=== PATIENT | female | born 1950 | race Hispanic/Latino ===

== ENCOUNTER 2019-10-09 21:23 | Emergency (ER) | payer MEDICARE ==
[2019-10-09 21:49] VITALS: BP 98/78
[2019-10-09 22:16] LABS: Basophils # (Auto) 0.1 K/mm3 (0.0-0.1); Basophils % (Auto) 1.2 % (0.0-1.8); Eosinophils # (Auto) 0.2 K/mm3 (0.0-0.4); Eosinophils % (Auto) 3.1 % (0.0-4.3); Lymphocytes # (Auto) 1.4 K/mm3 (1.2-5.4); Lymphocytes % (Auto) 24.5 % (13.4-35.0); Mean Corpuscular HGB Conc 33 % (30-34); Mean Corpuscular Volume 97 fl (79-97); Monocytes # (Auto) 0.4 K/mm3 (0.0-0.8); Monocytes % (Auto) 6.9 % (0.0-7.3); Platelet Count 135 K/mm3 (140-440); Red Blood Count 3.09 M/mm3 (3.65-5.03); Red Cell Distribution Width 14.1 % (13.2-15.2)
[2019-10-09 22:35] LABS: BUN/Creatinine Ratio 30; Blood Urea Nitrogen 54 mg/dL (7-17); Calcium 9.2 mg/dL (8.4-10.2); Hemolysis Index 6
--- NOTE | 2019-10-09 22:48 | XRay Report ---
CHEST 1 VIEW INDICATION: Chest Pain. COMPARISON: 10/07/2019 FINDINGS: Support devices: None. Heart: Stable mild cardiomegaly. Lungs/Pleura: No acute air space or interstitial disease. Additional findings: None. IMPRESSION: No acute abnormality. Signer Name: Bronson Hess MD Signed: 10/09/2019 10:43 PM Workstation Name: [id number]
--- NOTE | 2019-10-10 02:28 | Emergency Department Report ---
ED Chest Pain HPI - General Chief Complaint: Chest Pain Stated Complaint: CHEST PAIN PUI?: No Time Seen by Provider: 10/10/19 02:15 Source: patient, EMS Mode of arrival: Wheelchair Limitations: No Limitations - History of Present Illness Initial Comments: Patient is a 68-year-old female that presents emergency room with complaints of chest pain. Patient states the chest pain is in her left chest. Patient states the chest pain is a 10 out of 10. Patient states the chest pain started at 3 PM yesterday. Patient states that the chest pain is a 10 out of 10. Patient states it is better with rest and worse with movement and palpation. Patient denies fever, chills, shortness of breath, nausea, vomiting, diaphoresis. Patient states that her chest pain started soon as she [facility] to the [facility] the street from here. Patient states she has a past medical history of diabetes, hypertension, renal disease. Patient states her baseline creatinine is 1.7. Patient denies recent travel. Patient denies recent international travel. Patient denies exposure to the novel coronavirus. Patient denies sick contacts. Patient denies fever and chills. Patient denies cough. Patient denies diarrhea. Patient denies coming in contact with anybody with symptoms of the novel coronavirus. MD Complaint: chest pain -: Sudden Onset: during rest Pain Location: left chest Pain Radiation: none Severity: severe Severity scale (0 -10): 10 Quality: sharp Consistency: constant Improves With: rest, remaining still Worsens With: palpation, movement re: denies: nausea, vomting, diaphoresis, dyspnea, sense of impending doom Other Symptoms: denies: cough, fever, syncope, rash, acid taste in mouth, leg swelling, palpitations, burping Treatments Prior to Arrival: none Aspirin use within the Past 7 Days: (1) Yes - Related Data Home Medications Medication Instructions Recorded Confirmed Last Taken Amitriptyline 10 mg PO QHS 09/28/19 09/28/19 Unknown Aspirin 81 mg PO DAILY 09/28/19 09/28/19 Unknown Atorvastatin 40 mg PO QHS 09/28/19 09/28/19 Unknown Clopidogrel [Plavix] 75 mg PO DAILY 09/28/19 09/28/19 Unknown Ferrous Sulfate 324 MG 65 mg PO DAILY 09/28/19 09/28/19 Unknown Levemir VIAL 35 units SQ QHS 09/28/19 09/28/19 Unknown Levothyroxine 88 mcg PO QAC 09/28/19 09/28/19 Unknown Melatonin 5MG TAB 5 mg PO QHS 09/28/19 09/28/19 Unknown Myrbetriq 25 mg PO DAILY 09/28/19 09/28/19 Unknown NovoLOG 100 UNITS/ML VIAL 10 units SQ TIDAC 09/28/19 09/28/19 Unknown allopurinoL 100 mg PO DAILY 09/28/19 09/28/19 Unknown carvediloL 25 mg PO BID 09/28/19 09/28/19 Unknown hydrALAZINE [Apresoline TAB] 100 mg PO BID 09/28/19 09/28/19 Unknown Previous Rx's Medication Instructions Recorded Last Taken Type ARIPiprazole 7.5 mg PO QDAY #30 tablet 10/02/19 Unknown Rx Acetaminophen [Acetaminophen TAB] 500 mg PO Q4H PRN tablet 10/02/19 Unknown Rx DULoxetine [Cymbalta] 60 mg PO BID #30 capsule 10/02/19 Unknown Rx Pantoprazole [Protonix TAB] 20 mg PO QDAY tablet. 10/02/19 Unknown Rx QUEtiapine [SEROquel] 50 mg PO QHS #30 tablet 10/02/19 Unknown Rx Topiramate [Topamax] 100 mg PO DAILY #30 tablet 10/02/19 Unknown Rx busPIRone [Buspar] 15 mg PO BID #30 tablet 10/02/19 Unknown Rx Allergies Allergy/AdvReac Type Severity Reaction Status Date / Time adhesive tape AdvReac Unknown Verified 09/28/19 01:37 codeine AdvReac Unknown Verified 09/28/19 01:37 morphine AdvReac Unknown Verified 09/28/19 01:37 ondansetron AdvReac Unknown Verified 09/28/19 01:37 Penicillins AdvReac Unknown Verified 09/28/19 01:37 Sulfa (Sulfonamide AdvReac Unknown Verified 09/28/19 01:37 Antibiotics) Heart Score - HEART Score History: Slightly suspicious EKG: Normal Age: > 65 Risk factors: 1-2 risk factors Troponin: < normal limit HEART Score: 3 ED Review of Systems ROS: Stated complaint: CHEST PAIN Other details as noted in HPI Constitutional: denies: chills, fever Eyes: denies: eye pain, eye discharge, vision change ENT: denies: ear pain, throat pain Respiratory: denies: cough, shortness of breath, wheezing Cardiovascular: chest pain. denies: palpitations Endocrine: no symptoms reported Gastrointestinal: denies: abdominal pain, nausea, diarrhea Genitourinary: denies: urgency, dysuria, discharge Musculoskeletal: denies: back pain, joint swelling, arthralgia Skin: denies: rash, lesions Neurological: denies: headache, weakness, paresthesias Psychiatric: denies: anxiety, depression Hematological/Lymphatic: denies: easy bleeding, easy bruising ED Past Medical Hx - Past Medical History Previous Medical History?: Yes Hx Diabetes: Yes Hx Renal Disease: Yes Hx Arthritis: No Hx Seizures: No Hx Psychiatric Treatment: Yes - Surgical History Hx Cholecystectomy: Yes Hx Appendectomy: Yes - Social History Smoking Status: Never Smoker Substance Use Type: Alcohol - Medications Home Medications: Home Medications Medication Instructions Recorded Confirmed Last Taken Type Amitriptyline 10 mg PO QHS 09/28/19 09/28/19 Unknown History Aspirin 81 mg PO DAILY 09/28/19 09/28/19 Unknown History Atorvastatin 40 mg PO QHS 09/28/19 09/28/19 Unknown History Clopidogrel [Plavix] 75 mg PO DAILY 09/28/19 09/28/19 Unknown History Ferrous Sulfate 324 MG 65 mg PO DAILY 09/28/19 09/28/19 Unknown History Levemir VIAL 35 units SQ QHS 09/28/19 09/28/19 Unknown History Levothyroxine 88 mcg PO QAC 09/28/19 09/28/19 Unknown History Melatonin 5MG TAB 5 mg PO QHS 09/28/19 09/28/19 Unknown History Myrbetriq 25 mg PO DAILY 09/28/19 09/28/19 Unknown History NovoLOG 100 UNITS/ML VIAL 10 units SQ TIDAC 09/28/19 09/28/19 Unknown History allopurinoL 100 mg PO DAILY 09/28/19 09/28/19 Unknown History carvediloL 25 mg PO BID 09/28/19 09/28/19 Unknown History hydrALAZINE [Apresoline TAB] 100 mg PO BID 09/28/19 09/28/19 Unknown History ARIPiprazole 7.5 mg PO QDAY #30 tablet 10/02/19 Unknown Rx Acetaminophen [Acetaminophen TAB] 500 mg PO Q4H PRN tablet 10/02/19 Unknown Rx DULoxetine [Cymbalta] 60 mg PO BID #30 capsule 10/02/19 Unknown Rx Pantoprazole [Protonix TAB] 20 mg PO QDAY tablet. 10/02/19 Unknown Rx QUEtiapine [SEROquel] 50 mg PO QHS #30 tablet 10/02/19 Unknown Rx Topiramate [Topamax] 100 mg PO DAILY #30 tablet 10/02/19 Unknown Rx busPIRone [Buspar] 15 mg PO BID #30 tablet 10/02/19 Unknown Rx ED Physical Exam - General Limitations: No Limitations General appearance: alert, in no apparent distress - Head Head exam: Present: atraumatic, normocephalic - Eye Eye exam: Present: normal appearance, PERRL Pupils: Present: normal accommodation - ENT ENT exam: Present: mucous membranes moist - Neck Neck exam: Present: normal inspection - Respiratory Respiratory exam: Present: normal lung sounds bilaterally, chest wall tenderness (Patient has a left chest reproduces her symptoms.). Absent: respiratory distress, wheezes, rales - Cardiovascular Cardiovascular Exam: Present: regular rate, normal rhythm. Absent: systolic murmur, diastolic murmur, rubs, gallop - GI/Abdominal GI/Abdominal exam: Present: soft, normal bowel sounds. Absent: distended, tenderness, guarding - Extremities Exam Extremities exam: Present: normal inspection - Back Exam Back exam: Present: normal inspection - Neurological Exam Neurological exam: Present: alert, oriented X3 - Psychiatric Psychiatric exam: Present: normal affect, normal mood - Skin Skin exam: Present: warm, dry, intact, normal color. Absent: rash ED Course Vital Signs 10/09/19 21:48 Temperature 98.0 F Pulse Rate 68 Respiratory 16 Rate Blood Pressure 98/78 O2 Sat by Pulse 96 Oximetry - Reevaluation(s) Reevaluation #1: Patient will be given Tylenol for pain. Patient will be discharged from the ER and sent back to [facility]. I discussed all results and clinical findings with patient. I discussed plan of care with patient. Patient agrees with plan of care. Patient is stable for discharge. Patient will be discharged home. Patient given discharge instructions. Patient voiced understanding of discharge instructions. 10/10/19 02:35 ANUJ score - Anuj Score Age > 65: (1) Yes Aspirin use within the Past 7 Days: (1) Yes 3 or more CAD Risk Factors: (0) No 2 or more Angina events in past 24 hrs: (0) No Known CAD with more than 50% Stenosis: (0) No Elevated Cardiac Markers: (0) No ST Deviation Greater than 0.5mm: (0) No ANUJ Score: 2 ED Medical Decision Making - Lab Data Result diagrams: 10/09/19 22:02 10/09/19 22:02 - EKG Data -: EKG Interpreted by Me EKG shows normal: sinus rhythm, axis, intervals, QRS complexes, ST-T waves Rate: normal - Radiology Data Radiology results: report reviewed, image reviewed interpreted by me: Chest x-ray: No acute findings, no pneumothorax, no pneumonia, no rib findings, soft tissue normal, no foreign body,. - Medical Decision Making Patient is a 68-year-old female that presents emergency room for complaints of chest pain. Patient has had 2 sets of cardiac enzymes and both were negative. Patient's EKG is normal and shows a sinus rhythm with no ST changes. Patient chest x-ray is negative. Patient's labs are unremarkable except for elevated creatinine consistent with CKD.. On exam, the patient's chest pain is reproducible palpation. Patient given Tylenol for the pain. Patient is stable for discharge. Patient will be discharged back to her [facility]. - Differential Diagnosis Chest wall tenderness, chest pain, chest sprain Critical care attestation.: If time is entered above; I have spent that time in minutes in the direct care of this critically ill patient, excluding procedure time. ED Disposition Clinical Impression: Chest wall pain Chest pain Qualifiers: Chest pain type: unspecified Qualified Code(s): R07.9 - Chest pain, unspecified Chest wall muscle strain Qualifiers: Encounter type: initial encounter Qualified Code(s): S29.011A - Strain of muscle and tendon of front wall of thorax, initial encounter Chronic kidney disease (CKD) Qualifiers: Chronic kidney disease stage: unspecified stage Qualified Code(s): N18.9 - Chronic kidney disease, unspecified Disposition: DC-01 TO HOME OR SELFCARE Is pt being admited?: No Does the pt Need Aspirin: No Condition: Stable Instructions: Chest Pain (ED), Muscle Strain (ED), Costochondritis (ED) Additional Instructions: Patient to be discharged from the ER and sent back to her psychiatric facility. Patient to follow-up with primary care in 2 to 3 days. Patient to follow-up with log manager in 2 to 3 days. Patient to follow-up with an orthopedist in 2 to 3 days. Patient to rest. Patient to increase water. Patient to avoid strenuous exercise or heavy lifting until cleared by log manager and orthopedist. Patient to take Tylenol as needed for pain. Patient to continue all medications. Patient to return to the ER if condition worsens, changes or new symptoms arise. Referrals: GIANNI FORBES MD [Primary Care Provider] - 2-3 Days SANDY LAWRENCE MD [Staff Physician] - 2-3 Days Time of Disposition: 02:39
[2019-10-10] MEDS ORDERED: ACETAMINOPHEN 500 MG TAB PO ONE (02:40)
== END 2019-10-10 03:40 | disposition home or self-care (01) ==
LOC: ED 21:23
DX: S29.011A Strain of muscle and tendon of front wall of thorax, initial encounter (principal); N18.9 Chronic kidney disease, unspecified; E11.9 Type 2 diabetes mellitus without complications; Z79.899 Other long term (current) drug therapy; Z88.6 Allergy status to analgesic agent; Z88.0 Allergy status to penicillin; Z91.09 Other allergy status, other than to drugs and biological substances; X58.XXXA Exposure to other specified factors, initial encounter; Y93.89 Activity, other specified; Y92.89 Other specified places as the place of occurrence of the external cause; Y99.8 Other external cause status
CPT/HCPCS: 36415; 71045; 80048; 84484; 85025; 93005

== ENCOUNTER 2019-10-13 19:37 | Observation (INO) | payer MEDICARE ==
--- NOTE | 2019-10-13 20:28 | Emergency Department Report ---
ED General Adult HPI - General Stated complaint: WEAKNESS Time Seen by Provider: 10/13/19 20:06 - History of Present Illness Initial comments: 68-year-old female presents to ED via EMS for evaluation. EMS was called because patient was found behind a gas station. EMS reviewed the gas stations surveillance video and it showed that patient was dropped off by someone and left there. Patient has previous admissions here at this facility. She apparently has a history of hypothyroidism, diabetes, hypertension, and depression with psychotic features. Patient has no complaints. -: unknown Associated Symptoms: denies: chest pain, headaches, shortness of breath - Related Data Home Medications Medication Instructions Recorded Confirmed Last Taken Amitriptyline 10 mg PO QHS 09/28/19 09/28/19 Unknown Aspirin 81 mg PO DAILY 09/28/19 09/28/19 Unknown Atorvastatin 40 mg PO QHS 09/28/19 09/28/19 Unknown Clopidogrel [Plavix] 75 mg PO DAILY 09/28/19 09/28/19 Unknown Ferrous Sulfate 324 MG 65 mg PO DAILY 09/28/19 09/28/19 Unknown Levemir VIAL 35 units SQ QHS 09/28/19 09/28/19 Unknown Levothyroxine 88 mcg PO QAC 09/28/19 09/28/19 Unknown Melatonin 5MG TAB 5 mg PO QHS 09/28/19 09/28/19 Unknown Myrbetriq 25 mg PO DAILY 09/28/19 09/28/19 Unknown NovoLOG 100 UNITS/ML VIAL 10 units SQ TIDAC 09/28/19 09/28/19 Unknown allopurinoL 100 mg PO DAILY 09/28/19 09/28/19 Unknown carvediloL 25 mg PO BID 09/28/19 09/28/19 Unknown hydrALAZINE [Apresoline TAB] 100 mg PO BID 09/28/19 09/28/19 Unknown Previous Rx's Medication Instructions Recorded Last Taken Type ARIPiprazole 7.5 mg PO QDAY #30 tablet 10/02/19 Unknown Rx Acetaminophen [Acetaminophen TAB] 500 mg PO Q4H PRN tablet 10/02/19 Unknown Rx DULoxetine [Cymbalta] 60 mg PO BID #30 capsule 10/02/19 Unknown Rx Pantoprazole [Protonix TAB] 20 mg PO QDAY tablet 10/02/19 Unknown Rx QUEtiapine [SEROquel] 50 mg PO QHS #30 tablet 10/02/19 Unknown Rx Topiramate [Topamax] 100 mg PO DAILY #30 tablet 10/02/19 Unknown Rx busPIRone [Buspar] 15 mg PO BID #30 tablet 10/02/19 Unknown Rx Allergies Allergy/AdvReac Type Severity Reaction Status Date / Time adhesive tape AdvReac Unknown Verified 09/28/19 01:37 codeine AdvReac Unknown Verified 09/28/19 01:37 morphine AdvReac Unknown Verified 09/28/19 01:37 ondansetron AdvReac Unknown Verified 09/28/19 01:37 Penicillins AdvReac Unknown Verified 09/28/19 01:37 Sulfa (Sulfonamide AdvReac Unknown Verified 09/28/19 01:37 Antibiotics) ED Review of Systems ROS: Stated complaint: WEAKNESS Other details as noted in HPI Comment: All other systems reviewed and negative Respiratory: denies: shortness of breath Cardiovascular: denies: chest pain Neurological: denies: headache ED Past Medical Hx - Past Medical History Hx Diabetes: Yes Hx Renal Disease: Yes Hx Arthritis: No Hx Seizures: No Hx Psychiatric Treatment: Yes - Surgical History Hx Cholecystectomy: Yes Hx Appendectomy: Yes - Social History Smoking Status: Never Smoker Substance Use Type: Alcohol - Medications Home Medications: Home Medications Medication Instructions Recorded Confirmed Last Taken Type Amitriptyline 10 mg PO QHS 09/28/19 09/28/19 Unknown History Aspirin 81 mg PO DAILY 09/28/19 09/28/19 Unknown History Atorvastatin 40 mg PO QHS 09/28/19 09/28/19 Unknown History Clopidogrel [Plavix] 75 mg PO DAILY 09/28/19 09/28/19 Unknown History Ferrous Sulfate 324 MG 65 mg PO DAILY 09/28/19 09/28/19 Unknown History Levemir VIAL 35 units SQ QHS 09/28/19 09/28/19 Unknown History Levothyroxine 88 mcg PO QAC 09/28/19 09/28/19 Unknown History Melatonin 5MG TAB 5 mg PO QHS 09/28/19 09/28/19 Unknown History Myrbetriq 25 mg PO DAILY 09/28/19 09/28/19 Unknown History NovoLOG 100 UNITS/ML VIAL 10 units SQ TIDAC 09/28/19 09/28/19 Unknown History allopurinoL 100 mg PO DAILY 09/28/19 09/28/19 Unknown History carvediloL 25 mg PO BID 09/28/19 09/28/19 Unknown History hydrALAZINE [Apresoline TAB] 100 mg PO BID 09/28/19 09/28/19 Unknown History ARIPiprazole 7.5 mg PO QDAY #30 tablet 10/02/19 Unknown Rx Acetaminophen [Acetaminophen TAB] 500 mg PO Q4H PRN tablet 10/02/19 Unknown Rx DULoxetine [Cymbalta] 60 mg PO BID #30 capsule 10/02/19 Unknown Rx Pantoprazole [Protonix TAB] 20 mg PO QDAY tablet. 10/02/19 Unknown Rx QUEtiapine [SEROquel] 50 mg PO QHS #30 tablet 10/02/19 Unknown Rx Topiramate [Topamax] 100 mg PO DAILY #30 tablet 10/02/19 Unknown Rx busPIRone [Buspar] 15 mg PO BID #30 tablet 10/02/19 Unknown Rx ED Physical Exam - General General appearance: alert, in no apparent distress - Head Head exam: Present: atraumatic, normocephalic - Eye Eye exam: Present: normal appearance, EOMI - ENT ENT exam: Present: mucous membranes moist - Neck Neck exam: Present: normal inspection - Respiratory Respiratory exam: Present: normal lung sounds bilaterally. Absent: respiratory distress - Cardiovascular Cardiovascular Exam: Present: regular rate, normal rhythm - GI/Abdominal GI/Abdominal exam: Present: soft. Absent: distended, tenderness - Extremities Exam Extremities exam: Present: normal inspection - Neurological Exam Neurological exam: Present: alert. Absent: oriented X3 (oriented to self) - Psychiatric Psychiatric exam: Present: normal affect, normal mood - Skin Skin exam: Present: warm, dry, intact, normal color ED Course Vital Signs 10/13/19 10/13/19 10/13/19 19:55 20:00 20:16 Temperature 98.5 F Pulse Rate 99 H 101 H 98 H Respiratory 18 16 17 Rate Blood Pressure 111/59 106/59 Blood Pressure 111/59 [Left] O2 Sat by Pulse 96 97 97 Oximetry 10/13/19 10/13/19 10/13/19 20:30 20:45 21:00 Temperature Pulse Rate 98 H 98 H 96 H Respiratory 18 19 24 Rate Blood Pressure 101/54 113/64 113/64 Blood Pressure [Left] O2 Sat by Pulse 97 97 98 Oximetry 10/13/19 10/13/19 10/13/19 21:16 21:20 21:31 Temperature Pulse Rate 96 H 96 H 99 H Respiratory 13 12 19 Rate Blood Pressure 116/65 116/65 108/38 Blood Pressure [Left] O2 Sat by Pulse 98 97 98 Oximetry 10/13/19 10/13/19 10/13/19 21:33 21:55 22:15 Temperature Pulse Rate 96 H 94 H 95 H Respiratory 12 12 19 Rate Blood Pressure 108/38 108/38 106/50 Blood Pressure [Left] O2 Sat by Pulse 99 95 Oximetry 10/13/19 10/13/19 10/13/19 22:31 22:45 23:01 Temperature Pulse Rate 97 H 88 92 H Respiratory 18 22 16 Rate Blood Pressure 106/50 106/50 116/62 Blood Pressure [Left] O2 Sat by Pulse Oximetry 10/13/19 10/13/19 10/13/19 23:15 23:31 23:45 Temperature Pulse Rate 88 90 88 Respiratory 16 20 20 Rate Blood Pressure 116/62 116/62 116/62 Blood Pressure [Left] O2 Sat by Pulse Oximetry 10/14/19 10/14/19 10/14/19 00:01 00:15 00:30 Temperature Pulse Rate 89 91 H 88 Respiratory 21 19 17 Rate Blood Pressure 116/62 116/62 104/51 Blood Pressure [Left] O2 Sat by Pulse 95 Oximetry 10/14/19 10/14/19 10/14/19 00:45 01:30 01:45 Temperature Pulse Rate 91 H 90 90 Respiratory 18 14 15 Rate Blood Pressure 102/46 110/52 109/56 Blood Pressure [Left] O2 Sat by Pulse 98 Oximetry 10/14/19 02:00 Temperature Pulse Rate 91 H Respiratory 16 Rate Blood Pressure 110/62 Blood Pressure [Left] O2 Sat by Pulse Oximetry ED Medical Decision Making - Lab Data Result diagrams: 10/13/19 21:33 10/13/19 21:33 - Radiology Data Radiology results: report reviewed, image reviewed - Medical Decision Making 68-year-old female presents to the ED after a suspected abandonment by sample hand at a gas station. Patient found to have acute on chronic renal insufficiency, with elevated BUN and creatinine of 56 and 3.8. Remainder of labs are unremarkable. CT head negative for any acute findings. IV fluids given. Patient will be admitted to hospitalist for further management. - Differential Diagnosis Abandonment, intracranial abnormality, infection Critical care attestation.: If time is entered above; I have spent that time in minutes in the direct care of this critically ill patient, excluding procedure time. ED Disposition Clinical Impression: Acute on chronic renal insufficiency Disposition: OP ADMIT IP TO THIS HOSP Is pt being admited?: Yes Condition: Stable Time of Disposition: 00:35
[2019-10-13 22:01] LABS: Basophils % (Auto) 0.6 % (0.0-1.8); Eosinophils % (Auto) 0.7 % (0.0-4.3); Hematocrit 28.5 % (30.3-42.9); Hemoglobin 9.8 gm/dl (10.1-14.3); Lymphocytes # (Auto) 0.8 K/mm3 (1.2-5.4); Lymphocytes % (Auto) 11.3 % (13.4-35.0); Mean Corpuscular HGB Conc 34 % (30-34); Mean Corpuscular Volume 97 fl (79-97); Monocytes # (Auto) 0.5 K/mm3 (0.0-0.8); Monocytes % (Auto) 7.4 % (0.0-7.3); Platelet Count 129 K/mm3 (140-440); Red Blood Count 2.96 M/mm3 (3.65-5.03); Red Cell Distribution Width 13.7 % (13.2-15.2)
--- NOTE | 2019-10-13 22:21 | Cat Scan Report ---
CT HEAD WITHOUT CONTRAST INDICATION / CLINICAL INFORMATION: ams. TECHNIQUE: All CT scans at this location are performed using CT dose reduction for ALARA by means of automated e xposure control. COMPARISON: None available. FINDINGS: HEMORRHAGE: None. EXTRA-AXIAL SPACES: Normal in size and morphology for the patient's age. VENTRICULAR SYSTEM: Normal in size and morphology for the patient's age. CEREBRAL PARENCHYMA: Microangiopathy. 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 MIDLINE SHIFT OR HERNIATION: None. CEREBELLUM / BRAINSTEM: No significant abnormality. ORBITS: Normal as visualized. SOFT TISSUES of HEAD: No significant abnormality. CALVARIUM: No significant abnormality. PARANASAL SINUSES / MASTOID AIR CELLS: Normal as visualized. ADDITIONAL FINDINGS: Vascular calcifications left vertebral artery and both cavernous carotid arterie s IMPRESSION: 1. 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 2. No intracranial bleed or large acute territorial infarction. Signer Name: Tyrese Alba MD Signed: 10/13/2019 10:16 PM Workstation Name: [id number]
[2019-10-13 22:24] LABS: Alanine Aminotransferase 12 units/L (7-56); Blood Urea Nitrogen 56 mg/dL (7-17); Hemolysis Index 3
[2019-10-13 22:33] LABS: BUN/Creatinine Ratio 15; Bilirubin,Direct < 0.2 mg/dL (0-0.2)
[2019-10-13] MEDS ORDERED: SODIUM CHLORIDE 0.9% 1000 ML 1,000 ML IV ONE (23:44)
[2019-10-14 01:16] LABS: Bacteria,Urine 1+ /HPF (Negative); Bilirubin,Urine SM (Negative); Blood,Urine NEG (Negative); Color,Urine Yellow (Yellow); Mucus,Urine FEW /HPF; Protein,Urine <15 mg/dL mg/dL (Negative); Urobilinogen,Urine < 2.0 mg/dL (<2.0)
[2019-10-14 01:23] LABS: Amphetamine Screen,Urine PRESUMPTIVE NEGATIVE; Benzodiazepines Screen,Urine PRESUMPTIVE NEGATIVE; Cannabinoid Screen,Urine PRESUMPTIVE NEGATIVE; Cocaine Screen,Urine PRESUMPTIVE NEGATIVE; Methadone Screen,Urine PRESUMPTIVE NEGATIVE; Opiate Screen,Urine PRESUMPTIVE NEGATIVE
[2019-10-14 01:29] LABS: Ictotest,Urine Negative (Negative)
[2019-10-14] MEDS ORDERED: ONDANSETRON 4 MG/2 ML INJ IV PRN (01:52)
[2019-10-14] MEDS ORDERED: MORPHINE 2 MG/1 ML INJ IV PRN (01:52)
[2019-10-14] MEDS ORDERED: DEXTROSE 50% IN WATER (25GM) 50 ML SYRINGE IV PRN (01:52)
[2019-10-14] MEDS ORDERED: MAGNESIUM HYDROXIDE (MOM) ORAL LIQD UDC PO PRN (01:52)
[2019-10-14] MEDS ORDERED: SODIUM CHLORIDE 0.9% 1000 ML 1,000 ML IV SCH (02:00)
--- NOTE | 2019-10-14 02:00 | History and Physical Report ---
History of Present Illness Date of examination: 10/14/19 Date of admission: 10/14/19 01:13 Chief complaint: Weakness History of present illness: Patient is a 68-year-old female with known history of hypertension, diabetes mellitus, hypothyroidism, depression with psychotic features was brought in by EMS today after being found behind a gas station. She was said to have been dropped off by an unknown person and left at the gas station. Patient denies any complaints upon arrival in the emergency room. Evaluation in the emergency room however reveals elevated BUN and creatinine. CT scan of the head done did not reveal any acute abnormality. Patient is being admitted in the hospital for acute kidney injury and for possible evaluation by case management. Past History Past Medical History: diabetes, hypertension, hyperlipidemia, hypothyroidism, other (H/O Depression with Psychotic features) Past Surgical History: appendectomy, cholecystectomy Social history: alcohol abuse (Occasional alcohol) Family history: no significant family history Medications and Allergies Allergies Allergy/AdvReac Type Severity Reaction Status Date / Time adhesive tape AdvReac Unknown Verified 09/28/19 01:37 codeine AdvReac Unknown Verified 09/28/19 01:37 morphine AdvReac Unknown Verified 09/28/19 01:37 ondansetron AdvReac Unknown Verified 09/28/19 01:37 Penicillins AdvReac Unknown Verified 09/28/19 01:37 Sulfa (Sulfonamide AdvReac Unknown Verified 09/28/19 01:37 Antibiotics) Home Medications Medication Instructions Recorded Confirmed Last Taken Type Amitriptyline 10 mg PO QHS 09/28/19 09/28/19 Unknown History Aspirin 81 mg PO DAILY 09/28/19 09/28/19 Unknown History Atorvastatin 40 mg PO QHS 09/28/19 09/28/19 Unknown History Clopidogrel [Plavix] 75 mg PO DAILY 09/28/19 09/28/19 Unknown History Ferrous Sulfate 324 MG 65 mg PO DAILY 09/28/19 09/28/19 Unknown History Levemir VIAL 35 units SQ QHS 09/28/19 09/28/19 Unknown History Levothyroxine 88 mcg PO QAC 09/28/19 09/28/19 Unknown History Melatonin 5MG TAB 5 mg PO QHS 09/28/19 09/28/19 Unknown History Myrbetriq 25 mg PO DAILY 09/28/19 09/28/19 Unknown History NovoLOG 100 UNITS/ML VIAL 10 units SQ TIDAC 09/28/19 09/28/19 Unknown History allopurinoL 100 mg PO DAILY 09/28/19 09/28/19 Unknown History carvediloL 25 mg PO BID 09/28/19 09/28/19 Unknown History hydrALAZINE [Apresoline TAB] 100 mg PO BID 09/28/19 09/28/19 Unknown History ARIPiprazole 7.5 mg PO QDAY #30 tablet 10/02/19 Unknown Rx Acetaminophen [Acetaminophen TAB] 500 mg PO Q4H PRN tablet 10/02/19 Unknown Rx DULoxetine [Cymbalta] 60 mg PO BID #30 capsule 10/02/19 Unknown Rx Pantoprazole [Protonix TAB] 20 mg PO QDAY tablet. 10/02/19 Unknown Rx QUEtiapine [SEROquel] 50 mg PO QHS #30 tablet 10/02/19 Unknown Rx Topiramate [Topamax] 100 mg PO DAILY #30 tablet 10/02/19 Unknown Rx busPIRone [Buspar] 15 mg PO BID #30 tablet 10/02/19 Unknown Rx Review of Systems Constitutional: weakness, no fever, no chills Ears, nose, mouth and throat: no nasal congestion, no sore throat Cardiovascular: no chest pain, no palpitations Respiratory: no cough, no shortness of breath Gastrointestinal: no abdominal pain, no nausea, no vomiting, no diarrhea Genitourinary Female: no flank pain, no dysuria, no hematuria Musculoskeletal: no neck pain, no low back pain Integumentary: no rash, no pruritis Neurological: no headaches, no confusion Psychiatric: no anxiety, no depression Exam - Constitutional Vitals: Temp Pulse Resp BP Pulse Ox 98.5 F 90 14 110/52 98 10/13/19 19:55 10/14/19 01:30 10/14/19 01:30 10/14/19 01:30 10/14/19 00:45 General appearance: Present: no acute distress, well-nourished, obese - EENT Eyes: Present: PERRL, EOM intact. Absent: scleral icterus ENT: hearing intact, clear oral mucosa, dentition normal - Neck Neck: Present: supple, normal ROM - Respiratory Respiratory effort: normal Respiratory: bilateral: CTA - Cardiovascular Rhythm: regular Heart Sounds: Present: S1 & S2. Absent: gallop, systolic murmur, diastolic murmur, rub - Extremities Extremities: no ischemia, pulses intact, pulses symmetrical, No edema - Abdominal General gastrointestinal: Present: soft, non-tender, non-distended, normal bowel sounds. Absent: mass - Integumentary Integumentary: Present: clear, warm, dry. Absent: rash - Musculoskeletal Musculoskeletal: strength equal bilaterally - Psychiatric Psychiatric: appropriate mood/affect, intact judgment & insight, memory intact, cooperative - Neurologic Neurologic: CNII-XII intact, no focal deficits, moves all extremities Results - Labs CBC & Chem 7: 10/13/19 21:33 10/13/19 21:33 Labs: Abnormal lab results 10/13/19 10/13/19 10/13/19 Range/Units 21:33 21:33 21:33 RBC 2.96 L (3.65-5.03) M/mm3 Hgb 9.8 L (10.1-14.3) gm/dl Hct 28.5 L (30.3-42.9) % MCH 33 H (28-32) pg Plt Count 129 L (140-440) K/mm3 Lymph % (Auto) 11.3 L (13.4-35.0) % [place] % (Auto) 7.4 H (0.0-7.3) % Lymph # 0.8 L (1.2-5.4) K/mm3 Seg Neutrophils % 80.0 H (40.0-70.0) % Sodium 136 L (137-145) mmol/L Carbon Dioxide 14 L (22-30) mmol/L BUN 56 H (7-17) mg/dL Creatinine 3.8 H D (0.6-1.2) mg/dL Glucose 131 H (65-100) mg/dL Alkaline Phosphatase 142 H (35-129) units/L Salicylates < 0.3 L (2.8-20.0) mg/dL Acetaminophen (10.0-30.0) ug/mL 10/13/19 Range/Units 21:33 RBC (3.65-5.03) M/mm3 Hgb (10.1-14.3) gm/dl Hct (30.3-42.9) % MCH (28-32) pg Plt Count (140-440) K/mm3 Lymph % (Auto) (13.4-35.0) % [place] % (Auto) (0.0-7.3) % Lymph # (1.2-5.4) K/mm3 Seg Neutrophils % (40.0-70.0) % Sodium (137-145) mmol/L Carbon Dioxide (22-30) mmol/L BUN (7-17) mg/dL Creatinine (0.6-1.2) mg/dL Glucose (65-100) mg/dL Alkaline Phosphatase (35-129) units/L Salicylates (2.8-20.0) mg/dL Acetaminophen 5.0 L (10.0-30.0) ug/mL Assessment and Plan - Patient Problems (1) Acute on chronic renal insufficiency Current Visit: Yes Status: Acute Plan to address problem: Patient placed on IV fluid. Will monitor BUN and creatinine. We will also place a consult to nephrology for evaluation. (2) Diabetes Current Visit: No Status: Acute Plan to address problem: We will monitor Accu-Cheks. (3) Hyperlipidemia Current Visit: No Status: Acute Qualifiers: Hyperlipidemia type: mixed hyperlipidemia Qualified Code(s): E78.2 - Mixed hyperlipidemia Plan to address problem: Will resume routine home medications once reconciled and monitor lipid profile. (4) Hypertension Current Visit: No Status: Acute Qualifiers: Hypertension type: essential hypertension Qualified Code(s): I10 - Essential (primary) hypertension Plan to address problem: We will monitor vital signs closely and resume routine home medications. (5) Hypothyroidism Current Visit: No Status: Acute (6) History of depression Current Visit: Yes Status: Acute Plan to address problem: Patient has known history of depression with psychotic features. We will place a consult to mental health for evaluation during this admission. Consult has also been placed to case management for evaluation and recommendation. (7) DVT prophylaxis Current Visit: Yes Status: Acute Plan to address problem: Patient placed on subcutaneous heparin. (8) Full code status Current Visit: Yes Status: Acute
[2019-10-14] MEDS ORDERED: HEPARIN 5,000 UNIT/1 ML VIAL SUB-Q SCH (06:00)
[2019-10-14] MEDS ORDERED: LEVOTHYROXINE 88 MCG PO SCH (07:30)
[2019-10-14] MEDS: INSULIN LISPRO 100 UNIT/ML VIAL 3 mL SUB-Q SCH ×4 (08:34→22:01)
[2019-10-14] MEDS: FERROUS SULFATE 325 MG TAB PO SCH (08:53)
--- NOTE | 2019-10-14 09:10 | Consultation ---
History of Present Illness - Reason for Consult Consult date: 10/14/19 acute renal failure Requesting physician: SIMONE MCGUIRE - History of Present Illness 68-year-old female presents to ED via EMS for evaluation. EMS was called because patient was found behind a gas station. EMS reviewed the gas stations surveillance video and it showed that patient was dropped off by someone and left there. Patient has previous admissions here at this facility. She apparen tly has a history of hypothyroidism, diabetes, hypertension, and depression with psychotic features. Patient has no complaints. Review of records indicate that patient had a serum creatinine ranging between 1.5-1.8 last month. She did have a recent admission because of suicidal ideation. Patient however denies any alcohol or antifreeze intake at this time. Past History Past Medical History: diabetes, hypertension, hyperlipidemia, hypothyroidism, other (H/O Depression with Psychotic features) Past Surgical History: appendectomy, cholecystectomy Social history: alcohol abuse (Occasional alcohol) Family history: no significant family history Medications and Allergies Allergies Allergy/AdvReac Type Severity Reaction Status Date / Time adhesive tape AdvReac Unknown Verified 09/28/19 01:37 codeine AdvReac Unknown Verified 09/28/19 01:37 morphine AdvReac Unknown Verified 09/28/19 01:37 ondansetron AdvReac Unknown Verified 09/28/19 01:37 Penicillins AdvReac Unknown Verified 09/28/19 01:37 Sulfa (Sulfonamide AdvReac Unknown Verified 09/28/19 01:37 Antibiotics) Home Medications Medication Instructions Recorded Confirmed Last Taken Type Amitriptyline 10 mg PO QHS 09/28/19 09/28/19 Unknown History Aspirin 81 mg PO DAILY 09/28/19 09/28/19 Unknown History Atorvastatin 40 mg PO QHS 09/28/19 09/28/19 Unknown History Clopidogrel [Plavix] 75 mg PO DAILY 09/28/19 09/28/19 Unknown History Ferrous Sulfate 324 MG 65 mg PO DAILY 09/28/19 09/28/19 Unknown History Levemir VIAL 35 units SQ QHS 09/28/19 09/28/19 Unknown History Levothyroxine 88 mcg PO QAC 09/28/19 09/28/19 Unknown History Melatonin 5MG TAB 5 mg PO QHS 09/28/19 09/28/19 Unknown History Myrbetriq 25 mg PO DAILY 09/28/19 09/28/19 Unknown History NovoLOG 100 UNITS/ML VIAL 10 units SQ TIDAC 09/28/19 09/28/19 Unknown History allopurinoL 100 mg PO DAILY 09/28/19 09/28/19 Unknown History carvediloL 25 mg PO BID 09/28/19 09/28/19 Unknown History hydrALAZINE [Apresoline TAB] 100 mg PO BID 09/28/19 09/28/19 Unknown History ARIPiprazole 7.5 mg PO QDAY #30 tablet 10/02/19 Unknown Rx Acetaminophen [Acetaminophen TAB] 500 mg PO Q4H PRN tablet 10/02/19 Unknown Rx DULoxetine [Cymbalta] 60 mg PO BID #30 capsule 10/02/19 Unknown Rx Pantoprazole [Protonix TAB] 20 mg PO QDAY tablet. 10/02/19 Unknown Rx QUEtiapine [SEROquel] 50 mg PO QHS #30 tablet 10/02/19 Unknown Rx Topiramate [Topamax] 100 mg PO DAILY #30 tablet 10/02/19 Unknown Rx busPIRone [Buspar] 15 mg PO BID #30 tablet 10/02/19 Unknown Rx Active Meds: Active Medications Acetaminophen (Tylenol) 650 mg PO Q4H PRN PRN Reason: Pain MILD(1-3)/Fever >100.5/RAY Aspirin (Halfprin Ec) [address] [facility] Atorvastatin Calcium (Lipitor) [address] [facility] Carvedilol (Coreg) [address] [facility] Clopidogrel Bisulfate (Plavix) [address] [facility] Dextrose (D50w (25gm) Syringe) 50 ml IV Q30MIN PRN; Protocol PRN Reason: Hypoglycemia Ferrous Sulfate (Feosol) 325 mg PO DAILY@0800 [facility] Last Admin: 10/14/19 08:53 Dose: 325 mg Documented by: Sodium Chloride (Nacl 0.9% 1000 Ml) 1,000 mls @ 125 mls/hr IV DIRECT [facility] Last Admin: 10/14/19 05:32 Dose: 125 mls/hr Documented by: Insulin Human Lispro (Humalog) 0 unit SUB-Q ACHS [facility]; Protocol Last Admin: 10/14/19 08:34 Dose: Not Given Documented by: Levothyroxine Sodium (Synthroid) 88 mcg PO DAILY@0600 [facility] Magnesium Hydroxide (Milk Of Magnesia) 30 ml PO Q4H PRN PRN Reason: Constipation Pantoprazole Sodium (Protonix) 20 mg PO QDAY [facility] Sodium Chloride (Sodium Chloride Flush Syringe 10 Ml) 10 ml IV BID [facility] Sodium Chloride (Sodium Chloride Flush Syringe 10 Ml) 10 ml IV PRN PRN PRN Reason: LINE FLUSH Topiramate (Topamax) 100 mg PO DAILY [facility] Review of Systems All systems: negative (Negative except as noted above) Exam - Vital Signs Vital signs: Vital Signs Temp Pulse Resp BP Pulse Ox 98.5 F 99 H 18 111/59 96 10/13/19 19:55 10/13/19 19:55 10/13/19 19:55 10/13/19 19:55 10/13/19 19:55 - General Appearance General appearance: well-developed, well-nourished, appears stated age EENT: PERRL, mucous membranes moist Neck: Present: neck supple, trachea midline. Absent: JVD/HJR, Masses Respiratory: Clear to Ascultation Heart: regular, normal heart rate Gastrointestinal: Present: normal, normoactive bowel sounds Integumentary: other (No edema) Results - Lab Results 10/13/19 21:33 10/13/19 21:33 Most recent lab results Calcium 9.0 mg/dL (8.4-10.2) 10/13/19 21:33 Assessment and Plan Impression * Acute on chronic renal failure * Altered mental status * Metabolic acidosis * Hypertension * Diabetes * Hyperlipidemia Recommendations * Etiology of worsening renal function unclear. She may have a prerenal component. * She most likely has some degree of underlying hypertensive nephrosclerosis and/or diabetic nephropathy * Shall check a UA as well as a fractional excretion of sodium * Renal ultrasound to assess kidney size and echogenicity * Continue IV hydration. Add bicarbonate to the IV fluid * Monitor fluid status and electrolytes closely * Avoid nephrotoxins * Thank you very much for the consultation. Shall follow along with you
[2019-10-14] MEDS: CLOPIDOGREL 75 MG TAB PO SCH (09:21)
[2019-10-14] MEDS: PANTOPRAZOLE 20 MG TAB PO SCH (09:23)
[2019-10-14] MEDS: carvediloL 25 MG TAB PO SCH ×2 (09:23→21:55)
[2019-10-14] MEDS: ASPIRIN EC 81 MG TAB PO SCH (09:23)
[2019-10-14] MEDS: TOPIRAMATE TAB 100 MG TAB PO SCH (09:24)
[2019-10-14] MEDS: LEVOTHYROXINE 88 MCG TAB PO SCH (09:25)
[2019-10-14] MEDS ORDERED: NON-FORMULARY EACH (Carvedilol 25 MG) PO SCH (10:00)
[2019-10-14] MEDS ORDERED: FERROUS SULFATE PO SCH (10:00)
[2019-10-14] MEDS ORDERED: NON-FORMULARY EACH (Aspirin 81 MG) PO SCH (10:00)
--- NOTE | 2019-10-14 12:15 | Consultation ---
History of Present Illness - Reason for Consult Consult date: 10/14/19 Reason for consult: history of depression - History of Present Psychiatric Illness Kaylie Castrejon is a 68 y/o patient who is known to me from a recent visit. It is documented that the patient was dropped off at a gas station and left there. During my interview with the patient she is lying in bed, asleep. She easily arouses. She is a/o x 1. Her thinking is somewhat disorganized. The patient states, "I just can't think right now." Her speech is not clear at times. She is calm and cooperative. She is pleasant. She smiles from time to time. She talks to me about her marriage. She says she was " for 49 years but have been getting a divorce since January." The patient told me she was at the store "getting a soda." The patient then tells me, "I was living at some place with this lady."The patient denies SI/HI, stating "no, I don't want to that. I don't want to ." The patient also denies hallucinations of any kind. She states she was admitted for depression one time before. She denies any illicit drug use, alcohol or nicotine use. The patient describes her mood as "better, but I have a headache." PAST PSYCHIATRIC HISTORY Diagnoses: none Suicide attempts or Self-harm behavior: Denies Prior psychiatric hospitalizations: Denies Substance Abuse history: Snuff Previous psychiatric medications tried: Denies Outpatient treatment: Denies PAST MEDICAL HISTORY: None reported FAMILY PSYCHIATRIC HISTORY: None reported or documented SOCIAL HISTORY Marital Status: , but Living Arrangements: "with a lady" Employment Status: Retried Access to guns/weapons: Denies Education: History of Abuse: None reported Legal History: none reported REVIEW OF SYSTEMS Constitutional: Negative for weight loss ENT: Negative for stridor Respiratory: Negative for cough or hemoptysis All other systems reviewed and are negative MENTAL STATUS EXAMINATION General Appearance: Dressed appropriately Behavior: calm and cooperative Mood: "better" Affect and affective range: Congruent with stated mood Speech: Normal volume, difficult to understand at times Thought Process: Goal directed Thought Content: Suicidal Ideation: Denies Homicidal Ideation: Denies HI Hallucinations: Denies Delusions: None elicited Insight and Judgment: Limited Memory/Cognition: Limited Assessment Altered Mental Status History of Depression PLAN Continued Home psych medications Sitter: Defer to primary Medical: Per primary Disposition: Do not recommend acute inpatient psychiatric treatment at this time. Will sign off. Thank you for this consult. Medications and Allergies Allergies Allergy/AdvReac Type Severity Reaction Status Date / Time adhesive tape AdvReac Unknown Verified 09/28/19 01:37 codeine AdvReac Unknown Verified 09/28/19 01:37 morphine AdvReac Unknown Verified 09/28/19 01:37 ondansetron AdvReac Unknown Verified 09/28/19 01:37 Penicillins AdvReac Unknown Verified 09/28/19 01:37 Sulfa (Sulfonamide AdvReac Unknown Verified 09/28/19 01:37 Antibiotics) Home Medications Medication Instructions Recorded Confirmed Last Taken Type Amitriptyline 10 mg PO QHS 09/28/19 09/28/19 Unknown History Aspirin 81 mg PO DAILY 09/28/19 09/28/19 Unknown History Atorvastatin 40 mg PO QHS 09/28/19 09/28/19 Unknown History Clopidogrel [Plavix] 75 mg PO DAILY 09/28/19 09/28/19 Unknown History Ferrous Sulfate 324 MG 65 mg PO DAILY 09/28/19 09/28/19 Unknown History Levemir VIAL 35 units SQ QHS 09/28/19 09/28/19 Unknown History Levothyroxine 88 mcg PO QAC 09/28/19 09/28/19 Unknown History Melatonin 5MG TAB 5 mg PO QHS 09/28/19 09/28/19 Unknown History Myrbetriq 25 mg PO DAILY 09/28/19 09/28/19 Unknown History NovoLOG 100 UNITS/ML VIAL 10 units SQ TIDAC 09/28/19 09/28/19 Unknown History allopurinoL 100 mg PO DAILY 09/28/19 09/28/19 Unknown History carvediloL 25 mg PO BID 09/28/19 09/28/19 Unknown History hydrALAZINE [Apresoline TAB] 100 mg PO BID 09/28/19 09/28/19 Unknown History ARIPiprazole 7.5 mg PO QDAY #30 tablet 10/02/19 Unknown Rx Acetaminophen [Acetaminophen TAB] 500 mg PO Q4H PRN tablet 10/02/19 Unknown Rx DULoxetine [Cymbalta] 60 mg PO BID #30 capsule 10/02/19 Unknown Rx Pantoprazole [Protonix TAB] 20 mg PO QDAY tablet. 10/02/19 Unknown Rx QUEtiapine [SEROquel] 50 mg PO QHS #30 tablet 10/02/19 Unknown Rx Topiramate [Topamax] 100 mg PO DAILY #30 tablet 10/02/19 Unknown Rx busPIRone [Buspar] 15 mg PO BID #30 tablet 10/02/19 Unknown Rx Active Meds: Active Medications Acetaminophen (Tylenol) 650 mg PO Q4H PRN PRN Reason: Pain MILD(1-3)/Fever >100.5/RAY Aspirin (Halfprin Ec) 81 mg PO QDAY [facility]S [facility] BEDS AT [facility] Last Admin: 10/14/19 09:23 Dose: 81 mg Documented by: Atorvastatin Calcium (Lipitor) 40 mg PO QHS [facility]S [facility]CLUDE 234 BEDS AT [facility] Carvedilol (Coreg) 25 mg PO Q12HR COUNTS INCLUDE 234 BEDS AT [facility] Last Admin: 10/14/19 09:23 Dose: 25 mg Documented by: Clopidogrel Bisulfate (Plavix) 75 mg PO DAILY [facility]CLUDE 234 BEDS AT [facility] Last Admin: 10/14/19 09:21 Dose: 75 mg Documented by: Dextrose (D50w (25gm) Syringe) 50 ml IV Q30MIN PRN; Protocol PRN Reason: Hypoglycemia Ferrous Sulfate (Feosol) 325 mg PO DAILY@0800 [facility]S [facility] 234 BEDS AT [facility] Last Admin: 10/14/19 08:53 Dose: 325 mg Documented by: Sodium Bicarbonate 75 meq/ (Sodium Chloride) 1,075 mls @ 125 mls/hr IV DIRECT [facility]S INCLUDE 234 BEDS AT [facility] Insulin Human Lispro (Humalog) 0 unit SUB-Q ACHS [facility]CLUDE 234 BEDS AT [facility]; Protocol Last Admin: 10/14/19 08:34 Dose: Not Given Documented by: Levothyroxine Sodium (Synthroid) 88 mcg PO DAILY@0600 [facility]S INCLUDE 234 BEDS AT [facility] Last Admin: 10/14/19 09:25 Dose: 88 mcg Documented by: Magnesium Hydroxide (Milk Of Magnesia) 30 ml PO Q4H PRN PRN Reason: Constipation Pantoprazole Sodium (Protonix) 20 mg PO QDAY COUNTS INCLUDE 234 BEDS AT [facility] Last Admin: 10/14/19 09:23 Dose: 20 mg Documented by: Sodium Chloride (Sodium Chloride Flush Syringe 10 Ml) 10 ml IV BID COUNTS INCLUDE 234 BEDS AT [facility] Last Admin: 10/14/19 09:26 Dose: 10 ml Documented by: Sodium Chloride (Sodium Chloride Flush Syringe 10 Ml) 10 ml IV PRN PRN PRN Reason: LINE FLUSH Topiramate (Topamax) 100 mg PO DAILY [facility]S [facility]CLUDE 234 BEDS AT [facility] Last Admin: 10/14/19 09:24 Dose: 100 mg Documented by: Mental Status Exam - Vital signs Last Vital Signs Temp 98.5 F 10/13/19 19:55 Pulse 91 H 10/14/19 09:23 Resp 20 10/14/19 03:20 BP 117/54 10/14/19 09:23 Pulse Ox 98 10/14/19 00:45 Results Result Diagrams: 10/13/19 21:33 10/13/19 21:33 Abnormal lab results 10/13/19 10/13/19 10/13/19 Range/Units 21:33 21:33 21:33 RBC 2.96 L (3.65-5.03) M/mm3 Hgb 9.8 L (10.1-14.3) gm/dl Hct 28.5 L (30.3-42.9) % MCH 33 H (28-32) pg Plt Count 129 L (140-440) K/mm3 Lymph % (Auto) 11.3 L (13.4-35.0) % [place] % (Auto) 7.4 H (0.0-7.3) % Lymph # 0.8 L (1.2-5.4) K/mm3 Seg Neutrophils % 80.0 H (40.0-70.0) % Sodium 136 L (137-145) mmol/L Carbon Dioxide 14 L (22-30) mmol/L BUN 56 H (7-17) mg/dL Creatinine 3.8 H D (0.6-1.2) mg/dL Glucose 131 H (65-100) mg/dL POC Glucose (70-105) Alkaline Phosphatase 142 H (35-129) units/L Salicylates < 0.3 L (2.8-20.0) mg/dL Acetaminophen (10.0-30.0) ug/mL 10/13/19 10/14/19 Range/Units 21:33 08:44 RBC (3.65-5.03) M/mm3 Hgb (10.1-14.3) gm/dl Hct (30.3-42.9) % MCH (28-32) pg Plt Count (140-440) K/mm3 Lymph % (Auto) (13.4-35.0) % [place] % (Auto) (0.0-7.3) % Lymph # (1.2-5.4) K/mm3 Seg Neutrophils % (40.0-70.0) % Sodium (137-145) mmol/L Carbon Dioxide (22-30) mmol/L BUN (7-17) mg/dL Creatinine (0.6-1.2) mg/dL Glucose (65-100) mg/dL POC Glucose 120 H (70-105) Alkaline Phosphatase (35-129) units/L Salicylates (2.8-20.0) mg/dL Acetaminophen 5.0 L (10.0-30.0) ug/mL All other labs normal.
[2019-10-14] MEDS: DULoxetine 30 MG CAP PO SCH ×2 (12:53→21:56)
[2019-10-14] MEDS: ARIPiprazole 5 MG TAB PO SCH ×2 (12:57→18:10)
[2019-10-14] MEDS: SODIUM BICARBONATE 75 MEQ in SODIUM CHLORIDE 0.45% 1000 ML 1,000 ML IV SCH ×2 (13:04→23:38)
[2019-10-14 14:43] LABS: Hepatitis B Surface Antigen Non-Reactive (Negative); Hepatitis C Virus Antibody Non-Reactive (NonReactive)
--- NOTE | 2019-10-14 14:59 | Event Note ---
<BARBARA HOOK - Last Filed: 10/14/19 15:01> Patient is a 68-year-old female with hypertension, diabetes mellitus, hypothyroidism, hyperlipidemia, hypothyroidism and depression with psychotic features was brought in by EMS after being found behind a gas station. She was said to have been dropped off by an unknown person and left at the gas station. Evaluation in the emergency room reveals acute renal failure and metabolic acidosis. CT scan of the head obtained on 10/13 did not reveal any acute abnormality. Mental health and nephrology were consulted. Mental health evaluation does not recommend inpatient hospitalization at this time. Home medications have been reviewed and restarted. Will obtain a PM BMP, renal u/s and urine lytes pending. <SIMONE MCGUIRE - Last Filed: 10/14/19 18:17> Date: 10/14/19 I saw and evaluated the patient. I agree with the findings and the plan of care as documented in the Nurse Practitioner's~note,
[2019-10-14 17:40] LABS: Calcium 8.1 mg/dL (8.4-10.2)
[2019-10-14] MEDS: allopurinoL 100 MG TAB PO SCH (18:15)
[2019-10-14] MEDS: busPIRone 10 MG TAB PO SCH ×3 (18:15→21:57)
[2019-10-14] MEDS: MELATONIN 5 MG TAB PO SCH (21:55)
[2019-10-14] MEDS: QUEtiapine 25 MG TAB PO SCH (21:55)
[2019-10-14] MEDS ORDERED: AMITRIPTYLINE 10 MG PO SCH (22:00)
[2019-10-14] MEDS ORDERED: NON-FORMULARY EACH (Atorvastatin 40 MG) PO SCH (22:00)
[2019-10-14] MEDS ORDERED: MELATONIN 5 MG PO SCH (22:00)
[2019-10-14] MEDS: AMITRIPTYLINE 10 MG TAB PO SCH (23:17)
[2019-10-14 23:32] LABS: Bilirubin,Urine NEG (Negative); Blood,Urine NEG (Negative); Color,Urine Straw (Yellow); Protein,Urine <15 mg/dL mg/dL (Negative); Urobilinogen,Urine < 2.0 mg/dL (<2.0); WBC,Urine < 1.0 /HPF (0.0-6.0)
[2019-10-14 23:35] LABS: Creatinine,Urine 45.8 mg/dL (0.1-20.0)
[2019-10-14 23:45] LABS: Fractional Sodium Excretion 1.5
[2019-10-15 05:46] LABS: Basophils % (Auto) 0.9 % (0.0-1.8); Eosinophils # (Auto) 0.2 K/mm3 (0.0-0.4); Hematocrit 23.9 % (30.3-42.9); Hemoglobin 8.1 gm/dl (10.1-14.3); Lymphocytes # (Auto) 0.9 K/mm3 (1.2-5.4); Lymphocytes % (Auto) 22.7 % (13.4-35.0); Mean Corpuscular HGB Conc 34 % (30-34); Mean Corpuscular Volume 96 fl (79-97); Monocytes # (Auto) 0.3 K/mm3 (0.0-0.8); Monocytes % (Auto) 8.5 % (0.0-7.3); Platelet Count 99 K/mm3 (140-440); Red Blood Count 2.48 M/mm3 (3.65-5.03); Red Cell Distribution Width 14.2 % (13.2-15.2)
[2019-10-15 05:54] LABS: INR 1.27 (0.87-1.13)
[2019-10-15 06:04] LABS: Calcium 7.8 mg/dL (8.4-10.2)
[2019-10-15] MEDS: LEVOTHYROXINE 88 MCG TAB PO SCH (06:18)
[2019-10-15] MEDS ORDERED: carvediloL 25 MG TAB PO SCH (07:30)
[2019-10-15] MEDS: SODIUM BICARBONATE 75 MEQ in SODIUM CHLORIDE 0.45% 1000 ML 1,000 ML IV SCH ×2 (08:50→22:14)
--- NOTE | 2019-10-15 09:02 | Progress Note ---
Assessment and Plan Impression * Acute on chronic renal failure * Altered mental status * Metabolic acidosis * Hypertension * Diabetes * Hyperlipidemia Recommendations * Renal function seems to be slowly improving with IV hydration. * Her urine does not show any dipstick blood and only trace protein. Fractional excretion of sodium is 1.5% . Most likely reflective of some degree of underlying chronic kidney disease * Acidosis is improving. Continue bicarbonate drip. CPK level is 167. * She most likely has some degree of underlying hypertensive nephrosclerosis and/or diabetic nephropathy * Follow-up results of renal ultrasound * Monitor fluid status and electrolytes closely * Avoid nephrotoxins Subjective Date of service: 10/15/19 Interval history: Patient is comfortable. Having breakfast. Appears to be somewhat confused. States that she is having some diarrhea. She also complains of some pain in her right knee area Objective - Vital Signs Vital signs: Vital Signs - 12hr 10/14/19 10/14/19 10/14/19 21:55 22:00 22:02 Temperature 98.3 F Pulse Rate 92 H 71 Respiratory 20 20 Rate Blood Pressure 110/46 O2 Sat by Pulse 98 98 Oximetry 10/15/19 04:57 Temperature 98.3 F Pulse Rate 76 Respiratory 18 Rate Blood Pressure 93/43 O2 Sat by Pulse 95 Oximetry - General Appearance General appearance: well-developed, well-nourished, appears stated age EENT: PERRL, mucous membranes moist Neck: no JVD, no thyromegaly, no carotid bruit, supple Respiratory: Present: Clear to Ascultation Cardiology: regular, normal heart rate Gastrointestinal: normal, normoactive bowel sounds Integumentary: other (No edema. Swelling noted in the medial aspect of her right knee) - Lab 10/15/19 03:59 10/15/19 03:59 Most recent lab results Calcium 7.8 mg/dL (8.4-10.2) L 10/15/19 03:59 Urine Creatinine 45.8 mg/dL (0.1-20.0) H 10/14/19 23:00 Urine Sodium 35 mmol/L 10/14/19 23:00 Medications & Allergies - Medications Allergies/Adverse Reactions: Allergies adhesive tape Adverse Reaction (Verified 09/28/19 01:37) Unknown codeine Adverse Reaction (Verified 09/28/19 01:37) Unknown morphine Adverse Reaction (Verified 09/28/19 01:37) Unknown ondansetron Adverse Reaction (Verified 09/28/19 01:37) Unknown Penicillins Adverse Reaction (Verified 09/28/19 01:37) Unknown Sulfa (Sulfonamide Antibiotics) Adverse Reaction (Verified 09/28/19 01:37) Unknown Home Medications: Home Medications Medication Instructions Recorded Confirmed Last Taken Type Amitriptyline 10 mg PO QHS 09/28/19 10/14/19 Unknown History Aspirin 81 mg PO DAILY 09/28/19 10/14/19 Unknown History Atorvastatin 40 mg PO QHS 09/28/19 10/14/19 Unknown History Clopidogrel [Plavix] 75 mg PO DAILY 09/28/19 10/14/19 Unknown History Ferrous Sulfate 324 MG 65 mg PO DAILY 09/28/19 10/14/19 Unknown History Levemir VIAL 35 units SQ QHS 09/28/19 10/14/19 Unknown History Levothyroxine 88 mcg PO QAC 09/28/19 10/14/19 Unknown History Melatonin 5MG TAB 5 mg PO QHS 09/28/19 10/14/19 Unknown History Myrbetriq 25 mg PO DAILY 09/28/19 10/14/19 Unknown History NovoLOG 100 UNITS/ML VIAL 10 units SQ TIDAC 09/28/19 10/14/19 Unknown History allopurinoL 100 mg PO DAILY 09/28/19 10/14/19 Unknown History carvediloL 25 mg PO BID 09/28/19 10/14/19 Unknown History hydrALAZINE [Apresoline TAB] 100 mg PO BID 09/28/19 10/14/19 Unknown History ARIPiprazole 7.5 mg PO QDAY #30 tablet 10/02/19 10/14/19 Unknown Rx Acetaminophen [Acetaminophen TAB] 500 mg PO Q4H PRN tablet 10/02/19 10/14/19 Unknown Rx DULoxetine [Cymbalta] 60 mg PO BID #30 capsule 10/02/19 10/14/19 Unknown Rx Pantoprazole [Protonix TAB] 20 mg PO QDAY tablet. 10/02/19 10/14/19 Unknown Rx QUEtiapine [SEROquel] 50 mg PO QHS #30 tablet 10/02/19 10/14/19 Unknown Rx Topiramate [Topamax] 100 mg PO DAILY #30 tablet 10/02/19 10/14/19 Unknown Rx busPIRone [Buspar] 15 mg PO BID #30 tablet 10/02/19 10/14/19 Unknown Rx Active Medications: Generic Name Dose Route Start Last Admin Trade Name Ron PRN Reason Stop Dose Admin Acetaminophen 650 mg 10/14/19 01:52 Tylenol PO Q4H PRN Pain MILD(1-3)/Fever >100.5/RAY Allopurinol 100 mg 10/14/19 16:00 10/14/19 18:15 Zyloprim PO 100 mg QDAY JIMBO Administration Amitriptyline HCl 10 mg 10/14/19 22:00 10/14/19 23:17 Elavil PO 10 mg QHS JIMBO Administration Aripiprazole 7.5 mg 10/14/19 14:00 10/14/19 18:10 Aripiprazole PO Not Given QDAY JIMBO Aspirin 81 mg 10/14/19 10:00 10/14/19 09:23 Halfprin Ec PO 81 mg QDAY JIMBO Administration Atorvastatin Calcium 40 mg 10/14/19 22:00 10/14/19 21:55 Lipitor PO 40 mg QHS JIMBO Administration Buspirone HCl 15 mg 10/14/19 13:00 10/14/19 21:57 Buspar PO 15 mg BID JIMBO Administration Carvedilol 12.5 mg 10/15/19 10:00 Coreg PO BID JIMBO Clopidogrel Bisulfate 75 mg 10/14/19 10:00 10/14/19 09:21 Plavix PO 75 mg DAILY JIMBO Administration Dextrose 50 ml 10/14/19 01:52 D50w (25gm) Syringe IV Q30MIN PRN Hypoglycemia Protocol Duloxetine HCl 60 mg 10/14/19 13:00 10/14/19 21:56 Cymbalta PO 60 mg BID JIMBO Administration Ferrous Sulfate 325 mg 10/14/19 08:00 10/14/19 08:53 Feosol PO 325 mg DAILY@0800 JIMBO Administration Sodium Bicarbonate 75 meq/ 1,075 mls @ 125 mls/hr 10/14/19 11:00 10/15/19 08:50 Sodium Chloride IV 125 mls/hr DIRECT JIMBO Administration Insulin Human Lispro 0 unit 10/14/19 07:30 10/14/19 22:01 Humalog SUB-Q 2 unit ACHS JIMBO Administration Protocol Levothyroxine Sodium 88 mcg 10/14/19 08:00 10/15/19 06:18 Synthroid PO 88 mcg DAILY@0600 JIMBO Administration Magnesium Hydroxide 30 ml 10/14/19 01:52 Milk Of Magnesia PO Q4H PRN Constipation Melatonin 5 mg 10/14/19 22:00 10/14/19 21:55 Melatonin PO 5 mg QHS JIMBO Administration Pantoprazole Sodium 20 mg 10/14/19 10:00 10/14/19 09:23 Protonix PO 20 mg QDAY JIMBO Administration Quetiapine Fumarate 50 mg 10/14/19 22:00 10/14/19 21:55 Seroquel PO 50 mg QHS JIMBO Administration Sodium Chloride 10 ml 10/14/19 10:00 10/14/19 21:56 Sodium Chloride Flush Syringe 10 Ml IV 10 ml BID JIMBO Administration Sodium Chloride 10 ml 10/14/19 01:52 Sodium Chloride Flush Syringe 10 Ml IV PRN PRN LINE FLUSH Topiramate 100 mg 10/14/19 10:00 10/14/19 09:24 Topamax PO 100 mg DAILY JIMBO Administration
[2019-10-15] MEDS: INSULIN LISPRO 100 UNIT/ML VIAL 3 mL SUB-Q SCH ×6 (09:06→22:17)
[2019-10-15] MEDS: ARIPiprazole 5 MG TAB PO SCH (09:09)
[2019-10-15] MEDS: FERROUS SULFATE 325 MG TAB PO SCH (09:09)
[2019-10-15] MEDS: DULoxetine 30 MG CAP PO SCH ×2 (09:09→22:15)
[2019-10-15] MEDS: allopurinoL 100 MG TAB PO SCH (09:10)
[2019-10-15] MEDS: busPIRone 10 MG TAB PO SCH ×2 (09:10→22:15)
[2019-10-15] MEDS: CLOPIDOGREL 75 MG TAB PO SCH (09:10)
[2019-10-15] MEDS: carvediloL 12.5 MG TAB PO SCH ×3 (09:10→22:15)
[2019-10-15] MEDS: TOPIRAMATE TAB 100 MG TAB PO SCH (09:11)
[2019-10-15] MEDS: ASPIRIN EC 81 MG TAB PO SCH (09:11)
[2019-10-15] MEDS: PANTOPRAZOLE 20 MG TAB PO SCH (09:11)
[2019-10-15] MEDS: ACETAMINOPHEN 325 MG TAB PO PRN (09:31)
[2019-10-15] MEDS ORDERED: NON-FORMULARY EACH (Allopurinol 100 MG) PO SCH (10:00)
[2019-10-15] MEDS: ONDANSETRON 4 MG/2 ML INJ IV PRN (13:04)
--- NOTE | 2019-10-15 14:58 | Progress Note ---
<MILADYSBARBARA StephaniRamo - Last Filed: 10/15/19 15:21> Assessment and Plan - Patient Problems (1) Acute on chronic renal insufficiency Current Visit: Yes Status: Acute Plan to address problem: -Admit creatinine 3.8, trending downward -Nephrology consulted -Avoid nephrotoxic medication -Trend BMP -10/12 renal ultrasound pending -MIVF -Fractional excretion of sodium is 1.5%, most likely reflecting underlying chronic kidney disease (2) Metabolic acidosis Current Visit: Yes Status: Acute Plan to address problem: -Sodium bicarbonate drip -Trend BMP (3) Metabolic encephalopathy Current Visit: Yes Status: Acute Plan to address problem: -Presented with altered mental status -Possible cause acute renal failure, metabolic acidosis -10/13 CTH negative for any acute abnormality -Seems to be better but slightly confused at times -Fall precautions -Supportive care (4) History of depression Current Visit: Yes Status: Chronic Plan to address problem: -History of depression with psychotic features -Continue antidepressants -Supportive care -Sleep hygiene -Reorientation as needed (5) Diabetes Current Visit: No Status: Chronic Plan to address problem: -SSI -Accu-Cheks AC at bedtime -Hypoglycemia protocol -Hemoglobin A1c pending (6) GERD (gastroesophageal reflux disease) Current Visit: No Status: Chronic Qualifiers: Esophagitis presence: without esophagitis Qualified Code(s): K21.9 - Gastro-esophageal reflux disease without esophagitis Plan to address problem: -Continue Protonix (7) Hyperlipidemia Current Visit: No Status: Chronic Qualifiers: Hyperlipidemia type: mixed hyperlipidemia Qualified Code(s): E78.2 - Mixed hyperlipidemia Plan to address problem: -Continue statins (8) Hypertension Current Visit: No Status: Chronic Qualifiers: Hypertension type: essential hypertension Qualified Code(s): I10 - Essen tial (primary) hypertension Plan to address problem: -Blood pressure monitoring per protocol -Restarted Coreg -IV hydralazine PRN (9) Hypothyroidism Current Visit: No Status: Chronic Plan to address problem: -Restarted home levothyroxine (10) DVT prophylaxis Current Visit: Yes Status: Acute Plan to address problem: -Heparin subcu -SCDs bilateral extremities while in bed History Interval history: Patient is a 68-year-old female with hypertension, diabetes mellitus, hypothyroidism, hyperlipidemia, gout, iron deficiency anemia, obesity and depression with psychotic features was brought in by EMS after being found behind a gas station. She was said to have been dropped off by an unknown person and left at the gas station. Evaluation in the emergency room reveals acute renal failure and metabolic acidosis. CT scan of the head obtained on 10/13 did not reveal any acute abnormality. Mental health and nephrology were consulted. Mental health evaluation does not recommend inpatient hospitalization at this time. This morning she is to be slightly confused attempting to get out of bed however she is oriented to name, location, time, and current events. PT has been consulted for evaluation as the nurse reported weakness.This morning her fractional urine sodium is 1.5 reflecting possible chronic renal disease and her creatinine is improving 10/13 CT H (-), renal ultrasound pending Hospitalist Physical - Constitutional Vitals: Temp Pulse Resp BP Pulse Ox 98.8 F 71 22 104/48 98 10/15/19 11:40 10/15/19 11:40 10/15/19 11:40 10/15/19 11:40 10/15/19 11:40 General appearance: Present: no acute distress, well-nourished, obese - EENT Eyes: Present: PERRL ENT: hearing decreased, poor dentition - Neck Neck: Present: normal ROM - Respiratory Respiratory effort: normal Respiratory: bilateral: CTA - Cardiovascular Rhythm: regular Heart Sounds: Present: S1 & S2. Absent: systolic murmur, diastolic murmur - Extremities Extremities: no ischemia, pulses intact, pulses symmetrical, No edema, normal temperature, normal color, Full ROM Peripheral Pulses: within normal limits - Abdominal General gastrointestinal: soft, non-distended, normal bowel sounds - Integumentary Integumentary: Present: clear, warm, dry - Psychiatric Psychiatric: cooperative - Neurologic Neurologic: CNII-XII intact, no focal deficits, moves all extremities - Allied Health Allied health notes reviewed: nursing, social work, case management Results - Labs CBC & Chem 7: 10/15/19 03:59 10/15/19 03:59 Labs: Laboratory Last Values WBC 4.0 K/mm3 (4.5-11.0) L 10/15/19 03:59 RBC 2.48 M/mm3 (3.65-5.03) L 10/15/19 03:59 Hgb 8.1 gm/dl (10.1-14.3) L 10/15/19 03:59 Hct 23.9 % (30.3-42.9) L 10/15/19 03:59 MCV 96 fl (79-97) 10/15/19 03:59 MCH 33 pg (28-32) H 10/15/19 03:59 MCHC 34 % (30-34) 10/15/19 03:59 RDW 14.2 % (13.2-15.2) 10/15/19 03:59 Plt Count 99 K/mm3 (140-440) L 10/15/19 03:59 Lymph % (Auto) 22.7 % (13.4-35.0) 10/15/19 03:59 Emmet % (Auto) 8.5 % (0.0-7.3) H 10/15/19 03:59 Eos % (Auto) 4.0 % (0.0-4.3) 10/15/19 03:59 Baso % (Auto) 0.9 % (0.0-1.8) 10/15/19 03:59 Lymph # 0.9 K/mm3 (1.2-5.4) L 10/15/19 03:59 Emmet # 0.3 K/mm3 (0.0-0.8) 10/15/19 03:59 Eos # 0.2 K/mm3 (0.0-0.4) 10/15/19 03:59 Baso # 0.0 K/mm3 (0.0-0.1) 10/15/19 03:59 Seg Neutrophils % 63.9 % (40.0-70.0) 10/15/19 03:59 Seg Neutrophils # 2.5 K/mm3 (1.8-7.7) 10/15/19 03:59 PT 16.1 Sec. (12.2-14.9) H 10/15/19 03:59 INR 1.27 (0.87-1.13) H 10/15/19 03:59 Sodium 139 mmol/L (137-145) 10/15/19 03:59 Potassium 3.7 mmol/L (3.6-5.0) 10/15/19 03:59 Chloride 108.0 mmol/L (98-107) H 10/15/19 03:59 Carbon Dioxide 17 mmol/L (22-30) L 10/15/19 03:59 Anion Gap 18 mmol/L 10/15/19 03:59 BUN 44 mg/dL (7-17) H 10/15/19 03:59 Creatinine 2.4 mg/dL (0.6-1.2) H 10/15/19 03:59 Estimated GFR 20 ml/min 10/15/19 03:59 BUN/Creatinine Ratio 18 % 10/15/19 03:59 Glucose 84 mg/dL (65-100) 10/15/19 03:59 POC Glucose 197 (70-105) H 10/15/19 11:56 Calcium 7.8 mg/dL (8.4-10.2) L 10/15/19 03:59 Total Bilirubin 0.30 mg/dL (0.1-1.2) 10/13/19 21:33 Direct Bilirubin < 0.2 mg/dL (0-0.2) 10/13/19 21:33 Indirect Bilirubin 0.1 mg/dL 10/13/19 21:33 AST 20 units/L (5-40) 10/13/19 21:33 ALT 12 units/L (7-56) 10/13/19 21:33 Alkaline Phosphatase 142 units/L (35-129) H 10/13/19 21:33 Total Creatine Kinase 167 units/L (30-135) H 10/14/19 11:01 Total Protein 7.0 g/dL (6.3-8.2) 10/13/19 21:33 Albumin 4.0 g/dL (3.9-5) 10/13/19 21:33 Albumin/Globulin Ratio 1.3 % 10/13/19 21:33 Urine Color Straw (Yellow) 10/14/19 23:00 Urine Turbidity Clear (Clear) 10/14/19 23:00 Urine pH 6.0 (5.0-7.0) 10/14/19 23:00 Ur Specific [place] 1.006 (1.003-1.030) 10/14/19 23:00 Urine Protein <15 mg/dl mg/dL (Negative) 10/14/19 23:00 Urine Glucose (UA) Neg mg/dL (Negative) 10/14/19 23:00 Urine Ketones Neg mg/dL (Negative) 10/14/19 23:00 Urine Blood Neg (Negative) 10/14/19 23:00 Urine Nitrite Neg (Negative) 10/14/19 23:00 Urine Bilirubin Neg (Negative) 10/14/19 23:00 Urine Ictotest Negative (Negative) 10/13/19 Unknown Urine Urobilinogen < 2.0 mg/dL (<2.0) 10/14/19 23:00 Ur Leukocyte Esterase Neg (Negative) 10/14/19 23:00 Urine WBC (Auto) < 1.0 /HPF (0.0-6.0) 10/14/19 23:00 Urine RBC (Auto) 3.0 /HPF (0.0-6.0) 10/14/19 23:00 U Epithel Cells (Auto) 1.0 /HPF (0-13.0) 10/14/19 23:00 Urine Bacteria (Auto) 1+ /HPF (Negative) 10/13/19 Unknown Urine Mucus Few /HPF 10/13/19 Unknown Urine Creatinine 45.8 mg/dL (0.1-20.0) H 10/14/19 23:00 Urine Sodium 35 mmol/L 10/14/19 23:00 Fraction Sodium Excret 1.5 10/14/19 23:00 Salicylates < 0.3 mg/dL (2.8-20.0) L 10/13/19 21:33 Urine Opiates Screen Presumptive negative 10/13/19 Unknown Urine Methadone Screen Presumptive negative 10/13/19 Unknown Acetaminophen 5.0 ug/mL (10.0-30.0) L 10/13/19 21:33 Ur Barbiturates Screen Presumptive negative 10/13/19 Unknown Ur Phencyclidine Scrn Presumptive negative 10/13/19 Unknown Ur Amphetamines Screen Presumptive negative 10/13/19 Unknown U Benzodiazepines Scrn Presumptive negative 10/13/19 Unknown Urine Cocaine Screen Presumptive negative 10/13/19 Unknown U Marijuana (THC) Screen Presumptive negative 10/13/19 Unknown Drugs of Abuse Note Disclamer 10/13/19 Unknown Plasma/Serum Alcohol < 0.01 % (0-0.07) 10/13/19 21:33 Hepatitis A IgM Ab Non-reactive (NonReactive) 10/14/19 11:01 Hep Bs Antigen Non-reactive (Negative) 10/14/19 11:01 Hep B Core IgM Ab Non-reactive (NonReactive) 10/14/19 11:01 Hepatitis C Antibody Non-reactive (NonReactive) 10/14/19 11:01 Rodriguez/IV: Voiding Method Toilet IV Catheter Type [Right INT / Saline Lock Forearm] Active Medications - Current Medications Current Medications: Generic Name Dose Route Start Last Admin Trade Name Freq PRN Reason Stop Dose Admin Acetaminophen 650 mg 10/14/19 01:52 10/15/19 09:31 Tylenol PO 650 mg Q4H PRN Administration Pain MILD(1-3)/Fever >100.5/RAY Allopurinol 100 mg 10/14/19 16:00 10/15/19 09:10 Zyloprim PO 100 mg QDAY JIMBO Administration Amitriptyline HCl 10 mg 10/14/19 22:00 10/14/19 23:17 Elavil PO 10 mg QHS JIMBO Administration Aripiprazole 7.5 mg 10/14/19 14:00 10/15/19 09:09 Aripiprazole PO 7.5 mg QDAY JIMBO Administration Aspirin 81 mg 10/14/19 10:00 10/15/19 09:11 Halfprin Ec PO 81 mg QDAY JIMBO Administration Atorvastatin Calcium 40 mg 10/14/19 22:00 10/14/19 21:55 Lipitor PO 40 mg QHS JIMBO Administration Buspirone HCl 15 mg 10/14/19 13:00 10/15/19 09:10 Buspar PO 15 mg BID JIMBO Administration Carvedilol 12.5 mg 10/15/19 10:00 10/15/19 09:17 Coreg PO Not Given BID JIMBO Clopidogrel Bisulfate 75 mg 10/14/19 10:00 10/15/19 09:10 Plavix PO 75 mg DAILY JIMBO Administration Dextrose 50 ml 10/14/19 01:52 D50w (25gm) Syringe IV Q30MIN PRN Hypoglycemia Protocol Duloxetine HCl 60 mg 10/14/19 13:00 10/15/19 09:09 Cymbalta PO 60 mg BID JIMBO Administration Ferrous Sulfate 325 mg 10/14/19 08:00 10/15/19 09:09 Feosol PO 325 mg DAILY@0800 JIMBO Administration Sodium Bicarbonate 75 meq/ 1,075 mls @ 125 mls/hr 10/14/19 11:00 10/15/19 08:50 Sodium Chloride IV 125 mls/hr DIRECT JIMBO Administration Insulin Human Lispro 0 unit 10/14/19 07:30 10/15/19 13:05 Humalog SUB-Q 2 unit ACHS JIMBO Administration Protocol Levothyroxine Sodium 88 mcg 10/14/19 08:00 10/15/19 06:18 Synthroid PO 88 mcg DAILY@0600 JIMBO Administration Magnesium Hydroxide 30 ml 10/14/19 01:52 Milk Of Magnesia PO Q4H PRN Constipation Melatonin 5 mg 10/14/19 22:00 10/14/19 21:55 Melatonin PO 5 mg QHS JIMBO Administration Ondansetron HCl 4 mg 10/15/19 12:51 10/15/19 13:04 Zofran IV 4 mg Q8H PRN Administration N/V unrelieved by Reglan Pantoprazole Sodium 20 mg 10/14/19 10:00 10/15/19 09:11 Protonix PO 20 mg QDAY JIMBO Administration Quetiapine Fumarate 50 mg 10/14/19 22:00 10/14/19 21:55 Seroquel PO 50 mg QHS JIMBO Administration Sodium Chloride 10 ml 10/14/19 10:00 10/15/19 09:11 Sodium Chloride Flush Syringe 10 Ml IV 10 ml BID JIMBO Administration Sodium Chloride 10 ml 10/14/19 01:52 Sodium Chloride Flush Syringe 10 Ml IV PRN PRN LINE FLUSH Topiramate 100 mg 10/14/19 10:00 10/15/19 09:11 Topamax PO 100 mg DAILY JIMBO Administration Nutrition/Malnutrition Assess - Dietary Evaluation Nutrition/Malnutrition Findings: Nutrition Notes Start: 10/14/19 12:08 Freq: Status: Active Protocol: Document 10/15/19 10:24 WALT (Rec: 10/15/19 11:18 WALT [id number]) Co-Sign 10/15/19 10:24 NHALL Nutrition Notes Initial or Follow up Reassessment Current Diagnosis CKD(stage I-IV),Diabetes, Hypertension,Hyperlipidemia Other Pertinent Diagnosis Hyperthyroidism, AMS Current Diet Cardiac/Consistent CHO Diet Labs/Tests BUN 44 Cr 2.4 Pertinent Medications Insulin Height 5 ft 6 in Weight 89.8 kg [place] Body Weight (kg) 59.09 BMI 31.9 Subjective/Other Information Spoke with nurse via phone. Pt consuming 65% of meals and tolerating well. Percent of energy/protein needs met: 74% energy, 74% protein Burn Absent Trauma Absent Food Allergy No Current % PO Fair (50-74%) Minimum of two criteria No Reduced Stripper Soft Plastic Strength N/A (non-severe) #1 Nutrition Diagnosis Inadequate oral intake Etiology medical diagnosis As Evidenced by Signs and Symptoms PO intake not meeting 75% of energy and protein needs Is patient on ventilator? No Is Patient Ambulatory and/or Out of Bed No REE-([facility]-confined to bed) 1727.340 Calculation Used for Recommendations [facility] Additional Notes Protein needs are 74-89 (1-1. 2g/kg AdjBW) Fluid needs are 1 ml/kl Nutrition Intervention Change Diet Order: Continue current diet order Goal #1 Pt meet 75% of kcal and protein needs. Anticipated Discharge Needs: Consistent CHO Diet Follow-Up By: 10/20/19 Additional Comments F/U for PO intake <SIMONE MCGUIRE R - Last Filed: 10/16/19 14:46> Assessment and Plan Assessment and plan: I saw and evaluated the patient. I agree with the findings and the plan of care as documented in the Nurse Practitioner's~note, If Cr continue to improve possible d/c tomorrow. Hospitalist Physical - Constitutional Vitals: Temp Pulse Resp BP Pulse Ox 98.4 F 74 18 121/63 99 10/16/19 11:07 10/16/19 11:07 10/16/19 11:07 10/16/19 11:07 10/16/19 11:07 Results - Labs CBC & Chem 7: 10/15/19 03:59 10/16/19 05:10 Labs: Laboratory Last Values WBC 4.0 K/mm3 (4.5-11.0) L 10/15/19 03:59 RBC 2.48 M/mm3 (3.65-5.03) L 10/15/19 03:59 Hgb 8.1 gm/dl (10.1-14.3) L 10/15/19 03:59 Hct 23.9 % (30.3-42.9) L 10/15/19 03:59 MCV 96 fl (79-97) 10/15/19 03:59 MCH 33 pg (28-32) H 10/15/19 03:59 MCHC 34 % (30-34) 10/15/19 03:59 RDW 14.2 % (13.2-15.2) 10/15/19 03:59 Plt Count 99 K/mm3 (140-440) L 10/15/19 03:59 Lymph % (Auto) 22.7 % (13.4-35.0) 10/15/19 03:59 Emmet % (Auto) 8.5 % (0.0-7.3) H 10/15/19 03:59 Eos % (Auto) 4.0 % (0.0-4.3) 10/15/19 03:59 Baso % (Auto) 0.9 % (0.0-1.8) 10/15/19 03:59 Lymph # 0.9 K/mm3 (1.2-5.4) L 10/15/19 03:59 Emmet # 0.3 K/mm3 (0.0-0.8) 10/15/19 03:59 Eos # 0.2 K/mm3 (0.0-0.4) 10/15/19 03:59 Baso # 0.0 K/mm3 (0.0-0.1) 10/15/19 03:59 Seg Neutrophils % 63.9 % (40.0-70.0) 10/15/19 03:59 Seg Neutrophils # 2.5 K/mm3 (1.8-7.7) 10/15/19 03:59 PT 16.1 Sec. (12.2-14.9) H 10/15/19 03:59 INR 1.27 (0.87-1.13) H 10/15/19 03:59 Sodium 143 mmol/L (137-145) 10/16/19 05:10 Potassium 4.4 mmol/L (3.6-5.0) 10/16/19 05:10 Chloride 110.6 mmol/L (98-107) H 10/16/19 05:10 Carbon Dioxide 23 mmol/L (22-30) 10/16/19 05:10 Anion Gap 14 mmol/L 10/16/19 05:10 BUN 32 mg/dL (7-17) H 10/16/19 05:10 Creatinine 1.9 mg/dL (0.6-1.2) H 10/16/19 05:10 Estimated GFR 26 ml/min 10/16/19 05:10 BUN/Creatinine Ratio 17 % 10/16/19 05:10 Glucose 95 mg/dL (65-100) 10/16/19 05:10 POC Glucose 186 (70-105) H 10/16/19 11:58 Hemoglobin A1c 5.9 % (4-6) 10/15/19 03:59 Calcium 8.3 mg/dL (8.4-10.2) L 10/16/19 05:10 Total Bilirubin 0.30 mg/dL (0.1-1.2) 10/13/19 21:33 Direct Bilirubin < 0.2 mg/dL (0-0.2) 10/13/19 21:33 Indirect Bilirubin 0.1 mg/dL 10/13/19 21:33 AST 20 units/L (5-40) 10/13/19 21:33 ALT 12 units/L (7-56) 10/13/19 21:33 Alkaline Phosphatase 142 units/L (35-129) H 10/13/19 21:33 Total Creatine Kinase 167 units/L (30-135) H 10/14/19 11:01 Total Protein 7.0 g/dL (6.3-8.2) 10/13/19 21:33 Albumin 4.0 g/dL (3.9-5) 10/13/19 21:33 Albumin/Globulin Ratio 1.3 % 10/13/19 21:33 Urine Color Straw (Yellow) 10/14/19 23:00 Urine Turbidity Clear (Clear) 10/14/19 23:00 Urine pH 6.0 (5.0-7.0) 10/14/19 23:00 Ur Specific [place] 1.006 (1.003-1.030) 10/14/19 23:00 Urine Protein <15 mg/dl mg/dL (Negative) 10/14/19 23:00 Urine Glucose (UA) Neg mg/dL (Negative) 10/14/19 23:00 Urine Ketones Neg mg/dL (Negative) 10/14/19 23:00 Urine Blood Neg (Negative) 10/14/19 23:00 Urine Nitrite Neg (Negative) 10/14/19 23:00 Urine Bilirubin Neg (Negative) 10/14/19 23:00 Urine Ictotest Negative (Negative) 10/13/19 Unknown Urine Urobilinogen < 2.0 mg/dL (<2.0) 10/14/19 23:00 Ur Leukocyte Esterase Neg (Negative) 10/14/19 23:00 Urine WBC (Auto) < 1.0 /HPF (0.0-6.0) 10/14/19 23:00 Urine RBC (Auto) 3.0 /HPF (0.0-6.0) 10/14/19 23:00 U Epithel Cells (Auto) 1.0 /HPF (0-13.0) 10/14/19 23:00 Urine Bacteria (Auto) 1+ /HPF (Negative) 10/13/19 Unknown Urine Mucus Few /HPF 10/13/19 Unknown Urine Eosinophils None seen (None Seen) 10/15/19 13:49 Urine Creatinine 45.8 mg/dL (0.1-20.0) H 10/14/19 23:00 Urine Sodium 35 mmol/L 10/14/19 23:00 Fraction Sodium Excret 1.5 10/14/19 23:00 Salicylates < 0.3 mg/dL (2.8-20.0) L 10/13/19 21:33 Urine Opiates Screen Presumptive negative 10/13/19 Unknown Urine Methadone Screen Presumptive negative 10/13/19 Unknown Acetaminophen 5.0 ug/mL (10.0-30.0) L 10/13/19 21:33 Ur Barbiturates Screen Presumptive negative 10/13/19 Unknown Ur Phencyclidine Scrn Presumptive negative 10/13/19 Unknown Ur Amphetamines Screen Presumptive negative 10/13/19 Unknown U Benzodiazepines Scrn Presumptive negative 10/13/19 Unknown Urine Cocaine Screen Presumptive negative 10/13/19 Unknown U Marijuana (THC) Screen Presumptive negative 10/13/19 Unknown Drugs of Abuse Note Disclamer 10/13/19 Unknown Plasma/Serum Alcohol < 0.01 % (0-0.07) 10/13/19 21:33 Hepatitis A IgM Ab Non-reactive (NonReactive) 10/14/19 11:01 Hep Bs Antigen Non-reactive (Negative) 10/14/19 11:01 Hep B Core IgM Ab Non-reactive (NonReactive) 10/14/19 11:01 Hepatitis C Antibody Non-reactive (NonReactive) 10/14/19 11:01 Rodriguez/IV: Voiding Method Toilet IV Catheter Type [Right Peripheral IV Forearm] Active Medications - Current Medications Current Medications: Generic Name Dose Route Start Last Admin Trade Name Freq PRN Reason Stop Dose Admin Acetaminophen 650 mg 10/14/19 01:52 10/15/19 09:31 Tylenol PO 650 mg Q4H PRN Administration Pain MILD(1-3)/Fever >100.5/RAY Allopurinol 100 mg 10/14/19 16:00 10/16/19 09:32 Zyloprim PO 100 mg QDAY JIMBO Administration Amitriptyline HCl 10 mg 10/14/19 22:00 10/15/19 22:16 Elavil PO 10 mg QHS JIMBO Administration Aripiprazole 7.5 mg 10/14/19 14:00 10/16/19 09:31 Aripiprazole PO 7.5 mg QDAY JIMBO Administration Aspirin 81 mg 10/14/19 10:00 10/16/19 09:30 Halfprin Ec PO 81 mg QDAY JIMBO Administration Atorvastatin Calcium 40 mg 10/14/19 22:00 10/15/19 22:15 Lipitor PO 40 mg QHS JIMBO Administration Buspirone HCl 15 mg 10/14/19 13:00 10/16/19 09:30 Buspar PO 15 mg BID JIMBO Administration Carvedilol 12.5 mg 10/15/19 10:00 10/16/19 09:32 Coreg PO 12.5 mg BID JIMBO Administration Clopidogrel Bisulfate 75 mg 10/14/19 10:00 10/16/19 09:32 Plavix PO 75 mg DAILY JIMBO Administration Dextrose 50 ml 10/14/19 01:52 D50w (25gm) Syringe IV Q30MIN PRN Hypoglycemia Protocol Duloxetine HCl 60 mg 10/14/19 13:00 10/16/19 09:30 Cymbalta PO 60 mg BID JIMBO Administration Ferrous Sulfate 325 mg 10/14/19 08:00 10/16/19 09:30 Feosol PO 325 mg DAILY@0800 JIMBO Administration Sodium Bicarbonate 75 meq/ 1,075 mls @ 125 mls/hr 10/14/19 11:00 10/16/19 10:41 Sodium Chloride IV 125 mls/hr DIRECT JIMBO Administration Insulin Human Lispro 0 unit 10/14/19 07:30 10/16/19 13:22 Humalog SUB-Q 2 unit ACHS JIMBO Administration Protocol Levothyroxine Sodium 88 mcg 10/14/19 08:00 10/16/19 05:52 Synthroid PO 88 mcg DAILY@0600 JIMBO Administration Magnesium Hydroxide 30 ml 10/14/19 01:52 Milk Of Magnesia PO Q4H PRN Constipation Melatonin 5 mg 10/14/19 22:00 10/15/19 22:15 Melatonin PO 5 mg QHS JIMBO Administration Ondansetron HCl 4 mg 10/15/19 12:51 10/16/19 09:30 Zofran IV 4 mg Q8H PRN Administration N/V unrelieved by Reglan Pantoprazole Sodium 20 mg 10/14/19 10:00 10/16/19 09:32 Protonix PO 20 mg QDAY JIMBO Administration Quetiapine Fumarate 50 mg 10/14/19 22:00 10/15/19 22:21 Seroquel PO 50 mg QHS JIMBO Administration Sodium Chloride 10 ml 10/14/19 10:00 10/16/19 09:33 Sodium Chloride Flush Syringe 10 Ml IV 10 ml BID JIMBO Administration Sodium Chloride 10 ml 10/14/19 01:52 Sodium Chloride Flush Syringe 10 Ml IV PRN PRN LINE FLUSH Topiramate 100 mg 10/14/19 10:00 10/16/19 09:33 Topamax PO 100 mg DAILY JIMBO Administration Nutrition/Malnutrition Assess - Dietary Evaluation Nutrition/Malnutrition Findings: Nutrition Notes Start: 10/14/19 12:08 Freq: Status: Active Protocol: Document 10/15/19 10:24 WALT (Rec: 10/15/19 11:18 WALT [id number]) Co-Sign 10/15/19 10:24 NHALL Nutrition Notes Initial or Follow up Reassessment Current Diagnosis CKD(stage I-IV),Diabetes, Hypertension,Hyperlipidemia Other Pertinent Diagnosis Hyperthyroidism, AMS Current Diet Cardiac/Consistent CHO Diet Labs/Tests BUN 44 Cr 2.4 Pertinent Medications Insulin Height 5 ft 6 in Weight 89.8 kg [place] Body Weight (kg) 59.09 BMI 31.9 Subjective/Other Information Spoke with nurse via phone. Pt consuming 65% of meals and tolerating well. Percent of energy/protein needs met: 74% energy, 74% protein Burn Absent Trauma Absent Food Allergy No Current % PO Fair (50-74%) Minimum of two criteria No Reduced Stripper Soft Plastic Strength N/A (non-severe) #1 Nutrition Diagnosis Inadequate oral intake Etiology medical diagnosis As Evidenced by Signs and Symptoms PO intake not meeting 75% of energy and protein needs Is patient on ventilator? No Is Patient Ambulatory and/or Out of Bed No REE-([place]-confined to bed) 1721.340 Calculation Used for Recommendations [facility] Additional Notes Protein needs are 74-89 (1-1. 2g/kg AdjBW) Fluid needs are 1 ml/kl Nutrition Intervention Change Diet Order: Continue current diet order Goal #1 Pt meet 75% of kcal and protein needs. Anticipated Discharge Needs: Consistent CHO Diet Follow-Up By: 10/20/19 Additional Comments F/U for PO intake
[2019-10-15] MEDS: MELATONIN 5 MG TAB PO SCH (22:15)
[2019-10-15] MEDS: AMITRIPTYLINE 10 MG TAB PO SCH (22:16)
[2019-10-15] MEDS: QUEtiapine 25 MG TAB PO SCH (22:21)
[2019-10-16] MEDS: LEVOTHYROXINE 88 MCG TAB PO SCH (05:52)
[2019-10-16 06:00] LABS: Calcium 8.3 mg/dL (8.4-10.2)
[2019-10-16] MEDS: DULoxetine 30 MG CAP PO SCH ×2 (09:30→22:08)
[2019-10-16] MEDS: busPIRone 10 MG TAB PO SCH ×2 (09:30→22:06)
[2019-10-16] MEDS: ONDANSETRON 4 MG/2 ML INJ IV PRN (09:30)
[2019-10-16] MEDS: ASPIRIN EC 81 MG TAB PO SCH (09:30)
[2019-10-16] MEDS: FERROUS SULFATE 325 MG TAB PO SCH (09:30)
[2019-10-16] MEDS: ARIPiprazole 5 MG TAB PO SCH (09:31)
[2019-10-16] MEDS: INSULIN LISPRO 100 UNIT/ML VIAL 3 mL SUB-Q SCH ×4 (09:31→23:24)
[2019-10-16] MEDS: PANTOPRAZOLE 20 MG TAB PO SCH (09:32)
[2019-10-16] MEDS: CLOPIDOGREL 75 MG TAB PO SCH (09:32)
[2019-10-16] MEDS: allopurinoL 100 MG TAB PO SCH (09:32)
[2019-10-16] MEDS: carvediloL 12.5 MG TAB PO SCH ×2 (09:32→22:06)
[2019-10-16] MEDS: TOPIRAMATE TAB 100 MG TAB PO SCH (09:33)
--- NOTE | 2019-10-16 10:25 | Discharge Summary ---
<MILADYSDOTTYBARBARA HRamo - Last Filed: 10/21/19 15:07> Providers - Providers Date of Admission: 10/14/19 01:13 Date of discharge: 10/21/19 Attending physician: SIMONE MCGUIRE 10/13/19 20:28 Consult to Case Management [CONS] Stat Services Needed at Discharge: Other Notified:: no Additional Physician Instructions: personal custodial states unable to care for him any longer 10/14/19 01:52 Consult to Physician [CONS] Routine Comment: Consulting Provider: MISSAEL HAQUE Physician Instructions: Reason For Exam: ACUTE KIDNEY INJURY 10/14/19 01:53 Consult to Dietitian/Nutrition [CONS] Routine Physician Instructions: Reason For Exam: Reason for Consult: Diet education 10/14/19 05:41 Consult to Mental Health [CONS] Routine Reason For Exam: History of depression. Found ?Wandering 10/15/19 11:22 Physical Therapy Evaluation and Treat [CONS] Routine Comment: Reason For Exam: s/p fall, unsteady gait Primary care physician: [employer]IATE Hospitalization Condition: Stable Hospital course: Patient is a 68-year-old female with hypertension, diabetes mellitus, hypothyroidism, hyperlipidemia, gout, iron deficiency anemia, obesity and depression with psychotic features was brought in by EMS after being found behind a gas station. She was said to have been dropped off by an unknown person and left at the gas station. Evaluation in the emergency room reveals acute renal failure and metabolic acidosis. CT scan of the head obtained on 10/13 did not reveal any acute abnormality. Mental health and nephrology were consulted. Mental health evaluation does not recommend inpatient hospitalization at this time. PT was consulted for evaluation and recommends she return to her [facility] and continues to use her cane and wheelchair at facility. Nephrology workup most likely reflects underlying chronic kidney disease. On 10/16 knee x-ray was performed for ongoing pain and swelling which showed no fracture. Please follow up with a nephrology, psychiatry and primary care within 1-2 weeks of discharge. 10/20 COVID 19 PCR was negative. 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 worker office who was contacted permission has been provided (2) Metabolic acidosis Current Visit: Yes Status: resolved Plan to address problem: - s/p sodium bicarbonate drip (3) Metabolic encephalopathy Current Visit: Yes Status: resolved Plan to address problem: - Presented with altered mental status - Possible cause acute renal failure, metabolic acidosis - 10/13 CTH negative for any acute abnormality - Remains slightly confused at times - Continue fall precautions and supportive care (4) History of depression Current Visit: Yes Status: Chronic Plan to address problem: - History of depression with psychotic features - Continue antidepressants and sleep hygiene - Reorientation as needed (5) Diabetes Current Visit: No Status: Chronic Plan to address problem: - Accu-Cheks per PCP instructions - Resume home insulin regimen (6) GERD (gastroesophageal reflux disease) Current Visit: No Status: Chronic Qualifiers: Esophagitis presence: without esophagitis Qualified Code(s): K21.9 - Gastro-esophageal reflux disease without esophagitis Plan to address problem: - Continue Protonix (7) Hyperlipidemia Current Visit: No Status: Chronic Qualifiers: Hyperlipidemia type: mixed hyperlipidemia Qualified Code(s): E78.2 - Mixed hyperlipidemia Plan to address problem: - Continue statin (8) Hypertension Current Visit: No Status: Chronic Qualifiers: Hypertension type: essential hypertension Qualified Code(s): I10 - Essential (primary) hypertension Plan to address problem: - Blood pressure monitoring per PCP recommendations - Continue Coreg (9) Hypothyroidism Current Visit: No Status: Chronic Plan to address problem: -Continue levothyroxine Disposition: DC-01 TO HOME OR SELFCARE Time spent for discharge: 35 Core Measure Documentation - Palliative Care Palliative Care/ Comfort Measures: Not Applicable - Core Measures Any of the following diagnoses?: none Exam - Constitutional Vitals: Temp Pulse Resp BP Pulse Ox 98.6 F 71 16 124/59 98 10/15/19 22:06 10/16/19 09:32 10/15/19 22:06 10/16/19 09:32 10/15/19 22:06 General appearance: Present: no acute distress - EENT ENT: hearing decreased, poor dentition - Neck Neck: Present: normal ROM - Respiratory Respiratory effort: normal Respiratory: bilateral: CTA - Cardiovascular Rhythm: regular Heart Sounds: Present: S1 & S2. Absent: systolic murmur, diastolic murmur - Extremities Extremities: no ischemia, pulses intact, pulses symmetrical, No edema, normal temperature, normal color, Full ROM Peripheral Pulses: within normal limits - Abdominal General gastrointestinal: Present: soft, non-tender, non-distended - Integumentary Integumentary: Present: warm, dry - Musculoskeletal Musculoskeletal: strength equal bilaterally - Psychiatric Psychiatric: cooperative - Neurologic Neurologic: CNII-XII intact, no focal deficits, moves all extremities - Allied Health Allied health notes reviewed: nursing, social work, case management Plan Activity: advance as tolerated Diet: diabetic Special Instructions: record daily BP diary, record blood sugar diary Additional Instructions: Please report to your nearest emergency department or contact your primary care physician if you experience worsening symptoms. Follow-up with your primary care physician, nephrology and psychiatric services outpatient within 1 to 2 weeks of your discharge. Follow up with: PRIMARY CAREMD [Primary Care Provider] - 3-5 Days SANDIE JUNIOR MD [Staff Physician] - 7 Days Prescriptions: Amitriptyline [Elavil] 10 mg PO QHS #30 tablet AtorvaSTATin [Lipitor] 40 mg PO QHS #30 tablet QUEtiapine [SEROquel] 50 mg PO QHS #30 tablet ARIPiprazole 7.5 mg PO QDAY #30 tablet ARIPiprazole 7.5 mg PO QDAY #30 tablet busPIRone [Buspar] 15 mg PO BID #60 tablet carvediloL [Coreg] 12.5 mg PO BID #60 tablet DULoxetine [Cymbalta] 60 mg PO BID #60 capsule Ferrous Sulfate [Feosol 325 MG tab] 325 mg PO DAILY@0800 #30 tab Aspirin EC [Halfprin EC] 81 mg PO QDAY #30 tablet Clopidogrel [Plavix] 75 mg PO DAILY #30 tablet Pantoprazole [Protonix TAB] 20 mg PO QDAY #30 tablet. Levothyroxine [Synthroid] 88 mcg PO DAILY@0600 #30 tablet Topiramate [Topamax] 100 mg PO DAILY #90 tablet allopurinoL [Zyloprim] 100 mg PO QDAY #30 tablet <SIMONE MCGUIRE - Last Filed: 10/21/19 16:06> Providers - Providers Date of Admission: 10/14/19 01:13 Attending physician: SIMONE MCGUIRE 10/13/19 20:28 Consult to Case Management [CONS] Stat Services Needed at Discharge: Other Notified:: no Additional Physician Instructions: personal custodial states unable to care for him any longer 10/14/19 01:52 Consult to Physician [CONS] Routine Comment: Consulting Provider: MISSAEL HAQUE Physician Instructions: Reason For Exam: ACUTE KIDNEY INJURY 10/14/19 01:53 Consult to Dietitian/Nutrition [CONS] Routine Physician Instructions: Reason For Exam: Reason for Consult: Diet education 10/14/19 05:41 Consult to Mental Health [CONS] Routine Reason For Exam: History of depression. Found ?Wandering 10/15/19 11:22 Physical Therapy Evaluation and Treat [CONS] Routine Comment: Reason For Exam: s/p fall, unsteady gait Primary care physician: [employer]IATE Hospitalization Hospital course: I saw and evaluated the patient. I agree with the findings and the plan of care as documented in the Nurse Practitioner's~note. Time spent for discharge: 34 minutes Exam - Constitutional Vitals: Temp Pulse Resp BP Pulse Ox 98.4 F 74 18 121/63 99 10/16/19 11:07 10/16/19 11:07 10/16/19 11:07 10/16/19 11:07 10/16/19 11:07
[2019-10-16] MEDS: SODIUM BICARBONATE 75 MEQ in SODIUM CHLORIDE 0.45% 1000 ML 1,000 ML IV SCH (10:41)
--- NOTE | 2019-10-16 12:03 | Progress Note ---
Assessment and Plan Impression * Acute on chronic renal failure * Altered mental status * Metabolic acidosis * Hypertension * Diabetes * Hyperlipidemia Recommendations * Renal function seems to be improving with IV hydration. * Her urine does not show any dipstick blood and only trace protein. Fractional excretion of sodium is 1.5% . Most likely reflective of some degree of underlying chronic kidney disease * Acidosis has been corrected with bicarbonate drip. CPK level is 167. * She most likely has some degree of underlying hypertensive nephrosclerosis and/or diabetic nephropathy * Follow-up results of renal ultrasound * Monitor fluid status and electrolytes closely * Avoid nephrotoxins * Discharge plans noted. Patient will need outpatient renal follow-up Subjective Date of service: 10/16/19 Interval history: Patient is comfortable today. Denies any shortness of breath. Patient states that she still does have some diarrhea Objective - Vital Signs Vital signs: Vital Signs - 12hr 10/16/19 09:32 Pulse Rate 71 Blood Pressure 124/59 - General Appearance General appearance: well-developed, well-nourished, appears stated age, obese EENT: PERRL, mucous membranes moist Neck: no JVD, no thyromegaly, no carotid bruit, supple Respiratory: Present: Clear to Ascultation Cardiology: regular, normal heart rate Gastrointestinal: normal, normoactive bowel sounds Integumentary: no rash, other (No edema) - Lab 10/15/19 03:59 10/16/19 05:10 Most recent lab results Calcium 8.3 mg/dL (8.4-10.2) L 10/16/19 05:10 Urine Creatinine 45.8 mg/dL (0.1-20.0) H 10/14/19 23:00 Urine Sodium 35 mmol/L 10/14/19 23:00 Medications & Allergies - Medications Allergies/Adverse Reactions: Allergies adhesive tape Adverse Reaction (Verified 09/28/19 01:37) Unknown codeine Adverse Reaction (Verified 09/28/19 01:37) Unknown morphine Adverse Reaction (Verified 09/28/19 01:37) Unknown ondansetron Adverse Reaction (Verified 09/28/19 01:37) Unknown Penicillins Adverse Reaction (Verified 09/28/19 01:37) Unknown Sulfa (Sulfonamide Antibiotics) Adverse Reaction (Verified 09/28/19 01:37) Unknown Home Medications: Home Medications Medication Instructions Recorded Confirmed Last Taken Type Amitriptyline 10 mg PO QHS 09/28/19 10/14/19 Unknown History Aspirin 81 mg PO DAILY 09/28/19 10/14/19 Unknown History Atorvastatin 40 mg PO QHS 09/28/19 10/14/19 Unknown History Ferrous Sulfate 324 MG 65 mg PO DAILY 09/28/19 10/14/19 Unknown History Levemir VIAL 35 units SQ QHS 09/28/19 10/14/19 Unknown History Levothyroxine 88 mcg PO QAC 09/28/19 10/14/19 Unknown History Melatonin 5MG TAB 5 mg PO QHS 09/28/19 10/14/19 Unknown History Myrbetriq 25 mg PO DAILY 09/28/19 10/14/19 Unknown History NovoLOG 100 UNITS/ML VIAL 10 units SQ TIDAC 09/28/19 10/14/19 Unknown History allopurinoL 100 mg PO DAILY 09/28/19 10/14/19 Unknown History Acetaminophen [Acetaminophen TAB] 500 mg PO Q4H PRN tablet 10/02/19 10/14/19 Unknown Rx ARIPiprazole 7.5 mg PO QDAY #30 tablet 10/16/19 Unknown Rx ARIPiprazole 7.5 mg PO QDAY #30 tablet 10/16/19 Unknown Rx Acetaminophen [Acetaminophen TAB] 650 mg PO Q4H PRN tablet 10/16/19 Unknown Rx Amitriptyline [Elavil] 10 mg PO QHS #30 tablet 10/16/19 Unknown Rx Aspirin EC [Halfprin EC] 81 mg PO QDAY #30 tablet 10/16/19 Unknown Rx AtorvaSTATin [Lipitor] 40 mg PO QHS #30 tablet 10/16/19 Unknown Rx Clopidogrel [Plavix] 75 mg PO DAILY #30 tablet 10/16/19 Unknown Rx DULoxetine [Cymbalta] 60 mg PO BID #60 capsule 10/16/19 Unknown Rx Ferrous Sulfate [Feosol 325 MG tab] 325 mg PO DAILY@0800 #30 tab 10/16/19 Unknown Rx Insulin Lispro [Humalog] 0 unit SUB-Q ACHS vial 10/16/19 Unknown Rx Levothyroxine [Synthroid] 88 mcg PO DAILY@0600 #30 tablet 10/16/19 Unknown Rx Melatonin [Melatonin 5MG TAB] 5 mg PO QHS tablet 10/16/19 Unknown Rx Pantoprazole [Protonix TAB] 20 mg PO QDAY #30 tablet. 10/16/19 Unknown Rx QUEtiapine [SEROquel] 50 mg PO QHS #30 tablet 10/16/19 Unknown Rx Topiramate [Topamax] 100 mg PO DAILY #90 tablet 10/16/19 Unknown Rx allopurinoL [Zyloprim] 100 mg PO QDAY #30 tablet 10/16/19 Unknown Rx busPIRone [Buspar] 15 mg PO BID #60 tablet 10/16/19 Unknown Rx carvediloL [Coreg] 12.5 mg PO BID #60 tablet 10/16/19 Unknown Rx Active Medications: Generic Name Dose Route Start Last Admin Trade Name Freq PRN Reason Stop Dose Admin Acetaminophen 650 mg 10/14/19 01:52 10/15/19 09:31 Tylenol PO 650 mg Q4H PRN Administration Pain MILD(1-3)/Fever >100.5/RAY Allopurinol 100 mg 10/14/19 16:00 10/16/19 09:32 Zyloprim PO 100 mg QDAY JIMBO Administration Amitriptyline HCl 10 mg 10/14/19 22:00 10/15/19 22:16 Elavil PO 10 mg QHS JMIBO Administration Aripiprazole 7.5 mg 10/14/19 14:00 10/16/19 09:31 Aripiprazole PO 7.5 mg QDAY JIMBO Administration Aspirin 81 mg 10/14/19 10:00 10/16/19 09:30 Halfprin Ec PO 81 mg QDAY JIMBO Administration Atorvastatin Calcium 40 mg 10/14/19 22:00 10/15/19 22:15 Lipitor PO 40 mg QHS JIMBO Administration Buspirone HCl 15 mg 10/14/19 13:00 10/16/19 09:30 Buspar PO 15 mg BID JIMBO Administration Carvedilol 12.5 mg 10/15/19 10:00 10/16/19 09:32 Coreg PO 12.5 mg BID JIMBO Administration Clopidogrel Bisulfate 75 mg 10/14/19 10:00 10/16/19 09:32 Plavix PO 75 mg DAILY JIMBO Administration Dextrose 50 ml 10/14/19 01:52 D50w (25gm) Syringe IV Q30MIN PRN Hypoglycemia Protocol Duloxetine HCl 60 mg 10/14/19 13:00 10/16/19 09:30 Cymbalta PO 60 mg BID JIMBO Administration Ferrous Sulfate 325 mg 10/14/19 08:00 10/16/19 09:30 Feosol PO 325 mg DAILY@0800 JIMBO Administration Sodium Bicarbonate 75 meq/ 1,075 mls @ 125 mls/hr 10/14/19 11:00 10/16/19 10:41 Sodium Chloride IV 125 mls/hr DIRECT JIMBO Administration Insulin Human Lispro 0 unit 10/14/19 07:30 10/16/19 09:31 Humalog SUB-Q Not Given ACHS [facility] Protocol Levothyroxine Sodium 88 mcg 10/14/19 08:00 10/16/19 05:52 Synthroid PO 88 mcg DAILY@0600 JIMBO Administration Magnesium Hydroxide 30 ml 10/14/19 01:52 Milk Of Magnesia PO Q4H PRN Constipation Melatonin 5 mg 10/14/19 22:00 10/15/19 22:15 Melatonin PO 5 mg QHS JIMBO Administration Ondansetron HCl 4 mg 10/15/19 12:51 10/16/19 09:30 Zofran IV 4 mg Q8H PRN Administration N/V unrelieved by Corinne Pantoprazole Sodium 20 mg 10/14/19 10:00 10/16/19 09:32 Protonix PO 20 mg QDAY JIMBO Administration Quetiapine Fumarate 50 mg 10/14/19 22:00 10/15/19 22:21 Seroquel PO 50 mg QHS JIMBO Administration Sodium Chloride 10 ml 10/14/19 10:00 10/16/19 09:33 Sodium Chloride Flush Syringe 10 Ml IV 10 ml BID JIMBO Administration Sodium Chloride 10 ml 10/14/19 01:52 Sodium Chloride Flush Syringe 10 Ml IV PRN PRN LINE FLUSH Topiramate 100 mg 10/14/19 10:00 10/16/19 09:33 Topamax PO 100 mg DAILY JIMBO Administration
--- NOTE | 2019-10-16 16:33 | Progress Note ---
<MILADYSBARBARA StephaniRamo - Last Filed: 10/16/19 16:29> Assessment and Plan - Patient Problems (1) Acute on chronic renal insufficiency Current Visit: Yes Status: Acute Plan to address problem: -Admit creatinine 3.8, trending downward -Nephrology consulted -Avoid nephrotoxic medication -Trend BMP -10/12 renal ultrasound pending -MIVF -Fractional excretion of sodium is 1.5%, most likely reflecting underlying chronic kidney disease (2) Metabolic encephalopathy Current Visit: Yes Status: Acute Plan to address problem: -Presented with altered mental status -Possible cause acute renal failure, metabolic acidosis -10/13 CTH negative for any acute abnormality -Seems to be better but slightly confused at times -Fall precautions -Supportive care (3) History of depression Current Visit: Yes Status: Chronic Plan to address problem: -History of depression with psychotic features -Continue antidepressants -Supportive care -Sleep hygiene -Reorientation as needed (4) Diabetes Current Visit: No Status: Chronic Plan to address problem: -SSI -Accu-Cheks AC at bedtime -Hypoglycemia protocol -Hemoglobin A1c pending (5) GERD (gastroesophageal reflux disease) Current Visit: No Status: Chronic Qualifiers: Esophagitis presence: without esophagitis Qualified Code(s): K21.9 - Gastro-esophageal reflux disease without esophagitis Plan to address problem: -Continue Protonix (6) Hyperlipidemia Current Visit: No Status: Chronic Qualifiers: Hyperlipidemia type: mixed hyperlipidemia Qualified Code(s): E78.2 - Mixed hyperlipidemia Plan to address problem: -Continue statins (7) Hypertension Current Visit: No Status: Chronic Qualifiers: Hypertension type: essential hypertension Qualified Code(s): I10 - Essential (primary) hypertension Plan to address problem: -Blood pressure monitoring per protocol -Restarted Coreg -IV hydralazine PRN (8) Hypothyroidism Current Visit: No Status: Chronic Plan to address problem: -Restarted home levothyroxine (9) Metabolic acidosis Current Visit: Yes Status: Resolved Plan to address problem: -s/p Sodium bicarbonate drip -Trend BMP (10) DVT prophylaxis Current Visit: Yes Status: Acute Plan to address problem: -Heparin subcu -SCDs bilateral extremities while in bed History Interval history: Patient is a 68-year-old female with hypertension, diabetes mellitus, hypothyroidism, hyperlipidemia, gout, iron deficiency anemia, obesity and depression with psychotic features was brought in by EMS after being found behind a gas station. She was said to have been dropped off by an unknown person and left at the gas station. Evaluation in the emergency room reveals acute renal failure and metabolic acidosis. CT scan of the head obtained on 10/13 did not reveal any acute abnormality. Mental health and nephrology were consulted. Mental health evaluation does not recommend inpatient hospitalization at this time. This morning she is to be slightly confused attempting to get out of bed however she is oriented to name, location, time, and current events. Today the patient was medically cleared to be discharged however there have been some placement issues. Possible discharge in the a.m. 10/13 CT H (-), renal ultrasound pending 10/14: Possible underlying chronic renal impairment. PT recommends discharge back to personal detention with continued use of her wheelchair and cane. Hospitalist Physical - Constitutional Vitals: Temp Pulse Resp BP Pulse Ox 98.4 F 74 18 121/63 99 10/16/19 11:07 10/16/19 11:07 10/16/19 11:07 10/16/19 11:10/16/19 11:07 General appearance: Present: no acute distress, well-nourished, obese - EENT Eyes: Present: PERRL, EOM intact ENT: hearing decreased - Neck Neck: Present: normal ROM - Respiratory Respiratory effort: normal Respiratory: bilateral: CTA - Cardiovascular Rhythm: regular Heart Sounds: Present: S1 & S2. Absent: systolic murmur, diastolic murmur - Extremities Extremities: no ischemia, pulses intact, pulses symmetrical, No edema, normal temperature, normal color, Full ROM Peripheral Pulses: within normal limits - Abdominal General gastrointestinal: soft, non-tender, non-distended, normal bowel sounds - Integumentary Integumentary: Present: clear, warm, dry - Psychiatric Psychiatric: cooperative - Neurologic Neurologic: CNII-XII intact, no focal deficits, moves all extremities - Allied Health Allied health notes reviewed: nursing, social work, case management Results - Labs CBC & Chem 7: 10/15/19 03:59 10/16/19 05:10 Labs: Laboratory Last Values WBC 4.0 K/mm3 (4.5-11.0) L 10/15/19 03:59 RBC 2.48 M/mm3 (3.65-5.03) L 10/15/19 03:59 Hgb 8.1 gm/dl (10.1-14.3) L 10/15/19 03:59 Hct 23.9 % (30.3-42.9) L 10/15/19 03:59 MCV 96 fl (79-97) 10/15/19 03:59 MCH 33 pg (28-32) H 10/15/19 03:59 MCHC 34 % (30-34) 10/15/19 03:59 RDW 14.2 % (13.2-15.2) 10/15/19 03:59 Plt Count 99 K/mm3 (140-440) L 10/15/19 03:59 Lymph % (Auto) 22.7 % (13.4-35.0) 10/15/19 03:59 [place] % (Auto) 8.5 % (0.0-7.3) H 10/15/19 03:59 Eos % (Auto) 4.0 % (0.0-4.3) 10/15/19 03:59 Baso % (Auto) 0.9 % (0.0-1.8) 10/15/19 03:59 Lymph # 0.9 K/mm3 (1.2-5.4) L 10/15/19 03:59 [place] # 0.3 K/mm3 (0.0-0.8) 10/15/19 03:59 Eos # 0.2 K/mm3 (0.0-0.4) 10/15/19 03:59 Baso # 0.0 K/mm3 (0.0-0.1) 10/15/19 03:59 Seg Neutrophils % 63.9 % (40.0-70.0) 10/15/19 03:59 Seg Neutrophils # 2.5 K/mm3 (1.8-7.7) 10/15/19 03:59 PT 16.1 Sec. (12.2-14.9) H 10/15/19 03:59 INR 1.27 (0.87-1.13) H 10/15/19 03:59 Sodium 143 mmol/L (137-145) 10/16/19 05:10 Potassium 4.4 mmol/L (3.6-5.0) 10/16/19 05:10 Chloride 110.6 mmol/L (98-107) H 10/16/19 05:10 Carbon Dioxide 23 mmol/L (22-30) 10/16/19 05:10 Anion Gap 14 mmol/L 10/16/19 05:10 BUN 32 mg/dL (7-17) H 10/16/19 05:10 Creatinine 1.9 mg/dL (0.6-1.2) H 10/16/19 05:10 Estimated GFR 26 ml/min 10/16/19 05:10 BUN/Creatinine Ratio 17 % 10/16/19 05:10 Glucose 95 mg/dL (65-100) 10/16/19 05:10 POC Glucose 186 (70-105) H 10/16/19 11:58 Hemoglobin A1c 5.9 % (4-6) 10/15/19 03:59 Calcium 8.3 mg/dL (8.4-10.2) L 10/16/19 05:10 Total Bilirubin 0.30 mg/dL (0.1-1.2) 10/13/19 21:33 Direct Bilirubin < 0.2 mg/dL (0-0.2) 10/13/19 21:33 Indirect Bilirubin 0.1 mg/dL 10/13/19 21:33 AST 20 units/L (5-40) 10/13/19 21:33 ALT 12 units/L (7-56) 10/13/19 21:33 Alkaline Phosphatase 142 units/L (35-129) H 10/13/19 21:33 Total Creatine Kinase 167 units/L (30-135) H 10/14/19 11:01 Total Protein 7.0 g/dL (6.3-8.2) 10/13/19 21:33 Albumin 4.0 g/dL (3.9-5) 10/13/19 21:33 Albumin/Globulin Ratio 1.3 % 10/13/19 21:33 Urine Color Straw (Yellow) 10/14/19 23:00 Urine Turbidity Clear (Clear) 10/14/19 23:00 Urine pH 6.0 (5.0-7.0) 10/14/19 23:00 Ur Specific [place] 1.006 (1.003-1.030) 10/14/19 23:00 Urine Protein <15 mg/dl mg/dL (Negative) 10/14/19 23:00 Urine Glucose (UA) Neg mg/dL (Negative) 10/14/19 23:00 Urine Ketones Neg mg/dL (Negative) 10/14/19 23:00 Urine Blood Neg (Negative) 10/14/19 23:00 Urine Nitrite Neg (Negative) 10/14/19 23:00 Urine Bilirubin Neg (Negative) 10/14/19 23:00 Urine Ictotest Negative (Negative) 10/13/19 Unknown Urine Urobilinogen < 2.0 mg/dL (<2.0) 10/14/19 23:00 Ur Leukocyte Esterase Neg (Negative) 10/14/19 23:00 Urine WBC (Auto) < 1.0 /HPF (0.0-6.0) 10/14/19 23:00 Urine RBC (Auto) 3.0 /HPF (0.0-6.0) 10/14/19 23:00 U Epithel Cells (Auto) 1.0 /HPF (0-13.0) 10/14/19 23:00 Urine Bacteria (Auto) 1+ /HPF (Negative) 10/13/19 Unknown Urine Mucus Few /HPF 10/13/19 Unknown Urine Eosinophils None seen (None Seen) 10/15/19 13:49 Urine Creatinine 45.8 mg/dL (0.1-20.0) H 10/14/19 23:00 Urine Sodium 35 mmol/L 10/14/19 23:00 Fraction Sodium Excret 1.5 10/14/19 23:00 Salicylates < 0.3 mg/dL (2.8-20.0) L 10/13/19 21:33 Urine Opiates Screen Presumptive negative 10/13/19 Unknown Urine Methadone Screen Presumptive negative 10/13/19 Unknown Acetaminophen 5.0 ug/mL (10.0-30.0) L 10/13/19 21:33 Ur Barbiturates Screen Presumptive negative 10/13/19 Unknown Ur Phencyclidine Scrn Presumptive negative 10/13/19 Unknown Ur Amphetamines Screen Presumptive negative 10/13/19 Unknown U Benzodiazepines Scrn Presumptive negative 10/13/19 Unknown Urine Cocaine Screen Presumptive negative 10/13/19 Unknown U Marijuana (THC) Screen Presumptive negative 10/13/19 Unknown Drugs of Abuse Note Disclamer 10/13/19 Unknown Plasma/Serum Alcohol < 0.01 % (0-0.07) 10/13/19 21:33 Complement C3 107 mg/dL (83-193) 10/14/19 11:01 Complement C4 25 mg/dL (15-57) 10/14/19 11:01 Hepatitis A IgM Ab Non-reactive (NonReactive) 10/14/19 11:01 Hep Bs Antigen Non-reactive (Negative) 10/14/19 11:01 Hep B Core IgM Ab Non-reactive (NonReactive) 10/14/19 11:01 Hepatitis C Antibody Non-reactive (NonReactive) 10/14/19 11:01 Rodriguez/IV: Voiding Method Toilet IV Catheter Type [Right Peripheral IV Forearm] Active Medications - Current Medications Current Medications: Generic Name Dose Route Start Last Admin Trade Name Freq PRN Reason Stop Dose Admin Acetaminophen 650 mg 10/14/19 01:52 10/15/19 09:31 Tylenol PO 650 mg Q4H PRN Administration Pain MILD(1-3)/Fever >100.5/RAY Allopurinol 100 mg 10/14/19 16:00 10/16/19 09:32 Zyloprim PO 100 mg QDAY JIMBO Administration Amitriptyline HCl 10 mg 10/14/19 22:00 10/15/19 22:16 Elavil PO 10 mg QHS JIMBO Administration Aripiprazole 7.5 mg 10/14/19 14:00 10/16/19 09:31 Aripiprazole PO 7.5 mg QDAY JIMBO Administration Aspirin 81 mg 10/14/19 10:00 10/16/19 09:30 Halfprin Ec PO 81 mg QDAY JIMBO Administration Atorvastatin Calcium 40 mg 10/14/19 22:00 10/15/19 22:15 Lipitor PO 40 mg QHS JIMBO Administration Buspirone HCl 15 mg 10/14/19 13:00 10/16/19 09:30 Buspar PO 15 mg BID JIMBO Administration Carvedilol 12.5 mg 10/15/19 10:00 10/16/19 09:32 Coreg PO 12.5 mg BID JIMBO Administration Clopidogrel Bisulfate 75 mg 10/14/19 10:00 10/16/19 09:32 Plavix PO 75 mg DAILY JIMBO Administration Dextrose 50 ml 10/14/19 01:52 D50w (25gm) Syringe IV Q30MIN PRN Hypoglycemia Protocol Duloxetine HCl 60 mg 10/14/19 13:00 10/16/19 09:30 Cymbalta PO 60 mg BID JIMBO Administration Ferrous Sulfate 325 mg 10/14/19 08:00 10/16/19 09:30 Feosol PO 325 mg DAILY@0800 JIMBO Administration Sodium Bicarbonate 75 meq/ 1,075 mls @ 125 mls/hr 10/14/19 11:00 10/16/19 10:41 Sodium Chloride IV 125 mls/hr DIRECT JIMBO Administration Insulin Human Lispro 0 unit 10/14/19 07:30 10/16/19 13:22 Humalog SUB-Q 2 unit ACHS JIMBO Administration Protocol Levothyroxine Sodium 88 mcg 10/14/19 08:00 10/16/19 05:52 Synthroid PO 88 mcg DAILY@0600 JIMBO Administration Magnesium Hydroxide 30 ml 10/14/19 01:52 Milk Of Magnesia PO Q4H PRN Constipation Melatonin 5 mg 10/14/19 22:00 10/15/19 22:15 Melatonin PO 5 mg QHS JIMBO Administration Ondansetron HCl 4 mg 10/15/19 12:51 10/16/19 09:30 Zofran IV 4 mg Q8H PRN Administration N/V unrelieved by Corinne Pantoprazole Sodium 20 mg 10/14/19 10:00 10/16/19 09:32 Protonix PO 20 mg QDAY JIMBO Administration Quetiapine Fumarate 50 mg 10/14/19 22:00 10/15/19 22:21 Seroquel PO 50 mg QHS JIMBO Administration Sodium Chloride 10 ml 10/14/19 10:00 10/16/19 09:33 Sodium Chloride Flush Syringe 10 Ml IV 10 ml BID JIMBO Administration Sodium Chloride 10 ml 10/14/19 01:52 Sodium Chloride Flush Syringe 10 Ml IV PRN PRN LINE FLUSH Topiramate 100 mg 10/14/19 10:00 10/16/19 09:33 Topamax PO 100 mg DAILY JIMBO Administration Nutrition/Malnutrition Assess - Dietary Evaluation Nutrition/Malnutrition Findings: Nutrition Notes Start: 10/14/19 12:08 Freq: Status: Active Protocol: Document 10/15/19 10:24 WALT (Rec: 10/15/19 11:18 WALT [id number]) Co-Sign 10/15/19 10:24 NHALL Nutrition Notes Initial or Follow up Reassessment Current Diagnosis CKD(stage I-IV),Diabetes, Hypertension,Hyperlipidemia Other Pertinent Diagnosis Hyperthyroidism, AMS Current Diet Cardiac/Consistent CHO Diet Labs/Tests BUN 44 Cr 2.4 Pertinent Medications Insulin Height 5 ft 6 in Weight 89.8 kg [place] Body Weight (kg) 59.09 BMI 31.9 Subjective/Other Information Spoke with nurse via phone. Pt consuming 65% of meals and tolerating well. Percent of energy/protein needs met: 74% energy, 74% protein Burn Absent Trauma Absent Food Allergy No Current % PO Fair (50-74%) Minimum of two criteria No Reduced Administrator Strength N/A (non-severe) #1 Nutrition Diagnosis Inadequate oral intake Etiology medical diagnosis As Evidenced by Signs and Symptoms PO intake not meeting 75% of energy and protein needs Is patient on ventilator? No Is Patient Ambulatory and/or Out of Bed No REE-([facility]-confined to bed) 1727.340 Calculation Used for Recommendations [facility] Additional Notes Protein needs are 74-89 (1-1. 2g/kg AdjBW) Fluid needs are 1 ml/kl Nutrition Intervention Change Diet Order: Continue current diet order Goal #1 Pt meet 75% of kcal and protein needs. Anticipated Discharge Needs: Consistent CHO Diet Follow-Up By: 10/20/19 Additional Comments F/U for PO intake <SIMONE MCGUIRE R - Last Filed: 10/17/19 10:34> Assessment and Plan Assessment and plan: I saw and evaluated the patient. I agree with the findings and the plan of care as documented in the Nurse Practitioner's~note, with the following corrections and additions. Patient was planned to discharge to memory cell unit today but patients Son are now requesting 24/ care which memory cell unit will not be able to provide. Patient discharge is now canceled because of the placement issue. food stand manager working on placement. Hospitalist Physical - Constitutional Vitals: Temp Pulse Resp BP Pulse Ox 98.4 F 68 20 129/70 99 10/17/19 06:05 10/17/19 06:05 10/17/19 06:05 10/17/19 06:05 10/17/19 06:05 Results - Labs CBC & Chem 7: 10/15/19 03:59 10/17/19 05:45 Labs: Laboratory Last Values WBC 4.0 K/mm3 (4.5-11.0) L 10/15/19 03:59 RBC 2.48 M/mm3 (3.65-5.03) L 10/15/19 03:59 Hgb 8.1 gm/dl (10.1-14.3) L 10/15/19 03:59 Hct 23.9 % (30.3-42.9) L 10/15/19 03:59 MCV 96 fl (79-97) 10/15/19 03:59 MCH 33 pg (28-32) H 10/15/19 03:59 MCHC 34 % (30-34) 10/15/19 03:59 RDW 14.2 % (13.2-15.2) 10/15/19 03:59 Plt Count 99 K/mm3 (140-440) L 10/15/19 03:59 Lymph % (Auto) 22.7 % (13.4-35.0) 10/15/19 03:59 [place] % (Auto) 8.5 % (0.0-7.3) H 10/15/19 03:59 Eos % (Auto) 4.0 % (0.0-4.3) 10/15/19 03:59 Baso % (Auto) 0.9 % (0.0-1.8) 10/15/19 03:59 Lymph # 0.9 K/mm3 (1.2-5.4) L 10/15/19 03:59 [place] # 0.3 K/mm3 (0.0-0.8) 10/15/19 03:59 Eos # 0.2 K/mm3 (0.0-0.4) 10/15/19 03:59 Baso # 0.0 K/mm3 (0.0-0.1) 10/15/19 03:59 Seg Neutrophils % 63.9 % (40.0-70.0) 10/15/19 03:59 Seg Neutrophils # 2.5 K/mm3 (1.8-7.7) 10/15/19 03:59 PT 16.1 Sec. (12.2-14.9) H 10/15/19 03:59 INR 1.27 (0.87-1.13) H 10/15/19 03:59 Sodium 142 mmol/L (137-145) 10/17/19 05:45 Potassium 4.1 mmol/L (3.6-5.0) 10/17/19 05:45 Chloride 108.3 mmol/L (98-107) H 10/17/19 05:45 Carbon Dioxide 24 mmol/L (22-30) 10/17/19 05:45 Anion Gap 14 mmol/L 10/17/19 05:45 BUN 24 mg/dL (7-17) H 10/17/19 05:45 Creatinine 1.6 mg/dL (0.6-1.2) H 10/17/19 05:45 Estimated GFR 32 ml/min 10/17/19 05:45 BUN/Creatinine Ratio 15 % 10/17/19 05:45 Glucose 118 mg/dL (65-100) H 10/17/19 05:45 POC Glucose 120 (70-105) H 10/17/19 08:38 Hemoglobin A1c 5.9 % (4-6) 10/15/19 03:59 Calcium 8.4 mg/dL (8.4-10.2) 10/17/19 05:45 Total Bilirubin 0.30 mg/dL (0.1-1.2) 10/13/19 21:33 Direct Bilirubin < 0.2 mg/dL (0-0.2) 10/13/19 21:33 Indirect Bilirubin 0.1 mg/dL 10/13/19 21:33 AST 20 units/L (5-40) 10/13/19 21:33 ALT 12 units/L (7-56) 10/13/19 21:33 Alkaline Phosphatase 142 units/L (35-129) H 10/13/19 21:33 Total Creatine Kinase 167 units/L (30-135) H 10/14/19 11:01 Total Protein 7.0 g/dL (6.3-8.2) 10/13/19 21:33 Albumin 4.0 g/dL (3.9-5) 10/13/19 21:33 Albumin/Globulin Ratio 1.3 % 10/13/19 21:33 Urine Color Straw (Yellow) 10/14/19 23:00 Urine Turbidity Clear (Clear) 10/14/19 23:00 Urine pH 6.0 (5.0-7.0) 10/14/19 23:00 Ur Specific [place] 1.006 (1.003-1.030) 10/14/19 23:00 Urine Protein <15 mg/dl mg/dL (Negative) 10/14/19 23:00 Urine Glucose (UA) Neg mg/dL (Negative) 10/14/19 23:00 Urine Ketones Neg mg/dL (Negative) 10/14/19 23:00 Urine Blood Neg (Negative) 10/14/19 23:00 Urine Nitrite Neg (Negative) 10/14/19 23:00 Urine Bilirubin Neg (Negative) 10/14/19 23:00 Urine Ictotest Negative (Negative) 10/13/19 Unknown Urine Urobilinogen < 2.0 mg/dL (<2.0) 10/14/19 23:00 Ur Leukocyte Esterase Neg (Negative) 10/14/19 23:00 Urine WBC (Auto) < 1.0 /HPF (0.0-6.0) 10/14/19 23:00 Urine RBC (Auto) 3.0 /HPF (0.0-6.0) 10/14/19 23:00 U Epithel Cells (Auto) 1.0 /HPF (0-13.0) 10/14/19 23:00 Urine Bacteria (Auto) 1+ /HPF (Negative) 10/13/19 Unknown Urine Mucus Few /HPF 10/13/19 Unknown Urine Eosinophils None seen (None Seen) 10/15/19 13:49 Urine Creatinine 45.8 mg/dL (0.1-20.0) H 10/14/19 23:00 Urine Sodium 35 mmol/L 10/14/19 23:00 Fraction Sodium Excret 1.5 10/14/19 23:00 Salicylates < 0.3 mg/dL (2.8-20.0) L 10/13/19 21:33 Urine Opiates Screen Presumptive negative 10/13/19 Unknown Urine Methadone Screen Presumptive negative 10/13/19 Unknown Acetaminophen 5.0 ug/mL (10.0-30.0) L 10/13/19 21:33 Ur Barbiturates Screen Presumptive negative 10/13/19 Unknown Ur Phencyclidine Scrn Presumptive negative 10/13/19 Unknown Ur Amphetamines Screen Presumptive negative 10/13/19 Unknown U Benzodiazepines Scrn Presumptive negative 10/13/19 Unknown Urine Cocaine Screen Presumptive negative 10/13/19 Unknown U Marijuana (THC) Screen Presumptive negative 10/13/19 Unknown Drugs of Abuse Note Disclamer 10/13/19 Unknown Plasma/Serum Alcohol < 0.01 % (0-0.07) 10/13/19 21:33 Proteinase 3 (PR3) Ab <1.0 AI (<1.0) 10/14/19 11:01 Myeloperoxidase Ab <1.0 AI (<1.0) 10/14/19 11:01 Complement C3 107 mg/dL (83-193) 10/14/19 11:01 Complement C4 25 mg/dL (15-57) 10/14/19 11:01 Hepatitis A IgM Ab Non-reactive (NonReactive) 10/14/19 11:01 Hep Bs Antigen Non-reactive (Negative) 10/14/19 11:01 Hep B Core IgM Ab Non-reactive (NonReactive) 10/14/19 11:01 Hepatitis C Antibody Non-reactive (NonReactive) 10/14/19 11:01 Rodriguez/IV: Voiding Method Toilet IV Catheter Type [Right Peripheral IV Forearm] Active Medications - Current Medications Current Medications: Generic Name Dose Route Start Last Admin Trade Name Freq PRN Reason Stop Dose Admin Acetaminophen 650 mg 10/14/19 01:52 10/17/19 09:57 Tylenol PO 650 mg Q4H PRN Administration Pain MILD(1-3)/Fever >100.5/RAY Allopurinol 100 mg 10/14/19 16:00 10/17/19 09:51 Zyloprim PO 100 mg QDAY JIMBO Administration Amitriptyline HCl 10 mg 10/14/19 22:00 10/16/19 22:09 Elavil PO 10 mg QHS JIMBO Administration Aripiprazole 7.5 mg 10/14/19 14:00 10/17/19 09:50 Aripiprazole PO 7.5 mg QDAY JIMBO Administration Aspirin 81 mg 10/14/19 10:00 10/17/19 09:50 Halfprin Ec PO 81 mg QDAY JIMBO Administration Atorvastatin Calcium 40 mg 10/14/19 22:00 10/16/19 22:06 Lipitor PO 40 mg QHS JIMBO Administration Buspirone HCl 15 mg 10/14/19 13:00 10/17/19 09:52 Buspar PO 15 mg BID JIMBO Administration Carvedilol 12.5 mg 10/15/19 10:00 10/17/19 10:04 Coreg PO 12.5 mg BID JIMBO Administration Clopidogrel Bisulfate 75 mg 10/14/19 10:00 10/17/19 09:51 Plavix PO 75 mg DAILY JIMBO Administration Dextrose 50 ml 10/14/19 01:52 D50w (25gm) Syringe IV Q30MIN PRN Hypoglycemia Protocol Duloxetine HCl 60 mg 10/14/19 13:00 10/17/19 09:50 Cymbalta PO 60 mg BID JIMBO Administration Ferrous Sulfate 325 mg 10/14/19 08:00 10/17/19 09:50 Feosol PO 325 mg DAILY@0800 JIMBO Administration Sodium Bicarbonate 75 meq/ 1,075 mls @ 125 mls/hr 10/14/19 11:00 10/16/19 10:41 Sodium Chloride IV 125 mls/hr DIRECT JIMBO Administration Insulin Human Lispro 0 unit 10/14/19 07:30 10/17/19 08:57 Humalog SUB-Q Not Given ACHS [facility] Protocol Levothyroxine Sodium 88 mcg 10/14/19 08:00 10/17/19 05:25 Synthroid PO 88 mcg DAILY@0600 JIMBO Administration Magnesium Hydroxide 30 ml 10/14/19 01:52 Milk Of Magnesia PO Q4H PRN Constipation Melatonin 5 mg 10/14/19 22:00 10/16/19 22:06 Melatonin PO 5 mg QHS JIMBO Administration Ondansetron HCl 4 mg 10/15/19 12:51 10/16/19 09:30 Zofran IV 4 mg Q8H PRN Administration N/V unrelieved by Reglan Pantoprazole Sodium 20 mg 10/14/19 10:00 10/17/19 09:50 Protonix PO 20 mg QDAY JIMBO Administration Quetiapine Fumarate 50 mg 10/14/19 22:00 10/16/19 22:07 Seroquel PO 50 mg QHS JIMBO Administration Sodium Chloride 10 ml 10/14/19 10:00 10/17/19 09:59 Sodium Chloride Flush Syringe 10 Ml IV 10 ml BID JIMBO Administration Sodium Chloride 10 ml 10/14/19 01:52 Sodium Chloride Flush Syringe 10 Ml IV PRN PRN LINE FLUSH Topiramate 100 mg 10/14/19 10:00 10/17/19 09:51 Topamax PO 100 mg DAILY JIMBO Administration Nutrition/Malnutrition Assess - Dietary Evaluation Nutrition/Malnutrition Findings: Nutrition Notes Start: 10/14/19 12:08 Freq: Status: Active Protocol: Document 10/15/19 10:24 WALT (Rec: 10/15/19 11:18 WALT [id number]) Co-Sign 10/15/19 10:24 KATELYN Nutrition Notes Initial or Follow up Reassessment Current Diagnosis CKD(stage I-IV),Diabetes, Hypertension,Hyperlipidemia Other Pertinent Diagnosis Hyperthyroidism, AMS Current Diet Cardiac/Consistent CHO Diet Labs/Tests BUN 44 Cr 2.4 Pertinent Medications Insulin Height 5 ft 6 in Weight 89.8 kg [place] Body Weight (kg) 59.09 BMI 31.9 Subjective/Other Information Spoke with nurse via phone. Pt consuming 65% of meals and tolerating well. Percent of energy/protein needs met: 74% energy, 74% protein Burn Absent Trauma Absent Food Allergy No Current % PO Fair (50-74%) Minimum of two criteria No Reduced Administrator Strength N/A (non-severe) #1 Nutrition Diagnosis Inadequate oral intake Etiology medical diagnosis As Evidenced by Signs and Symptoms PO intake not meeting 75% of energy and protein needs Is patient on ventilator? No Is Patient Ambulatory and/or Out of Bed No [facility] [phone] Calculation Used for Recommendations [facility] Additional Notes Protein needs are 74-89 (1-1. 2g/kg AdjBW) Fluid needs are 1 ml/kl Nutrition Intervention Change Diet Order: Continue current diet order Goal #1 Pt meet 75% of kcal and protein needs. Anticipated Discharge Needs: Consistent CHO Diet Follow-Up By: 10/20/19 Additional Comments F/U for PO intake
[2019-10-16] MEDS: ACETAMINOPHEN 325 MG TAB PO PRN ×2 (18:06→22:08)
[2019-10-16] MEDS: MELATONIN 5 MG TAB PO SCH (22:06)
[2019-10-16] MEDS: QUEtiapine 25 MG TAB PO SCH (22:07)
[2019-10-16] MEDS: AMITRIPTYLINE 10 MG TAB PO SCH (22:09)
[2019-10-16 22:43] LABS: Myeloperoxidase Antibody <1.0 AI (<1.0)
[2019-10-17] MEDS: LEVOTHYROXINE 88 MCG TAB PO SCH (05:25)
[2019-10-17 07:21] LABS: Calcium 8.4 mg/dL (8.4-10.2)
[2019-10-17] MEDS: INSULIN LISPRO 100 UNIT/ML VIAL 3 mL SUB-Q SCH ×4 (08:57→22:52)
[2019-10-17] MEDS: PANTOPRAZOLE 20 MG TAB PO SCH (09:50)
[2019-10-17] MEDS: ASPIRIN EC 81 MG TAB PO SCH (09:50)
[2019-10-17] MEDS: ARIPiprazole 5 MG TAB PO SCH (09:50)
[2019-10-17] MEDS: DULoxetine 30 MG CAP PO SCH ×2 (09:50→21:56)
[2019-10-17] MEDS: FERROUS SULFATE 325 MG TAB PO SCH (09:50)
[2019-10-17] MEDS: CLOPIDOGREL 75 MG TAB PO SCH (09:51)
[2019-10-17] MEDS: allopurinoL 100 MG TAB PO SCH (09:51)
[2019-10-17] MEDS: TOPIRAMATE TAB 100 MG TAB PO SCH (09:51)
[2019-10-17] MEDS: busPIRone 10 MG TAB PO SCH ×2 (09:52→21:56)
[2019-10-17] MEDS: ACETAMINOPHEN 325 MG TAB PO PRN ×2 (09:57→17:19)
[2019-10-17] MEDS: carvediloL 12.5 MG TAB PO SCH ×2 (10:04→21:56)
--- NOTE | 2019-10-17 11:38 | Progress Note ---
Assessment and Plan Impression * Acute on chronic renal failure * Altered mental status * Metabolic acidosis * Hypertension * Diabetes * Hyperlipidemia Recommendations * Renal function seems to be improving with IV hydration. * Her urine does not show any dipstick blood and only trace protein. Fractional excretion of sodium is 1.5% . Most likely reflective of some degree of underlying chronic kidney disease * Acidosis has been corrected with bicarbonate drip. CPK level is 167. * She most likely has some degree of underlying hypertensive nephrosclerosis and/or diabetic nephropathy * Monitor fluid status and electrolytes closely * Avoid nephrotoxins * Add PRN Zofran * Discharge plans noted. Patient will need outpatient renal follow-up Subjective Date of service: 10/17/19 Interval history: Patient is comfortable today. She does complain of some nausea and vomiting. Denies any diarrhea. Denies any shortness of breath. Objective - Vital Signs Vital signs: Vital Signs - 12hr 10/17/19 06:05 Temperature 98.4 F Pulse Rate 68 Respiratory 20 Rate Blood Pressure 129/70 O2 Sat by Pulse 99 Oximetry - General Appearance General appearance: well-developed, well-nourished, appears stated age EENT: PERRL, mucous membranes moist Neck: no JVD, no thyromegaly, no carotid bruit, supple Respiratory: Present: Clear to Ascultation Cardiology: regular, normal heart rate Gastrointestinal: normal, normoactive bowel sounds Integumentary: other (No edema) - Lab 10/15/19 03:59 10/17/19 05:45 Most recent lab results Calcium 8.4 mg/dL (8.4-10.2) 10/17/19 05:45 Urine Creatinine 45.8 mg/dL (0.1-20.0) H 10/14/19 23:00 Urine Sodium 35 mmol/L 10/14/19 23:00 Medications & Allergies - Medications Allergies/Adverse Reactions: Allergies adhesive tape Adverse Reaction (Verified 09/28/19 01:37) Unknown codeine Adverse Reaction (Verified 09/28/19 01:37) Unknown morphine Adverse Reaction (Verified 09/28/19 01:37) Unknown ondansetron Adverse Reaction (Verified 09/28/19 01:37) Unknown Penicillins Adverse Reaction (Verified 09/28/19 01:37) Unknown Sulfa (Sulfonamide Antibiotics) Adverse Reaction (Verified 09/28/19 01:37) Unknown Home Medications: Home Medications Medication Instructions Recorded Confirmed Last Taken Type Amitriptyline 10 mg PO QHS 09/28/19 10/14/19 Unknown History Aspirin 81 mg PO DAILY 09/28/19 10/14/19 Unknown History Atorvastatin 40 mg PO QHS 09/28/19 10/14/19 Unknown History Ferrous Sulfate 324 MG 65 mg PO DAILY 09/28/19 10/14/19 Unknown History Levemir VIAL 35 units SQ QHS 09/28/19 10/14/19 Unknown History Levothyroxine 88 mcg PO QAC 09/28/19 10/14/19 Unknown History Melatonin 5MG TAB 5 mg PO QHS 09/28/19 10/14/19 Unknown History Myrbetriq 25 mg PO DAILY 09/28/19 10/14/19 Unknown History NovoLOG 100 UNITS/ML VIAL 10 units SQ TIDAC 09/28/19 10/14/19 Unknown History allopurinoL 100 mg PO DAILY 09/28/19 10/14/19 Unknown History Acetaminophen [Acetaminophen TAB] 500 mg PO Q4H PRN tablet 10/02/19 10/14/19 Unknown Rx ARIPiprazole 7.5 mg PO QDAY #30 tablet 10/16/19 Unknown Rx ARIPiprazole 7.5 mg PO QDAY #30 tablet 10/16/19 Unknown Rx Acetaminophen [Acetaminophen TAB] 650 mg PO Q4H PRN tablet 10/16/19 Unknown Rx Amitriptyline [Elavil] 10 mg PO QHS #30 tablet 10/16/19 Unknown Rx Aspirin EC [Halfprin EC] 81 mg PO QDAY #30 tablet 10/16/19 Unknown Rx AtorvaSTATin [Lipitor] 40 mg PO QHS #30 tablet 10/16/19 Unknown Rx Clopidogrel [Plavix] 75 mg PO DAILY #30 tablet 10/16/19 Unknown Rx DULoxetine [Cymbalta] 60 mg PO BID #60 capsule 10/16/19 Unknown Rx Ferrous Sulfate [Feosol 325 MG tab] 325 mg PO DAILY@0800 #30 tab 10/16/19 Unknown Rx Insulin Lispro [Humalog] 0 unit SUB-Q ACHS vial 10/16/19 Unknown Rx Levothyroxine [Synthroid] 88 mcg PO DAILY@0600 #30 tablet 10/16/19 Unknown Rx Melatonin [Melatonin 5MG TAB] 5 mg PO QHS tablet 10/16/19 Unknown Rx Pantoprazole [Protonix TAB] 20 mg PO QDAY #30 tablet. 10/16/19 Unknown Rx QUEtiapine [SEROquel] 50 mg PO QHS #30 tablet 10/16/19 Unknown Rx Topiramate [Topamax] 100 mg PO DAILY #90 tablet 10/16/19 Unknown Rx allopurinoL [Zyloprim] 100 mg PO QDAY #30 tablet 10/16/19 Unknown Rx busPIRone [Buspar] 15 mg PO BID #60 tablet 10/16/19 Unknown Rx carvediloL [Coreg] 12.5 mg PO BID #60 tablet 10/16/19 Unknown Rx Active Medications: Generic Name Dose Route Start Last Admin Trade Name Freq PRN Reason Stop Dose Admin Acetaminophen 650 mg 10/14/19 01:52 10/17/19 09:57 Tylenol PO 650 mg Q4H PRN Administration Pain MILD(1-3)/Fever >100.5/RAY Allopurinol 100 mg 10/14/19 16:00 10/17/19 09:51 Zyloprim PO 100 mg QDAY JIMBO Administration Amitriptyline HCl 10 mg 10/14/19 22:00 10/16/19 22:09 Elavil PO 10 mg QHS JIMBO Administration Aripiprazole 7.5 mg 10/14/19 14:00 10/17/19 09:50 Aripiprazole PO 7.5 mg QDAY JIMBO Administration Aspirin 81 mg 10/14/19 10:00 10/17/19 09:50 Halfprin Ec PO 81 mg QDAY JIMBO Administration Atorvastatin Calcium 40 mg 10/14/19 22:00 10/16/19 22:06 Lipitor PO 40 mg QHS JIMBO Administration Buspirone HCl 15 mg 10/14/19 13:00 10/17/19 09:52 Buspar PO 15 mg BID JIMBO Administration Carvedilol 12.5 mg 10/15/19 10:00 10/17/19 10:04 Coreg PO 12.5 mg BID JIMBO Administration Clopidogrel Bisulfate 75 mg 10/14/19 10:00 10/17/19 09:51 Plavix PO 75 mg DAILY JIMBO Administration Dextrose 50 ml 10/14/19 01:52 D50w (25gm) Syringe IV Q30MIN PRN Hypoglycemia Protocol Duloxetine HCl 60 mg 10/14/19 13:00 10/17/19 09:50 Cymbalta PO 60 mg BID JIMBO Administration Ferrous Sulfate 325 mg 10/14/19 08:00 10/17/19 09:50 Feosol PO 325 mg DAILY@0800 JIMBO Administration Sodium Bicarbonate 75 meq/ 1,075 mls @ 125 mls/hr 10/14/19 11:00 10/16/19 10: 41 Sodium Chloride IV 125 mls/hr DIRECT JIMBO Administration Insulin Human Lispro 0 unit 10/14/19 07:30 10/17/19 08:57 Humalog SUB-Q Not Given ACHS [facility] Protocol Levothyroxine Sodium 88 mcg 10/14/19 08:00 10/17/19 05:25 Synthroid PO 88 mcg DAILY@0600 JIMBO Administration Magnesium Hydroxide 30 ml 10/14/19 01:52 Milk Of Magnesia PO Q4H PRN Constipation Melatonin 5 mg 10/14/19 22:00 10/16/19 22:06 Melatonin PO 5 mg QHS JIMBO Administration Ondansetron HCl 4 mg 10/15/19 12:51 10/16/19 09:30 Zofran IV 4 mg Q8H PRN Administration N/V unrelieved by Corinne Pantoprazole Sodium 20 mg 10/14/19 10:00 10/17/19 09:50 Protonix PO 20 mg QDAY JIMBO Administration Quetiapine Fumarate 50 mg 10/14/19 22:00 10/16/19 22:07 Seroquel PO 50 mg QHS JIMBO Administration Sodium Chloride 10 ml 10/14/19 10:00 10/17/19 09:59 Sodium Chloride Flush Syringe 10 Ml IV 10 ml BID JIMBO Administration Sodium Chloride 10 ml 10/14/19 01:52 Sodium Chloride Flush Syringe 10 Ml IV PRN PRN LINE FLUSH Topiramate 100 mg 10/14/19 10:00 10/17/19 09:51 Topamax PO 100 mg DAILY JIMBO Administration
--- NOTE | 2019-10-17 13:52 | Progress Note ---
Assessment and Plan -- STEPHON on CKD -likely vasomotor nephropathy -Admit creatinine 3.8, trending downward -Nephrology consulted -Avoid nephrotoxic medication -Trend BMP - cont iv fluid -Fractional excretion of sodium is 1.5%, most likely reflecting underlying chronic kidney disease -- Metabolic encephalopathy -Presented with altered mental status -Possible cause acute renal failure, metabolic acidosis with underlying dementia -10/13 CTH negative for any acute abnormality -Seems to be better but slightly confused at times -Fall precautions -Supportive care -- History of depression -History of depression with psychotic features -Continue antidepressants -Supportive care -Sleep hygiene -Reorientation as needed -- Diabetes type 2 -SSI -Accu-Cheks AC at bedtime -Hypoglycemia protocol -Hemoglobin A1c pending -- GERD (gastroesophageal reflux disease) -Continue Protonix -- Hyperlipidemia -Continue statins -- Hypertension -Blood pressure monitoring per protocol -Restarted Coreg -IV hydralazine PRN -- Hypothyroidism -Restarted home levothyroxine -- Metabolic acidosis -s/p Sodium bicarbonate drip -Trend BMP --Right knee pain likely traumatic, patient was found behind the gas station will get xry. cont as needed pain meds -- DVT prophylaxis -Heparin subcu -SCDs bilateral extremities while in bed Brief History Patient is a 68-year-old female with hypertension, diabetes mellitus, hypothyroidism, hyperlipidemia, gout, iron deficiency anemia, obesity and depression with psychotic features was brought in by EMS after being found behind a gas station. She was said to have been dropped off by an unknown person and left at the gas station. Evaluation in the emergency room reveals acute renal failure and metabolic acidosis. CT scan of the head obtained on 10/13 did not reveal any acute abnormality. Mental health and nephrology were consulted. Mental health evaluation does not recommend inpatient hospitalization at this time. This morning she is to be slightly confused attempting to get out of bed however she is oriented to name, location, time, and current events. The patient was medically cleared to be discharged however there have been some placement issues. 10/13 CT H (-), renal ultrasound pending 10/14: Possible underlying chronic renal impairment. PT recommends discharge back to personal [facility] with continued use of her wheelchair and cane. possible d/c tomorrow if renal function cont to improve. 10/15; Patient was planned to discharge to memory cell unit today but patients Son are now requesting 03/09 care which [facility] will not be able to provide. Patient discharge is now canceled because of the placement issue. sharepoint manager working on placement. 10/16: discharge pending on placement, will also get right knee xry today for right knee pain. patient is ambulatory Subjective Date of service: 10/17/19 Interval history: Patient seen and examined. Medical records and medication list reviewed. No acute event overnight noted by the RN. Patient denies any chest pain or difficulty breathing. Patient is tolerating diet. Patient complains of right knee pain Discussed plan of care with RN and CM Objective - Exam Narrative Exam: General appearance: Present: no acute distress, well-nourished, obese - EENT Eyes: Present: PERRL, EOM intact ENT: hearing decreased - Neck Neck: Present: normal ROM - Respiratory Respiratory effort: normal Respiratory: bilateral: CTA - Cardiovascular Rhythm: regular Heart Sounds: Present: S1 & S2. Absent: systolic murmur, diastolic murmur - Extremities Extremities: no ischemia, pulses intact, pulses symmetrical, No edema, normal temperature, normal color, Full ROM Peripheral Pulses: within normal limits - Abdominal General gastrointestinal: soft, non-tender, non-distended, normal bowel sounds - Integumentary Integumentary: Present: clear, warm, dry - Psychiatric Psychiatric: cooperative - Neurologic Neurologic: CNII-XII intact, no focal deficits, moves all extremities Musculoskeletal: Slight right knee tenderness with bruises on the popliteal fossa - Allied Health Allied health notes reviewed: nursing, social work, case management - Constitutional Vitals: Vital Signs - 12hr 10/17/19 10/17/19 10/17/19 06:05 10:00 11:42 Temperature 98.4 F 98.4 F Pulse Rate 68 67 Respiratory 20 18 18 Rate Blood Pressure 129/70 138/56 O2 Sat by Pulse 99 99 Oximetry - Labs CBC & Chem 7: 10/15/19 03:59 10/18/19 07:02 Labs: Abnormal lab results 10/16/19 10/16/19 10/17/19 Range/Units 16:24 23:06 05:45 Chloride 108.3 H (98-107) mmol/L BUN 24 H (7-17) mg/dL Creatinine 1.6 H (0.6-1.2) mg/dL Glucose 118 H (65-100) mg/dL POC Glucose 176 H 163 H (70-105) 10/17/19 10/17/19 Range/Units 08:38 11:59 Chloride (98-107) mmol/L BUN (7-17) mg/dL Creatinine (0.6-1.2) mg/dL Glucose (65-100) mg/dL POC Glucose 120 H 175 H (70-105)
--- NOTE | 2019-10-17 15:07 | XRay Report ---
RIGHT KNEE 3 VIEW(S) INDICATION / CLINICAL INFORMATION: pain and swelling COMPARISON: None available. FINDINGS: BONES / JOINT(S): No acute fracture or subluxation. 'S moderately advanced degenerative arthrosis of the medial and patellofemoral compartments. No significant joint effusion or intra-articular bodies. SOFT TISSUES: Moderate circumferential subcutaneous soft tissue swelling of the right knee. ADDITIONAL FINDINGS: None. Signer Name: Bam Kendall MD Signed: 10/17/2019 3:03 PM Workstation Name: [id number]
[2019-10-17] MEDS: QUEtiapine 25 MG TAB PO SCH (21:56)
[2019-10-17] MEDS: MELATONIN 5 MG TAB PO SCH (21:56)
[2019-10-17] MEDS: AMITRIPTYLINE 10 MG TAB PO SCH (21:56)
[2019-10-18] MEDS: LEVOTHYROXINE 88 MCG TAB PO SCH (05:26)
[2019-10-18 07:43] LABS: Calcium 8.7 mg/dL (8.4-10.2)
[2019-10-18] MEDS: INSULIN LISPRO 100 UNIT/ML VIAL 3 mL SUB-Q SCH ×4 (10:02→22:16)
[2019-10-18] MEDS: ARIPiprazole 5 MG TAB PO SCH (10:03)
[2019-10-18] MEDS: DULoxetine 30 MG CAP PO SCH ×2 (10:04→22:14)
[2019-10-18] MEDS: PANTOPRAZOLE 20 MG TAB PO SCH (10:04)
[2019-10-18] MEDS: CLOPIDOGREL 75 MG TAB PO SCH (10:05)
[2019-10-18] MEDS: allopurinoL 100 MG TAB PO SCH (10:05)
[2019-10-18] MEDS: ASPIRIN EC 81 MG TAB PO SCH (10:05)
[2019-10-18] MEDS: FERROUS SULFATE 325 MG TAB PO SCH (10:05)
[2019-10-18] MEDS: busPIRone 10 MG TAB PO SCH ×2 (10:06→22:14)
[2019-10-18] MEDS: TOPIRAMATE TAB 100 MG TAB PO SCH (10:06)
[2019-10-18] MEDS: carvediloL 12.5 MG TAB PO SCH ×2 (10:07→22:15)
--- NOTE | 2019-10-18 12:40 | Progress Note ---
Assessment and Plan Impression * Acute on chronic renal failure * Altered mental status * Metabolic acidosis * Hypertension * Diabetes * Hyperlipidemia Recommendations * Renal function seems to be improving with IV hydration. * Her urine does not show any dipstick blood and only trace protein. Fractional excretion of sodium is 1.5% . Most likely reflective of some degree of underlying chronic kidney disease * Acidosis has been corrected with bicarbonate drip. CPK level is 167. * She most likely has some degree of underlying hypertensive nephrosclerosis and/or diabetic nephropathy * Monitor fluid status and electrolytes closely * Avoid nephrotoxins * Add PRN Zofran * Discharge plans noted. Patient will need outpatient renal follow-up Subjective Date of service: 10/18/19 Interval history: Patient is comfortable today. She does complain of some nausea and vomiting. Denies any shortness of breath. Objective - Vital Signs Vital signs: Vital Signs - 12hr 10/18/19 10/18/19 10/18/19 06:07 10:07 11:38 Temperature 97.4 F L 97.4 F L Pulse Rate 64 64 70 Respiratory 18 20 Rate Blood Pressure 109/56 109/56 148/76 O2 Sat by Pulse 96 99 Oximetry - General Appearance General appearance: well-developed, well-nourished, appears stated age EENT: ATNC Neck: no JVD, no thyromegaly, no carotid bruit, supple Respiratory: Present: Clear to Ascultation, Normal Exam Cardiology: regular, normal heart rate Gastrointestinal: normal, normoactive bowel sounds Integumentary: other (No edema. Bruise noted in the medial aspect of her right thigh) - Lab 10/15/19 03:59 10/18/19 07:02 Most recent lab results Calcium 8.7 mg/dL (8.4-10.2) 10/18/19 07:02 Urine Creatinine 45.8 mg/dL (0.1-20.0) H 10/14/19 23:00 Urine Sodium 35 mmol/L 10/14/19 23:00 Medications & Allergies - Medications Allergies/Adverse Reactions: Allergies adhesive tape Adverse Reaction (Verified 09/28/19 01:37) Unknown codeine Adverse Reaction (Verified 09/28/19 01:37) Unknown morphine Adverse Reaction (Verified 09/28/19 01:37) Unknown ondansetron Adverse Reaction (Verified 09/28/19 01:37) Unknown Penicillins Adverse Reaction (Verified 09/28/19 01:37) Unknown Sulfa (Sulfonamide Antibiotics) Adverse Reaction (Verified 09/28/19 01:37) Unknown Home Medications: Home Medications Medication Instructions Recorded Confirmed Last Taken Type Amitriptyline 10 mg PO QHS 09/28/19 10/14/19 Unknown History Aspirin 81 mg PO DAILY 09/28/19 10/14/19 Unknown History Atorvastatin 40 mg PO QHS 09/28/19 10/14/19 Unknown History Ferrous Sulfate 324 MG 65 mg PO DAILY 09/28/19 10/14/19 Unknown History Levemir VIAL 35 units SQ QHS 09/28/19 10/14/19 Unknown History Levothyroxine 88 mcg PO QAC 09/28/19 10/14/19 Unknown History Melatonin 5MG TAB 5 mg PO QHS 09/28/19 10/14/19 Unknown History Myrbetriq 25 mg PO DAILY 09/28/19 10/14/19 Unknown History NovoLOG 100 UNITS/ML VIAL 10 units SQ TIDAC 09/28/19 10/14/19 Unknown History allopurinoL 100 mg PO DAILY 09/28/19 10/14/19 Unknown History Acetaminophen [Acetaminophen TAB] 500 mg PO Q4H PRN tablet 10/02/19 10/14/19 Unknown Rx ARIPiprazole 7.5 mg PO QDAY #30 tablet 10/16/19 Unknown Rx ARIPiprazole 7.5 mg PO QDAY #30 tablet 10/16/19 Unknown Rx Acetaminophen [Acetaminophen TAB] 650 mg PO Q4H PRN tablet 10/16/19 Unknown Rx Amitriptyline [Elavil] 10 mg PO QHS #30 tablet 10/16/19 Unknown Rx Aspirin EC [Halfprin EC] 81 mg PO QDAY #30 tablet 10/16/19 Unknown Rx AtorvaSTATin [Lipitor] 40 mg PO QHS #30 tablet 10/16/19 Unknown Rx Clopidogrel [Plavix] 75 mg PO DAILY #30 tablet 10/16/19 Unknown Rx DULoxetine [Cymbalta] 60 mg PO BID #60 capsule 10/16/19 Unknown Rx Ferrous Sulfate [Feosol 325 MG tab] 325 mg PO DAILY@0800 #30 tab 10/16/19 Unknown Rx Insulin Lispro [Humalog] 0 unit SUB-Q ACHS vial 10/16/19 Unknown Rx Levothyroxine [Synthroid] 88 mcg PO DAILY@0600 #30 tablet 10/16/19 Unknown Rx Melatonin [Melatonin 5MG TAB] 5 mg PO QHS tablet 10/16/19 Unknown Rx Pantoprazole [Protonix TAB] 20 mg PO QDAY #30 tablet.dr 10/16/19 Unknown Rx QUEtiapine [SEROquel] 50 mg PO QHS #30 tablet 10/16/19 Unknown Rx Topiramate [Topamax] 100 mg PO DAILY #90 tablet 10/16/19 Unknown Rx allopurinoL [Zyloprim] 100 mg PO QDAY #30 tablet 10/16/19 Unknown Rx busPIRone [Buspar] 15 mg PO BID #60 tablet 10/16/19 Unknown Rx carvediloL [Coreg] 12.5 mg PO BID #60 tablet 10/16/19 Unknown Rx Active Medications: Generic Name Dose Route Start Last Admin Trade Name Freq PRN Reason Stop Dose Admin Acetaminophen 650 mg 10/14/19 01:52 10/17/19 17:19 Tylenol PO 650 mg Q4H PRN Administration Pain MILD(1-3)/Fever >100.5/RAY Allopurinol 100 mg 10/14/19 16:00 10/18/19 10:05 Zyloprim PO 100 mg QDAY JIMBO Administration Amitriptyline HCl 10 mg 10/14/19 22:00 10/17/19 21:56 Elavil PO 10 mg QHS JIMBO Administration Aripiprazole 7.5 mg 10/14/19 14:00 10/18/19 10:03 Aripiprazole PO 7.5 mg QDAY JIMBO Administration Aspirin 81 mg 10/14/19 10:00 10/18/19 10:05 Halfprin Ec PO 81 mg QDAY JIMBO Administration Atorvastatin Calcium 40 mg 10/14/19 22:00 10/17/19 21:56 Lipitor PO 40 mg QHS JIMBO Administration Buspirone HCl 15 mg 10/14/19 13:00 10/18/19 10:06 Buspar PO 15 mg BID JIMBO Administration Carvedilol 12.5 mg 10/15/19 10:00 10/18/19 10:07 Coreg PO 12.5 mg BID JIMBO Administration Clopidogrel Bisulfate 75 mg 10/14/19 10:00 10/18/19 10:05 Plavix PO 75 mg DAILY JIMBO Administration Dextrose 50 ml 10/14/19 01:52 D50w (25gm) Syringe IV Q30MIN PRN Hypoglycemia Protocol Duloxetine HCl 60 mg 10/14/19 13:00 10/18/19 10:04 Cymbalta PO 60 mg BID JIMBO Administration Ferrous Sulfate 325 mg 10/14/19 08:00 10/18/19 10:05 Feosol PO 325 mg DAILY@0800 JIMBO Administration Sodium Bicarbonate 75 meq/ 1,075 mls @ 125 mls/hr 10/14/19 11:00 10/16/19 10:41 Sodium Chloride IV 125 mls/hr DIRECT JIMBO Administration Insulin Human Lispro 0 unit 10/14/19 07:30 10/18/19 10:02 Humalog SUB-Q Not Given ACHS JIMBO Protocol Levothyroxine Sodium 88 mcg 10/14/19 08:00 10/18/19 05:26 Synthroid PO 88 mcg DAILY@0600 JIMBO Administration Magnesium Hydroxide 30 ml 10/14/19 01:52 Milk Of Magnesia PO Q4H PRN Constipation Melatonin 5 mg 10/14/19 22:00 10/17/19 21:56 Melatonin PO 5 mg QHS JIMBO Administration Ondansetron HCl 4 mg 10/15/19 12:51 10/16/19 09:30 Zofran IV 4 mg Q8H PRN Administration N/V unrelieved by Corinne Pantoprazole Sodium 20 mg 10/14/19 10:00 10/18/19 10:04 Protonix PO 20 mg QDAY JIMBO Administration Quetiapine Fumarate 50 mg 10/14/19 22:00 10/17/19 21:56 Seroquel PO 50 mg QHS JIMBO Administration Sodium Chloride 10 ml 10/14/19 10:00 10/18/19 10:10 Sodium Chloride Flush Syringe 10 Ml IV 10 ml BID JIMBO Administration Sodium Chloride 10 ml 10/14/19 01:52 Sodium Chloride Flush Syringe 10 Ml IV PRN PRN LINE FLUSH Topiramate 100 mg 10/14/19 10:00 10/18/19 10:06 Topamax PO 100 mg DAILY JIMBO Administration
--- NOTE | 2019-10-18 13:40 | Progress Note ---
Assessment and Plan -- STEPHON on CKD -likely vasomotor nephropathy -Admit creatinine 3.8, trending downward -Nephrology consulted -Avoid nephrotoxic medication -Trend BMP - cont iv fluid -Fractional excretion of sodium is 1.5%, most likely reflecting underlying chronic kidney disease -- Metabolic encephalopathy -Presented with altered mental status -Possible cause acute renal failure, metabolic acidosis with underlying dementia -10/13 CTH negative for any acute abnormality -Seems to be better but slightly confused at times -Fall precautions -Supportive care -- History of depression -History of depression with psychotic features -Continue antidepressants -Supportive care -Sleep hygiene -Reorientation as needed -- Diabetes type 2 -SSI -Accu-Cheks AC at bedtime -Hypoglycemia protocol -Hemoglobin A1c pending -- GERD (gastroesophageal reflux disease) -Continue Protonix -- Hyperlipidemia -Continue statins -- Hypertension -Blood pressure monitoring per protocol -Restarted Coreg -IV hydralazine PRN -- Hypothyroidism -Restarted home levothyroxine -- Metabolic acidosis -s/p Sodium bicarbonate drip -Trend BMP --Right knee pain likely traumatic, patient was found behind the gas station will get xry. cont as needed pain meds -- DVT prophylaxis -Heparin subcu -SCDs bilateral extremities while in bed Brief History Patient is a 68-year-old female with hypertension, diabetes mellitus, hypothyroidism, hyperlipidemia, gout, iron deficiency anemia, obesity and depression with psychotic features was brought in by EMS after being found behind a gas station. She was said to have been dropped off by an unknown person and left at the gas station. Evaluation in the emergency room reveals acute renal failure and metabolic acidosis. CT scan of the head obtained on 10/13 did not reveal any acute abnormality. Mental health and nephrology were consulted. Mental health evaluation does not recommend inpatient hospitalization at this time. This morning she is to be slightly confused attempting to get out of bed however she is oriented to name, location, time, and current events. The patient was medically cleared to be discharged however there have been some placement issues. 10/13 CT H (-), renal ultrasound pending 10/14: Possible underlying chronic renal impairment. PT recommends discharge back to personal [facility] with continued use of her wheelchair and cane. possible d/c tomorrow if renal function cont to improve. 10/15; Patient was planned to discharge to [facility] unit today but patients Son are now requesting 03/09 care which [facility] will not be able to provide. Patient discharge is now canceled because of the placement issue. manager market research working on placement. 10/16: discharge pending on placement, will also get right knee xry today for right knee pain. patient is ambulatory 10/17: Discharge pending on placement, right knee x-ray showed no fracture, continue supportive care. Subjective Date of service: 10/18/19 Interval history: Patient seen and examined. Medical records and medication list reviewed. No acute event overnight noted by the RN. Patient denies any chest pain or difficulty breathing. Patient is tolerating diet. Patient complains of right knee pain, but improved Discussed plan of care with RN and CM Objective - Exam Narrative Exam: General appearance: Present: no acute distress, well-nourished, obese - EENT Eyes: Present: PERRL, EOM intact ENT: hearing decreased - Neck Neck: Present: normal ROM - Respiratory Respiratory effort: normal Respiratory: bilateral: CTA - Cardiovascular Rhythm: regular Heart Sounds: Present: S1 & S2. Absent: systolic murmur, diastolic murmur - Extremities Extremities: no ischemia, pulses intact, pulses symmetrical, No edema, normal temperature, normal color, Full ROM Peripheral Pulses: within normal limits - Abdominal General gastrointestinal: soft, non-tender, non-distended, normal bowel sounds - Integumentary Integumentary: Present: clear, warm, dry - Psychiatric Psychiatric: cooperative - Neurologic Neurologic: CNII-XII intact, no focal deficits, moves all extremities Musculoskeletal: Slight right knee tenderness with bruises on the popliteal fossa - Allied Health Allied health notes reviewed: nursing, social work, case management - Constitutional Vitals: Vital Signs - 12hr 10/18/19 10/18/19 10/18/19 06:07 10:07 11:38 Temperature 97.4 F L 97.4 F L Pulse Rate 64 64 70 Respiratory 18 20 Rate Blood Pressure 109/56 109/56 148/76 O2 Sat by Pulse 96 99 Oximetry - Labs CBC & Chem 7: 10/15/19 03:59 10/18/19 07:02 Labs: Abnormal lab results 10/17/19 10/17/19 10/18/19 Range/Units 16:53 23:03 07:02 Chloride 108.7 H (98-107) mmol/L BUN 22 H (7-17) mg/dL Creatinine 1.6 H (0.6-1.2) mg/dL Glucose 124 H (65-100) mg/dL POC Glucose 116 H 124 H (70-105) 10/18/19 Range/Units 07:43 Chloride (98-107) mmol/L BUN (7-17) mg/dL Creatinine (0.6-1.2) mg/dL Glucose (65-100) mg/dL POC Glucose 120 H (70-105)
[2019-10-18] MEDS: MELATONIN 5 MG TAB PO SCH (22:14)
[2019-10-18] MEDS: QUEtiapine 25 MG TAB PO SCH (22:15)
[2019-10-18] MEDS: AMITRIPTYLINE 10 MG TAB PO SCH (22:15)
[2019-10-19] MEDS ORDERED: MORPHINE 2 MG/1 ML INJ IV ONE (01:33)
[2019-10-19] MEDS: LEVOTHYROXINE 88 MCG TAB PO SCH (05:19)
[2019-10-19 06:19] LABS: Calcium 8.9 mg/dL (8.4-10.2)
[2019-10-19] MEDS: INSULIN LISPRO 100 UNIT/ML VIAL 3 mL SUB-Q SCH ×4 (08:14→21:46)
[2019-10-19] MEDS: FERROUS SULFATE 325 MG TAB PO SCH (08:23)
[2019-10-19] MEDS: DULoxetine 30 MG CAP PO SCH ×2 (09:51→21:45)
[2019-10-19] MEDS: CLOPIDOGREL 75 MG TAB PO SCH (09:52)
[2019-10-19] MEDS: PANTOPRAZOLE 20 MG TAB PO SCH (09:52)
[2019-10-19] MEDS: carvediloL 12.5 MG TAB PO SCH ×2 (09:52→21:45)
[2019-10-19] MEDS: allopurinoL 100 MG TAB PO SCH (09:52)
[2019-10-19] MEDS: TOPIRAMATE TAB 100 MG TAB PO SCH (09:53)
[2019-10-19] MEDS: busPIRone 10 MG TAB PO SCH ×2 (09:53→21:45)
[2019-10-19] MEDS: ARIPiprazole 5 MG TAB PO SCH (09:54)
[2019-10-19] MEDS: ACETAMINOPHEN 325 MG TAB PO PRN ×2 (10:06→23:02)
[2019-10-19] MEDS: ASPIRIN EC 81 MG TAB PO SCH (10:42)
[2019-10-19] MEDS: ONDANSETRON 4 MG/2 ML INJ IV PRN ×2 (11:21→17:55)
--- NOTE | 2019-10-19 14:57 | Progress Note ---
<MILADYSBARBARA StephaniRamo - Last Filed: 10/19/19 15:04> Assessment and Plan - Patient Problems (1) Acute on chronic renal insufficiency Current Visit: Yes Status: Acute Plan to address problem: -Admit creatinine 3.8, trending downward -Nephrology consulted -Avoid nephrotoxic medication -Trend BMP -10/12 renal ultrasound pending -MIVF -Fractional excretion of sodium is 1.5%, most likely reflecting underlying chronic kidney disease (2) Metabolic encephalopathy Current Visit: Yes Status: Acute Plan to address problem: -Presented with altered mental status -Possible cause acute renal failure, metabolic acidosis -10/13 CTH negative for any acute abnormality -Seems to be better but slightly confused at times -Fall precautions -Supportive care (3) History of depression Current Visit: Yes Status: Chronic Plan to address problem: -History of depression with psychotic features -Continue antidepressants -Supportive care -Sleep hygiene -Reorientation as needed (4) Diabetes Current Visit: No Status: Chronic Plan to address problem: -SSI -Accu-Cheks AC at bedtime -Hypoglycemia protocol -10/14 Hemoglobin A1c 5.9 (5) GERD (gastroesophageal reflux disease) Current Visit: No Status: Chronic Qualifiers: Esophagitis presence: without esophagitis Qualified Code(s): K21.9 - Gastro-esophageal reflux disease without esophagitis Plan to address problem: -Continue Protonix (6) Hyperlipidemia Current Visit: No Status: Chronic Qualifiers: Hyperlipidemia type: mixed hyperlipidemia Qualified Code(s): E78.2 - Mixed hyperlipidemia Plan to address problem: -Continue statins (7) Hypertension Current Visit: No Status: Chronic Qualifiers: Hypertension type: essential hypertension Qualified Code(s): I10 - Essential (primary) hypertension Plan to address problem: -Blood pressure monitoring per protocol -Restarted Coreg -IV hydralazine PRN (8) Hypothyroidism Current Visit: No Status: Chronic Plan to address problem: -Restarted home levothyroxine (9) Knee pain, right Current Visit: Yes Status: Acute Plan to address problem: - Patient complained of right knee pain this may be related to trauma sustained from being found on the back of a gas station - 10/16 knee x-ray shows no fracture - Continue supportive care. (10) DVT prophylaxis Current Visit: Yes Status: Acute Plan to address problem: -Heparin subcu -SCDs bilateral extremities while in bed History Interval history: Patient is a 68-year-old female with hypertension, diabetes mellitus, hypothyroidism, hyperlipidemia, gout, iron deficiency anemia, obesity and depression with psychotic features was brought in by EMS after being found behind a gas station. She was said to have been dropped off by an unknown person and left at the gas station. Evaluation in the emergency room reveals acute renal failure and metabolic acidosis. CT scan of the head obtained on 10/13 did not reveal any acute abnormality. Mental health and nephrology were consulted. Mental health evaluation does not recommend inpatient hospitalization at this time. This morning she is alert and oriented. Renal function continues to improve. Discharge is pending on placement issues. 10/13 CTH (-), renal ultrasound pending 10/14: Possible underlying chronic renal impairment. PT recommends discharge back to personal assisted with continued use of her wheelchair and cane. possible d/c tomorrow if renal function cont to improve. 10/15; Patient was planned to discharge to memory cell unit today but patients Son are now requesting / care which memory cell unit will not be able to provide. Patient discharge is now canceled because of the placement issue. manager family working on placement. 10/16: discharge pending on placement, will also get right knee XR today for right knee pain. patient is ambulatory 10/17: Discharge pending on placement, right knee x-ray showed no fracture, continue supportive care. Hospitalist Physical - Constitutional Vitals: Temp Pulse Resp BP Pulse Ox 97.5 F L 60 18 135/66 100 10/19/19 11:21 10/19/19 11:21 10/19/19 11:21 10/19/19 11:21 10/19/19 11:21 General appearance: Present: no acute distress, well-nourished, obese - EENT Eyes: Present: PERRL, EOM intact ENT: hearing decreased, poor dentition - Neck Neck: Present: supple, normal ROM - Respiratory Respiratory effort: normal Respiratory: bilateral: CTA - Cardiovascular Rhythm: regular Heart Sounds: Present: S1 & S2. Absent: systolic murmur, diastolic murmur - Extremities Extremities: no ischemia, pulses intact, pulses symmetrical, No edema, normal temperature, normal color, Full ROM Peripheral Pulses: within normal limits - Abdominal General gastrointestinal: soft, non-tender, normal bowel sounds - Integumentary Integumentary: Present: clear, warm - Psychiatric Psychiatric: cooperative - Neurologic Neurologic: CNII-XII intact, no focal deficits, moves all extremities - Allied Health Allied health notes reviewed: nursing Results - Labs CBC & Chem 7: 10/15/19 03:59 10/19/19 05:18 Labs: Laboratory Last Values WBC 4.0 K/mm3 (4.5-11.0) L 10/15/19 03:59 RBC 2.48 M/mm3 (3.65-5.03) L 10/15/19 03:59 Hgb 8.1 gm/dl (10.1-14.3) L 10/15/19 03:59 Hct 23.9 % (30.3-42.9) L 10/15/19 03:59 MCV 96 fl (79-97) 10/15/19 03:59 MCH 33 pg (28-32) H 10/15/19 03:59 MCHC 34 % (30-34) 10/15/19 03:59 RDW 14.2 % (13.2-15.2) 10/15/19 03:59 Plt Count 99 K/mm3 (140-440) L 10/15/19 03:59 Lymph % (Auto) 22.7 % (13.4-35.0) 10/15/19 03:59 [place] % (Auto) 8.5 % (0.0-7.3) H 10/15/19 03:59 Eos % (Auto) 4.0 % (0.0-4.3) 10/15/19 03:59 Baso % (Auto) 0.9 % (0.0-1.8) 10/15/19 03:59 Lymph # 0.9 K/mm3 (1.2-5.4) L 10/15/19 03:59 [place] # 0.3 K/mm3 (0.0-0.8) 10/15/19 03:59 Eos # 0.2 K/mm3 (0.0-0.4) 10/15/19 03:59 Baso # 0.0 K/mm3 (0.0-0.1) 10/15/19 03:59 Seg Neutrophils % 63.9 % (40.0-70.0) 10/15/19 03:59 Seg Neutrophils # 2.5 K/mm3 (1.8-7.7) 10/15/19 03:59 PT 16.1 Sec. (12.2-14.9) H 10/15/19 03:59 INR 1.27 (0.87-1.13) H 10/15/19 03:59 Sodium 139 mmol/L (137-145) 10/19/19 05:18 Potassium 4.2 mmol/L (3.6-5.0) 10/19/19 05:18 Chloride 106.3 mmol/L (98-107) 10/19/19 05:18 Carbon Dioxide 22 mmol/L (22-30) 10/19/19 05:18 Anion Gap 15 mmol/L 10/19/19 05:18 BUN 20 mg/dL (7-17) H 10/19/19 05:18 Creatinine 1.5 mg/dL (0.6-1.2) H 10/19/19 05:18 Estimated GFR 34 ml/min 10/19/19 05:18 BUN/Creatinine Ratio 13 % 10/19/19 05:18 Glucose 133 mg/dL (65-100) H 10/19/19 05:18 POC Glucose 154 (70-105) H 10/19/19 12:06 Hemoglobin A1c 5.9 % (4-6) 10/15/19 03:59 Calcium 8.9 mg/dL (8.4-10.2) 10/19/19 05:18 Total Bilirubin 0.30 mg/dL (0.1-1.2) 10/13/19 21:33 Direct Bilirubin < 0.2 mg/dL (0-0.2) 10/13/19 21:33 Indirect Bilirubin 0.1 mg/dL 10/13/19 21:33 AST 20 units/L (5-40) 10/13/19 21:33 ALT 12 units/L (7-56) 10/13/19 21:33 Alkaline Phosphatase 142 units/L (35-129) H 10/13/19 21:33 Total Creatine Kinase 167 units/L (30-135) H 10/14/19 11:01 Total Protein 7.0 g/dL (6.3-8.2) 10/13/19 21:33 Albumin 4.0 g/dL (3.9-5) 10/13/19 21:33 Albumin/Globulin Ratio 1.3 % 10/13/19 21:33 Urine Color Straw (Yellow) 10/14/19 23:00 Urine Turbidity Clear (Clear) 10/14/19 23:00 Urine pH 6.0 (5.0-7.0) 10/14/19 23:00 Ur Specific [place] 1.006 (1.003-1.030) 10/14/19 23:00 Urine Protein <15 mg/dl mg/dL (Negative) 10/14/19 23:00 Urine Glucose (UA) Neg mg/dL (Negative) 10/14/19 23:00 Urine Ketones Neg mg/dL (Negative) 10/14/19 23:00 Urine Blood Neg (Negative) 10/14/19 23:00 Urine Nitrite Neg (Negative) 10/14/19 23:00 Urine Bilirubin Neg (Negative) 10/14/19 23:00 Urine Ictotest Negative (Negative) 10/13/19 Unknown Urine Urobilinogen < 2.0 mg/dL (<2.0) 10/14/19 23:00 Ur Leukocyte Esterase Neg (Negative) 10/14/19 23:00 Urine WBC (Auto) < 1.0 /HPF (0.0-6.0) 10/14/19 23:00 Urine RBC (Auto) 3.0 /HPF (0.0-6.0) 10/14/19 23:00 U Epithel Cells (Auto) 1.0 /HPF (0-13.0) 10/14/19 23:00 Urine Bacteria (Auto) 1+ /HPF (Negative) 10/13/19 Unknown Urine Mucus Few /HPF 10/13/19 Unknown Urine Eosinophils None seen (None Seen) 10/15/19 13:49 Urine Creatinine 45.8 mg/dL (0.1-20.0) H 10/14/19 23:00 Urine Sodium 35 mmol/L 10/14/19 23:00 Fraction Sodium Excret 1.5 10/14/19 23:00 Salicylates < 0.3 mg/dL (2.8-20.0) L 10/13/19 21:33 Urine Opiates Screen Presumptive negative 10/13/19 Unknown Urine Methadone Screen Presumptive negative 10/13/19 Unknown Acetaminophen 5.0 ug/mL (10.0-30.0) L 10/13/19 21:33 Ur Barbiturates Screen Presumptive negative 10/13/19 Unknown Ur Phencyclidine Scrn Presumptive negative 10/13/19 Unknown Ur Amphetamines Screen Presumptive negative 10/13/19 Unknown U Benzodiazepines Scrn Presumptive negative 10/13/19 Unknown Urine Cocaine Screen Presumptive negative 10/13/19 Unknown U Marijuana (THC) Screen Presumptive negative 10/13/19 Unknown Drugs of Abuse Note Disclamer 10/13/19 Unknown Plasma/Serum Alcohol < 0.01 % (0-0.07) 10/13/19 21:33 Proteinase 3 (PR3) Ab <1.0 AI (<1.0) 10/14/19 11:01 Myeloperoxidase Ab <1.0 AI (<1.0) 10/14/19 11:01 Complement C3 107 mg/dL (83-193) 10/14/19 11:01 Complement C4 25 mg/dL (15-57) 10/14/19 11:01 Hepatitis A IgM Ab Non-reactive (NonReactive) 10/14/19 11:01 Hep Bs Antigen Non-reactive (Negative) 10/14/19 11:01 Hep B Core IgM Ab Non-reactive (NonReactive) 10/14/19 11:01 Hepatitis C Antibody Non-reactive (NonReactive) 10/14/19 11:01 Rodriguez/IV: Voiding Method Toilet IV Catheter Type [Right Peripheral IV Forearm] Active Medications - Current Medications Current Medications: Generic Name Dose Route Start Last Admin Trade Name Freq PRN Reason Stop Dose Admin Acetaminophen 650 mg 10/14/19 01:52 10/19/19 10:06 Tylenol PO 650 mg Q4H PRN Administration Pain MILD(1-3)/Fever >100.5/RAY Allopurinol 100 mg 10/14/19 16:00 10/19/19 09:52 Zyloprim PO 100 mg QDAY JIMBO Administration Amitriptyline HCl 10 mg 10/14/19 22:00 10/18/19 22:15 Elavil PO 10 mg QHS JIMBO Administration Aripiprazole 7.5 mg 10/14/19 14:00 10/19/19 09:54 Aripiprazole PO 7.5 mg QDAY JIMBO Administration Aspirin 81 mg 10/14/19 10:00 10/19/19 10:42 Halfprin Ec PO 81 mg QDAY JIMBO Administration Atorvastatin Calcium 40 mg 10/14/19 22:00 09/06/20 22:14 Lipitor PO 40 mg QHS JIMBO Administration Buspirone HCl 15 mg 10/14/19 13:00 10/19/19 09:53 Buspar PO 15 mg BID JIMBO Administration Carvedilol 12.5 mg 10/15/19 10:00 10/19/19 09:52 Coreg PO 12.5 mg BID JIMBO Administration Clopidogrel Bisulfate 75 mg 10/14/19 10:00 10/19/19 09:52 Plavix PO 75 mg DAILY JIMBO Administration Dextrose 50 ml 10/14/19 01:52 D50w (25gm) Syringe IV Q30MIN PRN Hypoglycemia Protocol Duloxetine HCl 60 mg 10/14/19 13:00 10/19/19 09:51 Cymbalta PO 60 mg BID JIMBO Administration Ferrous Sulfate 325 mg 10/14/19 08:00 10/19/19 08:23 Feosol PO 325 mg DAILY@0800 JIMBO Administration Sodium Bicarbonate 75 meq/ 1,075 mls @ 125 mls/hr 10/14/19 11:00 10/16/19 10:41 Sodium Chloride IV 125 mls/hr DIRECT JIMBO Administration Insulin Human Lispro 0 unit 10/14/19 07:30 10/19/19 14:53 Humalog SUB-Q Not Given ACHS [facility] Protocol Levothyroxine Sodium 88 mcg 10/14/19 08:00 10/19/19 05:19 Synthroid PO 88 mcg DAILY@0600 JIMBO Administration Magnesium Hydroxide 30 ml 10/14/19 01:52 Milk Of Magnesia PO Q4H PRN Constipation Melatonin 5 mg 10/14/19 22:00 10/18/19 22:14 Melatonin PO 5 mg QHS JIMBO Administration Ondansetron HCl 4 mg 10/15/19 12:51 10/19/19 11:21 Zofran IV 4 mg Q8H PRN Administration N/V unrelieved by Corinne Pantoprazole Sodium 20 mg 10/14/19 10:00 10/19/19 09:52 Protonix PO 20 mg QDAY JIMBO Administration Quetiapine Fumarate 50 mg 10/14/19 22:00 10/18/19 22:15 Seroquel PO 50 mg QHS JIMBO Administration Sodium Chloride 10 ml 10/14/19 10:00 10/19/19 09:56 Sodium Chloride Flush Syringe 10 Ml IV 10 ml BID JIMBO Administration Sodium Chloride 10 ml 10/14/19 01:52 Sodium Chloride Flush Syringe 10 Ml IV PRN PRN LINE FLUSH Topiramate 100 mg 10/14/19 10:00 10/19/19 09:53 Topamax PO 100 mg DAILY JIMBO Administration Nutrition/Malnutrition Assess - Dietary Evaluation Nutrition/Malnutrition Findings: Nutrition Notes Start: 10/14/19 12:08 Freq: Status: Active Protocol: Document 10/15/19 10:24 WALT (Rec: 10/15/19 11:18 WALT [id number]) Co-Sign 10/15/19 10:24 NHALL Nutrition Notes Initial or Follow up Reassessment Current Diagnosis CKD(stage I-IV),Diabetes, Hypertension,Hyperlipidemia Other Pertinent Diagnosis Hyperthyroidism, AMS Current Diet Cardiac/Consistent CHO Diet Labs/Tests BUN 44 Cr 2.4 Pertinent Medications Insulin Height 5 ft 6 in Weight 89.8 kg [place] Body Weight (kg) 59.09 BMI 31.9 Subjective/Other Information Spoke with nurse via phone. Pt consuming 65% of meals and tolerating well. Percent of energy/protein needs met: 74% energy, 74% protein Burn Absent Trauma Absent Food Allergy No Current % PO Fair (50-74%) Minimum of two criteria No Reduced [employer] Reworker Strength N/A (non-severe) #1 Nutrition Diagnosis Inadequate oral intake Etiology medical diagnosis As Evidenced by Signs and Symptoms PO intake not meeting 75% of energy and protein needs Is patient on ventilator? No Is Patient Ambulatory and/or Out of Bed No REE-([facility]-confined to bed) 1727.340 Calculation Used for Recommendations [facility] Additional Notes Protein needs are 74-89 (1-1. 2g/kg AdjBW) Fluid needs are 1 ml/kl Nutrition Intervention Change Diet Order: Continue current diet order Goal #1 Pt meet 75% of kcal and protein needs. Anticipated Discharge Needs: Consistent CHO Diet Follow-Up By: 10/20/19 Additional Comments F/U for PO intake <SIMONE MCGUIRE R - Last Filed: 10/20/19 09:20> History Interval history: I saw and evaluated the patient. I agree with the findings and the plan of care as documented in the Nurse Practitioner's~note, Hospitalist Physical - Constitutional Vitals: Temp Pulse Resp BP Pulse Ox 97.7 F 67 18 115/47 97 10/20/19 04:39 10/20/19 04:39 10/20/19 04:39 10/20/19 04:39 10/20/19 04:39 Results - Labs CBC & Chem 7: 10/20/19 05:01 10/20/19 05:01 Labs: Laboratory Last Values WBC 5.5 K/mm3 (4.5-11.0) 10/20/19 05:01 RBC 2.45 M/mm3 (3.65-5.03) L 10/20/19 05:01 Hgb 8.1 gm/dl (10.1-14.3) L 10/20/19 05:01 Hct 23.6 % (30.3-42.9) L 10/20/19 05:01 MCV 97 fl (79-97) 10/20/19 05:01 MCH 33 pg (28-32) H 10/20/19 05:01 MCHC 35 % (30-34) H 10/20/19 05:01 RDW 13.6 % (13.2-15.2) 10/20/19 05:01 Plt Count 121 K/mm3 (140-440) L 10/20/19 05:01 Lymph % (Auto) 22.7 % (13.4-35.0) 10/15/19 03:59 [place] % (Auto) 8.5 % (0.0-7.3) H 10/15/19 03:59 Eos % (Auto) 4.0 % (0.0-4.3) 10/15/19 03:59 Baso % (Auto) 0.9 % (0.0-1.8) 10/15/19 03:59 Lymph # 0.9 K/mm3 (1.2-5.4) L 10/15/19 03:59 [place] # 0.3 K/mm3 (0.0-0.8) 10/15/19 03:59 Eos # 0.2 K/mm3 (0.0-0.4) 10/15/19 03:59 Baso # 0.0 K/mm3 (0.0-0.1) 10/15/19 03:59 Seg Neutrophils % 63.9 % (40.0-70.0) 10/15/19 03:59 Seg Neutrophils # 2.5 K/mm3 (1.8-7.7) 10/15/19 03:59 PT 16.1 Sec. (12.2-14.9) H 10/15/19 03:59 INR 1.27 (0.87-1.13) H 10/15/19 03:59 Sodium 138 mmol/L (137-145) 10/20/19 05:01 Potassium 4.1 mmol/L (3.6-5.0) 10/20/19 05:01 Chloride 104.6 mmol/L (98-107) 10/20/19 05:01 Carbon Dioxide 23 mmol/L (22-30) 10/20/19 05:01 Anion Gap 15 mmol/L 10/20/19 05:01 BUN 23 mg/dL (7-17) H 10/20/19 05:01 Creatinine 1.6 mg/dL (0.6-1.2) H 10/20/19 05:01 Estimated GFR 32 ml/min 10/20/19 05:01 BUN/Creatinine Ratio 14 % 10/20/19 05:01 Glucose 128 mg/dL (65-100) H 10/20/19 05:01 POC Glucose 136 (70-105) H 10/20/19 07:49 Hemoglobin A1c 5.9 % (4-6) 10/15/19 03:59 Calcium 8.6 mg/dL (8.4-10.2) 10/20/19 05:01 Total Bilirubin 0.30 mg/dL (0.1-1.2) 10/13/19 21:33 Direct Bilirubin < 0.2 mg/dL (0-0.2) 10/13/19 21:33 Indirect Bilirubin 0.1 mg/dL 10/13/19 21:33 AST 20 units/L (5-40) 10/13/19 21:33 ALT 12 units/L (7-56) 10/13/19 21:33 Alkaline Phosphatase 142 units/L (35-129) H 10/13/19 21:33 Total Creatine Kinase 167 units/L (30-135) H 10/14/19 11:01 Serum Total Protein 5.1 g/dL (6.1-8.1) L 10/15/19 03:59 Total Protein 7.0 g/dL (6.3-8.2) 10/13/19 21:33 Albumin 2.9 g/dL (3.8-4.8) L 10/15/19 03:59 Albumin/Globulin Ratio 1.3 % 10/13/19 21:33 Jzokl-9-Spwsizvud 0.3 g/dL (0.2-0.3) 10/15/19 03:59 Mfjgk-1-Ujayvmddy 0.6 g/dL (0.5-0.9) 10/15/19 03:59 Beta Globulins 0.3 g/dL (0.2-0.5) 10/15/19 03:59 Gamma Globulins 0.8 g/dL (0.8-1.7) 10/15/19 03:59 Abnorm Protein Band 1 see below 10/15/19 03:59 PEP Interpretation see below H 10/15/19 03:59 Urine Color Straw (Yellow) 10/14/19 23:00 Urine Turbidity Clear (Clear) 10/14/19 23:00 Urine pH 6.0 (5.0-7.0) 10/14/19 23:00 Ur Specific [place] 1.006 (1.003-1.030) 10/14/19 23:00 Urine Protein <15 mg/dl mg/dL (Negative) 10/14/19 23:00 Urine Glucose (UA) Neg mg/dL (Negative) 10/14/19 23:00 Urine Ketones Neg mg/dL (Negative) 10/14/19 23:00 Urine Blood Neg (Negative) 10/14/19 23:00 Urine Nitrite Neg (Negative) 10/14/19 23:00 Urine Bilirubin Neg (Negative) 10/14/19 23:00 Urine Ictotest Negative (Negative) 10/13/19 Unknown Urine Urobilinogen < 2.0 mg/dL (<2.0) 10/14/19 23:00 Ur Leukocyte Esterase Neg (Negative) 10/14/19 23:00 Urine WBC (Auto) < 1.0 /HPF (0.0-6.0) 10/14/19 23:00 Urine RBC (Auto) 3.0 /HPF (0.0-6.0) 10/14/19 23:00 U Epithel Cells (Auto) 1.0 /HPF (0-13.0) 10/14/19 23:00 Urine Bacteria (Auto) 1+ /HPF (Negative) 10/13/19 Unknown Urine Mucus Few /HPF 10/13/19 Unknown Urine Eosinophils None seen (None Seen) 10/15/19 13:49 Urine Creatinine 45.8 mg/dL (0.1-20.0) H 10/14/19 23:00 Urine Sodium 35 mmol/L 10/14/19 23:00 Fraction Sodium Excret 1.5 10/14/19 23:00 Salicylates < 0.3 mg/dL (2.8-20.0) L 10/13/19 21:33 Urine Opiates Screen Presumptive negative 10/13/19 Unknown Urine Methadone Screen Presumptive negative 10/13/19 Unknown Acetaminophen 5.0 ug/mL (10.0-30.0) L 10/13/19 21:33 Ur Barbiturates Screen Presumptive negative 10/13/19 Unknown Ur Phencyclidine Scrn Presumptive negative 10/13/19 Unknown Ur Amphetamines Screen Presumptive negative 10/13/19 Unknown U Benzodiazepines Scrn Presumptive negative 10/13/19 Unknown Urine Cocaine Screen Presumptive negative 10/13/19 Unknown U Marijuana (THC) Screen Presumptive negative 10/13/19 Unknown Drugs of Abuse Note Disclamer 10/13/19 Unknown Plasma/Serum Alcohol < 0.01 % (0-0.07) 10/13/19 21:33 Proteinase 3 (PR3) Ab <1.0 AI (<1.0) 10/14/19 11:01 Myeloperoxidase Ab <1.0 AI (<1.0) 10/14/19 11:01 Complement C3 107 mg/dL (83-193) 10/14/19 11:01 Complement C4 25 mg/dL (15-57) 10/14/19 11:01 Hepatitis A IgM Ab Non-reactive (NonReactive) 10/14/19 11:01 Hep Bs Antigen Non-reactive (Negative) 10/14/19 11:01 Hep B Core IgM Ab Non-reactive (NonReactive) 10/14/19 11:01 Hepatitis C Antibody Non-reactive (NonReactive) 10/14/19 11:01 Rodriguez/IV: Voiding Method Toilet IV Catheter Type [Right Peripheral IV Forearm] Active Medications - Current Medications Current Medications: Generic Name Dose Route Start Last Admin Trade Name Freq PRN Reason Stop Dose Admin Acetaminophen 650 mg 10/14/19 01:52 10/20/19 04:19 Tylenol PO 650 mg Q4H PRN Administration Pain MILD(1-3)/Fever >100.5/RAY Allopurinol 100 mg 10/14/19 16:00 10/19/19 09:52 Zyloprim PO 100 mg QDAY JIMBO Administration Amitriptyline HCl 10 mg 10/14/19 22:00 10/19/19 21:46 Elavil PO 10 mg QHS JIMBO Administration Aripiprazole 7.5 mg 10/14/19 14:00 10/19/19 09:54 Aripiprazole PO 7.5 mg QDAY JIMBO Administration Aspirin 81 mg 10/14/19 10:00 10/19/19 10:42 Halfprin Ec PO 81 mg QDAY JIMBO Administration Atorvastatin Calcium 40 mg 10/14/19 22:00 10/19/19 21:45 Lipitor PO 40 mg QHS JIMBO Administration Buspirone HCl 15 mg 10/14/19 13:00 10/19/19 21:45 Buspar PO 15 mg BID JIMBO Administration Carvedilol 12.5 mg 10/15/19 10:00 10/19/19 21:45 Coreg PO 12.5 mg BID JIMBO Administration Clopidogrel Bisulfate 75 mg 10/14/19 10:00 10/19/19 09:52 Plavix PO 75 mg DAILY JIMBO Administration Dextrose 50 ml 10/14/19 01:52 D50w (25gm) Syringe IV Q30MIN PRN Hypoglycemia Protocol Duloxetine HCl 60 mg 10/14/19 13:00 10/19/19 21:45 Cymbalta PO 60 mg BID JIMBO Administration Ferrous Sulfate 325 mg 10/14/19 08:00 10/20/19 08:14 Feosol PO 325 mg DAILY@0800 JIMBO Administration Sodium Bicarbonate 75 meq/ 1,075 mls @ 125 mls/hr 10/14/19 11:00 10/19/19 17:55 Sodium Chloride IV 125 mls/hr DIRECT JIMBO Administration Insulin Human Lispro 0 unit 10/14/19 07:30 10/20/19 07:57 Humalog SUB-Q Not Given ACHS JIMBO Protocol Levothyroxine Sodium 88 mcg 10/14/19 08:00 10/20/19 05:01 Synthroid PO 88 mcg DAILY@0600 JIMBO Administration Magnesium Hydroxide 30 ml 09/02/20 01:52 Milk Of Magnesia PO Q4H PRN Constipation Melatonin 5 mg 10/14/19 22:00 10/19/19 21:45 Melatonin PO 5 mg QHS JIMBO Administration Ondansetron HCl 4 mg 10/15/19 12:51 10/19/19 17:55 Zofran IV 4 mg Q8H PRN Administration N/V unrelieved by Reglan Pantoprazole Sodium 20 mg 10/14/19 10:00 10/19/19 09:52 Protonix PO 20 mg QDAY JIMBO Administration Quetiapine Fumarate 50 mg 10/14/19 22:00 10/19/19 21:45 Seroquel PO 50 mg QHS JIMBO Administration Sodium Chloride 10 ml 10/14/19 10:00 10/19/19 21:44 Sodium Chloride Flush Syringe 10 Ml IV 10 ml BID JIMBO Administration Sodium Chloride 10 ml 10/14/19 01:52 Sodium Chloride Flush Syringe 10 Ml IV PRN PRN LINE FLUSH Topiramate 100 mg 10/14/19 10:00 10/19/19 09:53 Topamax PO 100 mg DAILY JIMOB Administration Nutrition/Malnutrition Assess - Dietary Evaluation Nutrition/Malnutrition Findings: Nutrition Notes Start: 10/14/19 12:08 Freq: Status: Active Protocol: Document 10/15/19 10:24 WALT (Rec: 10/15/19 11:18 WALT [id number]) Co-Sign 10/15/19 10:24 NHALL Nutrition Notes Initial or Follow up Reassessment Current Diagnosis CKD(stage I-IV),Diabetes, Hypertension,Hyperlipidemia Other Pertinent Diagnosis Hyperthyroidism, AMS Current Diet Cardiac/Consistent CHO Diet Labs/Tests BUN 44 Cr 2.4 Pertinent Medications Insulin Height 5 ft 6 in Weight 89.8 kg [place] Body Weight (kg) 59.09 BMI 31.9 Subjective/Other Information Spoke with nurse via phone. Pt consuming 65% of meals and tolerating well. Percent of energy/protein needs met: 74% energy, 74% protein Burn Absent Trauma Absent Food Allergy No Current % PO Fair (50-74%) Minimum of two criteria No Reduced [employer] Reworker Strength N/A (non-severe) #1 Nutrition Diagnosis Inadequate oral intake Etiology medical diagnosis As Evidenced by Signs and Symptoms PO intake not meeting 75% of energy and protein needs Is patient on ventilator? No Is Patient Ambulatory and/or Out of Bed No REE-([facility]-confined to bed) 1727.340 Calculation Used for Recommendations [facility] Additional Notes Protein needs are 74-89 (1-1. 2g/kg AdjBW) Fluid needs are 1 ml/kl Nutrition Intervention Change Diet Order: Continue current diet order Goal #1 Pt meet 75% of kcal and protein needs. Anticipated Discharge Needs: Consistent CHO Diet Follow-Up By: 10/20/19 Additional Comments F/U for PO intake
--- NOTE | 2019-10-19 15:33 | Progress Note ---
Assessment and Plan Impression * Acute on chronic renal failure * Altered mental status * Metabolic acidosis * Hypertension * Diabetes * Hyperlipidemia Recommendations * Renal function seems to be improving with IV hydration. * Her urine does not show any dipstick blood and only trace protein. Fractional excretion of sodium is 1.5% . Most likely reflective of some degree of underlying chronic kidney disease * Acidosis has been corrected with bicarbonate drip. CPK level is 167. * She most likely has some degree of underlying hypertensive nephrosclerosis and/or diabetic nephropathy * Monitor fluid status and electrolytes closely * Avoid nephrotoxins * Her blood pressure is under control. * No objection to discharge from renal standpoint. She will need outpatient follow-up. Subjective Date of service: 10/19/19 Interval history: Patient is comfortable. Denies any shortness of breath. No nausea or vomiting. Objective - Vital Signs Vital signs: Vital Signs - 12hr 10/19/19 10/19/19 10/19/19 05:49 09:48 09:52 Temperature 97.6 F Pulse Rate 65 Respiratory 18 Rate Blood Pressure 117/53 134/69 134/69 O2 Sat by Pulse 99 Oximetry 10/19/19 11:21 Temperature 97.5 F L Pulse Rate 60 Respiratory 18 Rate Blood Pressure 135/66 O2 Sat by Pulse 100 Oximetry - General Appearance General appearance: well-developed, well-nourished, appears stated age EENT: PERRL, mucous membranes moist Neck: no JVD, no thyromegaly, no carotid bruit, supple Respiratory: Present: Clear to Ascultation Cardiology: regular, normal heart rate Gastrointestinal: normal, normoactive bowel sounds Integumentary: other (Bruise noted on the medial aspect of her right thigh) - Lab 10/15/19 03:59 10/19/19 05:18 Most recent lab results Calcium 8.9 mg/dL (8.4-10.2) 10/19/19 05:18 Urine Creatinine 45.8 mg/dL (0.1-20.0) H 10/14/19 23:00 Urine Sodium 35 mmol/L 10/14/19 23:00 Medications & Allergies - Medications Allergies/Adverse Reactions: Allergies adhesive tape Adverse Reaction (Verified 09/28/19 01:37) Unknown codeine Adverse Reaction (Verified 09/28/19 01:37) Unknown morphine Adverse Reaction (Verified 09/28/19 01:37) Unknown ondansetron Adverse Reaction (Verified 09/28/19 01:37) Unknown Penicillins Adverse Reaction (Verified 09/28/19 01:37) Unknown Sulfa (Sulfonamide Antibiotics) Adverse Reaction (Verified 09/28/19 01:37) Unknown Home Medications: Home Medications Medication Instructions Recorded Confirmed Last Taken Type Amitriptyline 10 mg PO QHS 09/28/19 10/14/19 Unknown History Aspirin 81 mg PO DAILY 09/28/19 10/14/19 Unknown History Atorvastatin 40 mg PO QHS 09/28/19 10/14/19 Unknown History Ferrous Sulfate 324 MG 65 mg PO DAILY 09/28/19 10/14/19 Unknown History Levemir VIAL 35 units SQ QHS 09/28/19 10/14/19 Unknown History Levothyroxine 88 mcg PO QAC 09/28/19 10/14/19 Unknown History Melatonin 5MG TAB 5 mg PO QHS 09/28/19 10/14/19 Unknown History Myrbetriq 25 mg PO DAILY 09/28/19 10/14/19 Unknown History NovoLOG 100 UNITS/ML VIAL 10 units SQ TIDAC 09/28/19 10/14/19 Unknown History allopurinoL 100 mg PO DAILY 09/28/19 10/14/19 Unknown History Acetaminophen [Acetaminophen TAB] 500 mg PO Q4H PRN tablet 10/02/19 10/14/19 Unknown Rx ARIPiprazole 7.5 mg PO QDAY #30 tablet 10/16/19 Unknown Rx ARIPiprazole 7.5 mg PO QDAY #30 tablet 10/16/19 Unknown Rx Acetaminophen [Acetaminophen TAB] 650 mg PO Q4H PRN tablet 10/16/19 Unknown Rx Amitriptyline [Elavil] 10 mg PO QHS #30 tablet 10/16/19 Unknown Rx Aspirin EC [Halfprin EC] 81 mg PO QDAY #30 tablet 10/16/19 Unknown Rx AtorvaSTATin [Lipitor] 40 mg PO QHS #30 tablet 10/16/19 Unknown Rx Clopidogrel [Plavix] 75 mg PO DAILY #30 tablet 10/16/19 Unknown Rx DULoxetine [Cymbalta] 60 mg PO BID #60 capsule 10/16/19 Unknown Rx Ferrous Sulfate [Feosol 325 MG tab] 325 mg PO DAILY@0800 #30 tab 10/16/19 Unkn own Rx Insulin Lispro [Humalog] 0 unit SUB-Q ACHS vial 10/16/19 Unknown Rx Levothyroxine [Synthroid] 88 mcg PO DAILY@0600 #30 tablet 10/16/19 Unknown Rx Melatonin [Melatonin 5MG TAB] 5 mg PO QHS tablet 10/16/19 Unknown Rx Pantoprazole [Protonix TAB] 20 mg PO QDAY #30 tablet. 10/16/19 Unknown Rx QUEtiapine [SEROquel] 50 mg PO QHS #30 tablet 10/16/19 Unknown Rx Topiramate [Topamax] 100 mg PO DAILY #90 tablet 10/16/19 Unknown Rx allopurinoL [Zyloprim] 100 mg PO QDAY #30 tablet 10/16/19 Unknown Rx busPIRone [Buspar] 15 mg PO BID #60 tablet 10/16/19 Unknown Rx carvediloL [Coreg] 12.5 mg PO BID #60 tablet 10/16/19 Unknown Rx Active Medications: Generic Name Dose Route Start Last Admin Trade Name Freq PRN Reason Stop Dose Admin Acetaminophen 650 mg 10/14/19 01:52 10/19/19 10:06 Tylenol PO 650 mg Q4H PRN Administration Pain MILD(1-3)/Fever >100.5/RAY Allopurinol 100 mg 10/14/19 16:00 10/19/19 09:52 Zyloprim PO 100 mg QDAY JIMBO Administration Amitriptyline HCl 10 mg 10/14/19 22:00 10/18/19 22:15 Elavil PO 10 mg QHS JIMBO Administration Aripiprazole 7.5 mg 10/14/19 14:00 10/19/19 09:54 Aripiprazole PO 7.5 mg QDAY JIMBO Administration Aspirin 81 mg 10/14/19 10:00 10/19/19 10:42 Halfprin Ec PO 81 mg QDAY JIMBO Administration Atorvastatin Calcium 40 mg 10/14/19 22:00 10/18/19 22:14 Lipitor PO 40 mg QHS JIMBO Administration Buspirone HCl 15 mg 10/14/19 13:00 10/19/19 09:53 Buspar PO 15 mg BID JIMBO Administration Carvedilol 12.5 mg 10/15/19 10:00 10/19/19 09:52 Coreg PO 12.5 mg BID JIMBO Administration Clopidogrel Bisulfate 75 mg 10/14/19 10:00 10/19/19 09:52 Plavix PO 75 mg DAILY JIMBO Administration Dextrose 50 ml 10/14/19 01:52 D50w (25gm) Syringe IV Q30MIN PRN Hypoglycemia Protocol Duloxetine HCl 60 mg 10/14/19 13:00 10/19/19 09:51 Cymbalta PO 60 mg BID JIMBO Administration Ferrous Sulfate 325 mg 10/14/19 08:00 10/19/19 08:23 Feosol PO 325 mg DAILY@0800 JIMBO Administration Sodium Bicarbonate 75 meq/ 1,075 mls @ 125 mls/hr 10/14/19 11:00 10/16/19 10:41 Sodium Chloride IV 125 mls/hr DIRECT JIMBO Administration Insulin Human Lispro 0 unit 10/14/19 07:30 10/19/19 14:53 Humalog SUB-Q Not Given ACHS [facility] Protocol Levothyroxine Sodium 88 mcg 10/14/19 08:00 10/19/19 05:19 Synthroid PO 88 mcg DAILY@0600 JIMBO Administration Magnesium Hydroxide 30 ml 10/14/19 01:52 Milk Of Magnesia PO Q4H PRN Constipation Melatonin 5 mg 10/14/19 22:00 10/18/19 22:14 Melatonin PO 5 mg QHS JIMBO Administration Ondansetron HCl 4 mg 10/15/19 12:51 10/19/19 11:21 Zofran IV 4 mg Q8H PRN Administration N/V unrelieved by Corinne Pantoprazole Sodium 20 mg 10/14/19 10:00 10/19/19 09:52 Protonix PO 20 mg QDAY JIMBO Administration Quetiapine Fumarate 50 mg 10/14/19 22:00 10/18/19 22:15 Seroquel PO 50 mg QHS JIMBO Administration Sodium Chloride 10 ml 10/14/19 10:00 10/19/19 09:56 Sodium Chloride Flush Syringe 10 Ml IV 10 ml BID JIMBO Administration Sodium Chloride 10 ml 10/14/19 01:52 Sodium Chloride Flush Syringe 10 Ml IV PRN PRN LINE FLUSH Topiramate 100 mg 10/14/19 10:00 10/19/19 09:53 Topamax PO 100 mg DAILY JIMBO Administration
[2019-10-19] MEDS: SODIUM BICARBONATE 75 MEQ in SODIUM CHLORIDE 0.45% 1000 ML 1,000 ML IV SCH (17:55)
[2019-10-19 21:06] LABS: Albumin 2.9 g/dL (3.8-4.8); Gamma Globulin 0.8 g/dL (0.8-1.7)
[2019-10-19] MEDS: QUEtiapine 25 MG TAB PO SCH (21:45)
[2019-10-19] MEDS: MELATONIN 5 MG TAB PO SCH (21:45)
[2019-10-19] MEDS: AMITRIPTYLINE 10 MG TAB PO SCH (21:46)
[2019-10-20] MEDS: ACETAMINOPHEN 325 MG TAB PO PRN ×3 (04:19→18:24)
[2019-10-20] MEDS: LEVOTHYROXINE 88 MCG TAB PO SCH (05:01)
[2019-10-20 06:19] LABS: Hematocrit 23.6 % (30.3-42.9); Hemoglobin 8.1 gm/dl (10.1-14.3); Mean Corpuscular HGB Conc 35 % (30-34); Mean Corpuscular Volume 97 fl (79-97); Platelet Count 121 K/mm3 (140-440); Red Blood Count 2.45 M/mm3 (3.65-5.03); Red Cell Distribution Width 13.6 % (13.2-15.2)
[2019-10-20 06:32] LABS: Calcium 8.6 mg/dL (8.4-10.2)
[2019-10-20] MEDS: INSULIN LISPRO 100 UNIT/ML VIAL 3 mL SUB-Q SCH ×4 (07:57→21:52)
[2019-10-20] MEDS: FERROUS SULFATE 325 MG TAB PO SCH (08:14)
[2019-10-20] MEDS: ARIPiprazole 5 MG TAB PO SCH (10:03)
[2019-10-20] MEDS: PANTOPRAZOLE 20 MG TAB PO SCH (10:04)
[2019-10-20] MEDS: DULoxetine 30 MG CAP PO SCH ×2 (10:04→21:10)
[2019-10-20] MEDS: allopurinoL 100 MG TAB PO SCH (10:05)
[2019-10-20] MEDS: CLOPIDOGREL 75 MG TAB PO SCH (10:05)
[2019-10-20] MEDS: carvediloL 12.5 MG TAB PO SCH ×2 (10:05→21:10)
[2019-10-20] MEDS: ASPIRIN EC 81 MG TAB PO SCH (10:09)
[2019-10-20] MEDS: TOPIRAMATE TAB 100 MG TAB PO SCH (10:09)
[2019-10-20] MEDS: busPIRone 10 MG TAB PO SCH ×2 (10:10→21:10)
--- NOTE | 2019-10-20 11:23 | Progress Note ---
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 CPK level was 167. * She most likely has some degree of underlying hypertensive nephrosclerosis and/or diabetic nephropathy * Monitor fluid status and electrolytes closely * Avoid nephrotoxins * Her blood pressure is under control. * No objection to discharge from renal standpoint. She will need outpatient follow-up. Offered CKD follow up if she is unable to follow up with her regular security assistant in [place] Subjective Date of service: 10/20/19 Interval history: No acute concerns noted this AM. She does note feeling generally sore. No dyspnea, no edema, no dysuria noted. Appetite ok. Objective - Exam Narrative Exam: General appearance: well-developed, well-nourished, appears stated age, obese EENT: PERRL, mucous membranes moist Neck: no carotid bruit, supple Respiratory: Present: Clear to Auscultation Cardiology: regular, normal heart rate Gastrointestinal: normal, normoactive bowel sounds Integumentary: other (Bruise noted on the medial aspect of her right thigh) - Vital Signs Vital signs: Vital Signs - 12hr 10/20/19 10/20/19 04:39 10:05 Temperature 97.7 F Pulse Rate 67 Respiratory 18 Rate Blood Pressure 115/47 136/59 O2 Sat by Pulse 97 Oximetry - Lab 10/20/19 05:01 10/20/19 05:01 Most recent lab results Calcium 8.6 mg/dL (8.4-10.2) 10/20/19 05:01 Urine Creatinine 45.8 mg/dL (0.1-20.0) H 10/14/19 23:00 Urine Sodium 35 mmol/L 10/14/19 23:00 Medications & Allergies - Medications Allergies/Adverse Reactions: Allergies adhesive tape Adverse Reaction (Verified 09/28/19 01:37) Unknown codeine Adverse Reaction (Verified 09/28/19 01:37) Unknown morphine Adverse Reaction (Verified 09/28/19 01:37) Unknown ondansetron Adverse Reaction (Verified 09/28/19 01:37) Unknown Penicillins Adverse Reaction (Verified 09/28/19 01:37) Unknown Sulfa (Sulfonamide Antibiotics) Adverse Reaction (Verified 09/28/19 01:37) Unknown Home Medications: Home Medications Medication Instructions Recorded Confirmed Last Taken Type Amitriptyline 10 mg PO QHS 09/28/19 10/14/19 Unknown History Aspirin 81 mg PO DAILY 09/28/19 10/14/19 Unknown History Atorvastatin 40 mg PO QHS 09/28/19 10/14/19 Unknown History Ferrous Sulfate 324 MG 65 mg PO DAILY 09/28/19 10/14/19 Unknown History Levemir VIAL 35 units SQ QHS 09/28/19 10/14/19 Unknown History Levothyroxine 88 mcg PO QAC 09/28/19 10/14/19 Unknown History Melatonin 5MG TAB 5 mg PO QHS 09/28/19 10/14/19 Unknown History Myrbetriq 25 mg PO DAILY 09/28/19 10/14/19 Unknown History NovoLOG 100 UNITS/ML VIAL 10 units SQ TIDAC 09/28/19 10/14/19 Unknown History allopurinoL 100 mg PO DAILY 09/28/19 10/14/19 Unknown History Acetaminophen [Acetaminophen TAB] 500 mg PO Q4H PRN tablet 10/02/19 10/14/19 Unknown Rx ARIPiprazole 7.5 mg PO QDAY #30 tablet 10/16/19 Unknown Rx ARIPiprazole 7.5 mg PO QDAY #30 tablet 10/16/19 Unknown Rx Acetaminophen [Acetaminophen TAB] 650 mg PO Q4H PRN tablet 10/16/19 Unknown Rx Amitriptyline [Elavil] 10 mg PO QHS #30 tablet 10/16/19 Unknown Rx Aspirin EC [Halfprin EC] 81 mg PO QDAY #30 tablet 10/16/19 Unknown Rx AtorvaSTATin [Lipitor] 40 mg PO QHS #30 tablet 10/16/19 Unknown Rx Clopidogrel [Plavix] 75 mg PO DAILY #30 tablet 10/16/19 Unknown Rx DULoxetine [Cymbalta] 60 mg PO BID #60 capsule 10/16/19 Unknown Rx Ferrous Sulfate [Feosol 325 MG tab] 325 mg PO DAILY@0800 #30 tab 10/16/19 Unknown Rx Insulin Lispro [Humalog] 0 unit SUB-Q ACHS vial 10/16/19 Unknown Rx Levothyroxine [Synthroid] 88 mcg PO DAILY@0600 #30 tablet 10/16/19 Unknown Rx Melatonin [Melatonin 5MG TAB] 5 mg PO QHS tablet 10/16/19 Unknown Rx Pantoprazole [Protonix TAB] 20 mg PO QDAY #30 tablet. 10/16/19 Unknown Rx QUEtiapine [SEROquel] 50 mg PO QHS #30 tablet 10/16/19 Unknown Rx Topiramate [Topamax] 100 mg PO DAILY #90 tablet 10/16/19 Unknown Rx allopurinoL [Zyloprim] 100 mg PO QDAY #30 tablet 10/16/19 Unknown Rx busPIRone [Buspar] 15 mg PO BID #60 tablet 10/16/19 Unknown Rx carvediloL [Coreg] 12.5 mg PO BID #60 tablet 10/16/19 Unknown Rx Active Medications: Generic Name Dose Route Start Last Admin Trade Name Freq PRN Reason Stop Dose Admin Acetaminophen 650 mg 10/14/19 01:52 10/20/19 10:10 Tylenol PO 650 mg Q4H PRN Administration Pain MILD(1-3)/Fever >100.5/RAY Allopurinol 100 mg 10/14/19 16:00 10/20/19 10:05 Zyloprim PO 100 mg QDAY JIMBO Administration Amitriptyline HCl 10 mg 10/14/19 22:00 10/19/19 21:46 Elavil PO 10 mg QHS JIMBO Administration Aripiprazole 7.5 mg 10/14/19 14:00 10/20/19 10:03 Aripiprazole PO 7.5 mg QDAY JIMBO Administration Aspirin 81 mg 10/14/19 10:00 10/20/19 10:09 Halfprin Ec PO 81 mg QDAY JIMBO Administration Atorvastatin Calcium 40 mg 10/14/19 22:00 10/19/19 21:45 Lipitor PO 40 mg QHS JIMBO Administration Buspirone HCl 15 mg 10/14/19 13:00 10/20/19 10:10 Buspar PO 15 mg BID JIMBO Administration Carvedilol 12.5 mg 10/15/19 10:00 10/20/19 10:05 Coreg PO 12.5 mg BID JIMBO Administration Clopidogrel Bisulfate 75 mg 10/14/19 10:00 10/20/19 10:05 Plavix PO 75 mg DAILY JIMBO Administration Dextrose 50 ml 10/14/19 01:52 D50w (25gm) Syringe IV Q30MIN PRN Hypoglycemia Protocol Duloxetine HCl 60 mg 10/14/19 13:00 10/20/19 10:04 Cymbalta PO 60 mg BID JIMBO Administration Ferrous Sulfate 325 mg 10/14/19 08:00 10/20/19 08:14 Feosol PO 325 mg DAILY@0800 JIMBO Administration Sodium Bicarbonate 75 meq/ 1,075 mls @ 125 mls/hr 10/14/19 11:00 10/19/19 17:55 Sodium Chloride IV 125 mls/hr DIRECT JIMBO Administration Insulin Human Lispro 0 unit 10/14/19 07:30 10/20/19 07:57 Humalog SUB-Q Not Given ACHS JIMBO Protocol Levothyroxine Sodium 88 mcg 10/14/19 08:00 10/20/19 05:01 Synthroid PO 88 mcg DAILY@0600 JIMBO Administration Magnesium Hydroxide 30 ml 10/14/19 01:52 Milk Of Magnesia PO Q4H PRN Constipation Melatonin 5 mg 10/14/19 22:00 10/19/19 21:45 Melatonin PO 5 mg QHS JIMBO Administration Ondansetron HCl 4 mg 10/15/19 12:51 10/19/19 17:55 Zofran IV 4 mg Q8H PRN Administration N/V unrelieved by Corinne Pantoprazole Sodium 20 mg 10/14/19 10:00 10/20/19 10:04 Protonix PO 20 mg QDAY JIMBO Administration Quetiapine Fumarate 50 mg 10/14/19 22:00 10/19/19 21:45 Seroquel PO 50 mg QHS JIMBO Administration Sodium Chloride 10 ml 10/14/19 10:00 10/19/19 21:44 Sodium Chloride Flush Syringe 10 Ml IV 10 ml BID JIMBO Administration Sodium Chloride 10 ml 10/14/19 01:52 Sodium Chloride Flush Syringe 10 Ml IV PRN PRN LINE FLUSH Topiramate 100 mg 10/14/19 10:00 10/20/19 10:09 Topamax PO 100 mg DAILY JIMBO Administration
[2019-10-20 12:27] LABS: ANA Screen, IFA Negative (Negative)
[2019-10-20] MEDS: GABAPENTIN 100 MG CAP PO SCH ×2 (13:49→21:10)
--- NOTE | 2019-10-20 14:28 | Progress Note ---
<BARBARA HOOK - Last Filed: 10/20/19 14:30> Assessment and Plan - Patient Problems (1) Acute on chronic renal insufficiency Current Visit: Yes Status: Acute Plan to address problem: -Admit creatinine 3.8, trending downward and has leveled out at 1.6 -Nephrology consulted -Avoid nephrotoxic medication -Trend BMP -10/12 renal ultrasound pending -Encourage PO intake -Fractional excretion of sodium is 1.5%, most likely reflecting underlying chronic kidney disease -Likely with CKD- patient notes following with a press brake operator in [place] -Acidosis has been corrected with bicarbonate drip. -Per nephrology: She will need outpatient follow-up. Offered CKD follow up if she is unable to follow up with her regular press brake operator in [place] (2) Metabolic encephalopathy Current Visit: Yes Status: Resolved Plan to address problem: -Presented with altered mental status -Possible cause acute renal failure, metabolic acidosis -10/13 CTH negative for any acute abnormality -Seems to be better but slightly confused at times -Fall precautions -Supportive care (3) History of depression Current Visit: Yes Status: Chronic Plan to address problem: -History of depression with psychotic features -Continue antidepressants -Supportive care -Sleep hygiene -Reorientation as needed (4) Diabetes Current Visit: No Status: Chronic Plan to address problem: -SSI -Accu-Cheks AC at bedtime -Hypoglycemia protocol -10/14 Hemoglobin A1c 5.9 (5) GERD (gastroesophageal reflux disease) Current Visit: No Status: Chronic Qualifiers: Esophagitis presence: without esophagitis Qualified Code(s): K21.9 - Gastro-esophageal reflux disease without esophagitis Plan to address problem: -Continue Protonix (6) Hyperlipidemia Current Visit: No Status: Chronic Qualifiers: Hyperlipidemia type: mixed hyperlipidemia Qualified Code(s): E78.2 - Mixed hyperlipidemia Plan to address problem: -Continue statins (7) Hypertension Current Visit: No Status: Chronic Qualifiers: Hypertension type: essential hypertension Qualified Code(s): I10 - Essential (primary) hypertension Plan to address problem: -Blood pressure monitoring per protocol -Restarted Coreg -IV hydralazine PRN (8) Hypothyroidism Current Visit: No Status: Chronic Plan to address problem: -Restarted home levothyroxine (9) Knee pain, right Current Visit: Yes Status: Acute Plan to address problem: - Patient complained of right knee pain this may be related to trauma sustained from being found on the back of a gas station - 10/16 knee x-ray shows no fracture - Continue supportive care. (10) Discharge planning issues Current Visit: Yes Status: Acute Plan to address problem: - Case management consulted and working on placement - Patient was at a [facility] prior to hospitalization (11) DVT prophylaxis Current Visit: Yes Status: Acute Plan to address problem: -Heparin subcu -SCDs bilateral extremities while in bed History Interval history: Patient is a 68-year-old female with hypertension, diabetes mellitus, hypo thyroidism, hyperlipidemia, gout, iron deficiency anemia, obesity and depression with psychotic features was brought in by EMS after being found behind a gas station. She was said to have been dropped off by an unknown person and left at the gas station. Evaluation in the emergency room reveals acute renal failure and metabolic acidosis. CT scan of the head obtained on 10/13 did not reveal any acute abnormality. Mental health and nephrology were consulted. Mental health evaluation does not recommend inpatient hospitalization at this time. This morning she is alert and oriented. Renal function continues to improve. Discharge is pending on placement issues. 10/13 CTH (-), renal ultrasound pending 10/14: Possible underlying chronic renal impairment. PT recommends discharge back to personal detention with continued use of her wheelchair and cane. possible d/c tomorrow if renal function cont to improve. 10/15; Patient was planned to discharge to memory cell unit today but patients Son are now requesting /7 care which memory cell unit will not be able to provide. Patient discharge is now canceled because of the placement issue. parking lot manager working on placement. 10/16: discharge pending on placement, will also get right knee XR today for right knee pain. patient is ambulatory 10/17: Discharge pending on placement, right knee x-ray showed no fracture, continue supportive care. 10/18: continue care Hospitalist Physical - Constitutional Vitals: Temp Pulse Resp BP Pulse Ox 98.0 F 68 18 136/57 98 10/20/19 11:09 10/20/19 11:09 10/20/19 11:09 10/20/19 11:10/20/19 11:09 General appearance: Present: no acute distress, well-nourished, obese - EENT Eyes: Present: PERRL ENT: hearing decreased, poor dentition - Neck Neck: Present: supple, normal ROM - Respiratory Respiratory effort: normal Respiratory: bilateral: CTA - Cardiovascular Rhythm: regular Heart Sounds: Present: S1 & S2, systolic murmur. Absent: diastolic murmur - Extremities Extremities: no ischemia, pulses intact, pulses symmetrical, No edema, normal temperature, normal color, Full ROM Peripheral Pulses: within normal limits - Abdominal General gastrointestinal: soft, non-tender, non-distended, normal bowel sounds - Integumentary Integumentary: Present: clear, warm, dry - Psychiatric Psychiatric: cooperative - Neurologic Neurologic: CNII-XII intact, no focal deficits, moves all extremities - Allied Health Allied health notes reviewed: nursing, social work, case management Results - Labs CBC & Chem 7: 10/20/19 05:01 10/20/19 05:01 Labs: Laboratory Last Values WBC 5.5 K/mm3 (4.5-11.0) 10/20/19 05:01 RBC 2.45 M/mm3 (3.65-5.03) L 10/20/19 05:01 Hgb 8.1 gm/dl (10.1-14.3) L 10/20/19 05:01 Hct 23.6 % (30.3-42.9) L 10/20/19 05:01 MCV 97 fl (79-97) 10/20/19 05:01 MCH 33 pg (28-32) H 10/20/19 05:01 MCHC 35 % (30-34) H 10/20/19 05:01 RDW 13.6 % (13.2-15.2) 10/20/19 05:01 Plt Count 121 K/mm3 (140-440) L 10/20/19 05:01 Lymph % (Auto) 22.7 % (13.4-35.0) 10/15/19 03:59 [place] % (Auto) 8.5 % (0.0-7.3) H 10/15/19 03:59 Eos % (Auto) 4.0 % (0.0-4.3) 10/15/19 03:59 Baso % (Auto) 0.9 % (0.0-1.8) 10/15/19 03:59 Lymph # 0.9 K/mm3 (1.2-5.4) L 10/15/19 03:59 [place] # 0.3 K/mm3 (0.0-0.8) 10/15/19 03:59 Eos # 0.2 K/mm3 (0.0-0.4) 10/15/19 03:59 Baso # 0.0 K/mm3 (0.0-0.1) 10/15/19 03:59 Seg Neutrophils % 63.9 % (40.0-70.0) 10/15/19 03:59 Seg Neutrophils # 2.5 K/mm3 (1.8-7.7) 10/15/19 03:59 PT 16.1 Sec. (12.2-14.9) H 10/15/19 03:59 INR 1.27 (0.87-1.13) H 10/15/19 03:59 Sodium 138 mmol/L (137-145) 10/20/19 05:01 Potassium 4.1 mmol/L (3.6-5.0) 10/20/19 05:01 Chloride 104.6 mmol/L (98-107) 10/20/19 05:01 Carbon Dioxide 23 mmol/L (22-30) 10/20/19 05:01 Anion Gap 15 mmol/L 10/20/19 05:01 BUN 23 mg/dL (7-17) H 10/20/19 05:01 Creatinine 1.6 mg/dL (0.6-1.2) H 10/20/19 05:01 Estimated GFR 32 ml/min 10/20/19 05:01 BUN/Creatinine Ratio 14 % 10/20/19 05:01 Glucose 128 mg/dL (65-100) H 10/20/19 05:01 POC Glucose 140 (70-105) H 10/20/19 11:51 Hemoglobin A1c 5.9 % (4-6) 10/15/19 03:59 Calcium 8.6 mg/dL (8.4-10.2) 10/20/19 05:01 Total Bilirubin 0.30 mg/dL (0.1-1.2) 10/13/19 21:33 Direct Bilirubin < 0.2 mg/dL (0-0.2) 10/13/19 21:33 Indirect Bilirubin 0.1 mg/dL 10/13/19 21:33 AST 20 units/L (5-40) 10/13/19 21:33 ALT 12 units/L (7-56) 10/13/19 21:33 Alkaline Phosphatase 142 units/L (35-129) H 10/13/19 21:33 Total Creatine Kinase 167 units/L (30-135) H 10/14/19 11:01 Serum Total Protein 5.1 g/dL (6.1-8.1) L 10/15/19 03:59 Total Protein 7.0 g/dL (6.3-8.2) 10/13/19 21:33 Albumin 2.9 g/dL (3.8-4.8) L 10/15/19 03:59 Albumin/Globulin Ratio 1.3 % 10/13/19 21:33 Yfsxn-3-Tgqbgevnh 0.3 g/dL (0.2-0.3) 10/15/19 03:59 Xwjdk-7-Evyyskywo 0.6 g/dL (0.5-0.9) 10/15/19 03:59 Beta Globulins 0.3 g/dL (0.2-0.5) 10/15/19 03:59 Gamma Globulins 0.8 g/dL (0.8-1.7) 10/15/19 03:59 Abnorm Protein Band 1 see below 10/15/19 03:59 PEP Interpretation see below H 10/15/19 03:59 Urine Color Straw (Yellow) 10/14/19 23:00 Urine Turbidity Clear (Clear) 10/14/19 23:00 Urine pH 6.0 (5.0-7.0) 10/14/19 23:00 Ur Specific Bowman 1.006 (1.003-1.030) 10/14/19 23:00 Urine Protein <15 mg/dl mg/dL (Negative) 10/14/19 23:00 Urine Glucose (UA) Neg mg/dL (Negative) 10/14/19 23:00 Urine Ketones Neg mg/dL (Negative) 10/14/19 23:00 Urine Blood Neg (Negative) 10/14/19 23:00 Urine Nitrite Neg (Negative) 10/14/19 23:00 Urine Bilirubin Neg (Negative) 10/14/19 23:00 Urine Ictotest Negative (Negative) 10/13/19 Unknown Urine Urobilinogen < 2.0 mg/dL (<2.0) 10/14/19 23:00 Ur Leukocyte Esterase Neg (Negative) 10/14/19 23:00 Urine WBC (Auto) < 1.0 /HPF (0.0-6.0) 10/14/19 23:00 Urine RBC (Auto) 3.0 /HPF (0.0-6.0) 10/14/19 23:00 U Epithel Cells (Auto) 1.0 /HPF (0-13.0) 10/14/19 23:00 Urine Bacteria (Auto) 1+ /HPF (Negative) 10/13/19 Unknown Urine Mucus Few /HPF 10/13/19 Unknown Urine Eosinophils None seen (None Seen) 10/15/19 13:49 Urine Creatinine 45.8 mg/dL (0.1-20.0) H 10/14/19 23:00 Urine Sodium 35 mmol/L 10/14/19 23:00 Fraction Sodium Excret 1.5 10/14/19 23:00 Salicylates < 0.3 mg/dL (2.8-20.0) L 10/13/19 21:33 Urine Opiates Screen Presumptive negative 10/13/19 Unknown Urine Methadone Screen Presumptive negative 10/13/19 Unknown Acetaminophen 5.0 ug/mL (10.0-30.0) L 10/13/19 21:33 Ur Barbiturates Screen Presumptive negative 10/13/19 Unknown Ur Phencyclidine Scrn Presumptive negative 10/13/19 Unknown Ur Amphetamines Screen Presumptive negative 10/13/19 Unknown U Benzodiazepines Scrn Presumptive negative 10/13/19 Unknown Urine Cocaine Screen Presumptive negative 10/13/19 Unknown U Marijuana (THC) Screen Presumptive negative 10/13/19 Unknown Drugs of Abuse Note Disclamer 10/13/19 Unknown Plasma/Serum Alcohol < 0.01 % (0-0.07) 10/13/19 21:33 ALESHIA Screen Negative (Negative) 10/15/19 03:59 Proteinase 3 (PR3) Ab <1.0 AI (<1.0) 10/14/19 11:01 Myeloperoxidase Ab <1.0 AI (<1.0) 10/14/19 11:01 Complement C3 107 mg/dL (83-193) 10/14/19 11:01 Complement C4 25 mg/dL (15-57) 10/14/19 11:01 Hepatitis A IgM Ab Non-reactive (NonReactive) 10/14/19 11:01 Hep Bs Antigen Non-reactive (Negative) 10/14/19 11:01 Hep B Core IgM Ab Non-reactive (NonReactive) 10/14/19 11:01 Hepatitis C Antibody Non-reactive (NonReactive) 10/14/19 11:01 Rodriguez/IV: Voiding Method Toilet IV Catheter Type [Right Peripheral IV Forearm] Active Medications - Current Medications Current Medications: Generic Name Dose Route Start Last Admin Trade Name Freq PRN Reason Stop Dose Admin Acetaminophen 650 mg 10/14/19 01:52 10/20/19 10:10 Tylenol PO 650 mg Q4H PRN Administration Pain MILD(1-3)/Fever >100.5/RAY Allopurinol 100 mg 10/14/19 16:00 10/20/19 10:05 Zyloprim PO 100 mg QDAY JIMBO Administration Amitriptyline HCl 10 mg 10/14/19 22:00 10/19/19 21:46 Elavil PO 10 mg QHS JIMBO Administration Aripiprazole 7.5 mg 10/14/19 14:00 10/20/19 10:03 Aripiprazole PO 7.5 mg QDAY JIMBO Administration Aspirin 81 mg 10/14/19 10:00 10/20/19 10:09 Halfprin Ec PO 81 mg QDAY JIMBO Administration Atorvastatin Calcium 40 mg 10/14/19 22:00 10/19/19 21:45 Lipitor PO 40 mg QHS JIMBO Administration Buspirone HCl 15 mg 10/14/19 13:00 10/20/19 10:10 Buspar PO 15 mg BID JIMBO Administration Carvedilol 12.5 mg 10/15/19 10:00 10/20/19 10:05 Coreg PO 12.5 mg BID JIMBO Administration Clopidogrel Bisulfate 75 mg 10/14/19 10:00 10/20/19 10:05 Plavix PO 75 mg DAILY JIMBO Administration Dextrose 50 ml 10/14/19 01:52 D50w (25gm) Syringe IV Q30MIN PRN Hypoglycemia Protocol Duloxetine HCl 60 mg 10/14/19 13:00 10/20/19 10:04 Cymbalta PO 60 mg BID JIMBO Administration Ferrous Sulfate 325 mg 10/14/19 08:00 10/20/19 08:14 Feosol PO 325 mg DAILY@0800 JIMBO Administration Gabapentin 100 mg 10/20/19 14:00 10/20/19 13:49 Gabapentin PO 100 mg Q8HR JIMBO Administration Insulin Human Lispro 0 unit 10/14/19 07:30 10/20/19 13:50 Humalog SUB-Q Not Given ACHS [facility] Protocol Levothyroxine Sodium 88 mcg 10/14/19 08:00 10/20/19 05:01 Synthroid PO 88 mcg DAILY@0600 JIMBO Administration Magnesium Hydroxide 30 ml 10/14/19 01:52 Milk Of Magnesia PO Q4H PRN Constipation Melatonin 5 mg 10/14/19 22:00 10/19/19 21:45 Melatonin PO 5 mg QHS JIMBO Administration Ondansetron HCl 4 mg 10/15/19 12:51 10/19/19 17:55 Zofran IV 4 mg Q8H PRN Administration N/V unrelieved by Regwendie Pantoprazole Sodium 20 mg 10/14/19 10:00 10/20/19 10:04 Protonix PO 20 mg QDAY JIMBO Administration Quetiapine Fumarate 50 mg 10/14/19 22:00 10/19/19 21:45 Seroquel PO 50 mg QHS JIMBO Administration Sodium Chloride 10 ml 10/14/19 10:00 10/19/19 21:44 Sodium Chloride Flush Syringe 10 Ml IV 10 ml BID JIMBO Administration Sodium Chloride 10 ml 10/14/19 01:52 Sodium Chloride Flush Syringe 10 Ml IV PRN PRN LINE FLUSH Topiramate 100 mg 10/14/19 10:00 10/20/19 10:09 Topamax PO 100 mg DAILY JIMBO Administration Nutrition/Malnutrition Assess - Dietary Evaluation Nutrition/Malnutrition Findings: Nutrition Notes Start: 10/14/19 12:08 Freq: Status: Active Protocol: Document 10/20/19 13:49 [email or web address] (Rec: 10/20/19 13:57 [email or web address]) Co-Sign 10/20/19 13:49 LM Nutrition Notes Initial or Follow up Reassessment Current Diagnosis CKD(stage I-IV),Diabetes, Hypertension,Hyperlipidemia Other Pertinent Diagnosis Hyperthyroidism, AMS Current Diet Cardiac/Consistent CHO Diet Labs/Tests POC glucose 140 Pertinent Medications Reviewed Height 5 ft 6 in Weight 89.8 kg [place] Body Weight (kg) 59.09 BMI 31.9 Subjective/Other Information Spoke with RN via phone, pt consuming 50% of meals. Percent of energy/protein needs met: 57%/56% Burn Absent Trauma Absent GI Symptoms Nausea Food Allergy No Current % PO Fair (50-74%) Minimum of two criteria No #1 Nutrition Diagnosis Inadequate oral intake Diagnosis Progress(for reassessment Continues documentation) Is patient on ventilator? No Is Patient Ambulatory and/or Out of Bed No REE-([facility]-confined to bed) 1727.340 Calculation Used for Recommendations [facility] Additional Notes Protein needs are 74-89 (1-1. 2g/kg AdjBW) Fluid needs are 1 ml/kl Nutrition Intervention Change Diet Order: Continue current diet order Add Supplement/Snack (indicate name/kcal Glucerna BID /protein ) Provides kCal: 440 Provides Protein (gm) 20 Goal #1 Pt meet 75% of kcal and protein needs. Goal #2 ONS tolerance Anticipated Discharge Needs: Consistent CHO/Cardiac Diet Follow-Up By: 10/22/19 Additional Comments F/U for intake and ONS tolerance <SIMONE MCGUIRE R - Last Filed: 10/21/19 16:05> Assessment and Plan Assessment and plan: I saw and evaluated the patient. I agree with the findings and the plan of care as documented in the Nurse Practitioner's~note, with the following corrections and additions. Discharge pending on placement Hospitalist Physical - Constitutional Vitals: Temp Pulse Resp BP Pulse Ox 97.7 F 65 20 133/51 99 10/21/19 10:41 10/21/19 10:41 10/21/19 10:41 10/21/19 10:41 10/21/19 10:41 Results - Labs CBC & Chem 7: 10/20/19 05:01 10/21/19 10:22 Labs: Laboratory Last Values WBC 5.5 K/mm3 (4.5-11.0) 10/20/19 05:01 RBC 2.45 M/mm3 (3.65-5.03) L 10/20/19 05:01 Hgb 8.1 gm/dl (10.1-14.3) L 10/20/19 05:01 Hct 23.6 % (30.3-42.9) L 10/20/19 05:01 MCV 97 fl (79-97) 10/20/19 05:01 MCH 33 pg (28-32) H 10/20/19 05:01 MCHC 35 % (30-34) H 10/20/19 05:01 RDW 13.6 % (13.2-15.2) 10/20/19 05:01 Plt Count 121 K/mm3 (140-440) L 10/20/19 05:01 Lymph % (Auto) 22.7 % (13.4-35.0) 10/15/19 03:59 [place] % (Auto) 8.5 % (0.0-7.3) H 10/15/19 03:59 Eos % (Auto) 4.0 % (0.0-4.3) 10/15/19 03:59 Baso % (Auto) 0.9 % (0.0-1.8) 10/15/19 03:59 Lymph # 0.9 K/mm3 (1.2-5.4) L 10/15/19 03:59 [place] # 0.3 K/mm3 (0.0-0.8) 10/15/19 03:59 Eos # 0.2 K/mm3 (0.0-0.4) 10/15/19 03:59 Baso # 0.0 K/mm3 (0.0-0.1) 10/15/19 03:59 Seg Neutrophils % 63.9 % (40.0-70.0) 10/15/19 03:59 Seg Neutrophils # 2.5 K/mm3 (1.8-7.7) 10/15/19 03:59 PT 16.1 Sec. (12.2-14.9) H 10/15/19 03:59 INR 1.27 (0.87-1.13) H 10/15/19 03:59 Sodium 136 mmol/L (137-145) L 10/21/19 10:22 Potassium 4.8 mmol/L (3.6-5.0) 10/21/19 10:22 Chloride 103.1 mmol/L (98-107) 10/21/19 10:22 Carbon Dioxide 22 mmol/L (22-30) 10/21/19 10:22 Anion Gap 16 mmol/L 10/21/19 10:22 BUN 27 mg/dL (7-17) H 10/21/19 10:22 Creatinine 1.6 mg/dL (0.6-1.2) H 10/21/19 10:22 Estimated GFR 32 ml/min 10/21/19 10:22 BUN/Creatinine Ratio 17 % 10/21/19 10:22 Glucose 180 mg/dL (65-100) H 10/21/19 10:22 POC Glucose 223 (70-105) H 10/21/19 11:36 Hemoglobin A1c 5.9 % (4-6) 10/15/19 03:59 Calcium 8.5 mg/dL (8.4-10.2) 10/21/19 10:22 Total Bilirubin 0.30 mg/dL (0.1-1.2) 10/13/19 21:33 Direct Bilirubin < 0.2 mg/dL (0-0.2) 10/13/19 21:33 Indirect Bilirubin 0.1 mg/dL 10/13/19 21:33 AST 20 units/L (5-40) 10/13/19 21:33 ALT 12 units/L (7-56) 10/13/19 21:33 Alkaline Phosphatase 142 units/L (35-129) H 10/13/19 21:33 Total Creatine Kinase 167 units/L (30-135) H 10/14/19 11:01 Serum Total Protein 5.1 g/dL (6.1-8.1) L 10/15/19 03:59 Total Protein 7.0 g/dL (6.3-8.2) 10/13/19 21:33 Albumin 2.9 g/dL (3.8-4.8) L 10/15/19 03:59 Albumin/Globulin Ratio 1.3 % 10/13/19 21:33 Rhwly-6-Mrcynsumb 0.3 g/dL (0.2-0.3) 10/15/19 03:59 Idjdh-8-Lzusmhgtd 0.6 g/dL (0.5-0.9) 10/15/19 03:59 Beta Globulins 0.3 g/dL (0.2-0.5) 10/15/19 03:59 Gamma Globulins 0.8 g/dL (0.8-1.7) 10/15/19 03:59 Abnorm Protein Band 1 see below 10/15/19 03:59 PEP Interpretation see below H 10/15/19 03:59 Urine Color Straw (Yellow) 10/14/19 23:00 Urine Turbidity Clear (Clear) 10/14/19 23:00 Urine pH 6.0 (5.0-7.0) 10/14/19 23:00 Ur Specific Bowman 1.006 (1.003-1.030) 10/14/19 23:00 Urine Protein <15 mg/dl mg/dL (Negative) 10/14/19 23:00 Urine Glucose (UA) Neg mg/dL (Negative) 10/14/19 23:00 Urine Ketones Neg mg/dL (Negative) 10/14/19 23:00 Urine Blood Neg (Negative) 10/14/19 23:00 Urine Nitrite Neg (Negative) 10/14/19 23:00 Urine Bilirubin Neg (Negative) 10/14/19 23:00 Urine Ictotest Negative (Negative) 10/13/19 Unknown Urine Urobilinogen < 2.0 mg/dL (<2.0) 10/14/19 23:00 Ur Leukocyte Esterase Neg (Negative) 10/14/19 23:00 Urine WBC (Auto) < 1.0 /HPF (0.0-6.0) 10/14/19 23:00 Urine RBC (Auto) 3.0 /HPF (0.0-6.0) 10/14/19 23:00 U Epithel Cells (Auto) 1.0 /HPF (0-13.0) 10/14/19 23:00 Urine Bacteria (Auto) 1+ /HPF (Negative) 10/13/19 Unknown Urine Mucus Few /HPF 10/13/19 Unknown Urine Eosinophils None seen (None Seen) 10/15/19 13:49 Urine Creatinine 45.8 mg/dL (0.1-20.0) H 10/14/19 23:00 Urine Sodium 35 mmol/L 10/14/19 23:00 Fraction Sodium Excret 1.5 10/14/19 23:00 Salicylates < 0.3 mg/dL (2.8-20.0) L 10/13/19 21:33 Urine Opiates Screen Presumptive negative 10/13/19 Unknown Urine Methadone Screen Presumptive negative 10/13/19 Unknown Acetaminophen 5.0 ug/mL (10.0-30.0) L 10/13/19 21:33 Ur Barbiturates Screen Presumptive negative 10/13/19 Unknown Ur Phencyclidine Scrn Presumptive negative 10/13/19 Unknown Ur Amphetamines Screen Presumptive negative 10/13/19 Unknown U Benzodiazepines Scrn Presumptive negative 10/13/19 Unknown Urine Cocaine Screen Presumptive negative 10/13/19 Unknown U Marijuana (THC) Screen Presumptive negative 10/13/19 Unknown Drugs of Abuse Note Disclamer 10/13/19 Unknown Plasma/Serum Alcohol < 0.01 % (0-0.07) 10/13/19 21:33 ALESHIA Screen Negative (Negative) 10/15/19 03:59 Proteinase 3 (PR3) Ab <1.0 AI (<1.0) 10/14/19 11:01 Myeloperoxidase Ab <1.0 AI (<1.0) 10/14/19 11:01 Complement C3 107 mg/dL (83-193) 10/14/19 11:01 Complement C4 25 mg/dL (15-57) 10/14/19 11:01 Coronavirus (PCR) Negative (Negative) 10/21/19 Unknown Hepatitis A IgM Ab Non-reactive (NonReactive) 10/14/19 11:01 Hep Bs Antigen Non-reactive (Negative) 10/14/19 11:01 Hep B Core IgM Ab Non-reactive (NonReactive) 10/14/19 11:01 Hepatitis C Antibody Non-reactive (NonReactive) 10/14/19 11:01 Rodriguez/IV: Voiding Method Toilet IV Catheter Type [Right Peripheral IV Forearm] Active Medications - Current Medications Current Medications: Generic Name Dose Route Start Last Admin Trade Name Freq PRN Reason Stop Dose Admin Acetaminophen 650 mg 10/14/19 01:52 10/21/19 12:26 Tylenol PO 650 mg Q4H PRN Administration Pain MILD(1-3)/Fever >100.5/RAY Allopurinol 100 mg 10/14/19 16:00 10/21/19 09:42 Zyloprim PO 100 mg QDAY JIMBO Administration Amitriptyline HCl 10 mg 10/14/19 22:00 10/20/19 21:10 Elavil PO 10 mg QHS JIMBO Administration Aripiprazole 7.5 mg 10/14/19 14:00 10/21/19 09:41 Aripiprazole PO 7.5 mg QDAY JIMBO Administration Aspirin 81 mg 10/14/19 10:00 10/21/19 09:43 Halfprin Ec PO 81 mg QDAY JIMBO Administration Atorvastatin Calcium 40 mg 10/14/19 22:00 10/20/19 21:10 Lipitor PO 40 mg QHS JIMBO Administration Buspirone HCl 15 mg 10/14/19 13:00 10/21/19 09:44 Buspar PO 15 mg BID JIMBO Administration Carvedilol 12.5 mg 10/15/19 10:00 10/21/19 09:42 Coreg PO 12.5 mg BID JIMBO Administration Clopidogrel Bisulfate 75 mg 10/14/19 10:00 10/21/19 09:41 Plavix PO 75 mg DAILY JIMBO Administration Dextrose 50 ml 10/14/19 01:52 D50w (25gm) Syringe IV Q30MIN PRN Hypoglycemia Protocol Duloxetine HCl 60 mg 10/14/19 13:00 10/21/19 09:43 Cymbalta PO 60 mg BID JIMBO Administration Ferrous Sulfate 325 mg 10/14/19 08:00 10/21/19 08:00 Feosol PO 325 mg DAILY@0800 JIMBO Administration Gabapentin 100 mg 10/20/19 14:00 10/21/19 13:52 Gabapentin PO 100 mg Q8HR JIMBO Administration Insulin Human Lispro 0 unit 10/14/19 07:30 10/21/19 11:30 Humalog SUB-Q 3 unit ACHS JIMBO Administration Protocol Levothyroxine Sodium 88 mcg 10/14/19 08:00 10/21/19 06:29 Synthroid PO 88 mcg DAILY@0600 JIMBO Administration Magnesium Hydroxide 30 ml 10/14/19 01:52 Milk Of Magnesia PO Q4H PRN Constipation Melatonin 5 mg 10/14/19 22:00 10/20/19 21:10 Melatonin PO 5 mg QHS JIMBO Administration Ondansetron HCl 4 mg 10/15/19 12:51 10/21/19 14:33 Zofran IV 4 mg Q8H PRN Administration N/V unrelieved by Regwendie Pantoprazole Sodium 20 mg 10/14/19 10:00 10/21/19 09:42 Protonix PO 20 mg QDAY JIMBO Administration Quetiapine Fumarate 50 mg 10/14/19 22:00 10/20/19 21:10 Seroquel PO 50 mg QHS JIMBO Administration Sodium Chloride 10 ml 10/14/19 10:00 10/21/19 09:41 Sodium Chloride Flush Syringe 10 Ml IV 10 ml BID JIMBO Administration Sodium Chloride 10 ml 10/14/19 01:52 Sodium Chloride Flush Syringe 10 Ml IV PRN PRN LINE FLUSH Topiramate 100 mg 10/14/19 10:00 10/21/19 09:43 Topamax PO 100 mg DAILY JIMBO Administration Nutrition/Malnutrition Assess - Dietary Evaluation Nutrition/Malnutrition Findings: Nutrition Notes Start: 10/14/19 12:08 Freq: Status: Active Protocol: Document 10/20/19 13:49 [email or web address] (Rec: 10/20/19 13:57 [email or web address]) Co-Sign 10/20/19 13:49 LM Nutrition Notes Initial or Follow up Reassessment Current Diagnosis CKD(stage I-IV),Diabetes, Hypertension,Hyperlipidemia Other Pertinent Diagnosis Hyperthyroidism, AMS Current Diet Cardiac/Consistent CHO Diet Labs/Tests POC glucose 140 Pertinent Medications Reviewed Height 5 ft 6 in Weight 89.8 kg [place] Body Weight (kg) 59.09 BMI 31.9 Subjective/Other Information Spoke with RN via phone, pt consuming 50% of meals. Percent of energy/protein needs met: 57%/56% Burn Absent Trauma Absent GI Symptoms Nausea Food Allergy No Current % PO Fair (50-74%) Minimum of two criteria No #1 Nutrition Diagnosis Inadequate oral intake Diagnosis Progress(for reassessment Continues documentation) Is patient on ventilator? No Is Patient Ambulatory and/or Out of Bed No REE-([facility]-confined to bed) 2451.340 Calculation Used for Recommendations [facility] Additional Notes Protein needs are 74-89 (1-1. 2g/kg AdjBW) Fluid needs are 1 ml/kl Nutrition Intervention Change Diet Order: Continue current diet order Add Supplement/Snack (indicate name/kcal Glucerna BID /protein ) Provides kCal: 440 Provides Protein (gm) 20 Goal #1 Pt meet 75% of kcal and protein needs. Goal #2 ONS tolerance Anticipated Discharge Needs: Consistent CHO/Cardiac Diet Follow-Up By: 10/22/19 Additional Comments F/U for intake and ONS tolerance
[2019-10-20] MEDS: MELATONIN 5 MG TAB PO SCH (21:10)
[2019-10-20] MEDS: QUEtiapine 25 MG TAB PO SCH (21:10)
[2019-10-20] MEDS: AMITRIPTYLINE 10 MG TAB PO SCH (21:10)
[2019-10-21] MEDS: ONDANSETRON 4 MG/2 ML INJ IV PRN ×2 (00:11→14:33)
[2019-10-21] MEDS: ACETAMINOPHEN 325 MG TAB PO PRN ×3 (00:11→12:26)
[2019-10-21] MEDS: LEVOTHYROXINE 88 MCG TAB PO SCH (06:29)
[2019-10-21] MEDS: GABAPENTIN 100 MG CAP PO SCH ×2 (06:29→13:52)
[2019-10-21] MEDS: INSULIN LISPRO 100 UNIT/ML VIAL 3 mL SUB-Q SCH ×2 (07:30→11:30)
[2019-10-21] MEDS: FERROUS SULFATE 325 MG TAB PO SCH (08:00)
[2019-10-21] MEDS: CLOPIDOGREL 75 MG TAB PO SCH (09:41)
[2019-10-21] MEDS: ARIPiprazole 5 MG TAB PO SCH (09:41)
[2019-10-21] MEDS: allopurinoL 100 MG TAB PO SCH (09:42)
[2019-10-21] MEDS: carvediloL 12.5 MG TAB PO SCH (09:42)
[2019-10-21] MEDS: PANTOPRAZOLE 20 MG TAB PO SCH (09:42)
[2019-10-21] MEDS: TOPIRAMATE TAB 100 MG TAB PO SCH (09:43)
[2019-10-21] MEDS: ASPIRIN EC 81 MG TAB PO SCH (09:43)
[2019-10-21] MEDS: DULoxetine 30 MG CAP PO SCH (09:43)
[2019-10-21] MEDS: busPIRone 10 MG TAB PO SCH (09:44)
[2019-10-21 11:03] LABS: Calcium 8.5 mg/dL (8.4-10.2)
--- NOTE | 2019-10-21 12:02 | Progress Note ---
Assessment and Plan Impression * Acute on chronic renal failure * Altered mental status * Metabolic acidosis * Hypertension * Diabetes * Hyperlipidemia Recommendations * Renal function stable with creatinine 1.6, peaked at 3.8 on arrival * Can continue to hold IV hydration, encourage po hydration as able * Urine studies reviewed * Likely with CKD- patient notes following with a reiki practitioner in [place] * Acidosis has been corrected with bicarbonate drip. CPK level was 167. * She most likely has some degree of underlying hypertensive nephrosclerosis and/or diabetic nephropathy * Monitor fluid status and electrolytes closely * Avoid nephrotoxins * Her blood pressure is under control. * No objection to discharge from renal standpoint. She will need outpatient fol low-up. Offered CKD follow up if she is unable to follow up with her regular reiki practitioner in [place] Subjective Date of service: 10/21/19 Interval history: No acute concerns noted this AM. She does note continuing to feel sore. No dyspnea, no edema, no dysuria noted. Appetite ok. Objective - Exam Narrative Exam: General appearance: well-developed, well-nourished, appears stated age, obese EENT: PERRL, mucous membranes moist Neck: no carotid bruit, supple Respiratory: Present: Clear to Auscultation Cardiology: regular, normal heart rate Gastrointestinal: normal, normoactive bowel sounds Integumentary: other (Bruise noted on the medial aspect of her right thigh) - Vital Signs Vital signs: Vital Signs - 12hr 10/21/19 10/21/19 10/21/19 00:11 01:11 04:15 Temperature 98.7 F Pulse Rate 76 Respiratory 20 20 16 Rate Blood Pressure 111/47 O2 Sat by Pulse 96 Oximetry 10/21/19 10/21/19 06:29 10:41 Temperature 97.7 F Pulse Rate 65 Respiratory 20 20 Rate Blood Pressure 133/51 O2 Sat by Pulse 99 Oximetry - Lab 10/20/19 05:01 10/21/19 10:22 Most recent lab results Calcium 8.5 mg/dL (8.4-10.2) 10/21/19 10:22 Urine Creatinine 45.8 mg/dL (0.1-20.0) H 10/14/19 23:00 Urine Sodium 35 mmol/L 10/14/19 23:00 Medications & Allergies - Medications Allergies/Adverse Reactions: Allergies adhesive tape Adverse Reaction (Verified 09/28/19 01:37) Unknown codeine Adverse Reaction (Verified 09/28/19 01:37) Unknown morphine Adverse Reaction (Verified 09/28/19 01:37) Unknown ondansetron Adverse Reaction (Verified 09/28/19 01:37) Unknown Penicillins Adverse Reaction (Verified 09/28/19 01:37) Unknown Sulfa (Sulfonamide Antibiotics) Adverse Reaction (Verified 09/28/19 01:37) Unknown Home Medications: Home Medications Medication Instructions Recorded Confirmed Last Taken Type Amitriptyline 10 mg PO QHS 09/28/19 10/14/19 Unknown History Aspirin 81 mg PO DAILY 09/28/19 10/14/19 Unknown History Atorvastatin 40 mg PO QHS 09/28/19 10/14/19 Unknown History Ferrous Sulfate 324 MG 65 mg PO DAILY 09/28/19 10/14/19 Unknown History Levemir VIAL 35 units SQ QHS 09/28/19 10/14/19 Unknown History Levothyroxine 88 mcg PO QAC 09/28/19 10/14/19 Unknown History Melatonin 5MG TAB 5 mg PO QHS 09/28/19 10/14/19 Unknown History Myrbetriq 25 mg PO DAILY 09/28/19 10/14/19 Unknown History NovoLOG 100 UNITS/ML VIAL 10 units SQ TIDAC 09/28/19 10/14/19 Unknown History allopurinoL 100 mg PO DAILY 09/28/19 10/14/19 Unknown History Acetaminophen [Acetaminophen TAB] 500 mg PO Q4H PRN tablet 10/02/19 10/14/19 Unknown Rx ARIPiprazole 7.5 mg PO QDAY #30 tablet 10/16/19 Unknown Rx ARIPiprazole 7.5 mg PO QDAY #30 tablet 10/16/19 Unknown Rx Acetaminophen [Acetaminophen TAB] 650 mg PO Q4H PRN tablet 10/16/19 Unknown Rx Amitriptyline [Elavil] 10 mg PO QHS #30 tablet 10/16/19 Unknown Rx Aspirin EC [Halfprin EC] 81 mg PO QDAY #30 tablet 10/16/19 Unknown Rx AtorvaSTATin [Lipitor] 40 mg PO QHS #30 tablet 10/16/19 Unknown Rx Clopidogrel [Plavix] 75 mg PO DAILY #30 tablet 10/16/19 Unknown Rx DULoxetine [Cymbalta] 60 mg PO BID #60 capsule 10/16/19 Unknown Rx Ferrous Sulfate [Feosol 325 MG tab] 325 mg PO DAILY@0800 #30 tab 10/16/19 Unknown Rx Insulin Lispro [Humalog] 0 unit SUB-Q ACHS vial 10/16/19 Unknown Rx Levothyroxine [Synthroid] 88 mcg PO DAILY@0600 #30 tablet 10/16/19 Unknown Rx Melatonin [Melatonin 5MG TAB] 5 mg PO QHS tablet 10/16/19 Unknown Rx Pantoprazole [Protonix TAB] 20 mg PO QDAY #30 tablet.dr 10/16/19 Unknown Rx QUEtiapine [SEROquel] 50 mg PO QHS #30 tablet 10/16/19 Unknown Rx Topiramate [Topamax] 100 mg PO DAILY #90 tablet 10/16/19 Unknown Rx allopurinoL [Zyloprim] 100 mg PO QDAY #30 tablet 10/16/19 Unknown Rx busPIRone [Buspar] 15 mg PO BID #60 tablet 10/16/19 Unknown Rx carvediloL [Coreg] 12.5 mg PO BID #60 tablet 10/16/19 Unknown Rx Active Medications: Generic Name Dose Route Start Last Admin Trade Name Freq PRN Reason Stop Dose Admin Acetaminophen 650 mg 10/14/19 01:52 10/21/19 06:29 Tylenol PO 650 mg Q4H PRN Administration Pain MILD(1-3)/Fever >100.5/RAY Allopurinol 100 mg 10/14/19 16:00 10/21/19 09:42 Zyloprim PO 100 mg QDAY JIMBO Administration Amitriptyline HCl 10 mg 10/14/19 22:00 10/20/19 21:10 Elavil PO 10 mg QHS JIMBO Administration Aripiprazole 7.5 mg 10/14/19 14:00 10/21/19 09:41 Aripiprazole PO 7.5 mg QDAY JIMBO Administration Aspirin 81 mg 10/14/19 10:00 10/21/19 09:43 Halfprin Ec PO 81 mg QDAY JIMBO Administration Atorvastatin Calcium 40 mg 10/14/19 22:00 10/20/19 21:10 Lipitor PO 40 mg QHS JIMBO Administration Buspirone HCl 15 mg 10/14/19 13:00 10/21/19 09:44 Buspar PO 15 mg BID JIMBO Administration Carvedilol 12.5 mg 10/15/19 10:00 10/21/19 09:42 Coreg PO 12.5 mg BID JIMBO Administration Clopidogrel Bisulfate 75 mg 10/14/19 10:00 10/21/19 09:41 Plavix PO 75 mg DAILY JIMBO Administration Dextrose 50 ml 10/14/19 01:52 D50w (25gm) Syringe IV Q30MIN PRN Hypoglycemia Protocol Duloxetine HCl 60 mg 10/14/19 13:00 10/21/19 09:43 Cymbalta PO 60 mg BID JIMBO Administration Ferrous Sulfate 325 mg 10/14/19 08:00 10/21/19 08:00 Feosol PO 325 mg DAILY@0800 JIMBO Administration Gabapentin 100 mg 10/20/19 14:00 10/21/19 06:29 Gabapentin PO 100 mg Q8HR JIMBO Administration Insulin Human Lispro 0 unit 10/14/19 07:30 10/21/19 07:30 Humalog SUB-Q Not Given ACHS [facility] Protocol Levothyroxine Sodium 88 mcg 10/14/19 08:00 10/21/19 06:29 Synthroid PO 88 mcg DAILY@0600 JIMBO Administration Magnesium Hydroxide 30 ml 10/14/19 01:52 Milk Of Magnesia PO Q4H PRN Constipation Melatonin 5 mg 10/14/19 22:00 10/20/19 21:10 Melatonin PO 5 mg QHS JIMBO Administration Ondansetron HCl 4 mg 10/15/19 12:51 10/21/19 00:11 Zofran IV 4 mg Q8H PRN Administration N/V unrelieved by Regwendie Pantoprazole Sodium 20 mg 10/14/19 10:00 10/21/19 09:42 Protonix PO 20 mg QDAY JIMBO Administration Quetiapine Fumarate 50 mg 10/14/19 22:00 10/20/19 21:10 Seroquel PO 50 mg QHS JIMBO Administration Sodium Chloride 10 ml 10/14/19 10:00 10/21/19 09:41 Sodium Chloride Flush Syringe 10 Ml IV 10 ml BID JIMBO Administration Sodium Chloride 10 ml 10/14/19 01:52 Sodium Chloride Flush Syringe 10 Ml IV PRN PRN LINE FLUSH Topiramate 100 mg 10/14/19 10:00 10/21/19 09:43 Topamax PO 100 mg DAILY JIMBO Administration
[2019-10-21 17:41] VITALS: BP 135/60
== END 2019-10-21 18:02 | disposition other institution (70) ==
LOC: ED 19:37 → 3A 10-14 01:13
PROVIDERS: ADMIT Internal Medicine Geriatric Medicine; ATTEND Internal Medicine
DX: N17.9 Acute kidney failure, unspecified (principal); Z20.828 Contact with and (suspected) exposure to other viral communicable diseases; R41.82 Altered mental status, unspecified; I12.9 Hypertensive chronic kidney disease with stage 1 through stage 4 chronic kidney disease, or unspecified chronic kidney disease; E11.22 Type 2 diabetes mellitus with diabetic chronic kidney disease; N18.9 Chronic kidney disease, unspecified; E87.2 Acidosis; G93.41 Metabolic encephalopathy; K21.9 Gastro-esophageal reflux disease without esophagitis; M25.561 Pain in right knee; E78.2 Mixed hyperlipidemia; E03.9 Hypothyroidism, unspecified; F32.9 Major depressive disorder, single episode, unspecified; Z90.49 Acquired absence of other specified parts of digestive tract; Z79.82 Long term (current) use of aspirin; Z79.899 Other long term (current) drug therapy; Z88.0 Allergy status to penicillin; Z88.2 Allergy status to sulfonamides; Z88.5 Allergy status to narcotic agent; Z88.8 Allergy status to other drugs, medicaments and biological substances; Z91.048 Other nonmedicinal substance allergy status
CPT/HCPCS: 36415; 70450; 73562; 80048; 80074; 80076; 80307; 81001; 82550; 82565; 82570; 82962; 83036; 84165; 84295; 84300; 85025; 85027; 85610; 86021; 86038; 86160; 89050; 96361; 96365; 96366; 96372; 96375; 96376; 97161; 97165; 99284; A9270; G0378; J1644; J2405; J7030; U0003; 80320; G0480

== ENCOUNTER 2020-02-21 16:40 | Observation (INO) | payer MEDICARE ==
--- NOTE | 2020-02-21 17:00 | Event Note ---
ED Screening Note ED Screening Note: Patient is a 69-year-old female presents emergency room with complaints of thinking "she is having a stroke again" that began last night at 7:30 PM last night She is complaining of a diffuse headache He states her vision feels blurred in both of her eyes and she is having photophobia She states that she has chronic right-sided weakness from a previous stroke and states that the right-sided weakness feels worse States that she is also having shortness of breath She denies any chest pain, cough, vomiting, diarrhea Discussed case with Dr. De Dios, ER attending and Dr. Darrell Harrell, ER attending who advised to activate code stroke given that she is still within the 24-hour window This initial assessment/diagnostic orders/clinical plan/treatment(s) is/are subject to change based on patients health status, clinical progression and re- assessment by fellow clinical providers in the ED. Further treatment and workup at subsequent clinical providers discretion. Patient/guardian urged not to elope from the ED as their condition may be serious if not clinically assessed and managed. Initial orders include: code stroke initiated
--- NOTE | 2020-02-21 17:15 | Consultation ---
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 She said she had a previous stroke and has residual weakness on her right side weakness. All these symptoms started 730 pm last night. She feels she has a little worsening of her right side weakness. - Headache management - ASA and IV fluids - Permissive HTN Metrics: Last Known Well: 02/20/2020 19:30:00 [employer] Notification Time: 02/21/2020 16:57:25 Arrival Time: 02/21/2020 16:52:00 Stamp Time: 02/21/2020 16:57:37 Time First Login Attempt: 02/21/2020 17:04:55 Symptoms: headache NIHSS Start Assessment Time: 02/21/2020 17:09:06 Patient is not a candidate for Alteplase/Activase. Patient was not deemed candidate for Alteplase/Activase thrombolytics because of Last Well Known Above 4.[address] head showed no acute hemorrhage or acute core infarct. CT head was reviewed. Clinical Presentation is not Suggestive of Large Vessel Occlusive Disease ED Physician notified of diagnostic impression and management plan on 02/21/2020 17:15:00 Our recommendations are outlined below. Recommendations: Activate Stroke Protocol Admission/Order Set Stroke/Telemetry Floor Neuro Checks Bedside Swallow Eval DVT Prophylaxis IV Fluids, Normal Saline Head of Bed 30 Degrees Euglycemia and Avoid Hyperthermia (PRN Acetaminophen) Antiplatelet Therapy Recommended Routine Consultation with Inhouse Neurology for Follow up Care Sign Out: Discussed with Emergency Department Provider History of Present Illness: Patient is a 69 year old Female. Patient was brought by EMS for symptoms of headache Patient is a 69 year old woman who presented with headache and blurry vision. She said she had a previous stroke and has residual weakness on her right side weakness. All these symptoms started 730 pm last night. She feels she has a little worsening of her right side weakness. Examination: BP(161/75), Pulse(70s), Blood Glucose(131) 1A: Level of Consciousness - Alert; keenly responsive + 0 1B: Ask Month and Age - Both Questions Right + 0 1C: Blink Eyes & Squeeze Hands - Performs Both Tasks + 0 2: Test Horizontal Extraocular Movements - Normal + 0 3: Test Visual Juarez - No Visual Loss + 0 4: Test Facial Palsy (Use Grimace if Obtunded) - Normal symmetry + 0 5A: Test Left Arm Motor Drift - No Drift for 10 Seconds + 0 5B: Test Right Arm Motor Drift - No Drift for 10 Seconds + 0 6A: Test Left Leg Motor Drift - No Drift for 5 Seconds + 0 6B: Test Right Leg Motor Drift - No Drift for 5 Seconds + 0 7: Test Limb Ataxia (FNF/Heel-Frank) - No Ataxia + 0 8: Test Sensation - Normal; No sensory loss + 0 9: Test Language/Aphasia - Normal; No aphasia + 0 10: Test Dysarthria - Normal + 0 11: Test Extinction/Inattention - No abnormality + 0 NIHSS Score: 0 Pre-Morbid Modified Ranking Scale: 0 Points = No symptoms at all Patient/Family was informed the Neurology Consult would happen via TeleHealth consult by way of interactive audio and video telecommunications and consented to receiving care in this manner. Due to the immediate potential for life-threatening deterioration due to underlying acute neurologic illness, I spent 34 minutes providing critical care. This time includes time for face to face visit via telemedicine, review of medical records, imaging studies and discussion of findings with providers, the patient and/or family. Dr Shreyas Mcnair [facility] Case [id number] Medications and Allergies Allergies Allergy/AdvReac Type Severity Reaction Status Date / Time adhesive tape AdvReac Unknown Verified 02/21/20 16:41 codeine AdvReac Unknown Verified 02/21/20 16:41 morphine AdvReac Unknown Verified 02/21/20 16:41 ondansetron AdvReac Unknown Verified 02/21/20 16:41 Penicillins AdvReac Unknown Verified 02/21/20 16:41 Sulfa (Sulfonamide AdvReac Unknown Verified 02/21/20 16:41 Antibiotics) Home Medications Medication Instructions Recorded Confirmed Last Taken Type Amitriptyline 10 mg PO QHS 09/28/19 10/14/19 Unknown History Aspirin 81 mg PO DAILY 09/28/19 10/14/19 Unknown History Atorvastatin 40 mg PO QHS 09/28/19 10/14/19 Unknown History Ferrous Sulfate 324 MG 65 mg PO DAILY 09/28/19 10/14/19 Unknown History Levemir VIAL 35 units SQ QHS 09/28/19 10/14/19 Unknown History Levothyroxine 88 mcg PO QAC 09/28/19 10/14/19 Unknown History Melatonin 5MG TAB 5 mg PO QHS 09/28/19 10/14/19 Unknown History Myrbetriq 25 mg PO DAILY 09/28/19 10/14/19 Unknown History NovoLOG 100 UNITS/ML VIAL 10 units SQ TIDAC 09/28/19 10/14/19 Unknown History allopurinoL 100 mg PO DAILY 09/28/19 10/14/19 Unknown History Acetaminophen [Acetaminophen TAB] 500 mg PO Q4H PRN tablet 10/02/19 10/14/19 Unknown Rx ARIPiprazole 7.5 mg PO QDAY #30 tablet 10/16/19 Unknown Rx ARIPiprazole 7.5 mg PO QDAY #30 tablet 10/16/19 Unknown Rx Acetaminophen [Acetaminophen TAB] 650 mg PO Q4H PRN tablet 10/16/19 Unknown Rx Amitriptyline [Elavil] 10 mg PO QHS #30 tablet 10/16/19 Unknown Rx Aspirin EC [Halfprin EC] 81 mg PO QDAY #30 tablet 10/16/19 Unknown Rx AtorvaSTATin [Lipitor] 40 mg PO QHS #30 tablet 10/16/19 Unknown Rx Clopidogrel [Plavix] 75 mg PO DAILY #30 tablet 10/16/19 Unknown Rx DULoxetine [Cymbalta] 60 mg PO BID #60 capsule 10/16/19 Unknown Rx Ferrous Sulfate [Feosol 325 MG tab] 325 mg PO DAILY@0800 #30 tab 10/16/19 Unknown Rx Insulin Lispro [Humalog] 0 unit SUB-Q ACHS vial 10/16/19 Unknown Rx Levothyroxine [Synthroid] 88 mcg PO DAILY@0600 #30 tablet 10/16/19 Unknown Rx Melatonin [Melatonin 5MG TAB] 5 mg PO QHS tablet 10/16/19 Unknown Rx Pantoprazole [Protonix TAB] 20 mg PO QDAY #30 tablet. 10/16/19 Unknown Rx QUEtiapine [SEROquel] 50 mg PO QHS #30 tablet 10/16/19 Unknown Rx Topiramate [Topamax] 100 mg PO DAILY #90 tablet 10/16/19 Unknown Rx allopurinoL [Zyloprim] 100 mg PO QDAY #30 tablet 10/16/19 Unknown Rx busPIRone [Buspar] 15 mg PO BID #60 tablet 10/16/19 Unknown Rx carvediloL [Coreg] 12.5 mg PO BID #60 tablet 10/16/19 Unknown Rx Physical Examination - Vital Signs Vital Signs: Vital Signs Temp Pulse Resp BP Pulse Ox 97.7 F 48 L 20 167/107 99 02/21/20 16:46 02/21/20 16:46 02/21/20 16:46 02/21/20 16:46 02/21/20 16:46 Results - Laboratory Findings Abnormal Lab Findings: Abnormal Labs 02/21/20 16:57 POC Glucose 131 H
[2020-02-21] MEDS ORDERED: KETOROLAC 30 MG/1 ML INJ IV ONE (17:20)
[2020-02-21 17:31] LABS: Basophils # (Auto) 0.1 K/mm3 (0.0-0.1); Basophils % (Auto) 1.8 % (0.0-1.8); Eosinophils # (Auto) 0.2 K/mm3 (0.0-0.4); Eosinophils % (Auto) 3.6 % (0.0-4.3); Hematocrit 33.1 % (30.3-42.9); Hemoglobin 11.5 gm/dl (10.1-14.3); Lymphocytes # (Auto) 1.4 K/mm3 (1.2-5.4); Lymphocytes % (Auto) 26.7 % (13.4-35.0); Mean Corpuscular HGB Conc 35 % (30-34); Mean Corpuscular Volume 90 fl (79-97); Monocytes # (Auto) 0.3 K/mm3 (0.0-0.8); Monocytes % (Auto) 6.4 % (0.0-7.3); Platelet Count 127 K/mm3 (140-440); Red Blood Count 3.67 M/mm3 (3.65-5.03); Red Cell Distribution Width 14.4 % (13.2-15.2)
[2020-02-21] MEDS ORDERED: cloNIDine 0.1 MG TAB PO ONE (17:40)
--- NOTE | 2020-02-21 17:42 | Cat Scan Report ---
CT BRAIN: 02/21/2020 INDICATION / CLINICAL INFORMATION: Weakness. Nausea and vomiting. Visual disturbance. Shortness of breath.. COMPARISON: 10/13/2019 FINDINGS: BRAIN/INTRACRANIAL STRUCTURES: Unenhanced CT images of the brain were obtained and compared to the pr ior exam from 10/13/2019. There is been no change. Again seen are extensive areas of cortical encephalomalacia in the distribution of the left middle ce rebral artery, consistent with prior ischemic injury. Chronic lacunar changes are present in the cent rum [place] bilaterally. There is evidence of old lacunar infarct in the right thalamus, unchanged. Age-related atrophic changes are again noted. There is no evidence of hemorrhage or mass. There is no CT evidence of acute large vessel territory i schemic injury. Atherosclerotic vascular calcifications are present in the distal internal carotid arteries and verte bral arteries. EXTRACRANIAL STRUCTURES: Unremarkable. IMPRESSION: No acute abnormality. Chronic ischemic and age-related changes, stable when compared to the prior ex am from 10/13/2019. Notification: Dr. Harrell in the emergency department at [address] scans at this location are performed using dose reduction to ALARA by means of automated expos ure control. Signer Name: Xavier Camilo MD Signed: 02/21/2020 5:38 PM Workstation Name: [id number]
[2020-02-21 17:53] LABS: INR 1.15 (0.87-1.13)
[2020-02-21 17:54] LABS: Partial Thromboplastin Time 29.3 Sec. (24.2-36.6); Thrombin Time 17.4 Sec. (15.1-19.6)
--- NOTE | 2020-02-21 18:27 | XRay Report ---
CHEST 2 VIEWS, 02/21/2020 5:58 PM INDICATION: Shortness of breath COMPARISON: Chest radiograph, 10/09/2019 FINDINGS: Support devices: None. Heart: The cardiac silhouette is normal in size. Lungs/pleura: The lungs are clear of focal airspace disease or significant pleural effusion. Additional findings: No significant acute abnormality. IMPRESSION: 1. No evidence of acute cardiopulmonary process. Signer Name: Susi Rae MD Signed: 02/21/2020 6:22 PM Workstation Name: [id number]
[2020-02-21 18:28] LABS: Alanine Aminotransferase 15 units/L (7-56); Albumin 4.2 g/dL (3.9-5)
[2020-02-21] MEDS ORDERED: ACETAMINOPHEN 325 MG TAB PO ONE (19:06)
[2020-02-21] MEDS ORDERED: SODIUM CHLORIDE 0.9% 1000 ML 1,000 ML IV ONE (19:06)
[2020-02-21 19:08] LABS: BUN/Creatinine Ratio 21; Blood Urea Nitrogen 30 mg/dL (7-17); Calcium 9.4 mg/dL (8.4-10.2); Hemolysis Index 2
[2020-02-21 19:13] LABS: Creatine Kinase MB 1.6 ng/mL (0.0-4.0)
--- NOTE | 2020-02-21 19:29 | History and Physical Report ---
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 Patient states that she was in her usual state of health yesterday until she experienced new onset right-sided weakness which began around 1930 hrs. Patient awoke from sleep with persistent symptoms. EMS was notified and upon arrival the patient was found to have a neurologic deficit. A code stroke was called and the patient was transported to [facility] for further care and evaluation of the aforementioned symptoms. The patient was seen and evaluated in the emergency department. All lab and imaging studies reviewed. The patient was found to have clinical symptoms consistent with CVA. The patient was placed in observation status and admitted to telemetry and initiated on CVA protocol. Patient denies fever, chills, chest pain, palpitations, productive cough, skin rash, recent ill contacts, or known exposure to COVID-19. Prior admission on 10/14/2019 reviewed. All medication listed at time of admission has been reconciled. Advanced care planning conducted in ED. Past History Past Surgical History: appendectomy, cholecystectomy Social history: single Family history: diabetes, hypertension Medications and Allergies Allergies Allergy/AdvReac Type Severity Reaction Status Date / Time adhesive tape AdvReac Unknown Verified 02/21/20 16:41 codeine AdvReac Unknown Verified 02/21/20 16:41 morphine AdvReac Unknown Verified 02/21/20 16:41 ondansetron AdvReac Unknown Verified 02/21/20 16:41 Penicillins AdvReac Unknown Verified 02/21/20 16:41 Sulfa (Sulfonamide AdvReac Unknown Verified 02/21/20 16:41 Antibiotics) Home Medications Medication Instructions Recorded Confirmed Last Taken Type Amitriptyline 10 mg PO QHS 09/28/19 10/14/19 Unknown History Aspirin 81 mg PO DAILY 09/28/19 10/14/19 Unknown History Atorvastatin 40 mg PO QHS 09/28/19 10/14/19 Unknown History Ferrous Sulfate 324 MG 65 mg PO DAILY 09/28/19 10/14/19 Unknown History Levemir VIAL 35 units SQ QHS 09/28/19 10/14/19 Unknown History Levothyroxine 88 mcg PO QAC 09/28/19 10/14/19 Unknown History Melatonin 5MG TAB 5 mg PO QHS 09/28/19 10/14/19 Unknown History Myrbetriq 25 mg PO DAILY 09/28/19 10/14/19 Unknown History NovoLOG 100 UNITS/ML VIAL 10 units SQ TIDAC 09/28/19 10/14/19 Unknown History allopurinoL 100 mg PO DAILY 09/28/19 10/14/19 Unknown History Acetaminophen [Acetaminophen TAB] 500 mg PO Q4H PRN tablet 10/02/19 10/14/19 Unknown Rx ARIPiprazole 7.5 mg PO QDAY #30 tablet 10/16/19 Unknown Rx ARIPiprazole 7.5 mg PO QDAY #30 tablet 10/16/19 Unknown Rx Acetaminophen [Acetaminophen TAB] 650 mg PO Q4H PRN tablet 10/16/19 Unknown Rx Amitriptyline [Elavil] 10 mg PO QHS #30 tablet 10/16/19 Unknown Rx Aspirin EC [Halfprin EC] 81 mg PO QDAY #30 tablet 10/16/19 Unknown Rx AtorvaSTATin [Lipitor] 40 mg PO QHS #30 tablet 10/16/19 Unknown Rx Clopidogrel [Plavix] 75 mg PO DAILY #30 tablet 10/16/19 Unknown Rx DULoxetine [Cymbalta] 60 mg PO BID #60 capsule 10/16/19 Unknown Rx Ferrous Sulfate [Feosol 325 MG tab] 325 mg PO DAILY@0800 #30 tab 10/16/19 Unknown Rx Insulin Lispro [Humalog] 0 unit SUB-Q ACHS vial 10/16/19 Unknown Rx Levothyroxine [Synthroid] 88 mcg PO DAILY@0600 #30 tablet 10/16/19 Unknown Rx Melatonin [Melatonin 5MG TAB] 5 mg PO QHS tablet 10/16/19 Unknown Rx Pantoprazole [Protonix TAB] 20 mg PO QDAY #30 tablet. 10/16/19 Unknown Rx QUEtiapine [SEROquel] 50 mg PO QHS #30 tablet 10/16/19 Unknown Rx Topiramate [Topamax] 100 mg PO DAILY #90 tablet 10/16/19 Unknown Rx allopurinoL [Zyloprim] 100 mg PO QDAY #30 tablet 10/16/19 Unknown Rx busPIRone [Buspar] 15 mg PO BID #60 tablet 10/16/19 Unknown Rx carvediloL [Coreg] 12.5 mg PO BID #60 tablet 10/16/19 Unknown Rx Review of Systems Constitutional: no weight loss, no weight gain, no fever, no chills Ears, nose, mouth and throat: no ear pain, no ear discharge, no tinnitis, no decreased hearing, no nasal congestion, no nasal discharge Breasts: no change in shape, no swelling, no mass Cardiovascular: no orthopnea, no rapid/irregular heart beat Respiratory: no cough, no cough with sputum, no excessive sputum, no shortness of breath Gastrointestinal: no abdominal pain, no vomiting, no diarrhea, no constipation, no hematemesis, no coffee ground emesis Genitourinary Female: no pelvic pain, no flank pain, no dysuria, no urinary frequency, no urgency Rectal: no pain, no incontinence, no bleeding Musculoskeletal: no neck stiffness, no neck pain, no shooting arm pain, no shooting leg pain, no leg numbness/tingling, no redness of joints Integumentary: no rash, no redness, no sores, no wounds Neurological: weakness, numbness, change in speech, no tremors, no ataxia, no change in mentation Psychiatric: no anxiety, no memory loss, no change in sleep habits, no sleep disturbances, no insomnia, no hypersomnia Endocrine: no cold intolerance, no heat intolerance, no polyphagia, no poly dipsia, no nocturia Hematologic/Lymphatic: no easy bruising, no easy bleeding, no lymphadenopathy, no lymphedema Allergic/Immunologic: no urticaria, no allergic rhinitis, no angioedema Exam - Constitutional Vitals: Temp Pulse Resp BP Pulse Ox 97.7 F 68 20 178/67 99 02/21/20 16:46 02/21/20 18:08 02/21/20 16:46 02/21/20 18:08 02/21/20 16:46 General appearance: Present: mild distress - EENT Eyes: Present: PERRL ENT: hearing intact, clear oral mucosa - Neck Neck: Present: supple, normal ROM - Respiratory Respiratory effort: normal Respiratory: bilateral: CTA - Cardiovascular Heart Sounds: Present: S1 & S2. Absent: rub, click - Extremities Extremities: pulses symmetrical, No edema Peripheral Pulses: within normal limits - Abdominal General gastrointestinal: Present: soft, non-tender, non-distended, normal bowel sounds Female genitourinary: Present: normal - Integumentary Integumentary: Present: clear, warm, dry - Musculoskeletal Musculoskeletal: right sided weakness - Psychiatric Psychiatric: appropriate mood/affect, intact judgment & insight - Neurologic Neurologic: CNII-XII intact, moves all extremities HEART Score - HEART Score Troponin: Troponin T < 0.010 ng/mL (0.00-0.029) 02/21/20 17:09 Results - Labs CBC & Chem 7: 02/21/20 17:09 02/21/20 17:09 Labs: Abnormal lab results 02/21/20 02/21/20 02/21/20 Range/Units 16:57 17:09 17:09 MCHC 35 H (30-34) % Plt Count 127 L (140-440) K/mm3 INR 1.15 H (0.87-1.13) BUN (7-17) mg/dL Creatinine (0.6-1.2) mg/dL Glucose (65-100) mg/dL POC Glucose 131 H (70-105) mg/dL Alkaline Phosphatase (35-129) units/L 02/21/20 Range/Units 17:09 MCHC (30-34) % Plt Count (140-440) K/mm3 INR (0.87-1.13) BUN 30 H (7-17) mg/dL Creatinine 1.4 H (0.6-1.2) mg/dL Glucose 107 H (65-100) mg/dL POC Glucose (70-105) mg/dL Alkaline Phosphatase 140 H (35-129) units/L Assessment and Plan - Patient Problems (1) Acute CVA (cerebrovascular accident) Current Visit: Yes Status: Acute Plan to address problem: CVA protocol: CT head, neuro check, seizure precaution, aspiration precaution, fall precautions, echocardiogram, carotid Doppler, physical therapy consulted, Occupational Therapy consulted, speech therapy consulted, dual antiplatelet therapy, lipid panel, statin therapy, supportive care. (2) Diabetes Current Visit: No Status: Chronic Plan to address problem: Sliding-scale insulin therapy, Accu-Chek, consistent carbohydrate diet, hypoglycemia protocol. (3) Hyperlipidemia Current Visit: No Status: Chronic Qualifiers: Hyperlipidemia type: mixed hyperlipidemia Qualified Code(s): E78.2 - Mixed hyperlipidemia Plan to address problem: Statin therapy, lipid panel, supportive care. (4) Hypertension Current Visit: No Status: Chronic Qualifiers: Hypertension type: essential hypertension Qualified Code(s): I10 - Essential (primary) hypertension Plan to address problem: Monitor blood pressure every shift, continue medical management. Permissive hypertension overnight. (5) Hypothyroidism Current Visit: No Status: Chronic Plan to address problem: Resume Synthroid therapy, supportive care. (6) DVT prophylaxis Current Visit: No Status: Acute Plan to address problem: SCD to bilateral lower extremities while in bed, patient is ambulatory. (7) Advance care planning Current Visit: Yes Status: Acute Plan to address problem: Disease education conducted, care plan discussed, prognosis discussed, patient is full code, patient knowledges understanding and agreement with care plan.
[2020-02-21] MEDS ORDERED: MAGNESIUM HYDROXIDE (MOM) ORAL LIQD UDC PO PRN (19:32)
[2020-02-21] MEDS ORDERED: PROMETHAZINE 25 MG RECT SUPP PR PRN (19:32)
[2020-02-21] MEDS ORDERED: ACETAMINOPHEN 325 MG TAB PO PRN (19:32)
[2020-02-21] MEDS ORDERED: METOCLOPRAMIDE 10 MG TAB PO PRN (19:32)
--- NOTE | 2020-02-21 19:36 | Emergency Department Report ---
ED Neuro Deficit HPI - General Chief Complaint: Headache Stated Complaint: SOB/HEADACHE Time Seen by Provider: 02/21/20 16:55 Source: patient, EMS Mode of arrival: Wheelchair Limitations: Physical Limitation - History of Present Illness Initial Comments: Patient is a 69-year-old female with past medical history of hypertension and CVA who states that last night at approximately 7:30 PM she began having worsening of her right-sided weakness. States this is involving the arm and leg. This is where her previous stroke was. States that she feels a heaviness. She also states she has a generalized headache. Patient states she has a very minimal cough which is nonproductive. She denies shortness of breath fevers chills nausea vomiting or diarrhea. Patient also states she has no body aches. Patient states she does not have a history of migraines of this magnitude in the past. - Related Data Home Medications: Home Medications Medication Instructions Recorded Confirmed Last Taken Amitriptyline 10 mg PO QHS 09/28/19 10/14/19 Unknown Aspirin 81 mg PO DAILY 09/28/19 10/14/19 Unknown Atorvastatin 40 mg PO QHS 09/28/19 10/14/19 Unknown Ferrous Sulfate 324 MG 65 mg PO DAILY 09/28/19 10/14/19 Unknown Levemir VIAL 35 units SQ QHS 09/28/19 10/14/19 Unknown Levothyroxine 88 mcg PO QAC 09/28/19 10/14/19 Unknown Melatonin 5MG TAB 5 mg PO QHS 09/28/19 10/14/19 Unknown Myrbetriq 25 mg PO DAILY 09/28/19 10/14/19 Unknown NovoLOG 100 UNITS/ML VIAL 10 units SQ TIDAC 09/28/19 10/14/19 Unknown allopurinoL 100 mg PO DAILY 09/28/19 10/14/19 Unknown Previous Rx's Medication Instructions Recorded Last Taken Type Acetaminophen [Acetaminophen TAB] 500 mg PO Q4H PRN tablet 10/02/19 Unknown Rx ARIPiprazole 7.5 mg PO QDAY #30 tablet 10/16/19 Unknown Rx ARIPiprazole 7.5 mg PO QDAY #30 tablet 10/16/19 Unknown Rx Acetaminophen [Acetaminophen TAB] 650 mg PO Q4H PRN tablet 10/16/19 Unknown Rx Amitriptyline [Elavil] 10 mg PO QHS #30 tablet 10/16/19 Unknown Rx Aspirin EC [Halfprin EC] 81 mg PO QDAY #30 tablet 10/16/19 Unknown Rx AtorvaSTATin [Lipitor] 40 mg PO QHS #30 tablet 10/16/19 Unknown Rx Clopidogrel [Plavix] 75 mg PO DAILY #30 tablet 10/16/19 Unknown Rx DULoxetine [Cymbalta] 60 mg PO BID #60 capsule 10/16/19 Unknown Rx Ferrous Sulfate [Feosol 325 MG tab] 325 mg PO DAILY@0800 #30 tab 10/16/19 Unknown Rx Insulin Lispro [Humalog] 0 unit SUB-Q ACHS vial 10/16/19 Unknown Rx Levothyroxine [Synthroid] 88 mcg PO DAILY@0600 #30 tablet 10/16/19 Unknown Rx Melatonin [Melatonin 5MG TAB] 5 mg PO QHS tablet 10/16/19 Unknown Rx Pantoprazole [Protonix TAB] 20 mg PO QDAY #30 tablet. 10/16/19 Unknown Rx QUEtiapine [SEROquel] 50 mg PO QHS #30 tablet 10/16/19 Unknown Rx Topiramate [Topamax] 100 mg PO DAILY #90 tablet 10/16/19 Unknown Rx allopurinoL [Zyloprim] 100 mg PO QDAY #30 tablet 10/16/19 Unknown Rx busPIRone [Buspar] 15 mg PO BID #60 tablet 10/16/19 Unknown Rx carvediloL [Coreg] 12.5 mg PO BID #60 tablet 10/16/19 Unknown Rx Allergies/Adverse Reactions: Allergies Allergy/AdvReac Type Severity Reaction Status Date / Time adhesive tape AdvReac Unknown Verified 02/21/20 16:41 codeine AdvReac Unknown Verified 02/21/20 16:41 morphine AdvReac Unknown Verified 02/21/20 16:41 ondansetron AdvReac Unknown Verified 02/21/20 16:41 Penicillins AdvReac Unknown Verified 02/21/20 16:41 Sulfa (Sulfonamide AdvReac Unknown Verified 02/21/20 16:41 Antibiotics) ED Review of Systems ROS: Stated complaint: SOB/HEADACHE Other details as noted in HPI Comment: All other systems reviewed and negative ED Past Medical Hx - Past Medical History Hx Diabetes: Yes Hx Renal Disease: Yes Hx Arthritis: No Hx Seizures: No Hx Psychiatric Treatment: Yes - Surgical History Hx Cholecystectomy: Yes Hx Appendectomy: Yes - Social History Smoking Status: Unknown if ever smoked - Medications Home Medications: Home Medications Medication Instructions Recorded Confirmed Last Taken Type Amitriptyline 10 mg PO QHS 09/28/19 10/14/19 Unknown History Aspirin 81 mg PO DAILY 09/28/19 10/14/19 Unknown History Atorvastatin 40 mg PO QHS 09/28/19 10/14/19 Unknown History Ferrous Sulfate 324 MG 65 mg PO DAILY 09/28/19 10/14/19 Unknown History Levemir VIAL 35 units SQ QHS 09/28/19 10/14/19 Unknown History Levothyroxine 88 mcg PO QAC 09/28/19 10/14/19 Unknown History Melatonin 5MG TAB 5 mg PO QHS 09/28/19 10/14/19 Unknown History Myrbetriq 25 mg PO DAILY 09/28/19 10/14/19 Unknown History NovoLOG 100 UNITS/ML VIAL 10 units SQ TIDAC 09/28/19 10/14/19 Unknown History allopurinoL 100 mg PO DAILY 09/28/19 10/14/19 Unknown History Acetaminophen [Acetaminophen TAB] 500 mg PO Q4H PRN tablet 10/02/19 10/14/19 Unknown Rx ARIPiprazole 7.5 mg PO QDAY #30 tablet 10/16/19 Unknown Rx ARIPiprazole 7.5 mg PO QDAY #30 tablet 10/16/19 Unknown Rx Acetaminophen [Acetaminophen TAB] 650 mg PO Q4H PRN tablet 10/16/19 Unknown Rx Amitriptyline [Elavil] 10 mg PO QHS #30 tablet 10/16/19 Unknown Rx Aspirin EC [Halfprin EC] 81 mg PO QDAY #30 tablet 10/16/19 Unknown Rx AtorvaSTATin [Lipitor] 40 mg PO QHS #30 tablet 10/16/19 Unknown Rx Clopidogrel [Plavix] 75 mg PO DAILY #30 tablet 10/16/19 Unknown Rx DULoxetine [Cymbalta] 60 mg PO BID #60 capsule 10/16/19 Unknown Rx Ferrous Sulfate [Feosol 325 MG tab] 325 mg PO DAILY@0800 #30 tab 10/16/19 U nknown Rx Insulin Lispro [Humalog] 0 unit SUB-Q ACHS vial 10/16/19 Unknown Rx Levothyroxine [Synthroid] 88 mcg PO DAILY@0600 #30 tablet 10/16/19 Unknown Rx Melatonin [Melatonin 5MG TAB] 5 mg PO QHS tablet 10/16/19 Unknown Rx Pantoprazole [Protonix TAB] 20 mg PO QDAY #30 tablet. 10/16/19 Unknown Rx QUEtiapine [SEROquel] 50 mg PO QHS #30 tablet 10/16/19 Unknown Rx Topiramate [Topamax] 100 mg PO DAILY #90 tablet 10/16/19 Unknown Rx allopurinoL [Zyloprim] 100 mg PO QDAY #30 tablet 10/16/19 Unknown Rx busPIRone [Buspar] 15 mg PO BID #60 tablet 10/16/19 Unknown Rx carvediloL [Coreg] 12.5 mg PO BID #60 tablet 10/16/19 Unknown Rx ED Neuro Physical Exam - General Limitations: Physical Limitation General appearance: alert, in no apparent distress Suspected Stroke: Yes - Head Head exam: Present: atraumatic, normocephalic - Eye Eye exam: Present: normal appearance - ENT ENT exam: Present: mucous membranes moist - Neck Neck exam: Present: normal inspection - Respiratory Respiratory exam: Present: normal lung sounds bilaterally, wheezes, rales, rhonchi. Absent: respiratory distress - Cardiovascular Cardiovascular Exam: Present: regular rate, normal rhythm. Absent: systolic murmur, diastolic murmur, rubs, gallop - GI/Abdominal GI/Abdominal exam: Present: soft, normal bowel sounds - Extremities Exam Extremities exam: Present: normal inspection - Back Exam Back exam: Present: normal inspection - Neurological Exam Neurological exam: Present: alert, oriented X3 - NIHSS Assessment Interval: Baseline 1a. Level of Consciousness: alert/keenly responsive 1b. LOC Questions: answers both correctly 1c. LOC Commands: performs tasks correctly 2. Best Gaze: normal 3. Visual: no visual loss 4. Facial Palsy: normal symmetrical movement 5b. Motor Arm Right: drift 5a. Motor Arm Left: no drift 6a. Motor Leg Left: no drift 6b. Motor Leg Right: drift 7. Limb Ataxia: absent 8. Sensory: normal 9. Best Language: no aphasia 10. Dysarthria: mild/moderate dysarthria 11. Extinction/Inattention: no abnormality Total Score: 3 Stroke Severity: Minor Stroke - Psychiatric Psychiatric exam: Present: normal affect, normal mood - Skin Skin exam: Present: warm, dry, intact, normal color. Absent: rash ED Course Vital Signs 01/10/21 01/10/21 01/10/21 16:46 17:18 18:08 Temperature 97.7 F Pulse Rate 48 L 62 68 Respiratory 20 Rate Blood Pressure 167/107 161/75 178/67 O2 Sat by Pulse 99 Oximetry - Reevaluation(s) Reevaluation #1: 02/21/20 19:33 [facility] Date of Service: 02/21/2020 16:57:37 Impression: I63.0 - Cerebral infarction due to thrombosis of precerebral arteries Comments/Sign-Out: Patient is a 69 year old woman who presented with headache and blurry vision. She said she had a previous stroke and has residual weakness on her right side weakness. All these symptoms started 730 pm last night. She feels she has a little worsening of her right side weakness. - Headache management - ASA and IV fluids - Permissive HTN Metrics: Last Known Well: 02/20/2020 19:30:00 [employer] Notification Time: 02/21/2020 16:57:25 Arrival Time: 02/21/2020 16:52:00 Stamp Time: 02/21/2020 16:57:37 Time First Login Attempt: 02/21/2020 17:04:55 Symptoms: headache NIHSS Start Assessment Time: 02/21/2020 17:09:06 Patient is not a candidate for Alteplase/Activase. Patient was not deemed candidate for Alteplase/Activase thrombolytics because of Last Well Known Above 4.[address] head showed no acute hemorrhage or acute core infarct. CT head was reviewed. Clinical Presentation is not Suggestive of Large Vessel Occlusive Disease ED Physician notified of diagnostic impression and management plan on 02/21/2020 17:15:00 Our recommendations are outlined below. Recommendations: Activate Stroke Protocol Admission/Order Set Stroke/Telemetry Floor Neuro Checks Bedside Swallow Eval DVT Prophylaxis IV Fluids, Normal Saline Head of Bed 30 Degrees Euglycemia and Avoid Hyperthermia (PRN Acetaminophen) Antiplatelet Therapy Recommended Routine Consultation with Inhouse Neurology for Follow up Care Sign Out: Discussed with Emergency Department Provider History of Present Illness: Patient is a 69 year old Female. Patient was brought by EMS for symptoms of headache Patient is a 69 year old woman who presented with headache and blurry vision. She said she had a previous stroke and has residual weakness on her right side weakness. All these symptoms started 730 pm last night. She feels she has a little worsening of her right side weakness. - Lab Data Result diagrams: 02/21/20 17:09 02/21/20 17:09 Lab Results 02/21/20 02/21/20 02/21/20 Range/Units 16:57 17:09 17:09 WBC 5.3 (4.5-11.0) K/mm3 RBC 3.67 (3.65-5.03) M/mm3 Hgb 11.5 (10.1-14.3) gm/dl Hct 33.1 (30.3-42.9) % MCV 90 (79-97) fl MCH 31 (28-32) pg MCHC 35 H (30-34) % RDW 14.4 (13.2-15.2) % Plt Count 127 L (140-440) K/mm3 Lymph % (Auto) 26.7 (13.4-35.0) % [place] % (Auto) 6.4 (0.0-7.3) % Eos % (Auto) 3.6 (0.0-4.3) % Baso % (Auto) 1.8 (0.0-1.8) % Lymph # (Auto) 1.4 (1.2-5.4) K/mm3 [place] # (Auto) 0.3 (0.0-0.8) K/mm3 Eos # (Auto) 0.2 (0.0-0.4) K/mm3 Baso # (Auto) 0.1 (0.0-0.1) K/mm3 Seg Neutrophils % 61.5 (40.0-70.0) % Seg Neutrophils # 3.2 (1.8-7.7) K/mm3 PT 14.6 (12.2-14.9) Sec. INR 1.15 H (0.87-1.13) APTT 29.3 (24.2-36.6) Sec. Thrombin Time 17.4 (15.1-19.6) Sec. Sodium (137-145) mmol/L Potassium (3.6-5.0) mmol/L Chloride (98-107) mmol/L Carbon Dioxide (22-30) mmol/L Anion Gap mmol/L BUN (7-17) mg/dL Creatinine (0.6-1.2) mg/dL Estimated GFR ml/min BUN/Creatinine Ratio % Glucose (65-100) mg/dL POC Glucose 131 H (70-105) mg/dL Calcium (8.4-10.2) mg/dL Total Bilirubin (0.1-1.2) mg/dL AST (5-40) units/L ALT (7-56) units/L Alkaline Phosphatase (35-129) units/L Total Creatine Kinase (30-135) units/L CK-MB (CK-2) (0.0-4.0) ng/mL CK-MB (CK-2) Rel Index (0-4) Troponin T (0.00-0.029) ng/mL NT-Pro-B Natriuret Pep (0-900) pg/mL Total Protein (6.3-8.2) g/dL Albumin (3.9-5) g/dL Albumin/Globulin Ratio % 02/21/20 02/21/20 Range/Units 17:09 17:09 WBC (4.5-11.0) K/mm3 RBC (3.65-5.03) M/mm3 Hgb (10.1-14.3) gm/dl Hct (30.3-42.9) % MCV (79-97) fl MCH (28-32) pg MCHC (30-34) % RDW (13.2-15.2) % Plt Count (140-440) K/mm3 Lymph % (Auto) (13.4-35.0) % [place] % (Auto) (0.0-7.3) % Eos % (Auto) (0.0-4.3) % Baso % (Auto) (0.0-1.8) % Lymph # (Auto) (1.2-5.4) K/mm3 [place] # (Auto) (0.0-0.8) K/mm3 Eos # (Auto) (0.0-0.4) K/mm3 Baso # (Auto) (0.0-0.1) K/mm3 Seg Neutrophils % (40.0-70.0) % Seg Neutrophils # (1.8-7.7) K/mm3 PT (12.2-14.9) Sec. INR (0.87-1.13) APTT (24.2-36.6) Sec. Thrombin Time (15.1-19.6) Sec. Sodium 137 (137-145) mmol/L Potassium 4.5 (3.6-5.0) mmol/L Chloride 105.5 (98-107) mmol/L Carbon Dioxide 24 (22-30) mmol/L Anion Gap 12 mmol/L BUN 30 H (7-17) mg/dL Creatinine 1.4 H (0.6-1.2) mg/dL Estimated GFR 37 ml/min BUN/Creatinine Ratio 21 % Glucose 107 H (65-100) mg/dL POC Glucose (70-105) mg/dL Calcium 9.4 (8.4-10.2) mg/dL Total Bilirubin 0.30 (0.1-1.2) mg/dL AST 16 (5-40) units/L ALT 15 (7-56) units/L Alkaline Phosphatase 140 H (35-129) units/L Total Creatine Kinase 120 (30-135) units/L CK-MB (CK-2) 1.6 (0.0-4.0) ng/mL CK-MB (CK-2) Rel Index 1.3 (0-4) Troponin T < 0.010 (0.00-0.029) ng/mL NT-Pro-B Natriuret Pep 739.7 (0-900) pg/mL Total Protein 6.7 (6.3-8.2) g/dL Albumin 4.2 (3.9-5) g/dL Albumin/Globulin Ratio 1.7 % - Radiology Data [facility] [address] [place] [address] XRay Report Signed Patient: AUGUSTIN BELL MR#: [id number] : 1950 Acct:[id number] Age/Sex: 69 / F ADM Date: 02/21/20 Loc: ED Attending Dr: Ordering Physician: BERNARDINO WILKINS Date of Service: 02/21/20 Procedure(s): XR chest routine 2V Accession Number(s): [id number] cc: BERNARDINO WILKINS Fluoro Time In Minutes: CHEST 2 VIEWS, 02/21/2020 5:58 PM INDICATION: Shortness of breath COMPARISON: Chest radiograph, 10/09/2019 FINDINGS: Support devices: None. Heart: The cardiac silhouette is normal in size. Lungs/pleura: The lungs are clear of focal airspace disease or significant pleural effusion. Additional findings: No significant acute abnormality. IMPRESSION: 1. No evidence of acute cardiopulmonary process. Signer Name: Susi Rae MD Signed: 02/21/2020 6:22 PM Workstation Name: [id number] Ordering Physician: BERNARDINO WILKINS Date of Service: 02/21/20 Procedure(s): CT head/brain wo con Accession Number(s): [id number] cc: BERNARDINO WILKINS CT BRAIN: 02/21/2020 INDICATION / CLINICAL INFORMATION: Weakness. Nausea and vomiting. Visual disturbance. Shortness of breath.. COMPARISON: 10/13/2019 FINDINGS: BRAIN/INTRACRANIAL STRUCTURES: Unenhanced CT images of the brain were obtained and compared to the prior exam from 10/13/2019. There is been no change. Again seen are extensive areas of cortical encephalomalacia in the distribution of the left middle cerebral artery, consistent with prior ischemic injury. Chronic lacunar changes are present in the centrum semiovale bilaterally. There is evidence of old lacunar infarct in the right thalamus, unchanged. Age-related atrophic changes are again noted. There is no evidence of hemorrhage or mass. There is no CT evidence of acute large vessel territory ischemic injury. Atherosclerotic vascular calcifications are present in the distal internal carotid arteries and vertebral arteries. EXTRACRANIAL STRUCTURES: Unremarkable. IMPRESSION: No acute abnormality. Chronic ischemic and age-related changes, stable when compared to the prior exam from 10/13/2019. Notification: Dr. Harrell in the emergency department at [address] scans at this location are performed using dose reduction to ALARA by means of automated exposure control. Signer Name: Xavier Camilo MD Signed: 02/21/2020 5:38 PM Workstation Name: [email or web address] Transcribed By: AO - Medical Decision Making Patient states she feels some increased weakness on her right side from her baseline. Patient will be admitted to the hospitalist service for MRI in the morning. Critical care attestation.: If time is entered above; I have spent that time in minutes in the direct care of this critically ill patient, excluding procedure time. ED Disposition Clinical Impression: Hypertensive urgency, Acute CVA (cerebrovascular accident) Disposition: DC09 OP ADMIT IP TO THIS HOSP Is pt being admited?: Yes Does the pt Need Aspirin: Yes Condition: Stable Time of Disposition: 19:36
[2020-02-21] MEDS ORDERED: SODIUM CHLORIDE 0.9% 1000 ML 1,000 ML ONE (19:43)
[2020-02-21] MEDS ORDERED: AMITRIPTYLINE PO SCH (22:00)
[2020-02-21] MEDS: MELATONIN 5 MG TAB PO SCH (23:03)
[2020-02-21] MEDS: busPIRone 10 MG TAB PO SCH (23:03)
[2020-02-21] MEDS: QUEtiapine 25 MG TAB PO SCH (23:04)
[2020-02-21] MEDS: AMITRIPTYLINE 10 MG TAB PO SCH (23:22)
[2020-02-21] MEDS: ACETAMINOPHEN 325 MG TAB PO PRN (23:22)
[2020-02-22] MEDS: LEVOTHYROXINE 88 MCG TAB PO SCH (05:23)
[2020-02-22] MEDS ORDERED: NON-FORMULARY EACH (Levothyroxine Tablet) PO SCH (07:30)
[2020-02-22] MEDS: FERROUS SULFATE 325 MG TAB PO SCH (09:00)
[2020-02-22] MEDS: allopurinoL 100 MG TAB PO SCH (09:22)
[2020-02-22] MEDS: CLOPIDOGREL 75 MG TAB PO SCH (09:22)
[2020-02-22] MEDS: TOPIRAMATE TAB 100 MG TAB PO SCH (09:22)
[2020-02-22] MEDS: ASPIRIN 325 MG TAB PO SCH (09:22)
[2020-02-22] MEDS: busPIRone 10 MG TAB PO SCH ×2 (09:22→21:43)
[2020-02-22] MEDS ORDERED: ALLOPURINOL PO SCH (10:00)
[2020-02-22] MEDS ORDERED: PANTOPRAZOLE 20 MG TAB PO SCH (10:00)
[2020-02-22] MEDS: ARIPiprazole 5 MG TAB PO SCH (11:10)
[2020-02-22] MEDS: ACETAMINOPHEN 325 MG TAB PO PRN (13:13)
--- NOTE | 2020-02-22 13:33 | Consultation ---
History of Present Illness Consult date: 02/22/20 Consult reason: bradycardia History of present illness: The patient is a 69-year-old woman who [facility] a jail, gives a history of a prior CVA but no significant prior cardiac history. She has history of sleep apnea for which she previously was on CPAP, but for unclear reasons no longer is on this therapy in the jail. Records report some right sided hemiparesis from her previous CVA, but for me she is able to move all 4 extremities and states that she ambulates well in the jail with a cane or walker. She was admitted to the hospital at this time, with complaints of headache and visual symptoms that appeared to be reminiscent of her prior stroke. There was no palpitations, no syncope, no chest pain and no unusual shortness of breath. While hospitalized, she has remained in a mostly sinus rhythm, but has demonstrated intermittent short sinus pauses as long as 1.8 to 2 seconds. These pauses have been largely asymptomatic, and mostly have occurred while the patient has been asleep. Comorbidities include thyroid disease for which she is on Synthroid. Current medications showed no use of AV krista blocking agents except a single dose of clonidine which was administered yesterday while patient was still in the emergency room. EKG is in normal sinus rhythm, left ventricular hypertrophy by voltage criteria, no ST or T wave changes, otherwise an essentially normal ECG. Echocardiogram done today reports normal left ventricular systolic function with ejection fraction 60 to 65%, negative contrast bubble study for PFO. Past History Past Medical History: COPD, hypertension, stroke, other (Sleep apnea) Past Surgical History: appendectomy, cholecystectomy Social history: single Family history: diabetes, hypertension Medications and Allergies Allergies Allergy/AdvReac Type Severity Reaction Status Date / Time adhesive tape AdvReac Unknown Verified 02/21/20 16:41 codeine AdvReac Unknown Verified 02/21/20 16:41 morphine AdvReac Unknown Verified 02/21/20 16:41 ondansetron AdvReac Unknown Verified 02/21/20 16:41 Penicillins AdvReac Unknown Verified 02/21/20 16:41 Sulfa (Sulfonamide AdvReac Unknown Verified 02/21/20 16:41 Antibiotics) Home Medications Medication Instructions Recorded Confirmed Last Taken Type Amitriptyline 10 mg PO QHS 09/28/19 02/22/20 Unknown History Aspirin 81 mg PO DAILY 09/28/19 02/22/20 Unknown History Atorvastatin 40 mg PO QHS 09/28/19 02/22/20 Unknown History Levemir VIAL 35 units SQ QHS 09/28/19 02/22/20 Unknown History Levothyroxine 88 mcg PO QAC 09/28/19 02/22/20 Unknown History Myrbetriq 25 mg PO DAILY 09/28/19 02/22/20 Unknown History NovoLOG 100 UNITS/ML VIAL 10 units SQ TIDAC 09/28/19 02/22/20 Unknown History allopurinoL 100 mg PO DAILY 09/28/19 02/22/20 Unknown History ARIPiprazole 7.5 mg PO QDAY #30 tablet 10/16/19 02/22/20 Unknown Rx Acetaminophen [Acetaminophen TAB] 650 mg PO Q4H PRN tablet 10/16/19 02/22/20 Unknown Rx Clopidogrel [Plavix] 75 mg PO DAILY #30 tablet 10/16/19 02/22/20 Unknown Rx DULoxetine [Cymbalta] 60 mg PO BID #60 capsule 10/16/19 02/22/20 Unknown Rx Ferrous Sulfate [Feosol 325 MG tab] 325 mg PO DAILY@0800 #30 tab 10/16/19 02/22/20 Unknown Rx Insulin Lispro [Humalog] 0 unit SUB-Q ACHS vial 10/16/19 02/22/20 Unknown Rx Melatonin [Melatonin 5MG TAB] 5 mg PO QHS tablet 10/16/19 02/22/20 Unknown Rx Pantoprazole [Protonix TAB] 20 mg PO QDAY #30 tablet. 10/16/19 02/22/20 Unknown Rx QUEtiapine [SEROquel] 50 mg PO QHS #30 tablet 10/16/19 02/22/20 Unknown Rx Topiramate [Topamax] 100 mg PO DAILY #90 tablet 10/16/19 02/22/20 Unknown Rx allopurinoL [Zyloprim] 100 mg PO QDAY #30 tablet 10/16/19 02/22/20 Unknown Rx busPIRone [Buspar] 15 mg PO BID #60 tablet 10/16/19 02/22/20 Unknown Rx carvediloL [Coreg] 12.5 mg PO BID #60 tablet 10/16/19 02/22/20 Unknown Rx Active Meds: Active Medications Acetaminophen (Acetaminophen 325 Mg Tab) 650 mg PO Q4H PRN PRN Reason: Pain MILD(1-3)/Fever >100.5/RAY Last Admin: 02/22/20 13:13 Dose: 650 mg Documented by: Allopurinol (Allopurinol 100 Mg Tab) 100 mg PO QDAY [facility] Last Admin: 02/22/20 09:22 Dose: 100 mg Documented by: Amitriptyline HCl (Amitriptyline 10 Mg Tab) 10 mg PO QHS [facility] Last Admin: 02/21/20 23:22 Dose: 10 mg Documented by: Aripiprazole (Aripiprazole 5 Mg Tab) 7.5 mg PO QDAY [facility] Last Admin: 02/22/20 11:10 Dose: 7.5 mg Documented by: Aspirin (Aspirin 325 Mg Tab) 325 mg PO QDAY [facility] Last Admin: 02/22/20 09:22 Dose: 325 mg Documented by: Atorvastatin Calcium (Atorvastatin 40 Mg Tab) 40 mg PO QHS [facility] Last Admin: 02/21/20 23:03 Dose: 40 mg Documented by: Bisacodyl (Bisacodyl 10 Mg Rect Supp) 10 mg DE QDAY PRN PRN Reason: Constipation Buspirone HCl (Buspirone 10 Mg Tab) 15 mg PO BID [facility] Last Admin: 02/22/20 09:22 Dose: 15 mg Documented by: Clopidogrel Bisulfate (Clopidogrel 75 Mg Tab) 75 mg PO DAILY [facility] Last Admin: 02/22/20 09:22 Dose: 75 mg Documented by: Ferrous Sulfate (Ferrous Sulfate 325 Mg Tab) 325 mg PO DAILY@0800 [facility] Last Admin: 02/22/20 09:00 Dose: 325 mg Documented by: Levothyroxine Sodium (Levothyroxine 88 Mcg Tab) 88 mcg PO DAILY@0600 [facility] Last Admin: 02/22/20 05:23 Dose: 88 mcg Documented by: Magnesium Hydroxide (Magnesium Hydroxide (Mom) Oral Liqd Udc) 30 ml PO Q4H PRN PRN Reason: Constipation Melatonin (Melatonin 5 Mg Tab) 5 mg PO QHS [facility] Last Admin: 02/21/20 23:03 Dose: 5 mg Documented by: Metoclopramide HCl (Metoclopramide 10 Mg Tab) 10 mg PO Q6H PRN PRN Reason: Nausea And Vomiting Ondansetron HCl (Ondansetron 4 Mg/2 Ml Inj) 4 mg IV Q8H PRN PRN Reason: Nausea And Vomiting Pantoprazole Sodium (Pantoprazole 20 Mg Tab) 20 mg PO QDAC [facility] Promethazine HCl (Promethazine 25 Mg Rect Supp) 25 mg DE Q6H PRN PRN Reason: Nausea And Vomiting Quetiapine Fumarate (Quetiapine 25 Mg Tab) 50 mg PO QHS [facility] Last Admin: 02/21/20 23:04 Dose: 50 mg Documented by: Sodium Chloride (Sodium Chloride 0.9% 10 Ml Flush Syringe) 10 ml IV PRN PRN PRN Reason: LINE FLUSH Topiramate (Topiramate Tab 100 Mg Tab) 100 mg PO DAILY [facility] Last Admin: 02/22/20 09:22 Dose: 100 mg Documented by: Review of Systems Cardiovascular: no chest pain, no orthopnea, no palpitations, no rapid/irregular heart beat, no edema, no syncope, no lightheadedness, no shortness of breath Physical Examination Vital Signs Temp Pulse Resp BP Pulse Ox 97.7 F 48 L 20 167/107 99 02/21/20 16:46 02/21/20 16:46 02/21/20 16:46 02/21/20 16:46 02/21/20 16:46 General appearance: no acute distress HEENT: Positive: PERRL Cardiac: Positive: Reg Rate and Rhythm Lungs: Positive: Decreased Breath Sounds Neuro: Positive: Grossly Intact Abdomen: Positive: Soft Female genitourinary: deferred Skin: Positive: Clear Extremities: Absent: edema Results 02/21/20 17:09 02/21/20 17:09 Cardiac Enzymes 02/21/20 Range/Units 17:09 AST 16 (5-40) units/L CK-MB (CK-2) 1.6 (0.0-4.0) ng/mL Coagulation 02/21/20 Range/Units 17:09 PT 14.6 (12.2-14.9) Sec. INR 1.15 H (0.87-1.13) APTT 29.3 (24.2-36.6) Sec. Lipids 02/22/20 Range/Units 04:58 Triglycerides 81 (2-149) mg/dL Cholesterol 112 (50-199) mg/dL HDL Cholesterol 56 (40-59) mg/dL Cholesterol/HDL Ratio 2.00 % CBC 02/21/20 Range/Units 17:09 WBC 5.3 (4.5-11.0) K/mm3 RBC 3.67 (3.65-5.03) M/mm3 Hgb 11.5 (10.1-14.3) gm/dl Hct 33.1 (30.3-42.9) % Plt Count 127 L (140-440) K/mm3 Lymph # (Auto) 1.4 (1.2-5.4) K/mm3 Dixie # (Auto) 0.3 (0.0-0.8) K/mm3 Eos # (Auto) 0.2 (0.0-0.4) K/mm3 Baso # (Auto) 0.1 (0.0-0.1) K/mm3 Comprehensive Metabolic Panel 02/21/20 Range/Units 17:09 Sodium 137 (137-145) mmol/L Potassium 4.5 (3.6-5.0) mmol/L Chloride 105.5 (98-107) mmol/L Carbon Dioxide 24 (22-30) mmol/L BUN 30 H (7-17) mg/dL Creatinine 1.4 H (0.6-1.2) mg/dL Glucose 107 H (65-100) mg/dL Calcium 9.4 (8.4-10.2) mg/dL AST 16 (5-40) units/L ALT 15 (7-56) units/L Alkaline Phosphatase 140 H (35-129) units/L Total Protein 6.7 (6.3-8.2) g/dL Albumin 4.2 (3.9-5) g/dL EKG interpretations - Telemetry EKG Rhythm: Sinus Rhythm Assessment and Plan - Patient Problems (1) Sinus pause Current Visit: Yes Status: Acute Plan to address problem: Patient has intermittent, short sinus pauses mostly while asleep. She has a history of sleep apnea, and history of thyroid disease. She is not on any AV krista blockers at this time. Echocardiogram on this presentation shows normal left ventricular systolic function, ejection fraction 60 to 65%. Recommendations: We will order a thyroid function level. Avoid AV krista blocking agents. Recommend pulmonary consultation for further assessment of patient's sleep apnea and further recommendations for possible use of CPAP. Ultimately, patient may need extended monitoring as an outpatient, with a 2 to 4-week event monitor.
--- NOTE | 2020-02-22 13:52 | Vascular Lab Report ---
"DUPLEX DOPPLER ULTRASOUND CAROTID, BILATERAL INDICATION: stroke. FINDINGS: RIGHT CAROTID: Mild atherosclerotic plaque Right CCA velocity: 70 cm/sec. Right ICA peak systolic velocity: 66 cm/sec. ICA/CCA PSV Ratio: 0.94. Right Vertebral Artery: Antegrade flow. LEFT CAROTID: Mild atherosclerotic plaque Left CCA velocity: 71 cm/sec. Left ICA peak systolic velocity: 78 cm/sec. ICA/CCA PSV Ratio: 1.10. Left Vertebral Artery: Antegrade flow. IMPRESSION: 1. Right Internal Carotid Artery: Less than 50% diameter stenosis. 2. Left Internal Carotid Artery: Less than 50% diameter stenosis. Velocity criteria are extrapolated from diameter data as defined by the Society of Radiologists in Ul trasound Consensus Conference, Radiology 2003; 229;340-346. Degree of Stenosis (%) || ICA PSV (cm/sec) || Plaque estimate (%) || ICA/CCA PSV Ratio Normal <125 None <2.0 <50 <125 <50 <2.0 50-69 125-230 50 2.0-4.0 70 but less than 100 >230 50 >4.0 Near occlusion High, low, or none visible variable Total occlusion None visible; no lumen N/A Signer Name: Jarrod Saab MD Signed: 02/22/2020 1:47 PM Workstation Name: [id number]"
--- NOTE | 2020-02-22 19:16 | Progress Note ---
Assessment and Plan Assessment and Plan - Patient Problems (1) Acute CVA (cerebrovascular accident) Current Visit: Yes Status: Acute Plan to address problem: Problem is near normal Will wait for the teleneurology consult We will get MRI brain Also PT evaluation notes to be read (2) Diabetes Current Visit: No Status: Chronic Plan to address problem: Sliding-scale insulin therapy, Accu-Chek, consistent carbohydrate diet, hypogly cemia protocol. (3) Hyperlipidemia Current Visit: No Status: Chronic Qualifiers: Hyperlipidemia type: mixed hyperlipidemia Qualified Code(s): E78.2 - Mixed hyperlipidemia Plan to address problem: Statin therapy, lipid panel, supportive care. (4) Hypertension Current Visit: No Status: Chronic Qualifiers: Hypertension type: essential hypertension Qualified Code(s): I10 - Essential (primary) hypertension Plan to address problem: Monitor blood pressure every shift, continue medical management. Permissive hypertension overnight. (5) Hypothyroidism Current Visit: No Status: Chronic Plan to address problem: Resume Synthroid therapy, supportive care. (6) DVT prophylaxis Current Visit: No Status: Acute Plan to address problem: SCD to bilateral lower extremities while in bed, patient is ambulatory. (7) Advance care planning Current Visit: Yes Status: Acute Plan to address problem: Disease education conducted, care plan discussed, prognosis discussed, patient is full code, patient knowledges understanding and agreement with care plan. Subjective Date of service: 02/22/20 Principal diagnosis: Acute CVA Interval history: 69 YO Female with HTN, DM, Obesity, CVA with RHP on DAPT, HLD, Gout, GERD, Hypothyroidism, Depression with Psychotic Features presents to ED for evaluation. Patient states that she was in her usual state of health yesterday until she experienced new onset right-sided weakness which began around 1930 hrs. Patient awoke from sleep with persistent symptoms. EMS was notified and upon arrival the patient was found to have a neurologic deficit. A code stroke was called and the patient was transported to [facility] for further care and evaluation of the aforementioned symptoms. The patient was seen and evaluated in the emergency department. All lab and imaging studies reviewed. The patient was found to have clinical symptoms consistent with CVA. The patient was placed in observation status and admitted to telemetry and initiated on CVA protocol. Patient denies fever, chills, chest pain, palpitations, productive cough, skin rash, recent ill contacts, or known exposure to COVID-19. Prior admission on 10/14/2019 reviewed. All medication listed at time of admission has been reconciled. Advanced care planning conducted in ED. 02/22/2020 Neuro exam was unremarkable Patient had normal strength in both upper and lower extremities Has slight left facial droop Waiting for MRI of the brain And also telemetry neurology consult Objective - Constitutional Vitals: Vital Signs - 12hr 02/22/20 02/22/20 02/22/20 07:54 08:35 11:32 Temperature 97.7 F 97.5 F L Pulse Rate 60 53 L Respiratory 18 17 18 Rate Blood Pressure 117/69 156/56 O2 Sat by Pulse 94 97 99 Oximetry 02/22/20 02/22/20 02/22/20 12:00 13:13 14:13 Temperature Pulse Rate 78 Respiratory 16 14 Rate Blood Pressure O2 Sat by Pulse Oximetry 02/22/20 15:54 Temperature 97.4 F L Pulse Rate 58 L Respiratory 18 Rate Blood Pressure 158/81 O2 Sat by Pulse 94 Oximetry General appearance: Present: no acute distress, well-nourished - EENT Eyes: PERRL, EOM intact ENT: hearing intact, clear oral mucosa Ears: bilateral: normal - Neck Neck: supple, normal ROM - Respiratory Respiratory effort: normal Respiratory: bilateral: CTA - Breasts Breasts: normal - Cardiovascular Heart rate: 78 Rhythm: regular Heart Sounds: Present: S1 & S2. Absent: gallop, rub Extremities: pulses intact, No edema, normal color, Full ROM - Gastrointestinal General gastrointestinal: Present: soft, non-tender, non-distended, normal bowel sounds - Genitourinary Female genitourinary: normal - Integumentary Integumentary: clear, warm, dry - Musculoskeletal Musculoskeletal: 1, strength equal bilaterally - Neurologic Neurologic: focal deficits (Slight right-sided weakness 4/5 power in both the right upper extremity and right lower extremity), moves all extremities, gait normal (Circumduction gait) - Psychiatric Psychiatric: memory intact, appropriate mood/affect, intact judgment & insight - Labs CBC & Chem 7: 02/21/20 17:09 02/21/20 17:09 Labs: Abnormal lab results 02/22/20 02/22/20 02/22/20 Range/Units 04:58 08:32 11:35 POC Glucose 165 H 205 H (70-105) mg/dL LDL Cholesterol Direct 49 L (50-130) mg/dL 02/22/20 Range/Units 15:47 POC Glucose 226 H (70-105) mg/dL LDL Cholesterol Direct (50-130) mg/dL HEART Score - HEART Score Troponin: Troponin T < 0.010 ng/mL (0.00-0.029) 02/21/20 17:09
[2020-02-22] MEDS: ONDANSETRON 4 MG/2 ML INJ IV PRN (20:47)
[2020-02-22] MEDS: AMITRIPTYLINE 10 MG TAB PO SCH (21:43)
[2020-02-22] MEDS: QUEtiapine 25 MG TAB PO SCH (21:43)
[2020-02-22] MEDS: MELATONIN 5 MG TAB PO SCH (21:43)
[2020-02-23] MEDS: LEVOTHYROXINE 88 MCG TAB PO SCH (05:18)
--- NOTE | 2020-02-23 09:21 | Progress Note ---
Assessment and Plan - Patient Problems (1) Sinus pause Current Visit: Yes Status: Acute Plan to address problem: Patient has intermittent, short sinus pauses mostly while asleep. She is not on any AV krista blockers at this time. Hx of sleep apnea, and history of thyroid disease. Normal TSH of 2.0. Echocardiogram on this presentation shows normal left ventricular systolic function, ejection fraction 60 to 65%. Recommendations: Avoid AV krista blocking agents. Recommend pulmonary consultation for further assessment of patient's sleep apnea and further recommendations for possible use of CPAP. Ultimately, patient may need extended monitoring as an outpatient, with a 2 to 4-week event monitor. Subjective Date of service: 02/23/20 Principal diagnosis: Acute CVA Interval history: Patient is resting in bed comfortably. She has no cardiac complaints. Sinus pauses seen on telemetry during hours of sleep. Patient remained asymptomatic. Objective Vital Signs Temp Pulse Pulse Resp BP Pulse Ox 02/23/20 07:49 97.7 F 66 156/75 99 02/23/20 06:46 100 02/23/20 03:18 99.3 F 63 18 122/44 98 02/23/20 00:11 98.9 F 67 18 119/56 94 02/22/20 22:48 66 17 100 02/22/20 19:34 98.2 F 67 16 139/63 100 02/22/20 15:54 97.4 F L 58 L 18 158/81 94 02/22/20 14:13 14 02/22/20 13:13 16 02/22/20 12:00 78 02/22/20 11:32 97.5 F L 53 L 18 156/56 99 - Physical Examination General: No Apparent Distress HEENT: Positive: PERRL Neck: Positive: trachea midline Cardiac: Positive: Reg Rate and Rhythm Neuro: Positive: Grossly Intact Abdomen: Positive: Soft Skin: Positive: Clear Extremities: Absent: edema
[2020-02-23] MEDS: CLOPIDOGREL 75 MG TAB PO SCH (10:15)
[2020-02-23] MEDS: ARIPiprazole 5 MG TAB PO SCH (10:15)
[2020-02-23] MEDS: allopurinoL 100 MG TAB PO SCH (10:15)
[2020-02-23] MEDS: FERROUS SULFATE 325 MG TAB PO SCH (10:15)
[2020-02-23] MEDS: TOPIRAMATE TAB 100 MG TAB PO SCH (10:15)
[2020-02-23] MEDS: PANTOPRAZOLE 20 MG TAB PO SCH (10:19)
[2020-02-23] MEDS: ACETAMINOPHEN 325 MG TAB PO PRN (10:19)
[2020-02-23] MEDS: busPIRone 10 MG TAB PO SCH ×3 (11:27→21:47)
[2020-02-23] MEDS: ASPIRIN 325 MG TAB PO SCH (11:27)
--- NOTE | 2020-02-23 15:50 | Magnetic Resonance Report ---
MR brain wo con INDICATION / CLINICAL INFORMATION: 69 years Female; CVA. TECHNIQUE: Multiplanar, multisequence MR images of the brain were obtained. COMPARISON: The study is compared to the previous CT of 02/21/2020. FINDINGS: BRAIN / INTRACRANIAL CONTENTS: There are old infarcts involving posterior left frontal and parietal l obes with encephalomalacia there is otherwise moderate cerebral white matter disease most consistent with microvascular angiopathy. The findings correlate with the earlier CT of 02/21/2020. The diffusion imaging reveals no evidence of acute infarction. There is mild cerebral and cerebellar atrophy. The ventricular system is appropriate in size and conf iguration. There appear to be old small infarcts involving the right osorio radiata and thalamus at. No extra-axial fluid collections are identified. CRANIOCERVICAL JUNCTION: No significant abnormality. VASCULAR FLOW-VOIDS: No significant abnormality. ORBITS: No significant abnormality of visualized orbits. SINUSES / MASTOIDS: No significant abnormality in the visualized paranasal sinuses or mastoid air eliot ls. ADDITIONAL FINDINGS: There are old infarcts involving the left frontal and parietal lobes along with moderate microvascular angiopathy as described. There is no evidence of acute infarction. The study was specified as stat and dictated on an emergent basis at 2:44 PM Central standard time. IMPRESSION: 1. Signer Name: Pratik Cardenas MD Signed: 02/23/2020 3:45 PM Workstation Name: [id number]
[2020-02-23] MEDS: ONDANSETRON 4 MG/2 ML INJ IV PRN (17:28)
[2020-02-23] MEDS: MELATONIN 5 MG TAB PO SCH (21:47)
[2020-02-23] MEDS: QUEtiapine 25 MG TAB PO SCH (21:47)
[2020-02-23] MEDS: AMITRIPTYLINE 10 MG TAB PO SCH (21:48)
--- NOTE | 2020-02-23 23:44 | Progress Note ---
Assessment and Plan Assessment and Plan - Patient Problems (1) Acute CVA (cerebrovascular accident) Current Visit: Yes Status: Acute Plan to address problem: Problem is near normal MRI showed old infarcts No new infarct Patient able to walk today (2) Diabetes Current Visit: No Status: Chronic Plan to address problem: Sliding-scale insulin therapy, Accu-Chek, consistent carbohydrate diet, hypoglycemia protocol. (3) Hyperlipidemia Current Visit: No Status: Chronic Qualifiers: Hyperlipidemia type: mixed hyperlipidemia Qualified Code(s): E78.2 - Mixed hyperlipidemia Plan to address problem: Statin therapy, lipid panel, supportive care. (4) Hypertension Current Visit: No Status: Chronic Qualifiers: Hypertension type: essential hypertension Qualified Code(s): I10 - Essential (primary) hypertension Plan to address problem: Monitor blood pressure every shift, continue medical management. Permissive hypertension overnight. (5) Hypothyroidism Current Visit: No Status: Chronic Plan to address problem: Resume Synthroid therapy, supportive care. (6) DVT prophylaxis Current Visit: No Status: Acute Plan to address problem: SCD to bilateral lower extremities while in bed, patient is ambulatory. (7) Advance care planning Current Visit: Yes Status: Acute Plan to address problem: Disease education conducted, care plan discussed, prognosis discussed, patient is full code, patient knowledges understanding and agreement with care plan. Subjective Date of service: 02/23/20 Principal diagnosis: Acute CVA Interval history: 69 YO Female with HTN, DM, Obesity, CVA with RHP on DAPT, HLD, Gout, GERD, Hypothyroidism, Depression with Psychotic Features presents to ED for evaluation. Patient states that she was in her usual state of health yesterday until she experienced new onset right-sided weakness which began around 1930 hrs. Patient awoke from sleep with persistent symptoms. EMS was notified and upon arrival the patient was found to have a neurologic deficit. A code stroke was called and the patient was transported to [facility] for further care and evaluation of the aforementioned symptoms. The patient was seen and evaluated in the emergency department. All lab and imaging studies reviewed. The patient was found to have clinical symptoms consistent with CVA. The patient was placed in observation status and admitted to telemetry and initiated on CVA protocol. Patient denies fever, chills, chest pain, palpitations, productive cough, skin rash, recent ill contacts, or known exposure to COVID-19. Prior admission on 10/14/2019 reviewed. All medication listed at time of admission has been reconciled. Advanced care planning conducted in ED. 02/22/2020 Neuro exam was unremarkable Patient had normal strength in both upper and lower extremities Has slight left facial droop Waiting for MRI of the brain And also telemetry neurology consult 02/23/2020 Patient has normal strength in both upper and lower extremities Slight left facial droop Objective - Constitutional Vitals: Vital Signs - 12hr 02/23/20 02/23/20 16:39 21:37 Temperature 98.2 F 98.1 F Pulse Rate 65 62 Respiratory 18 Rate Blood Pressure 168/69 Blood Pressure 173/55 [Right] O2 Sat by Pulse 99 99 Oximetry General appearance: Present: no acute distress, well-nourished - EENT Eyes: PERRL, EOM intact ENT: hearing intact, clear oral mucosa Ears: bilateral: normal - Neck Neck: supple, normal ROM - Respiratory Respiratory effort: normal Respiratory: bilateral: CTA - Breasts Breasts: normal - Cardiovascular Rhythm: regular Heart Sounds: Present: S1 & S2. Absent: gallop, rub Extremities: pulses intact, No edema, normal color, Full ROM - Gastrointestinal General gastrointestinal: Present: soft, non-tender, non-distended, normal bowel sounds - Genitourinary Female genitourinary: normal - Integumentary Integumentary: clear, warm, dry - Musculoskeletal Musculoskeletal: 1, strength equal bilaterally - Neurologic Neurologic: moves all extremities - Psychiatric Psychiatric: memory intact, appropriate mood/affect, intact judgment & insight - Labs CBC & Chem 7: 02/21/20 17:09 02/21/20 17:09 HEART Score - HEART Score Troponin: Troponin T < 0.010 ng/mL (0.00-0.029) 02/21/20 17:09
[2020-02-24] MEDS: ACETAMINOPHEN 325 MG TAB PO PRN (05:07)
[2020-02-24] MEDS: LEVOTHYROXINE 88 MCG TAB PO SCH (05:07)
[2020-02-24] MEDS: PANTOPRAZOLE 20 MG TAB PO SCH (07:05)
[2020-02-24] MEDS: allopurinoL 100 MG TAB PO SCH (10:32)
[2020-02-24] MEDS: ARIPiprazole 5 MG TAB PO SCH (10:32)
[2020-02-24] MEDS: CLOPIDOGREL 75 MG TAB PO SCH (10:33)
[2020-02-24] MEDS: ASPIRIN 325 MG TAB PO SCH (10:33)
[2020-02-24] MEDS: FERROUS SULFATE 325 MG TAB PO SCH (10:33)
[2020-02-24] MEDS: TOPIRAMATE TAB 100 MG TAB PO SCH (10:33)
[2020-02-24] MEDS: busPIRone 10 MG TAB PO SCH (10:33)
--- NOTE | 2020-02-24 10:40 | Progress Note ---
Assessment and Plan - Patient Problems (1) Sinus pause Current Visit: Yes Status: Acute Plan to address problem: Patient has intermittent, short sinus pauses mostly while asleep. She is not on any AV krista blockers at this time. Hx of sleep apnea, and history of thyroid disease. Normal TSH of 2.0. Echocardiogram on this presentation shows normal left ventricular systolic function, ejection fraction 60 to 65%. Recommendations: Avoid AV krista blocking agents. Recommend pulmonary consultation for further assessment of patient's sleep apnea and further recommendations for possible use of CPAP. As an outpatient, patient may need extended monitoring with a 2 to 4-week event monitor. Subjective Date of service: 02/24/20 Principal diagnosis: Acute CVA Interval history: Patient is resting in bed comfortably. No cardiac complaints. Transient sinus pauses seen on telemetry during sleep, otherwise normal sinus rhythm with no bradycardia while awake. Objective Vital Signs Temp Pulse Pulse Resp BP BP Pulse Ox 02/24/20 08:54 62 164/98 97 02/24/20 08:49 98.1 F 62 20 159/65 97 02/24/20 05:42 98.0 F 67 18 150/69 98 02/24/20 05:07 16 02/24/20 00:20 98.2 F 100 H 16 150/60 02/23/20 22:00 62 16 99 02/23/20 21:37 98.1 F 62 18 173/55 99 02/23/20 19:30 64 02/23/20 16:39 98.2 F 65 168/69 99 - Physical Examination General: No Apparent Distress HEENT: Positive: PERRL Neck: Positive: trachea midline Cardiac: Positive: Reg Rate and Rhythm Lungs: Positive: Decreased Breath Sounds Neuro: Positive: Grossly Intact Extremities: Absent: edema
--- NOTE | 2020-02-24 15:19 | Discharge Summary ---
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 Patient states that she was in her usual state of health yesterday until she experienced new onset right-sided weakness which began around 1930 hrs. Patient awoke from sleep with persistent symptoms. EMS was notified and upon arrival the patient was found to have a neurologic deficit. A code stroke was called and the patient was transported to [facility] for further care and evaluation of the aforementioned symptoms. The patient was seen and evaluated in the emergency department. All lab and imaging studies reviewed. The patient was found to have clinical symptoms consistent with CVA. The patient was placed in observation status and admitted to telemetry and initiated on CVA protocol. Patient denies fever, chills, chest pain, palpitations, productive cough, skin rash, recent ill contacts, or known exposure to COVID-19. Prior admission on 10/14/2019 reviewed. All medication listed at time of admission has been reconciled. Advanced care planning conducted in ED. 02/22/2020 Neuro exam was unremarkable Patient had normal strength in both upper and lower extremities Has slight left facial droop Waiting for MRI of the brain And also telemetry neurology consult 02/23/2020 Patient has normal strength in both upper and lower extremities Slight left facial droop 02/24/2020 Patient able to walk with a cane (1) Acute CVA (cerebrovascular accident) Current Visit: Yes Status: Acute Plan to address problem: Problem is near normal MRI showed old infarcts No new infarct Patient able to walk today (2) Diabetes Current Visit: No Status: Chronic Plan to address problem: Sliding-scale insulin therapy, Accu-Chek, consistent carbohydrate diet, hypoglycemia protocol. (3) Hyperlipidemia Current Visit: No Status: Chronic Qualifiers: Hyperlipidemia type: mixed hyperlipidemia Qualified Code(s): E78.2 - Mixed hyperlipidemia Plan to address problem: Statin therapy, lipid panel, supportive care. (4) Hypertension Current Visit: No Status: Chronic Qualifiers: Hypertension type: essential hypertension Qualified Code(s): I10 - Essential (primary) hypertension Plan to address problem: Monitor blood pressure every shift, continue medical management. Permissive hypertension overnight. (5) Hypothyroidism Current Visit: No Status: Chronic Plan to address problem: Resume Synthroid therapy, supportive care. (6) DVT prophylaxis Current Visit: No Status: Acute Plan to address problem: SCD to bilateral lower extremities while in bed, patient is ambulatory. 7)Sinus pauses Patient has intermittent, short sinus pauses mostly while asleep. She is not on any AV krista blockers at this time. Hx of sleep apnea, and history of thyroid disease. Normal TSH of 2.0. Echocardiogram on this presentation shows normal left ventricular systolic function, ejection fraction 60 to 65%. Recommendations: Avoid AV krista blocking agents. Recommend pulmonary consultation for further assessment of patient's sleep apnea and further recommendations for possible use of CPAP. As an outpatient, patient may need extended monitoring with a 2 to 4-week event monitor. Follow-up with [facility] Disposition: [id number]/TX-[id number] ANOTHER TYPE HLTHCARE Time spent for discharge: 34 minutes - Discharge Diagnoses (1) Acute CVA (cerebrovascular accident) Status: Acute (2) Hypertensive urgency Status: Acute (3) Hypertension Status: Chronic Qualifiers: Hypertension type: essential hypertension Qualified Code(s): I10 - Essenti al (primary) hypertension (4) Hypothyroidism Status: Chronic Core Measure Documentation - Palliative Care Palliative Care/ Comfort Measures: Not Applicable - Core Measures Any of the following diagnoses?: none Exam - Constitutional Vitals: Temp Pulse Resp BP Pulse Ox 98.1 F 66 20 164/98 97 02/24/20 08:49 02/24/20 10:00 02/24/20 08:49 02/24/20 08:54 02/24/20 08:54 Plan Activity: no restrictions Diet: low salt Follow up with: KIKE THURSTON MD [Primary Care Provider] - 7 Days ROCIO WRIGHT MD [Staff Physician] - 7 Days
[2020-02-24 19:54] VITALS: BP 131/58
== END 2020-02-24 21:14 | disposition home health service (06) ==
LOC: ED 16:40 → 4A 21:52 → INTOOBSV 02-22 12:00 → OBSVTOIN 02-22 12:00
PROVIDERS: ADMIT Internal Medicine; ATTEND Internal Medicine
DX: I63.9 Cerebral infarction, unspecified (principal); I16.0 Hypertensive urgency; E11.9 Type 2 diabetes mellitus without complications; E78.5 Hyperlipidemia, unspecified; E03.9 Hypothyroidism, unspecified; K21.9 Gastro-esophageal reflux disease without esophagitis; E66.9 Obesity, unspecified; M10.9 Gout, unspecified; F32.9 Major depressive disorder, single episode, unspecified; R29.703 NIHSS score 3; J44.9 Chronic obstructive pulmonary disease, unspecified; I49.5 Sick sinus syndrome; G47.30 Sleep apnea, unspecified; Z90.49 Acquired absence of other specified parts of digestive tract; Z86.73 Personal history of transient ischemic attack (TIA), and cerebral infarction without residual deficits; Z79.82 Long term (current) use of aspirin; Z79.4 Long term (current) use of insulin; Z79.899 Other long term (current) drug therapy; Z68.33 Body mass index [BMI] 33.0-33.9, adult
CPT/HCPCS: 36415; 70450; 70551; 71046; 80053; 80061; 82550; 82553; 82962; 83880; 84443; 84484; 85025; 85610; 85670; 85730; 93005; 93306; 93880; 96361; 96374; 96375; 96376; 97110; 97116; 97161; 97165; 97530; 99285; A9270; G0378; J1885; J2405; J7030

== ENCOUNTER 2020-04-07 16:43 | Observation (INO) | payer MEDICARE ==
--- NOTE | 2020-04-07 17:31 | XRay Report ---
CHEST 1 VIEW 04/07/2020 4:24 PM INDICATION / CLINICAL INFORMATION: Chest pain. COMPARISON: 2 views of the chest from 02/21/2020. FINDINGS: SUPPORT DEVICES: None. HEART / MEDIASTINUM: No significant abnormality. LUNGS / PLEURA: Clear lungs. No significant pleural effusion. No pneumothorax. ADDITIONAL FINDINGS: No significant additional findings. IMPRESSION: 1. No acute abnormality of the chest. Signer Name: Elijah Gimenez MD Signed: 04/07/2020 5:26 PM Workstation Name: [id number]
[2020-04-07] MEDS ORDERED: ACETAMINOPHEN 325 MG TAB PO ONE (17:34)
--- NOTE | 2020-04-07 17:40 | Emergency Department Report ---
ED Chest Pain HPI - General Chief Complaint: Chest Pain Stated Complaint: CHEST PAIN Time Seen by Provider: 04/07/20 16:49 Source: EMS Mode of arrival: Ambulatory Limitations: Physical Limitation - History of Present Illness Initial Comments: This is a 69-year-old female presents to the emergency department via EMS from home with complaints of a left-sided headache and left-sided chest pain that have both been going on since yesterday. The chest pain has been intermittent but currently is 8 out of 10 in intensity. No known alleviating factors but the patient appears to have some tenderness to palpation that worsens her discomfort. The headache is currently a 7 out of 10 in intensity. She does have a history of migraines and says that this feels similar. She denies any vision change, new or worsened slurred speech, numbness or par esthesias, or any other neurological deficits. The patient does have a history of previous CVA with right-sided deficits and residual slurred speech. The patient was just seen here about 1 month ago for strokelike symptoms that have since resolved. MRI done at that time did not show any new infarcts. Patient also has a past medical history of diabetes, hypertension, hyperlipidemia, chronic kidney disease, gout and hypothyroidism. She has taken all of her home medications but has not taken anything further to treat her symptoms. She lives in a local longterm facility. No recent travel. She walks with a cane. Severity scale (0 -10): 9 - Related Data Home Medications Medication Instructions Recorded Confirmed Last Taken Amitriptyline 10 mg PO QHS 09/28/19 02/22/20 Unknown Aspirin 81 mg PO DAILY 09/28/19 02/22/20 Unknown Atorvastatin 40 mg PO QHS 09/28/19 02/22/20 Unknown Levemir VIAL 35 units SQ QHS 09/28/19 02/22/20 Unknown Levothyroxine 88 mcg PO QAC 09/28/19 02/22/20 Unknown Myrbetriq 25 mg PO DAILY 09/28/19 02/22/20 Unknown NovoLOG 100 UNITS/ML VIAL 10 units SQ TIDAC 09/28/19 02/22/20 Unknown allopurinoL 100 mg PO DAILY 09/28/19 02/22/20 Unknown Previous Rx's Medication Instructions Recorded Last Taken Type ARIPiprazole 7.5 mg PO QDAY #30 tablet 10/16/19 Unknown Rx Acetaminophen [Acetaminophen TAB] 650 mg PO Q4H PRN tablet 10/16/19 Unknown Rx Clopidogrel [Plavix] 75 mg PO DAILY #30 tablet 10/16/19 Unknown Rx DULoxetine [Cymbalta] 60 mg PO BID #60 capsule 10/16/19 Unknown Rx Ferrous Sulfate [Feosol 325 MG tab] 325 mg PO DAILY@0800 #30 tab 10/16/19 Unknown Rx Insulin Lispro [Humalog] 0 unit SUB-Q ACHS vial 10/16/19 Unknown Rx Melatonin [Melatonin 5MG TAB] 5 mg PO QHS tablet 10/16/19 Unknown Rx Pantoprazole [Protonix TAB] 20 mg PO QDAY #30 tablet. 10/16/19 Unknown Rx QUEtiapine [SEROquel] 50 mg PO QHS #30 tablet 10/16/19 Unknown Rx Topiramate [Topamax] 100 mg PO DAILY #90 tablet 10/16/19 Unknown Rx allopurinoL [Zyloprim] 100 mg PO QDAY #30 tablet 10/16/19 Unknown Rx busPIRone [Buspar] 15 mg PO BID #60 tablet 10/16/19 Unknown Rx carvediloL [Coreg] 12.5 mg PO BID #60 tablet 10/16/19 Unknown Rx Clopidogrel [Plavix] 75 mg PO QDAY #30 tablet 02/24/20 Unknown Rx Allergies Allergy/AdvReac Type Severity Reaction Status Date / Time adhesive tape AdvReac Unknown Verified 02/21/20 16:41 codeine AdvReac Unknown Verified 02/21/20 16:41 morphine AdvReac Unknown Verified 02/21/20 16:41 ondansetron AdvReac Unknown Verified 02/21/20 16:41 Penicillins AdvReac Unknown Verified 02/21/20 16:41 Sulfa (Sulfonamide AdvReac Unknown Verified 02/21/20 16:41 Antibiotics) Heart Score - HEART Score History: Slightly suspicious EKG: Non-specific Age: > 65 Risk factors: 1-2 risk factors Troponin: < normal limit HEART Score: 4 - Critical Actions Critical Actions: 4-6 pts:12-16.6% risk of adverse cardiac event. Should be admitted ED Review of Systems ROS: Stated complaint: CHEST PAIN Other details as noted in HPI Comment: All other systems reviewed and negative Constitutional: denies: chills, fever Eyes: denies: eye pain, vision change ENT: denies: ear pain, throat pain Respiratory: denies: cough, shortness of breath Cardiovascular: chest pain. denies: palpitations Gastrointestinal: denies: abdominal pain, vomiting Genitourinary: denies: dysuria, discharge Musculoskeletal: denies: back pain, arthralgia Skin: denies: rash, lesions Neurological: headache. denies: numbness, paresthesias ED Past Medical Hx - Past Medical History Previous Medical History?: Yes Hx Hypertension: Yes Hx Diabetes: Yes Hx Renal Disease: Yes Hx Arthritis: No Hx Seizures: No Hx Psychiatric Treatment: Yes - Surgical History Past Surgical History?: Yes Hx Cholecystectomy: Yes Hx Appendectomy: Yes - Social History Smoking Status: Former Smoker Substance Use Type: None - Medications Home Medications: Home Medications Medication Instructions Recorded Confirmed Last Taken Type Amitriptyline 10 mg PO QHS 09/28/19 02/22/20 Unknown History Aspirin 81 mg PO DAILY 09/28/19 02/22/20 Unknown History Atorvastatin 40 mg PO QHS 09/28/19 02/22/20 Unknown History Levemir VIAL 35 units SQ QHS 09/28/19 02/22/20 Unknown History Levothyroxine 88 mcg PO QAC 09/28/19 02/22/20 Unknown History Myrbetriq 25 mg PO DAILY 09/28/19 02/22/20 Unknown History NovoLOG 100 UNITS/ML VIAL 10 units SQ TIDAC 09/28/19 02/22/20 Unknown History allopurinoL 100 mg PO DAILY 09/28/19 02/22/20 Unknown History ARIPiprazole 7.5 mg PO QDAY #30 tablet 10/16/19 02/22/20 Unknown Rx Acetaminophen [Acetaminophen TAB] 650 mg PO Q4H PRN tablet 10/16/19 02/22/20 Unknown Rx Clopidogrel [Plavix] 75 mg PO DAILY #30 tablet 10/16/19 02/22/20 Unknown Rx DULoxetine [Cymbalta] 60 mg PO BID #60 capsule 10/16/19 02/22/20 Unknown Rx Ferrous Sulfate [Feosol 325 MG tab] 325 mg PO DAILY@0800 #30 tab 10/16/19 02/22/20 Unknown Rx Insulin Lispro [Humalog] 0 unit SUB-Q ACHS vial 10/16/19 02/22/20 Unknown Rx Melatonin [Melatonin 5MG TAB] 5 mg PO QHS tablet 10/16/19 02/22/20 Unknown Rx Pantoprazole [Protonix TAB] 20 mg PO QDAY #30 tablet. 10/16/19 02/22/20 Unknown Rx QUEtiapine [SEROquel] 50 mg PO QHS #30 tablet 10/16/19 02/22/20 Unknown Rx Topiramate [Topamax] 100 mg PO DAILY #90 tablet 10/16/19 02/22/20 Unknown Rx allopurinoL [Zyloprim] 100 mg PO QDAY #30 tablet 10/16/19 02/22/20 Unknown Rx busPIRone [Buspar] 15 mg PO BID #60 tablet 10/16/19 02/22/20 Unknown Rx carvediloL [Coreg] 12.5 mg PO BID #60 tablet 10/16/19 02/22/20 Unknown Rx Clopidogrel [Plavix] 75 mg PO QDAY #30 tablet 02/24/20 Unknown Rx ED Physical Exam - General Limitations: Physical Limitation - Other Other exam information: GENERAL: The patient is well-developed well-nourished. HENT: Normocephalic. Atraumatic. Patient has moist mucous membranes. EYES: Extraocular motions are intact. No nystagmus. NECK: Supple. Trachea is midline. CHEST/LUNGS: Clear to auscultation. There is no respiratory distress noted. HEART/CARDIOVASCULAR: Regular. There is no tachycardia. There is no murmur. ABDOMEN: Abdomen is soft, nontender. Patient has normal bowel sounds. There is no abdominal distention. SKIN: Skin is warm and dry. NEURO: The patient is awake, alert, and oriented. The patient is cooperative. There is some mild right-sided weakness and dysarthria that is chronic. Cranial nerves II through XII grossly intact. MUSCULOSKELETAL: There is no tenderness or deformity. ED Course Vital Signs 04/07/20 04/07/20 04/07/20 17:14 19:01 19:13 Temperature 98.0 F Pulse Rate 73 84 80 Respiratory 11 L 18 Rate Blood Pressure 211/79 Blood Pressure 162/83 209/79 [Left] Blood Pressure 89/68 [Right] O2 Sat by Pulse 100 98 Oximetry 04/07/20 04/07/20 04/07/20 19:15 19:30 19:46 Temperature Pulse Rate 74 65 76 Respiratory 9 L 16 16 Rate Blood Pressure 161/57 177/71 183/70 Blood Pressure [Left] Blood Pressure [Right] O2 Sat by Pulse 99 99 98 Oximetry 04/07/20 04/07/20 04/07/20 20:00 20:15 20:30 Temperature Pulse Rate 83 81 78 Respiratory 15 12 9 L Rate Blood Pressure 179/60 124/78 157/79 Blood Pressure [Left] Blood Pressure [Right] O2 Sat by Pulse 99 100 98 Oximetry 04/07/20 04/07/20 04/07/20 20:46 21:00 21:16 Temperature Pulse Rate 83 79 78 Respiratory 11 L 14 13 Rate Blood Pressure 176/83 154/69 139/82 Blood Pressure [Left] Blood Pressure [Right] O2 Sat by Pulse 100 98 100 Oximetry 04/07/20 04/07/20 04/07/20 21:30 21:46 22:00 Temperature Pulse Rate 84 70 92 H Respiratory 12 13 19 Rate Blood Pressure 155/83 167/78 198/105 Blood Pressure [Left] Blood Pressure [Right] O2 Sat by Pulse 96 99 97 Oximetry 04/07/20 04/07/20 04/07/20 22:13 22:16 22:30 Temperature Pulse Rate 74 66 67 Respiratory 12 17 Rate Blood Pressure 191/105 158/54 148/61 Blood Pressure [Left] Blood Pressure [Right] O2 Sat by Pulse 98 100 Oximetry ANUJ score - Anuj Score Age > 65: (1) Yes Aspirin use within the Past 7 Days: (1) Yes 3 or more CAD Risk Factors: (0) No 2 or more Angina events in past 24 hrs: (1) Yes Known CAD with more than 50% Stenosis: (0) No Elevated Cardiac Markers: (0) No ST Deviation Greater than 0.5mm: (0) No ANUJ Score: 3 ED Medical Decision Making - Lab Data Result diagrams: 04/07/20 17:26 04/07/20 17: Lab Results 04/07/20 04/07/20 04/07/20 Range/Units 17:26 17:26 17:26 WBC 5.3 (4.5-11.0) K/mm3 RBC 3.62 L (3.65-5.03) M/mm3 Hgb 11.3 (10.1-14.3) gm/dl Hct 33.7 (30.3-42.9) % MCV 93 (79-97) fl MCH 31 (28-32) pg MCHC 34 (30-34) % RDW 14.7 (13.2-15.2) % Plt Count 130 L (140-440) K/mm3 Lymph % (Auto) 27.0 (13.4-35.0) % [place] % (Auto) 7.7 H (0.0-7.3) % Eos % (Auto) 4.1 (0.0-4.3) % Baso % (Auto) 1.4 (0.0-1.8) % Lymph # (Auto) 1.4 (1.2-5.4) K/mm3 [place] # (Auto) 0.4 (0.0-0.8) K/mm3 Eos # (Auto) 0.2 (0.0-0.4) K/mm3 Baso # (Auto) 0.1 (0.0-0.1) K/mm3 Seg Neutrophils % 59.8 (40.0-70.0) % Seg Neutrophils # 3.2 (1.8-7.7) K/mm3 PT 14.1 (12.2-14.9) Sec. INR 1.10 (0.87-1.13) Sodium 138 (137-145) mmol/L Potassium 5.3 H (3.6-5.0) mmol/L Chloride 101.2 (98-107) mmol/L Carbon Dioxide 31 H (22-30) mmol/L Anion Gap 11 mmol/L BUN 25 H (7-17) mg/dL Creatinine 1.3 H (0.6-1.2) mg/dL Estimated GFR 40 ml/min BUN/Creatinine Ratio 19 % Glucose 221 H (65-100) mg/dL Calcium 9.5 (8.4-10.2) mg/dL Total Bilirubin 0.20 (0.1-1.2) mg/dL AST 15 (5-40) units/L ALT 11 (7-56) units/L Alkaline Phosphatase 152 H (35-129) units/L Troponin T < 0.010 (0.00-0.029) ng/mL Total Protein 6.7 (6.3-8.2) g/dL Albumin 4.2 (3.9-5) g/dL Albumin/Globulin Ratio 1.7 % TSH (0.270-4.200) mlU/mL 04/07/20 04/07/20 Range/Units 17:37 20:04 WBC (4.5-11.0) K/mm3 RBC (3.65-5.03) M/mm3 Hgb (10.1-14.3) gm/dl Hct (30.3-42.9) % MCV (79-97) fl MCH (28-32) pg MCHC (30-34) % RDW (13.2-15.2) % Plt Count (140-440) K/mm3 Lymph % (Auto) (13.4-35.0) % [place] % (Auto) (0.0-7.3) % Eos % (Auto) (0.0-4.3) % Baso % (Auto) (0.0-1.8) % Lymph # (Auto) (1.2-5.4) K/mm3 [place] # (Auto) (0.0-0.8) K/mm3 Eos # (Auto) (0.0-0.4) K/mm3 Baso # (Auto) (0.0-0.1) K/mm3 Seg Neutrophils % (40.0-70.0) % Seg Neutrophils # (1.8-7.7) K/mm3 PT (12.2-14.9) Sec. INR (0.87-1.13) Sodium (137-145) mmol/L Potassium (3.6-5.0) mmol/L Chloride (98-107) mmol/L Carbon Dioxide (22-30) mmol/L Anion Gap mmol/L BUN (7-17) mg/dL Creatinine (0.6-1.2) mg/dL Estimated GFR ml/min BUN/Creatinine Ratio % Glucose (65-100) mg/dL Calcium (8.4-10.2) mg/dL Total Bilirubin (0.1-1.2) mg/dL AST (5-40) units/L ALT (7-56) units/L Alkaline Phosphatase (35-129) units/L Troponin T < 0.010 (0.00-0.029) ng/mL Total Protein (6.3-8.2) g/dL Albumin (3.9-5) g/dL Albumin/Globulin Ratio % TSH 1.310 (0.270-4.200) mlU/mL - EKG Data -: EKG Interpreted by Me EKG shows normal: sinus rhythm, axis, intervals (Left axis deviation), QRS complexes (Q waves to the inferior leads, LVH), ST-T waves Rate: normal - EKG Data When compared to previous EKG there are: no significant change Interpretation: unchanged when compared t (02/22/20) - Radiology Data Radiology results: report reviewed, image reviewed interpreted by me: Chest x-ray does not show any acute process. There are no pleural effusions, obvious pneumonia and there is no pneumothorax. No significant cardiomegaly. NONENHANCED CT SCAN OF THE HEAD: INDICATION / CLINICAL INFORMATION: 69 years Female; Headache. TECHNIQUE: Routine CT head without contrast. All CT scans at this location are performed using CT dose reduction for ALARA by means of automated exposure control. COMPARISON: MR scan of the brain from 02/23/2020 FINDINGS: BRAIN / INTRACRANIAL CONTENTS: No acute hemorrhage, mass effect, midline shift, hydrocephalus, or acute, large territorial infarct. As seen in the MRI scan, encephalomalacia in left posterior parietal border zone and in the left middle frontal gyrus; subtle chronic lacunae in the right basal ganglia; subtle periventricular low attenuation areas due to chronic small vessel disease CRANIOCERVICAL JUNCTION: No significant abnormality. ORBITS: No significant abnormality of visualized orbits. SINUSES / MASTOIDS: No significant abnormality of the visualized paranasal sinuses or mastoid air cells. ADDITIONAL FINDINGS: None. IMPRESSION: No focal mass, hemorrhage, hydrocephalus, or acute, large territorial infarct. - Medical Decision Making This patient presents to the emergency department with a complaint of some left- sided chest pain and left-sided headache. She has some residual right-sided weakness and dysarthria from previous CVA but I do not see any acute neurological deficits on examination. CT scan of the head without contrast did not show any hemorrhage, large territorial infarct, or any other acute processes. Chest x-ray did not show any pneumonia, pleural effusions, pneumothorax, or any other acute process. EKG did not have any morphology consistent with ST elevation myocardial infarction. Labs shows some mild hyperkalemia, renal insufficiency that appears consistent with CKD, and negative troponin so far. The patient will be admitted to the hospital for further evaluation and treatment and was accepted for admission by the hospitalist, Dr. Diop. Critical Care Time: No Critical care attestation.: If time is entered above; I have spent that time in minutes in the direct care o f this critically ill patient, excluding procedure time. ED Disposition Clinical Impression: Acute chest pain, Hypertensive urgency, Hyperkalemia Headache Qualifiers: Headache type: unspecified Headache chronicity pattern: unspecified pattern Intractability: not intractable Qualified Code(s): R51.9 - Headache, unspecified CKD (chronic kidney disease) Qualifiers: Chronic kidney disease stage: unspecified stage Qualified Code(s): N18.9 - Chronic kidney disease, unspecified Disposition: OP ADMIT IP TO THIS HOSP Is pt being admited?: Yes Condition: Serious Time of Disposition: 20:29
[2020-04-07 17:47] LABS: Basophils # (Auto) 0.1 K/mm3 (0.0-0.1); Basophils % (Auto) 1.4 % (0.0-1.8); Eosinophils # (Auto) 0.2 K/mm3 (0.0-0.4); Eosinophils % (Auto) 4.1 % (0.0-4.3); Hematocrit 33.7 % (30.3-42.9); Hemoglobin 11.3 gm/dl (10.1-14.3); Lymphocytes # (Auto) 1.4 K/mm3 (1.2-5.4); Mean Corpuscular HGB Conc 34 % (30-34); Mean Corpuscular Volume 93 fl (79-97); Monocytes # (Auto) 0.4 K/mm3 (0.0-0.8); Monocytes % (Auto) 7.7 % (0.0-7.3); Platelet Count 130 K/mm3 (140-440); Red Blood Count 3.62 M/mm3 (3.65-5.03); Red Cell Distribution Width 14.7 % (13.2-15.2)
[2020-04-07 18:13] LABS: Alanine Aminotransferase 11 units/L (7-56); Albumin 4.2 g/dL (3.9-5); BUN/Creatinine Ratio 19; Blood Urea Nitrogen 25 mg/dL (7-17); Calcium 9.5 mg/dL (8.4-10.2); Hemolysis Index 1
[2020-04-07 18:14] LABS: INR 1.1 (0.87-1.13)
--- NOTE | 2020-04-07 18:23 | Cat Scan Report ---
NONENHANCED CT SCAN OF THE HEAD: INDICATION / CLINICAL INFORMATION: 69 years Female; Headache. TECHNIQUE: Routine CT head without contrast. All CT scans at this location are performed using CT dos e reduction for ALARA by means of automated exposure control. COMPARISON: MR scan of the brain from 02/23/2020 FINDINGS: BRAIN / INTRACRANIAL CONTENTS: No acute hemorrhage, mass effect, midline shift, hydrocephalus, or acu te, large territorial infarct. As seen in the MRI scan, encephalomalacia in left posterior parietal b order zone and in the left middle frontal gyrus; subtle chronic lacunae in the right basal ganglia; s ubtle periventricular low attenuation areas due to chronic small vessel disease CRANIOCERVICAL JUNCTION: No significant abnormality. ORBITS: No significant abnormality of visualized orbits. SINUSES / MASTOIDS: No significant abnormality of the visualized paranasal sinuses or mastoid air eliot ls. ADDITIONAL FINDINGS: None. IMPRESSION: No focal mass, hemorrhage, hydrocephalus, or acute, large territorial infarct. Signer Name: Gardenia Garcia MD Signed: 04/07/2020 6:19 PM Workstation Name: [id number]
[2020-04-07] MEDS ORDERED: SODIUM POLYSTYRENE 15 GM/60 ML ORAL LIQD PO ONE (20:29)
[2020-04-07] MEDS ORDERED: NITROGLYCERIN 0.4 MG TAB SUBL SL PRN (22:02)
[2020-04-07] MEDS ORDERED: ACETAMINOPHEN 325 MG TAB PO PRN (22:05)
[2020-04-07] MEDS ORDERED: hydrALAZINE 20 MG/1 ML INJ IV PRN (22:19)
[2020-04-08] MEDS: HEPARIN 5,000 UNIT/1 ML VIAL SUB-Q SCH ×2 (01:45→09:02)
[2020-04-08 01:51] LABS: Creatine Kinase MB 1.8 ng/mL (0.0-4.0)
[2020-04-08] MEDS ORDERED: ACETAMINOPHEN 650 MG RECT SUPP PR PRN (04:00)
[2020-04-08] MEDS: NITROGLYCERIN 2% OINT 1 GM TP SCH ×4 (05:11→17:00)
[2020-04-08 07:08] LABS: Creatine Kinase MB 1.9 ng/mL (0.0-4.0)
[2020-04-08 07:12] LABS: BUN/Creatinine Ratio 18; Blood Urea Nitrogen 22 mg/dL (7-17); Calcium 9.6 mg/dL (8.4-10.2); Hemolysis Index 15
--- NOTE | 2020-04-08 08:39 | History and Physical Report ---
History of Present Illness Date of examination: 04/07/20 Date of admission: 04/07/20 20:30 Chief complaint: Chief complaint is chest pain, other complaint include headache History of present illness: History of presenting illness, patient is a 69-year-old female who said started having precordial chest pain yesterday 04/07/2020, pain radiates to the left area and is associated with shortness of breath but no diaphoresis and no nausea vomiting. Patient also complained of headache which she said is similar to her migraine headache attacks but denied history of numbness tingling or any visual symptoms, also patient denied history of fever or chills and denied history of cough. Past History Past Medical History: diabetes, hypertension, renal failure, stroke, other (THYROID DISEASE) Past Surgical History: appendectomy, cholecystectomy Medications and Allergies Allergies Allergy/AdvReac Type Severity Reaction Status Date / Time adhesive tape AdvReac Unknown Verified 02/21/20 16:41 codeine AdvReac Unknown Verified 02/21/20 16:41 morphine AdvReac Unknown Verified 02/21/20 16:41 ondansetron AdvReac Unknown Verified 02/21/20 16:41 Penicillins AdvReac Unknown Verified 02/21/20 16:41 Sulfa (Sulfonamide AdvReac Unknown Verified 02/21/20 16:41 Antibiotics) Home Medications Medication Instructions Recorded Confirmed Last Taken Type Amitriptyline 10 mg PO QHS 09/28/19 02/22/20 Unknown History Aspirin 81 mg PO DAILY 09/28/19 02/22/20 Unknown History Atorvastatin 40 mg PO QHS 09/28/19 02/22/20 Unknown History Levemir VIAL 35 units SQ QHS 09/28/19 02/22/20 Unknown History Levothyroxine 88 mcg PO QAC 09/28/19 02/22/20 Unknown History Myrbetriq 25 mg PO DAILY 09/28/19 02/22/20 Unknown History NovoLOG 100 UNITS/ML VIAL 10 units SQ TIDAC 09/28/19 02/22/20 Unknown History allopurinoL 100 mg PO DAILY 09/28/19 02/22/20 Unknown History ARIPiprazole 7.5 mg PO QDAY #30 tablet 10/16/19 02/22/20 Unknown Rx Acetaminophen [Acetaminophen TAB] 650 mg PO Q4H PRN tablet 10/16/19 02/22/20 Unknown Rx Clopidogrel [Plavix] 75 mg PO DAILY #30 tablet 10/16/19 02/22/20 Unknown Rx DULoxetine [Cymbalta] 60 mg PO BID #60 capsule 10/16/19 02/22/20 Unknown Rx Ferrous Sulfate [Feosol 325 MG tab] 325 mg PO DAILY@0800 #30 tab 10/16/19 02/22/20 Unknown Rx Insulin Lispro [Humalog] 0 unit SUB-Q ACHS vial 10/16/19 02/22/20 Unknown Rx Melatonin [Melatonin 5MG TAB] 5 mg PO QHS tablet 10/16/19 02/22/20 Unknown Rx Pantoprazole [Protonix TAB] 20 mg PO QDAY #30 tablet. 10/16/19 02/22/20 Unknown Rx QUEtiapine [SEROquel] 50 mg PO QHS #30 tablet 10/16/19 02/22/20 Unknown Rx Topiramate [Topamax] 100 mg PO DAILY #90 tablet 10/16/19 02/22/20 Unknown Rx allopurinoL [Zyloprim] 100 mg PO QDAY #30 tablet 10/16/19 02/22/20 Unknown Rx busPIRone [Buspar] 15 mg PO BID #60 tablet 10/16/19 02/22/20 Unknown Rx carvediloL [Coreg] 12.5 mg PO BID #60 tablet 10/16/19 02/22/20 Unknown Rx Clopidogrel [Plavix] 75 mg PO QDAY #30 tablet 02/24/20 Unknown Rx Active Meds: Active Medications Acetaminophen (Acetaminophen 325 Mg Tab) 650 mg PO Q4H PRN PRN Reason: Headache Acetaminophen (Acetaminophen 650 Mg Rect Supp) 650 mg [place] Q4H PRN PRN Reason: Pain, Mild (1-3) Last Admin: 04/08/20 05:12 Dose: 650 mg Documented by: Aspirin (Aspirin 325 Mg Tab) 325 mg PO QDAY JIMBO Heparin Sodium (Porcine) (Heparin 5,000 Unit/1 Ml Vial) 5,000 unit SUB-Q Q12HR JIMBO Last Admin: 04/08/20 01:45 Dose: 5,000 unit Documented by: Hydralazine HCl (Hydralazine 20 Mg/1 Ml Inj) 10 mg IV Q4HR PRN PRN Reason: Blood Pressure Nitroglycerin (Nitroglycerin 0.4 Mg Tab Subl) 0.4 mg SL .Q5MIN PRN PRN Reason: Chest Pain Nitroglycerin (Nitroglycerin 2% Oint 1 Gm) 1 inch TP QIDNTG [facility]; Protocol Last Admin: 04/08/20 05:11 Dose: 1 inch Documented by: Review of Systems Constitutional: no fever, no chills, no sweats, no weakness Eyes: bilateral: other (NO BILATERAL EYE SYMPTOMS) Ears, nose, mouth and throat: no ear pain Breasts: deferred Cardiovascular: chest pain, shortness of breath, no orthopnea, no palpitations, no rapid/irregular heart beat, no syncope, no lightheadedness Respiratory: shortness of breath, no cough, no cough with sputum, no excessive sputum, no congestion, no wheezing Gastrointestinal: no abdominal pain, no nausea, no vomiting Genitourinary Female: no Menstruation: postmenopausal Rectal: no pain Musculoskeletal: no neck stiffness, no neck pain Integumentary: no rash, no pruritis, no redness, no sores, no wounds, no growths Neurological: no weakness, no parathesias, no numbness, no seizures, no syncope Psychiatric: no anxiety, no insomnia, no depression Endocrine: no polyphagia, no excessive thirst, no polydipsia, no polyuria, no nocturia Hematologic/Lymphatic: no easy bruising Exam - Constitutional Vitals: Temp Pulse Resp BP Pulse Ox 98.5 F 82 20 169/68 92 04/08/20 03:39 04/08/20 05:11 04/08/20 03:39 04/08/20 05:11 04/08/20 03:39 General appearance: Present: no acute distress - EENT Eyes: Present: PERRL ENT: hearing intact, clear oral mucosa - Neck Neck: Present: supple, normal ROM - Respiratory Respiratory effort: normal - Cardiovascular Heart Sounds: Present: S1 & S2, gallop. Absent: systolic murmur, diastolic murmur, click - Extremities Extremities: no ischemia, No edema Peripheral Pulses: within normal limits - Abdominal General gastrointestinal: Present: soft, non-tender, non-distended. Absent: tender, distended, rigid Female genitourinary: Present: deferred - Rectal Rectal Exam: deferred - Integumentary Integumentary: Present: clear, warm, dry. Absent: erythema - Musculoskeletal Musculoskeletal: right sided weakness - Psychiatric Psychiatric: appropriate mood/affect HEART Score - HEART Score EKG: Non-specific Age: > 65 Risk factors: 1-2 risk factors Troponin: Troponin T < 0.010 ng/mL (0.00-0.029) 04/08/20 05:31 Troponin: < normal limit - Critical Actions Critical Actions: 0-3 pts:0.9-1.7%risk of adverse cardiac event.Candidate for discharge Results - Labs CBC & Chem 7: 04/07/20 17:26 04/08/20 05:31 Labs: Laboratory Last Values WBC 5.3 K/mm3 (4.5-11.0) 04/07/20 17: RBC 3.62 M/mm3 (3.65-5.03) L 04/07/20 17: Hgb 11.3 gm/dl (10.1-14.3) 04/07/20 17: Hct 33.7 % (30.3-42.9) 04/07/20 17: MCV 93 fl (79-97) 04/07/20 17:26 MCH 31 pg (28-32) 04/07/20 17: MCHC 34 % (30-34) 04/07/20 17: RDW 14.7 % (13.2-15.2) 04/07/20 17: Plt Count 130 K/mm3 (140-440) L 04/07/20 17: Lymph % (Auto) 27.0 % (13.4-35.0) 04/07/20 17: Lassen % (Auto) 7.7 % (0.0-7.3) H 04/07/20 17: Eos % (Auto) 4.1 % (0.0-4.3) 04/07/20 17: Baso % (Auto) 1.4 % (0.0-1.8) 04/07/20: Lymph # (Auto) 1.4 K/mm3 (1.2-5.4) 04/07/20 17: Lassen # (Auto) 0.4 K/mm3 (0.0-0.8) 04/07/20 17: Eos # (Auto) 0.2 K/mm3 (0.0-0.4) 04/07/20 17:26 Baso # (Auto) 0.1 K/mm3 (0.0-0.1) 04/07/20 17:26 Seg Neutrophils % 59.8 % (40.0-70.0) 04/07/20 17:26 Seg Neutrophils # 3.2 K/mm3 (1.8-7.7) 04/07/20 17: PT 14.1 Sec. (12.2-14.9) 04/07/20 17: INR 1.10 (0.87-1.13) 04/07/20 17:26 Sodium 137 mmol/L (137-145) 04/08/20 05:31 Potassium 4.5 mmol/L (3.6-5.0) 04/08/20 05:31 Chloride 100.3 mmol/L (98-107) 04/08/20 05:31 Carbon Dioxide 25 mmol/L (22-30) 04/08/20 05:31 Anion Gap 16 mmol/L 04/08/20 05:31 BUN 22 mg/dL (7-17) H 04/08/20 05:31 Creatinine 1.2 mg/dL (0.6-1.2) 04/08/20 05:31 Estimated GFR 44 ml/min 04/08/20 05:31 BUN/Creatinine Ratio 18 % 04/08/20 05:31 Glucose 205 mg/dL (65-100) H 04/08/20 05:31 Calcium 9.6 mg/dL (8.4-10.2) 04/08/20 05:31 Total Bilirubin 0.20 mg/dL (0.1-1.2) 04/07/20 17: AST 15 units/L (5-40) 04/07/20 17: ALT 11 units/L (7-56) 04/07/20 17:26 Alkaline Phosphatase 152 units/L (35-129) H 04/07/20 17:26 Total Creatine Kinase 105 units/L (30-135) 04/08/20 05:31 CK-MB (CK-2) 1.9 ng/mL (0.0-4.0) 04/08/20 05:31 CK-MB (CK-2) Rel Index 1.8 (0-4) 04/08/20 05:31 Troponin T < 0.010 ng/mL (0.00-0.029) 04/08/20 05:31 Total Protein 6.7 g/dL (6.3-8.2) 04/07/20 17:26 Albumin 4.2 g/dL (3.9-5) 04/07/20 17:26 Albumin/Globulin Ratio 1.7 % 04/07/20 17:26 TSH 1.310 mlU/mL (0.270-4.200) 04/07/20 17:37 Rodriguez/IV: Voiding Method Bedside Commode Assessment and Plan - Patient Problems (1) Acute chest pain Current Visit: Yes Status: Acute Plan to address problem: 1. SERIAL CARDIAC ENZYMES 2. LEXISCAN STRESS TEST 3 NPO 4. NITROPASTE 5. I.V MORP[KAMERON FOR PAIN 6. I.V ZOFRAN FOR NAUSEA AND VOMITING 7. ASPIRIN PO 8. OXYGEN BY NASAL CANNULA (2) CKD (chronic kidney disease) Current Visit: Yes Status: Acute Qualifiers: Chronic kidney disease stage: unspecified stage Qualified Code(s): N18.9 - Chronic kidney disease, unspecified Plan to address problem: NEPHROLOGY CONSULT (3) Hyperkalemia Current Visit: Yes Status: Acute Plan to address problem: 1. KAYEXALET PO 2. BMP LEVEL MONITOR
--- NOTE | 2020-04-08 09:43 | Consultation ---
History of Present Illness - Reason for Consult Consult date: 04/08/20 chronic renal failure - History of Present Illness This is a 69 year old female who presented to the hospital with a chief complaint of chest pain yesterday and headaches. Patient was admitted last month for similar complaint. Pertinent labs revealed and elevated serum creatinine of 1.3 on admission. Patient reports she has CKD and was being followed by a yarn examiner in [place], [place]. Last visit was in 09/2019. States she plans to return to [facility] at some point. Patient has history of CKD stage 3, Hypertension, CVA, Diabetes Mellitus and Gout. Past History Past Medical History: diabetes, hypertension, renal failure, stroke, other (THYROID DISEASE) Past Surgical History: appendectomy, cholecystectomy Medications and Allergies Allergies Allergy/AdvReac Type Severity Reaction Status Date / Time adhesive tape AdvReac Unknown Verified 02/21/20 16:41 codeine AdvReac Unknown Verified 02/21/20 16:41 morphine AdvReac Unknown Verified 02/21/20 16:41 ondansetron AdvReac Unknown Verified 02/21/20 16:41 Penicillins AdvReac Unknown Verified 02/21/20 16:41 Sulfa (Sulfonamide AdvReac Unknown Verified 02/21/20 16:41 Antibiotics) Home Medications Medication Instructions Recorded Confirmed Last Taken Type Amitriptyline 10 mg PO QHS 09/28/19 02/22/20 Unknown History Aspirin 81 mg PO DAILY 09/28/19 02/22/20 Unknown History Atorvastatin 40 mg PO QHS 09/28/19 02/22/20 Unknown History Levemir VIAL 35 units SQ QHS 09/28/19 02/22/20 Unknown History Levothyroxine 88 mcg PO QAC 09/28/19 02/22/20 Unknown History Myrbetriq 25 mg PO DAILY 09/28/19 02/22/20 Unknown History NovoLOG 100 UNITS/ML VIAL 10 units SQ TIDAC 09/28/19 02/22/20 Unknown History allopurinoL 100 mg PO DAILY 09/28/19 02/22/20 Unknown History ARIPiprazole 7.5 mg PO QDAY #30 tablet 10/16/19 02/22/20 Unknown Rx Acetaminophen [Acetaminophen TAB] 650 mg PO Q4H PRN tablet 10/16/19 02/22/20 Unknown Rx Clopidogrel [Plavix] 75 mg PO DAILY #30 tablet 10/16/19 02/22/20 Unknown Rx DULoxetine [Cymbalta] 60 mg PO BID #60 capsule 10/16/19 02/22/20 Unknown Rx Ferrous Sulfate [Feosol 325 MG tab] 325 mg PO DAILY@0800 #30 tab 10/16/19 02/22/20 Unknown Rx Insulin Lispro [Humalog] 0 unit SUB-Q ACHS vial 10/16/19 02/22/20 Unknown Rx Melatonin [Melatonin 5MG TAB] 5 mg PO QHS tablet 10/16/19 02/22/20 Unknown Rx Pantoprazole [Protonix TAB] 20 mg PO QDAY #30 tablet. 10/16/19 02/22/20 Unknown Rx QUEtiapine [SEROquel] 50 mg PO QHS #30 tablet 10/16/19 02/22/20 Unknown Rx Topiramate [Topamax] 100 mg PO DAILY #90 tablet 10/16/19 02/22/20 Unknown Rx allopurinoL [Zyloprim] 100 mg PO QDAY #30 tablet 10/16/19 02/22/20 Unknown Rx busPIRone [Buspar] 15 mg PO BID #60 tablet 10/16/19 02/22/20 Unknown Rx carvediloL [Coreg] 12.5 mg PO BID #60 tablet 10/16/19 02/22/20 Unknown Rx Clopidogrel [Plavix] 75 mg PO QDAY #30 tablet 02/24/20 Unknown Rx Active Meds: Active Medications Acetaminophen (Acetaminophen 325 Mg Tab) 650 mg PO Q4H PRN PRN Reason: Headache Acetaminophen (Acetaminophen 650 Mg Rect Supp) 650 mg [place] Q4H PRN PRN Reason: Pain, Mild (1-3) Last Admin: 04/08/20 05:12 Dose: 650 mg Documented by: Aspirin (Aspirin 325 Mg Tab) 325 mg PO QDAY [facility] Last Admin: 04/08/20 09:03 Dose: 325 mg Documented by: Heparin Sodium (Porcine) (Heparin 5,000 Unit/1 Ml Vial) 5,000 unit SUB-Q Q12HR [facility] Last Admin: 04/08/20 09:02 Dose: 5,000 unit Documented by: Hydralazine HCl (Hydralazine 20 Mg/1 Ml Inj) 10 mg IV Q4HR PRN PRN Reason: Blood Pressure Nitroglycerin (Nitroglycerin 0.4 Mg Tab Subl) 0.4 mg SL .Q5MIN PRN PRN Reason: Chest Pain Nitroglycerin (Nitroglycerin 2% Oint 1 Gm) 1 inch TP QIDNTG [facility]; Protocol Last Admin: 04/08/20 09:02 Dose: 1 inch Documented by: Review of Systems Constitutional: fatigue, no weight loss, no weight gain, no fever, no chills, no sweats, no weakness, no poor appetite Ears, nose, mouth and throat: no ear pain, no ear discharge, no tinnitis, no decreased hearing, no nose pain, no nasal congestion Breasts: no normal, no change in shape, no swelling Cardiovascular: chest pain, no orthopnea, no palpitations, no rapid/irregular heart beat, no edema, no syncope, no lightheadedness, no shortness of breath Respiratory: no cough with sputum, no excessive sputum, no hemoptysis, no shortness of breath, no dyspnea on exertion Genitourinary Female: no pelvic pain, no flank pain, no menorrhagia, no dysuria, no urinary frequency, no urgency, no stress incontinence, no post void dribbling, no incomplete emptying, no urge incontinence Rectal: no pain, no incontinence, no bleeding, no itching Musculoskeletal: no neck stiffness, no neck pain, no shooting arm pain, no arm numbness/tingling, no low back pain, no shooting leg pain Integumentary: no rash, no pruritis, no redness, no sores, no wounds Neurological: no head injury, no transient paralysis, no paralysis, no weakness, no parathesias, no numbness, no tingling, no seizures, no syncope Psychiatric: no anxiety, no memory loss, no change in sleep habits, no sleep disturbances, no insomnia, no hypersomnia, no change in libido Endocrine: no cold intolerance, no heat intolerance, no polyphagia, no excessive thirst, no polydipsia, no polyuria, no nocturia Hematologic/Lymphatic: no easy bruising, no easy bleeding, no lymphadenopathy, no lymphedema Exam - Vital Signs Vital signs: Vital Signs Temp Pulse Resp BP Pulse Ox 98.0 F 73 11 L 162/83 100 04/07/20 17:14 04/07/20 17:14 04/07/20 17:14 04/07/20 17:14 04/07/20 17:14 - General Appearance General appearance: well-developed, appears stated age, fatigue EENT: ATNC, PERRL, hearing intact, vision intact Neck: Present: neck supple, trachea midline Respiratory: Decreased Breath Sounds Heart: S1S2 Gastrointestinal: Present: normoactive bowel sounds Integumentary: warm and dry Neurologic: alert and oriented x3 Musculoskeletal: Present: other (No edema) Results - Lab Results 04/07/20 17:26 04/08/20 05:31 Most recent lab results Calcium 9.6 mg/dL (8.4-10.2) 04/08/20 05:31 Assessment and Plan Assessment: (Principal Problem) Chest Pain Chronic Kidney Disease, stage 3, secondary Diabetic nephropathy and Hypertensive nephrosclerosis Diabetes Mellitus Hypertension Plan: -Patient states she has known CKD and follows with a yarn examiner in [place] -Baseline serum creatinine, unclear, as review of previous labs showed serum creatinine with varying fluctuations -Current serum creatinine is 1.2 today, yesterday was 1.3 -Obtain urine lytes, protein labs and eosinophils -Obtain renal ultrasound -Avoid nephrotoxins -Obtain daily weights -Continue to monitor renal function
[2020-04-08] MEDS ORDERED: ASPIRIN 325 MG TAB PO SCH (10:00)
[2020-04-08] MEDS ORDERED: REGADENOSON 0.4 MG/5 ML INJ IV ONE (10:32)
--- NOTE | 2020-04-08 13:06 | Consultation ---
History of Present Illness Consult date: 04/08/20 Requesting physician: DEISY GALYE Consult reason: chest pain History of present illness: This patient is a 69-year-old female with a past medical hx HTN, DM, CVA, CKD stage III. She is previously unknown to our practice. Patient presents with complaint of precodial chest pain since yesterday, worse with deep inspiration, not worse with exertion. Pt denies any palpitations, nausea vomiting. Patient also complained of headache which she said is similar to her migraine headache attacks but denied history of numbness tingling or any visual symptoms, also patient denied history of fever or chills and denied history of cough. Admission BP was 198/102. Head CT- no acute findings. Patient has a HEART score of 3. Pt reports undergoing pharmacologic stress testing at [place] several weeks ago, how ever we are unable to obtain records. Past History Past Medical History: diabetes, hypertension, renal failure, stroke, other (THYROID DISEASE) Past Surgical History: appendectomy, cholecystectomy Medications and Allergies Allergies Allergy/AdvReac Type Severity Reaction Status Date / Time adhesive tape AdvReac Unknown Verified 02/21/20 16:41 codeine AdvReac Unknown Verified 02/21/20 16:41 morphine AdvReac Unknown Verified 02/21/20 16:41 ondansetron AdvReac Unknown Verified 02/21/20 16:41 Penicillins AdvReac Unknown Verified 02/21/20 16:41 Sulfa (Sulfonamide AdvReac Unknown Verified 02/21/20 16:41 Antibiotics) Home Medications Medication Instructions Recorded Confirmed Last Taken Type Amitriptyline 10 mg PO QHS 09/28/19 02/22/20 Unknown History Aspirin 81 mg PO DAILY 09/28/19 02/22/20 Unknown History Atorvastatin 40 mg PO QHS 09/28/19 02/22/20 Unknown History Levemir VIAL 35 units SQ QHS 09/28/19 02/22/20 Unknown History Levothyroxine 88 mcg PO QAC 09/28/19 02/22/20 Unknown History Myrbetriq 25 mg PO DAILY 09/28/19 02/22/20 Unknown History NovoLOG 100 UNITS/ML VIAL 10 units SQ TIDAC 09/28/19 02/22/20 Unknown History allopurinoL 100 mg PO DAILY 09/28/19 02/22/20 Unknown History ARIPiprazole 7.5 mg PO QDAY #30 tablet 10/16/19 02/22/20 Unknown Rx Acetaminophen [Acetaminophen TAB] 650 mg PO Q4H PRN tablet 10/16/19 02/22/20 Unknown Rx Clopidogrel [Plavix] 75 mg PO DAILY #30 tablet 10/16/19 02/22/20 Unknown Rx DULoxetine [Cymbalta] 60 mg PO BID #60 capsule 10/16/19 02/22/20 Unknown Rx Ferrous Sulfate [Feosol 325 MG tab] 325 mg PO DAILY@0800 #30 tab 10/16/19 02/22/20 Unknown Rx Insulin Lispro [Humalog] 0 unit SUB-Q ACHS vial 10/16/19 02/22/20 Unknown Rx Melatonin [Melatonin 5MG TAB] 5 mg PO QHS tablet 10/16/19 02/22/20 Unknown Rx Pantoprazole [Protonix TAB] 20 mg PO QDAY #30 tablet. 10/16/19 02/22/20 Unknown Rx QUEtiapine [SEROquel] 50 mg PO QHS #30 tablet 10/16/19 02/22/20 Unknown Rx Topiramate [Topamax] 100 mg PO DAILY #90 tablet 10/16/19 02/22/20 Unknown Rx allopurinoL [Zyloprim] 100 mg PO QDAY #30 tablet 10/16/19 02/22/20 Unknown Rx busPIRone [Buspar] 15 mg PO BID #60 tablet 10/16/19 02/22/20 Unknown Rx carvediloL [Coreg] 12.5 mg PO BID #60 tablet 10/16/19 02/22/20 Unknown Rx Clopidogrel [Plavix] 75 mg PO QDAY #30 tablet 02/24/20 Unknown Rx Active Meds: Active Medications Acetaminophen (Acetaminophen 325 Mg Tab) 650 mg PO Q4H PRN PRN Reason: Headache Acetaminophen (Acetaminophen 650 Mg Rect Supp) 650 mg LA Q4H PRN PRN Reason: Pain, Mild (1-3) Last Admin: 04/08/20 05:12 Dose: 650 mg Documented by: Aspirin (Aspirin 325 Mg Tab) 325 mg PO QDAY [facility] Last Admin: 04/08/20 09:03 Dose: 325 mg Documented by: Heparin Sodium (Porcine) (Heparin 5,000 Unit/1 Ml Vial) 5,000 unit SUB-Q Q12HR [facility] Last Admin: 04/08/20 09:02 Dose: 5,000 unit Documented by: Hydralazine HCl (Hydralazine 20 Mg/1 Ml Inj) 10 mg IV Q4HR PRN PRN Reason: Blood Pressure Nitroglycerin (Nitroglycerin 0.4 Mg Tab Subl) 0.4 mg SL .Q5MIN PRN PRN Reason: Chest Pain Nitroglycerin (Nitroglycerin 2% Oint 1 Gm) 1 inch TP QIDNTG [facility]; Protocol Last Admin: 04/08/20 09:02 Dose: 1 inch Documented by: Review of Systems Constitutional: no weight loss, no weight gain, no fever, no chills, no sweats Ears, nose, mouth and throat: no ear pain, no ear discharge, no decreased hearing, no nose pain, no nasal congestion, no nasal discharge, no sinus pressure, no sinus pain Cardiovascular: chest pain, no palpitations, no rapid/irregular heart beat, no edema, no syncope, no lightheadedness, no shortness of breath Respiratory: pain on inspiration, no cough, no shortness of breath Gastrointestinal: no abdominal pain, no nausea, no diarrhea Genitourinary Female: no pelvic pain, no flank pain Musculoskeletal: no neck stiffness, no neck pain, no shooting arm pain, no arm numbness/tingling, no low back pain, no shooting leg pain, no leg numbness/tingling Integumentary: no rash, no pruritis, no redness, no sores, no wounds, no jaundi ce Neurological: no head injury, no paralysis, no weakness, no parathesias, no numbness, no tingling, no seizures, no syncope Psychiatric: no anxiety Endocrine: no cold intolerance, no heat intolerance Hematologic/Lymphatic: no easy bruising, no easy bleeding Allergic/Immunologic: no urticaria Physical Examination Last Vital Signs Temp 98.2 F 04/08/20 08:41 Pulse 89 04/08/20 09:02 Resp 18 04/08/20 08:41 BP 156/87 04/08/20 11:29 Pulse Ox 93 04/08/20 08:41 General appearance: no acute distress HEENT: Positive: PERRL, Normocephaly, Mucus Membranes Moist Neck: Positive: neck supple, trachea midline Cardiac: Positive: Reg Rate and Rhythm, S1/S2 Lungs: Positive: clear to auscultation, Normal Breath Sounds Neuro: Positive: Grossly Intact Abdomen: Positive: Unremarkable, Soft, Active Bowel Sounds Skin: Negative: Rash, Wound Musculoskeletal: No Pain Extremities: Present: upper extr. pulses, lower extr. pulses. Absent: edema Results 04/07/20 17:04/08/20 05:31 Cardiac Enzymes 04/07/20 04/08/20 04/08/20 Range/Units 17: 01:13 05:31 AST 15 (5-40) units/L CK-MB (CK-2) 1.8 1.9 (0.0-4.0) ng/mL Coagulation 04/07/20 Range/Units 17: PT 14.1 (12.2-14.9) Sec. INR 1.10 (0.87-1.13) CBC 04/07/20 Range/Units 17: WBC 5.3 (4.5-11.0) K/mm3 RBC 3.62 L (3.65-5.03) M/mm3 Hgb 11.3 (10.1-14.3) gm/dl Hct 33.7 (30.3-42.9) % Plt Count 130 L (140-440) K/mm3 Lymph # (Auto) 1.4 (1.2-5.4) K/mm3 Divide # (Auto) 0.4 (0.0-0.8) K/mm3 Eos # (Auto) 0.2 (0.0-0.4) K/mm3 Baso # (Auto) 0.1 (0.0-0.1) K/mm3 Comprehensive Metabolic Panel 04/07/20 04/08/20 Range/Units 17:26 05:31 Sodium 138 137 (137-145) mmol/L Potassium 5.3 H 4.5 (3.6-5.0) mmol/L Chloride 101.2 100.3 (98-107) mmol/L Carbon Dioxide 31 H 25 (22-30) mmol/L BUN 25 H 22 H (7-17) mg/dL Creatinine 1.3 H 1.2 (0.6-1.2) mg/dL Glucose 221 H 205 H (65-100) mg/dL Calcium 9.5 9.6 (8.4-10.2) mg/dL AST 15 (5-40) units/L ALT 11 (7-56) units/L Alkaline Phosphatase 152 H (35-129) units/L Total Protein 6.7 (6.3-8.2) g/dL Albumin 4.2 (3.9-5) g/dL - Imaging and Cardiology Echo: report reviewed (Echo 02/21/2020 reviewed: EF 60-65%. ,ild left ventricular hypertrophy, abn diastolic filling of left vent consistent with impaired relaxation, Agitated saline study- negative.) EKG: report reviewed, image reviewed - EKG Interpretation EKG: sinus rhythm EKG interpretations - EKG Sinus rhythms and dysrhythmias: sinus rhythm Assessment and Plan Patient presented with atypical chest pain. AMI ruled out. status post lexiscan MPI stress test this AM, which was negative. Echo 02/21/2020 reviewed: EF 60-65%. ,ild left ventricular hypertrophy, abn diastolic filling of left vent consistent with impaired relaxation, Agitated saline study- negative. Optimize antihypertensive regimen. CP curently resolved. Currently stable cardiac status. Pt may discharge from cardiology standpoint. Recommend f/u in our office with Bam Cramer within 1 to 2 weeks of discharge. This patient was seen in conjunction with Dr Cramer, who agrees with this assessment and plan of care. - Patient Problems (1) Atypical chest pain Current Visit: Yes Status: Acute (2) Accelerated hypertension Current Visit: Yes Status: Acute (3) Headache Current Visit: Yes Status: Acute Qualifiers: Headache type: unspecified Headache chronicity pattern: unspecified pattern Intractability: not intractable Qualified Code(s): R51.9 - Headache, unspecified (4) History of CVA (cerebrovascular accident) Current Visit: Yes Status: Chronic (5) CKD (chronic kidney disease) Current Visit: Yes Status: Chronic Qualifiers: Chronic kidney disease stage: unspecified stage Qualified Code(s): N18.9 - Chronic kidney disease, unspecified (6) Diabetes Current Visit: Yes Status: Chronic (7) Hyperlipidemia Current Visit: Yes Status: Chronic Qualifiers: Hyperlipidemia type: mixed hyperlipidemia Qualified Code(s): E78.2 - Mixed hyperlipidemia (8) Hypothyroidism Current Visit: Yes Status: Chronic
--- NOTE | 2020-04-08 13:38 | Discharge Summary ---
Providers - Providers Date of Admission: 04/07/20 20:30 Date of discharge: 04/08/20 Attending physician: NIGEL CHUNG MD 04/08/20 06:00 Consult to Physician [CONS] Routine Comment: Consulting Provider: MYNOR KNUTSON Physician Instructions: Reason For Exam: chest pain 04/08/20 06:43 Consult to Wound/ET Nurse [CONS] Routine Reason For Exam: wound eval 04/08/20 08:47 Consult to Physician [CONS] Routine Comment: Consulting Provider: DENITA SAAVEDRA Physician Instructions: Reason For Exam: CKD Primary care physician: TROLLEY CLEANER Hospitalization Reason for admission: chest pain Condition: Serious Procedures: Cardiac stress test was done and negative Hospital course: History of presenting illness, patient is a 69-year-old female who said started having precordial chest pain yesterday 04/07/2020, pain radiates to the left area and is associated with shortness of breath but no diaphoresis and no nausea vomiting. Patient also complained of headache which she said is similar to her migraine headache attacks but denied history of numbness tingling or any visual symptoms, also patient denied history of fever or chills and denied history of cough. Hospital course -Patient was admitted to the floor and her medications were resumed. Serial cardiac enzymes were negative, EKG no change. Patient had a stress test this morning and negative. Patient was seen by cardiology and cleared for discharge. Patient said she come from SNF and discharged back there. Patient advised to have follow-up with her primary care physician as an outpatient. Patient was hemodynamically stable at the time of discharge. Disposition: DC/[place]-03 [facility] Time spent for discharge: 35 minutes - Discharge Diagnoses (1) Accelerated hypertension Status: Acute (2) Atypical chest pain Status: Acute (3) Headache Status: Acute Qualifiers: Headache type: unspecified Headache chronicity pattern: unspecified pattern Intractability: not intractable Qualified Code(s): R51.9 - Headache, unspecified (4) Hyperkalemia Status: Acute (5) Diabetes Status: Chronic Core Measure Documentation - Palliative Care Palliative Care/ Comfort Measures: Not Applicable - Core Measures Any of the following diagnoses?: none Exam - Physical Exam Narrative exam: Not in cardiopulmonary distress. The patient appeared well nourished and normally developed. Vital signs as documented. Head exam is unremarkable. No scleral icterus . Neck is without jugular venous distension, thyromegaly, or carotid bruits. Lungs are clear to auscultation. Cardiac exam reveals regular rate and Rhythm. Abdominal exam reveals normal bowel sounds, nontender, no organomegaly. Extremities are nonedematous and both femoral and pedal pulses are normal. EMERGENCY VETERINARIAN: Alert and oriented 3. No focal weakness. - Constitutional Vitals: Temp Pulse Resp BP Pulse Ox 98.2 F 88 18 162/71 93 04/08/20 08:41 04/08/20 13:24 04/08/20 08:41 04/08/20 13:24 04/08/20 08:41 Plan Activity: no restrictions Weight Bearing Status: Full Weight Bearing Diet: low salt, diabetic Follow up with: PRIMARY CARE, [Primary Care Provider] - 7 Days
[2020-04-08] MEDS ORDERED: ARIPiprazole 5 MG TAB PO SCH (14:00)
[2020-04-08] MEDS ORDERED: busPIRone 10 MG TAB PO SCH (14:00)
[2020-04-08] MEDS ORDERED: DULoxetine 30 MG CAP PO SCH (15:00)
[2020-04-08] MEDS ORDERED: TOPIRAMATE TAB 100 MG TAB PO SCH (15:00)
[2020-04-08] MEDS ORDERED: PANTOPRAZOLE 20 MG TAB PO SCH (15:00)
--- NOTE | 2020-04-08 15:05 | Treadmill Report ---
CARDIAC NUCLEAR PERFUSION STUDY REASON FOR STUDY: Chest pain. REFERRING PHYSICIAN: Dr. Bryan Cramer IMAGING PROTOCOL: Single isotope used documented as single isotope protocol. IMAGING RESULTS: Normal cavity size from stress to rest. Normal distribution of radionuclide in the anterior, inferior, septal, and apical regions. Gated SPECT, EF greater than 65%. The patient infused Lexiscan with no EKG changes. SUMMARY: 1. Negative Lexiscan EKG. 2. Normal rest and stress myocardial perfusion scan. No significant stress ischemia. No wall motion abnormality. Gated SPECT, EF greater than 65%. JOB# [id number] VRM/NTS
[2020-04-08] MEDS ORDERED: INSULIN LISPRO 100 UNIT/ML SUB-Q SCH (16:30)
[2020-04-08] MEDS ORDERED: NON-FORMULARY EACH (Levothyroxine Tablet) PO SCH (16:30)
[2020-04-08 17:07] VITALS: BP 145/83
[2020-04-08] MEDS ORDERED: carvediloL 12.5 MG TAB PO SCH (22:00)
[2020-04-08] MEDS ORDERED: QUEtiapine 25 MG TAB PO SCH (22:00)
[2020-04-08] MEDS ORDERED: AMITRIPTYLINE PO SCH (22:00)
[2020-04-08] MEDS ORDERED: NON-FORMULARY EACH (Atorvastatin Tablet) PO SCH (22:00)
[2020-04-08] MEDS ORDERED: AMITRIPTYLINE 10 MG TAB PO SCH (22:00)
[2020-04-09] MEDS ORDERED: LEVOTHYROXINE 88 MCG TAB PO SCH (06:00)
[2020-04-09] MEDS ORDERED: ASPIRIN 81 MG TAB CHEW PO SCH (10:00)
--- NOTE | 2020-04-09 14:09 | Ultrasound Report ---
EXAMINATION: Renal/Retroperitoneal Ultrasound INDICATION: Renal failure COMPARISON: No relevant prior study is available for comparison Findings: The right kidney is small in size measuring 7.4 x 4.5 cm. The left kidney is normal in size measuring 9.4 x 4.9 cm. There is mild cortical thinning of both kidneys. There is no evidence of cyst, mass or hydronephrosis. The urinary bladder appears normal. Impression: 1. Mild cortical thinning of both kidneys which may suggest chronic medical renal disease. 2. Right kidney is small in size. Signer Name: Susi Rae MD Signed: 04/09/2020 2:05 PM Workstation Name: [email or web address] [id number]
== END 2020-04-08 21:30 ==
LOC: ED 16:43 → 4A 20:30
PROVIDERS: ADMIT Internal Medicine; ATTEND Internal Medicine
DX: R07.89 Other chest pain (principal); I12.9 Hypertensive chronic kidney disease with stage 1 through stage 4 chronic kidney disease, or unspecified chronic kidney disease; N18.30 Chronic kidney disease, stage 3 unspecified; E11.22 Type 2 diabetes mellitus with diabetic chronic kidney disease; R51.9 Headache, unspecified; E87.5 Hyperkalemia; E11.21 Type 2 diabetes mellitus with diabetic nephropathy; E78.5 Hyperlipidemia, unspecified; E03.9 Hypothyroidism, unspecified; Z90.49 Acquired absence of other specified parts of digestive tract; Z86.73 Personal history of transient ischemic attack (TIA), and cerebral infarction without residual deficits; Z79.82 Long term (current) use of aspirin; Z79.4 Long term (current) use of insulin; Z79.02 Long term (current) use of antithrombotics/antiplatelets; Z87.891 Personal history of nicotine dependence
CPT/HCPCS: 36415; 70450; 71045; 76770; 78452; 80048; 80053; 82550; 82553; 82962; 84443; 84484; 85025; 85610; 87641; 93005; 93017; 96372; 96374; 96375; 96376; 99285; A9502; G0378; J0360; J1644; J2785; J1815

== ENCOUNTER 2020-06-14 19:37 | Emergency (ER) | payer MEDICARE ==
--- NOTE | 2020-06-14 19:57 | Emergency Department Report ---
ED Shortness of Breath HPI - General Chief Complaint: Dyspnea/Respdistress Stated Complaint: SOB Time Seen by Provider: 06/14/20 19:48 Source: patient, EMS Mode of arrival: Stretcher Limitations: No Limitations - History of Present Illness Initial Comments: Patient is 69 years old female with history of hypertension and diabetes. Patient brought to the emergency [facility] for evaluation of sudden onset of shortness of breath. Patient stated that she was eating supper when felt like something stuck in her throat and started having shortness of breath after that. Patient stated that her symptoms completely resolved now. Patient denied chest pain. No fever or chills. MD Complaint: shortness of breath -: This evening Severity: moderate - Related Data Home Medications Medication Instructions Recorded Confirmed Last Taken Amitriptyline 10 mg PO QHS 09/28/19 02/22/20 Unknown Aspirin 81 mg PO DAILY 09/28/19 02/22/20 Unknown Atorvastatin 40 mg PO QHS 09/28/19 02/22/20 Unknown Levemir VIAL 35 units SQ QHS 09/28/19 02/22/20 Unknown Levothyroxine 88 mcg PO QAC 09/28/19 02/22/20 Unknown Myrbetriq 25 mg PO DAILY 09/28/19 02/22/20 Unknown NovoLOG 100 UNITS/ML VIAL 10 units SQ TIDAC 09/28/19 06/14/20 Unknown allopurinoL 100 mg PO DAILY 09/28/19 06/14/20 Unknown Previous Rx's Medication Instructions Recorded Last Taken Type ARIPiprazole 7.5 mg PO QDAY #30 tablet 10/16/19 Unknown Rx Acetaminophen [Acetaminophen TAB] 650 mg PO Q4H PRN tablet 10/16/19 Unknown Rx Clopidogrel [Plavix] 75 mg PO DAILY #30 tablet 10/16/19 Unknown Rx DULoxetine [Cymbalta] 60 mg PO BID #60 capsule 10/16/19 Unknown Rx Ferrous Sulfate [Feosol 325 MG tab] 325 mg PO DAILY@0800 #30 tab 10/16/19 Unknown Rx Insulin Lispro [Humalog] 0 unit SUB-Q ACHS vial 10/16/19 Unknown Rx Melatonin [Melatonin 5MG TAB] 5 mg PO QHS tablet 10/16/19 Unknown Rx Pantoprazole [Protonix TAB] 20 mg PO QDAY #30 tablet 10/16/19 Unknown Rx QUEtiapine [SEROquel] 50 mg PO QHS #30 tablet 10/16/19 Unknown Rx Topiramate [Topamax] 100 mg PO DAILY #90 tablet 10/16/19 Unknown Rx allopurinoL [Zyloprim] 100 mg PO QDAY #30 tablet 10/16/19 Unknown Rx busPIRone [Buspar] 15 mg PO BID #60 tablet 10/16/19 Unknown Rx carvediloL [Coreg] 12.5 mg PO BID #60 tablet 10/16/19 06/14/20 Rx Clopidogrel [Plavix] 75 mg PO QDAY #30 tablet 02/24/20 Unknown Rx Allergies Allergy/AdvReac Type Severity Reaction Status Date / Time adhesive tape AdvReac Unknown Verified 06/15/20 00:00 codeine AdvReac Unknown Verified 06/15/20 00:00 morphine AdvReac Unknown Verified 06/15/20 00:00 ondansetron AdvReac Unknown Verified 06/15/20 00:00 Penicillins AdvReac Unknown Verified 06/15/20 00:00 Sulfa (Sulfonamide AdvReac Unknown Verified 06/15/20 00:00 Antibiotics) ED Review of Systems ROS: Stated complaint: SOB Other details as noted in HPI Comment: All other systems reviewed and negative Constitutional: denies: chills, fever Respiratory: shortness of breath. denies: cough, SOB with exertion, SOB at rest, wheezing Cardiovascular: denies: chest pain, palpitations Gastrointestinal: denies: abdominal pain, nausea, vomiting ED Past Medical Hx - Past Medical History Hx Hypertension: Yes Hx Diabetes: Yes Hx Renal Disease: Yes Hx Arthritis: Yes Hx Headaches / Migraines: Yes Hx Seizures: No Hx Psychiatric Treatment: Yes - Surgical History Hx Cholecystectomy: Yes Hx Appendectomy: Yes - Social History Smoking Status: Unknown if ever smoked - Medications Home Medications: Home Medications Medication Instructions Recorded Confirmed Last Taken Type Amitriptyline 10 mg PO QHS 09/28/19 02/22/20 Unknown History Aspirin 81 mg PO DAILY 09/28/19 02/22/20 Unknown History Atorvastatin 40 mg PO QHS 09/28/19 02/22/20 Unknown History Levemir VIAL 35 units SQ QHS 09/28/19 02/22/20 Unknown History Levothyroxine 88 mcg PO QAC 09/28/19 02/22/20 Unknown History Myrbetriq 25 mg PO DAILY 09/28/19 02/22/20 Unknown History NovoLOG 100 UNITS/ML VIAL 10 units SQ TIDAC 09/28/19 06/14/20 Unknown History allopurinoL 100 mg PO DAILY 09/28/19 06/14/20 Unknown History ARIPiprazole 7.5 mg PO QDAY #30 tablet 10/16/19 02/22/20 Unknown Rx Acetaminophen [Acetaminophen TAB] 650 mg PO Q4H PRN tablet 10/16/19 02/22/20 Unknown Rx Clopidogrel [Plavix] 75 mg PO DAILY #30 tablet 10/16/19 06/14/20 Unknown Rx DULoxetine [Cymbalta] 60 mg PO BID #60 capsule 10/16/19 02/22/20 Unknown Rx Ferrous Sulfate [Feosol 325 MG tab] 325 mg PO DAILY@0800 #30 tab 10/16/19 02/22/20 Unknown Rx Insulin Lispro [Humalog] 0 unit SUB-Q ACHS vial 10/16/19 02/22/20 Unknown Rx Melatonin [Melatonin 5MG TAB] 5 mg PO QHS tablet 10/16/19 06/14/20 Unknown Rx Pantoprazole [Protonix TAB] 20 mg PO QDAY #30 tablet. 10/16/19 02/22/20 Unknown Rx QUEtiapine [SEROquel] 50 mg PO QHS #30 tablet 10/16/19 06/14/20 Unknown Rx Topiramate [Topamax] 100 mg PO DAILY #90 tablet 10/16/19 06/14/20 Unknown Rx allopurinoL [Zyloprim] 100 mg PO QDAY #30 tablet 10/16/19 06/14/20 Unknown Rx busPIRone [Buspar] 15 mg PO BID #60 tablet 10/16/19 06/14/20 Unknown Rx carvediloL [Coreg] 12.5 mg PO BID #60 tablet 10/16/19 06/14/20 06/14/20 Rx Clopidogrel [Plavix] 75 mg PO QDAY #30 tablet 02/24/20 06/14/20 Unknown Rx ED Physical Exam - General Limitations: No Limitations General appearance: alert, in no apparent distress - Head Head exam: Present: atraumatic, normocephalic, normal inspection - Eye Eye exam: Present: normal appearance, PERRL - ENT ENT exam: Present: normal exam, normal orophraynx, mucous membranes moist - Neck Neck exam: Present: normal inspection, full ROM. Absent: tenderness, meningismus - Respiratory Respiratory exam: Present: normal lung sounds bilaterally - Cardiovascular Cardiovascular Exam: Present: regular rate, normal rhythm, normal heart sounds - GI/Abdominal GI/Abdominal exam: Present: soft, normal bowel sounds. Absent: distended, tenderness, guarding, rebound, rigid, mass, bruit, pulsatile mass, hernia - Extremities Exam Extremities exam: Present: normal inspection, full ROM, normal capillary refill - Back Exam Back exam: Present: normal inspection, full ROM. Absent: CVA tenderness (R), CVA tenderness (L) - Neurological Exam Neurological exam: Present: alert, oriented X3, CN II-XII intact - Psychiatric Psychiatric exam: Present: normal mood - Skin Skin exam: Present: warm, intact, normal color ED Course Vital Signs 06/14/20 06/14/20 06/14/20 19:46 20:14 20:15 Temperature 98.5 F Pulse Rate 68 65 Respiratory 18 13 12 Rate Blood Pressure 179/77 Blood Pressure 156/73 [Left] Blood Pressure 179/77 [Right] O2 Sat by Pulse 97 99 Oximetry 06/14/20 06/15/20 06/15/20 22:00 00:00 00:08 Temperature Pulse Rate 65 62 62 Respiratory 17 17 Rate Blood Pressure 182/65 Blood Pressure 169/77 182/65 [Left] Blood Pressure [Right] O2 Sat by Pulse 100 97 Oximetry ED Medical Decision Making - Lab Data Result diagrams: 06/14/20 20:09 06/14/20 20:09 - EKG Data -: EKG Interpreted by [facility] EKG shows normal: sinus rhythm Rate: normal - EKG Data Interpretation: no acute changes - Radiology Data Radiology results: report reviewed - Medical Decision Making Patient is 69 years old female with history of hypertension and diabetes. P catrachito brought to the emergency [facility] for evaluation of sudden onset of shortness of breath. Patient stated that she was eating supper when felt like something stuck in her throat and started having shortness of breath after that. Patient stated that her symptoms completely resolved now. Patient denied chest pain. No fever or chills. EKG showed no ST elevation or depression. Labs reviewed and is unremarkable including negative troponin x2. Chest x-ray is unremarkable. No clinical evidence of pulmonary embolism or acute ischemic cardiac disease. Patient r emained symptoms free. Patient walks several times to the bathroom with no difficulty. Patient advised to follow-up with her primary care physician in the next 2 to 3 days and to return to the ER if she develop any new symptoms. Critical care attestation.: If time is entered above; I have spent that time in minutes in the direct care of this critically ill patient, excluding procedure time. ED Disposition Clinical Impression: Shortness of breath Disposition: DC-01 TO HOME OR SELFCARE Is pt being admited?: No Condition: Stable Instructions: Shortness of Breath, Adult, [id number] Referrals: MIKE AMIN MD [Primary Care Provider] - 3-5 Days
[2020-06-14 20:25] LABS: Basophils % (Auto) 1.1 % (0.0-1.8); Eosinophils # (Auto) 0.2 K/mm3 (0.0-0.4); Eosinophils % (Auto) 4.8 % (0.0-4.3); Hematocrit 33.1 % (30.3-42.9); Hemoglobin 11.2 gm/dl (10.1-14.3); Lymphocytes # (Auto) 1.3 K/mm3 (1.2-5.4); Lymphocytes % (Auto) 28.7 % (13.4-35.0); Mean Corpuscular HGB Conc 34 % (30-34); Mean Corpuscular Volume 93 fl (79-97); Monocytes # (Auto) 0.3 K/mm3 (0.0-0.8); Monocytes % (Auto) 7.4 % (0.0-7.3); Platelet Count 125 K/mm3 (140-440); Red Blood Count 3.56 M/mm3 (3.65-5.03); Red Cell Distribution Width 13.4 % (13.2-15.2)
[2020-06-14 20:41] LABS: INR 1.1 (0.87-1.13); Partial Thromboplastin Time 30.6 Sec. (24.2-36.6)
[2020-06-14 20:47] LABS: Alanine Aminotransferase 12 units/L (7-56); Albumin 4.3 g/dL (3.9-5); BUN/Creatinine Ratio 21; Blood Urea Nitrogen 33 mg/dL (7-17); Hemolysis Index 4
--- NOTE | 2020-06-14 20:52 | XRay Report ---
CHEST 1 VIEW 06/14/2020 7:29 PM INDICATION / CLINICAL INFORMATION: Chest Pain. COMPARISON: 04/07/20 FINDINGS: SUPPORT DEVICES: None. HEART / MEDIASTINUM: No significant abnormality. LUNGS / PLEURA: No significant pulmonary or pleural abnormality. No pneumothorax. ADDITIONAL FINDINGS: No significant additional findings. IMPRESSION: 1. No acute findings. No change. Signer Name: Bam Kendall MD Signed: 06/14/2020 8:47 PM Workstation Name: [id number]
[2020-06-14 20:53] LABS: Bilirubin,Direct < 0.2 mg/dL (0-0.2)
[2020-06-15] MEDS ORDERED: carvediloL 6.25 MG TAB PO ONE (00:01)
[2020-06-15 06:17] VITALS: BP 148/72
--- NOTE | 2020-06-16 17:32 | Electrocardiograph Report ---
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
== END 2020-06-15 06:43 | disposition home or self-care (01) ==
LOC: ED 19:37
DX: R06.02 Shortness of breath (principal); I10 Essential (primary) hypertension; E11.9 Type 2 diabetes mellitus without complications; M19.91 Primary osteoarthritis, unspecified site; G43.909 Migraine, unspecified, not intractable, without status migrainosus; Z90.49 Acquired absence of other specified parts of digestive tract; Z98.890 Other specified postprocedural states; Z79.4 Long term (current) use of insulin; Z88.8 Allergy status to other drugs, medicaments and biological substances; Z88.0 Allergy status to penicillin
CPT/HCPCS: 36415; 71045; 80048; 80076; 83690; 83880; 84484; 85025; 85610; 85730; 93005

== ENCOUNTER 2020-07-13 19:24 | Emergency (ER) | payer MEDICARE ==
[2020-07-13 21:14] VITALS: BP 141/71
[2020-07-13] MEDS ORDERED: NEOMY 3.5 MG/BACIT 400 UNITS/POLY B 5000 UNITS/GM OINT PACKET TP ONE (21:21)
[2020-07-13] MEDS ORDERED: ACETAMINOPHEN 325 MG TAB PO ONE (21:21)
--- NOTE | 2020-07-13 22:05 | Emergency Department Report ---
ED Fall HPI - General Chief Complaint: Fall Stated Complaint: FALL Time Seen by Provider: 07/13/20 21:19 Source: patient Mode of arrival: Ambulatory - History of Present Illness Initial Comments: Patient is a 69-year-old female presents emergency room complaints of a fall that occurred just prior to arrival. Patient states that she walks with a cane and she accidentally slipped and fell. She denies any chest pain, shortness of breath, dizziness prior to her fall. She states that she hit her head. She is complaining of lower back pain, neck pain, bilateral dong pain. She has wounds to her bilateral lower extremities. She states her last sinus immunization was 3 years ago. She denies any loss of consciousness, vision changes, vomiting, numbness, weakness, bowel or bladder incontinence, and other injury. Past medical history of diabetes, hypertension, hyperlipidemia, CKD, arthritis. - Related Data Home Medications Medication Instructions Recorded Confirmed Last Taken Amitriptyline 10 mg PO QHS 09/28/19 02/22/20 Unknown Aspirin 81 mg PO DAILY 09/28/19 02/22/20 Unknown Atorvastatin 40 mg PO QHS 09/28/19 02/22/20 Unknown Levemir VIAL 35 units SQ QHS 09/28/19 02/22/20 Unknown Levothyroxine 88 mcg PO QAC 09/28/19 02/22/20 Unknown Myrbetriq 25 mg PO DAILY 09/28/19 02/22/20 Unknown NovoLOG 100 UNITS/ML VIAL 10 units SQ TIDAC 09/28/19 06/14/20 Unknown allopurinoL 100 mg PO DAILY 09/28/19 06/14/20 Unknown Previous Rx's Medication Instructions Recorded Last Taken Type ARIPiprazole 7.5 mg PO QDAY #30 tablet 10/16/19 Unknown Rx Acetaminophen [Acetaminophen TAB] 650 mg PO Q4H PRN tablet 10/16/19 Unknown Rx Clopidogrel [Plavix] 75 mg PO DAILY #30 tablet 10/16/19 Unknown Rx DULoxetine [Cymbalta] 60 mg PO BID #60 capsule 10/16/19 Unknown Rx Ferrous Sulfate [Feosol 325 MG tab] 325 mg PO DAILY@0800 #30 tab 10/16/19 Unknown Rx Insulin Lispro [Humalog] 0 unit SUB-Q ACHS vial 10/16/19 Unknown Rx Melatonin [Melatonin 5MG TAB] 5 mg PO QHS tablet 10/16/19 Unknown Rx Pantoprazole [Protonix TAB] 20 mg PO QDAY #30 tablet. 10/16/19 Unknown Rx QUEtiapine [SEROquel] 50 mg PO QHS #30 tablet 10/16/19 Unknown Rx Topiramate [Topamax] 100 mg PO DAILY #90 tablet 10/16/19 Unknown Rx allopurinoL [Zyloprim] 100 mg PO QDAY #30 tablet 10/16/19 Unknown Rx busPIRone [Buspar] 15 mg PO BID #60 tablet 10/16/19 Unknown Rx carvediloL [Coreg] 12.5 mg PO BID #60 tablet 10/16/19 06/14/20 Rx Clopidogrel [Plavix] 75 mg PO QDAY #30 tablet 02/24/20 Unknown Rx Acetaminophen [Tylenol] 650 mg PO Q8HR PRN #20 capsule 07/13/20 Unknown Rx Neomycin/Bacitracin/Polymyxinb 1 applicatio TP BID #14 oint...g. 07/13/20 Unknown Rx [Triple Antibiotic Ointment] Allergies Allergy/AdvReac Type Severity Reaction Status Date / Time adhesive tape AdvReac Unknown Verified 06/15/20 00:00 codeine AdvReac Unknown Verified 06/15/20 00:00 morphine AdvReac Unknown Verified 06/15/20 00:00 ondansetron AdvReac Unknown Verified 06/15/20 00:00 Penicillins AdvReac Unknown Verified 06/15/20 00:00 Sulfa (Sulfonamide AdvReac Unknown Verified 06/15/20 00:00 Antibiotics) ED Review of Systems ROS: Stated complaint: FALL Other details as noted in HPI Comment: All other systems reviewed and negative ED Past Medical Hx - Past Medical History Previous Medical History?: Yes Hx Hypertension: Yes Hx Diabetes: Yes Hx Renal Disease: Yes Hx Arthritis: Yes Hx Headaches / Migraines: Yes Hx Seizures: No Hx Psychiatric Treatment: Yes - Surgical History Hx Cholecystectomy: Yes Hx Appendectomy: Yes - Social History Smoking Status: Never Smoker Substance Use Type: None - Medications Home Medications: Home Medications Medication Instructions Recorded Confirmed Last Taken Type Amitriptyline 10 mg PO QHS 09/28/19 02/22/20 Unknown History Aspirin 81 mg PO DAILY 09/28/19 02/22/20 Unknown History Atorvastatin 40 mg PO QHS 09/28/19 02/22/20 Unknown History Levemir VIAL 35 units SQ QHS 09/28/19 02/22/20 Unknown History Levothyroxine 88 mcg PO QAC 09/28/19 02/22/20 Unknown History Myrbetriq 25 mg PO DAILY 09/28/19 02/22/20 Unknown History NovoLOG 100 UNITS/ML VIAL 10 units SQ TIDAC 09/28/19 06/14/20 Unknown History allopurinoL 100 mg PO DAILY 09/28/19 06/14/20 Unknown History ARIPiprazole 7.5 mg PO QDAY #30 tablet 10/16/19 02/22/20 Unknown Rx Acetaminophen [Acetaminophen TAB] 650 mg PO Q4H PRN tablet 10/16/19 02/22/20 Unknown Rx Clopidogrel [Plavix] 75 mg PO DAILY #30 tablet 10/16/19 06/14/20 Unknown Rx DULoxetine [Cymbalta] 60 mg PO BID #60 capsule 10/16/19 02/22/20 Unknown Rx Ferrous Sulfate [Feosol 325 MG tab] 325 mg PO DAILY@0800 #30 tab 10/16/19 02/22/20 Unknown Rx Insulin Lispro [Humalog] 0 unit SUB-Q ACHS vial 10/16/19 02/22/20 Unknown Rx Melatonin [Melatonin 5MG TAB] 5 mg PO QHS tablet 10/16/19 06/14/20 Unknown Rx Pantoprazole [Protonix TAB] 20 mg PO QDAY #30 tablet. 10/16/19 02/22/20 Unknown Rx QUEtiapine [SEROquel] 50 mg PO QHS #30 tablet 10/16/19 06/14/20 Unknown Rx Topiramate [Topamax] 100 mg PO DAILY #90 tablet 10/16/19 06/14/20 Unknown Rx allopurinoL [Zyloprim] 100 mg PO QDAY #30 tablet 10/16/19 06/14/20 Unknown Rx busPIRone [Buspar] 15 mg PO BID #60 tablet 10/16/19 06/14/20 Unknown Rx carvediloL [Coreg] 12.5 mg PO BID #60 tablet 10/16/19 06/14/20 06/14/20 Rx Clopidogrel [Plavix] 75 mg PO QDAY #30 tablet 02/24/20 06/14/20 Unknown Rx Acetaminophen [Tylenol] 650 mg PO Q8HR PRN #20 capsule 07/13/20 Unknown Rx Neomycin/Bacitracin/Polymyxinb 1 applicatio TP BID #14 oint...g. 07/13/20 Unknown Rx [Triple Antibiotic Ointment] ED Physical Exam - General Limitations: No Limitations General appearance: alert, in no apparent distress - Head Head exam: Present: atraumatic, normocephalic - Eye Eye exam: Present: normal appearance - ENT ENT exam: Present: mucous membranes moist - Neck Neck exam: Present: normal inspection, tenderness (bilateral c-spine paraspinal ttp, no step offs, no deformities ), full ROM. Absent: meningismus - Respiratory Respiratory exam: Present: normal lung sounds bilaterally. Absent: respiratory distress, wheezes, rales, rhonchi, stridor, chest wall tenderness, accessory muscle use, decreased breath sounds, prolonged expiratory - Cardiovascular Cardiovascular Exam: Present: regular rate, normal rhythm, normal heart sounds. Absent: systolic murmur, diastolic murmur, rubs, gallop - Extremities Exam Extremities exam: Present: other (mild anterior dong pain, FROM of the BLE, skin tears present to the bilateral lower extremities, neurovasculalry intact) - Back Exam Back exam: Present: normal inspection, full ROM, paraspinal tenderness (bilateral lumbar paraspinal muscular ttp, no midline C-spine, T-spine or L- spine ttp, no step offs, no deformities). Absent: vertebral tenderness - Neurological Exam Neurological exam: Present: alert, oriented X3, CN II-XII intact, normal gait. Absent: motor sensory deficit - Psychiatric Psychiatric exam: Present: normal affect, normal mood - Skin Skin exam: Present: warm, dry ED Course Vital Signs 07/13/20 07/13/20 21:02 23:13 Temperature 98.6 F Pulse Rate 73 69 Respiratory 18 17 Rate Blood Pressure 141/71 O2 Sat by Pulse 100 97 Oximetry ED Medical Decision Making - Radiology Data Radiology results: report reviewed Ordering Physician: BERNARDINO WILKINS Date of Service: 07/13/20 Procedure(s): CT lumbar spine wo con Accession Number(s): [id number] cc: BERNARDINO WILKINS CLINICAL DATA: Post-fall, hit head, now with lower back pain TECHNICAL DATA: CT imaging of the lumbar spine was performed from reconstructed images of the CT abdomen pelvis. Images were reconstructed in the axial, coronal, and sagittal imaging planes. All CT scans at this location are performed using CT dose reduction for ALARA by means of automated exposure control. FINDINGS: L1-2: The thecal sac is normal. No evidence of disc herniation or disc bulge. Facets within normal limits. No evidence of spinal stenosis. L2-3: The thecal sac is normal. No evidence of disc herniation or disc bulge. Facets within normal limits. No evidence of spinal stenosis. L3-4: The thecal sac is normal. No evidence of disc herniation or disc bulge. Facet degenerative change on the left with ligamentum flavum hypertrophy. No evidence of spinal stenosis. L4-5: The thecal sac is normal. No evidence of disc herniation or disc bulge. Facets within normal limits. No evidence of spinal stenosis. L5-S1: Marked intervertebral disc space narrowing is present with anterior and posterior osteophytes. The thecal sac is normal. No evidence of disc herniation or disc bulge. Mild facet degenerative changes are present with associated ligament flavum hypertrophy. No evidence of spinal stenosis IMPRESSION: Degenerative changes as noted. No acute traumatic abnormality Signer Name: Bi Perez MD Signed: 07/13/2020 10:42 PM Workstation Name: [id number] Transcribed By: WG Dictated By: Bi Perez MD Electronically Authenticated By: Bi Perez MD Signed Date/Time: 07/13/202241 DD/ 39 TD/TT: Ordering Physician: BERNARDINO WILKINS Date of Service: 07/13/20 Procedure(s): XR tib/fib BILAT 2V Accession Number(s): [id number] cc: BERNARDINO WILKINS Fluoro Time In Minutes: BILATERAL TIBIA-FIBULA 3 VIEW(S) EACH INDICATION / CLINICAL INFORMATION: fall bilateral dong pain COMPARISON: None available. FINDINGS: RIGHT: BONES / JOINT(S): Chronic appearing deformity at the distal tibia and fibula with discontinuity of the fibular shaft from the metadiaphysis. There is postoperative nail fixation of the tibiotalar and subtalar articulations with considerable osseous overgrowth at the distal tibia. Midfoot joints demonstrate no significant degenerative changes. Small inferior calcaneal enthesophyte. No acute fracture or dislocation. SOFT TISSUES: No significant abnormality. ADDITIONAL FINDINGS: None. LEFT: BONES / JOINT(S): No acute fracture or subluxation. No significant arthritis. Small partially visualized knee effusion. SOFT TISSUES: No significant abnormality. ADDITIONAL FINDINGS: None. Signer Name: Davian Alarcon MD Signed: 07/13/2020 10:34 PM Workstation Name: [id number] Transcribed By: Dictated By: DAVIAN ALARCON III Electronically Authenticated By: DAVIAN ALARCON III Signed Date/Time: 07/13/202233 DD/ 29 TD/TT: Print Ordering Physician: BERNARDINO WILKINS Date of Service: 07/13/20 Procedure(s): CT head/brain wo con Accession Number(s): [id number] cc: BERNARDINO WILKINS CT HEAD WITHOUT CONTRAST HISTORY: Post-fall, hit head, now with head pain COMPARISON: 04/07/2020 TECHNIQUE: CT imaging of the head was performed in the axial, sagittal, and coronal projections and bone algorithm in axial projection in the soft tissue algorithm. All CT scans at this location are performed using CT dose reduction for ALARA by means of automated exposure control. CONTRAST: None. FINDINGS: Cerebral and Cerebellar Hemispheres: Again noted is the encephalomalacia left frontal and parietal lobes consistent with old infarct. Mild diffuse cerebral atrophy is present. No evidence of mass or mass effect. No midline shift. No acute hemorrhage. No acute cortical infarction. No extra-axial fluid collection. Ventricles: Normal in size and configuration for age. Osseous Structures: No significant abnormality. Visualized Paranasal Sinuses: No significant abnormality. Additional Findings: None IMPRESSION: 1. No acute intracranial abnormality. 2. 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 Signer Name: Bi Perez MD Signed: 07/13/2020 10:46 PM Workstation Name: [id number] Transcribed By: ROJELIO Dictated By: Bi Perez MD Electronically Authenticated By: Bi Perez MD Signed Date/Time: 07/13/202245 DD/ 42 TD/TT: Print Ordering Physician: BERNARDINO WILKINS Date of Service: 07/13/20 Procedure(s): CT cervical spine wo con Accession Number(s): [id number] cc: BERNARDINO WILKINS CLINICAL DATA: Post-fall, hit head, now with neck pain TECHNICAL DATA: CT imaging of the cervical spine was performed in the axial, sagittal, and coronal projections and bone algorithm in axial projection in the soft tissue algorithm. All CT scans at this location are performed using CT dose reduction for ALARA by means of automated exposure control. FINDINGS: The ring of C1 is normal. The odontoid is normal. There is no evidence of an offset. There is no evidence of a fracture. However, degenerative changes are present with narrowing of the C1 odontoid junction. The spinal canal is well maintained. C2-C3: The spinal canal is well maintained. The neural foramina are normal. The vertebral bodies are normal. The posterior elements are intact. There is no evidence of a fracture. C3-C4: The spinal canal is well maintained. The neural foramina are normal. The vertebral bodies are normal. The posterior elements are intact. There is no evidence of a fracture. C4-C5: The spinal canal is well maintained. The neural foramina are normal. The vertebral bodies are normal. The posterior elements are intact. There is no evidence of a fracture. C5-C6: Interbody fusion is present with anterior fixation plate. The neural foramina are normal. The vertebral bodies are normal. The posterior elements are intact. There is no evidence of a fracture. C6-C7: Marked intervertebral disc space narrowing is present with anterior and posterior osteophytes. The spinal canal is well maintained. The neural foramina are normal. The vertebral bodies are normal. The posterior elements are intact. There is no evidence of a fracture. C7-T1: The spinal canal is well maintained. The neural foramina are normal. The vertebral bodies are normal. The posterior elements are intact. There is no evidence of a fracture. IMPRESSION: No acute traumatic abnormality. Degenerative changes as noted. Signer Name: Bi Perez MD Signed: 07/13/2020 10:40 PM Workstation Name: [id number] Transcribed By: ROJELIO Dictated By: Bi Perez MD Electronically Authenticated By: Bi Perez MD Signed Date/Time: 07/13/202239 DD/ 38 TD/TT: - Medical Decision Making Patient is a 69-year-old female presents emergency room complaints of a fall that occurred just prior to arrival. Patient states that she walks with a cane and she accidentally slipped and fell. She denies any chest pain, shortness of breath, dizziness prior to her fall. She states that she hit her head. She is complaining of lower back pain, neck pain, bilateral dong pain. She has wounds to her bilateral lower extremities. She states her last sinus immunization was 3 years ago. She denies any loss of consciousness, vision changes, vomiting, numbness, weakness, bowel or bladder incontinence, and other injury. Past medical history of diabetes, hypertension, hyperlipidemia, CKD, arthritis. Vitals are stable. On exam:bilateral c-spine paraspinal ttp, no step offs, no deformities, mild anterior dong pain, FROM of the BLE, skin tears present to the bilateral lower extremities, neurovasculalry intact, bilateral lumbar paraspinal muscular ttp, no midline C-spine, T-spine or L-spine ttp, no step offs, no deformities, no focal neuro deficits. Imaging ordered and shows no acute process. Wound care performed by bindery technician. Advised patient Please use medication as prescribed as needed. Please wash areas with antibacterial soap and water pat dry. No hot tub, no pool, no soaking in water. Showering is fine. Follow-up with a primary care doctor for reexamination. Return to emergency room for new or worse symptoms. Critical care attestation.: If time is entered above; I have spent that time in minutes in the direct care of this critically ill patient, excluding procedure time. ED Disposition Clinical Impression: Neck pain, Skin tear Low back pain Qualifiers: Chronicity: acute Back pain laterality: bilateral Sciatica presence: without sciatica Qualified Code(s): M54.5 - Low back pain Pain in the shins Qualifiers: Laterality: unspecified laterality Qualified Code(s): M79.669 - Pain in unspecified lower leg Fall Qualifiers: Encounter type: initial encounter Qualified Code(s): W19.XXXA - Unspecified fall, initial encounter Disposition: TO HOME OR SELFCARE Is pt being admited?: No Does the pt Need Aspirin: No Condition: Stable Instructions: Skin Tear, [id number], Musculoskeletal Pain Additional Instructions: Please use medication as prescribed as needed. Please wash areas with antibacterial soap and water pat dry. No hot tub, no pool, no soaking in water. Showering is fine. Follow-up with a primary care doctor for reexamination. Return to emergency room for new or worse symptoms. Prescriptions: Neomycin/Bacitracin/Polymyxinb [Triple Antibiotic Ointment] 1 applicatio TP BID #14 oint...g. Acetaminophen [Tylenol] 650 mg PO Q8HR PRN #20 capsule PRN Reason: pain Referrals: your, primary care doctor [Other] - 2-3 Days Time of Disposition: 23:01 Print Language: AMHARIC
--- NOTE | 2020-07-13 22:38 | XRay Report ---
BILATERAL TIBIA-FIBULA 3 VIEW(S) EACH INDICATION / CLINICAL INFORMATION: fall bilateral dong pain COMPARISON: None available. FINDINGS: RIGHT: BONES / JOINT(S): Chronic appearing deformity at the distal tibia and fibula with discontinuity of th e fibular shaft from the metadiaphysis. There is postoperative nail fixation of the tibiotalar and garcia btalar articulations with considerable osseous overgrowth at the distal tibia. Midfoot joints demonst rate no significant degenerative changes. Small inferior calcaneal enthesophyte. No acute fracture or dislocation. SOFT TISSUES: No significant abnormality. ADDITIONAL FINDINGS: None. LEFT: BONES / JOINT(S): No acute fracture or subluxation. No significant arthritis. Small partially visuali zed knee effusion. SOFT TISSUES: No significant abnormality. ADDITIONAL FINDINGS: None. Signer Name: Jamal Alarcon MD Signed: 07/13/2020 10:34 PM Workstation Name: [id number]
--- NOTE | 2020-07-13 22:44 | Cat Scan Report ---
CLINICAL DATA: Post-fall, hit head, now with neck pain TECHNICAL DATA: CT imaging of the cervical spine was performed in the axial, sagittal, and coronal projections and roro ne algorithm in axial projection in the soft tissue algorithm. All CT scans at this location are performed using CT dose reduction for ALARA by means of automated e xposure control. FINDINGS: The ring of C1 is normal. The odontoid is normal. There is no evidence of an offset. There is no e vidence of a fracture. However, degenerative changes are present with narrowing of the C1 odontoid j unction. The spinal canal is well maintained. C2-C3: The spinal canal is well maintained. The neural foramina are normal. The vertebral bodies a re normal. The posterior elements are intact. There is no evidence of a fracture. C3-C4: The spinal canal is well maintained. The neural foramina are normal. The vertebral bodies a re normal. The posterior elements are intact. There is no evidence of a fracture. C4-C5: The spinal canal is well maintained. The neural foramina are normal. The vertebral bodies a re normal. The posterior elements are intact. There is no evidence of a fracture. C5-C6: Interbody fusion is present with anterior fixation plate. The neural foramina are normal. The vertebral bodies are normal. The posterior elements are intact. There is no evidence of a fracture . C6-C7: Marked intervertebral disc space narrowing is present with anterior and posterior osteophytes . The spinal canal is well maintained. The neural foramina are normal. The vertebral bodies are no rmal. The posterior elements are intact. There is no evidence of a fracture. C7-T1: The spinal canal is well maintained. The neural foramina are normal. The vertebral bodies a re normal. The posterior elements are intact. There is no evidence of a fracture. IMPRESSION: No acute traumatic abnormality. Degenerative changes as noted. Signer Name: Bi Perez MD Signed: 07/13/2020 10:40 PM Workstation Name: [id number]
--- NOTE | 2020-07-13 22:47 | Cat Scan Report ---
CLINICAL DATA: Post-fall, hit head, now with lower back pain TECHNICAL DATA: CT imaging of the lumbar spine was performed from reconstructed images of the CT abdomen pelvis. Imag es were reconstructed in the axial, coronal, and sagittal imaging planes. All CT scans at this location are performed using CT dose reduction for ALARA by means of automated e xposure control. FINDINGS: L1-2: The thecal sac is normal. No evidence of disc herniation or disc bulge. Facets within normal limits. No evidence of spinal stenosis. L2-3: The thecal sac is normal. No evidence of disc herniation or disc bulge. Facets within normal limits. No evidence of spinal stenosis. L3-4: The thecal sac is normal. No evidence of disc herniation or disc bulge. Facet degenerative ch lori on the left with ligamentum flavum hypertrophy. No evidence of spinal stenosis. L4-5: The thecal sac is normal. No evidence of disc herniation or disc bulge. Facets within normal limits. No evidence of spinal stenosis. L5-S1: Marked intervertebral disc space narrowing is present with anterior and posterior osteophytes . The thecal sac is normal. No evidence of disc herniation or disc bulge. Mild facet degenerative ch anges are present with associated ligament flavum hypertrophy. No evidence of spinal stenosis IMPRESSION: Degenerative changes as noted. No acute traumatic abnormality Signer Name: Bi Perez MD Signed: 07/13/2020 10:42 PM Workstation Name: [id number]
--- NOTE | 2020-07-13 22:51 | Cat Scan Report ---
CT HEAD WITHOUT CONTRAST HISTORY: Post-fall, hit head, now with head pain COMPARISON: 04/07/2020 TECHNIQUE: CT imaging of the head was performed in the axial, sagittal, and coronal projections and bone algori thm in axial projection in the soft tissue algorithm. All CT scans at this location are performed using CT dose reduction for ALARA by means of automated e xposure control. CONTRAST: None. FINDINGS: Cerebral and Cerebellar Hemispheres: Again noted is the encephalomalacia left frontal and parietal lo bes consistent with old infarct. Mild diffuse cerebral atrophy is present. No evidence of mass or mas s effect. No midline shift. No acute hemorrhage. No acute cortical infarction. No extra-axial flu id collection. Ventricles: Normal in size and configuration for age. Osseous Structures: No significant abnormality. Visualized Paranasal Sinuses: No significant abnormality. Additional Findings: None IMPRESSION: 1. No acute intracranial abnormality. 2. 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 Signer Name: Bi Perez MD Signed: 07/13/2020 10:46 PM Workstation Name: [id number]
== END 2020-07-13 23:13 | disposition home or self-care (01) ==
LOC: ED 19:24
DX: S80.922A Unspecified superficial injury of left lower leg, initial encounter (principal); S80.921A Unspecified superficial injury of right lower leg, initial encounter; M54.5 Low back pain; M54.2 Cervicalgia; I10 Essential (primary) hypertension; E11.9 Type 2 diabetes mellitus without complications; M19.91 Primary osteoarthritis, unspecified site; G43.909 Migraine, unspecified, not intractable, without status migrainosus; Z90.49 Acquired absence of other specified parts of digestive tract; Z79.4 Long term (current) use of insulin; Z79.899 Other long term (current) drug therapy; Z88.8 Allergy status to other drugs, medicaments and biological substances; Z88.0 Allergy status to penicillin; W01.0XXA Fall on same level from slipping, tripping and stumbling without subsequent striking against object, initial encounter; Y93.89 Activity, other specified; Y92.89 Other specified places as the place of occurrence of the external cause; Y99.8 Other external cause status
CPT/HCPCS: 70450; 72125; 72131; 73590; 99284; A6250

== ENCOUNTER 2020-08-25 16:09 | Emergency (ER) | payer MEDICARE ==
[2020-08-25 22:14] LABS: Basophils # (Auto) 0.1 K/mm3 (0.0-0.1); Basophils % (Auto) 1.1 % (0.0-1.8); Eosinophils # (Auto) 0.2 K/mm3 (0.0-0.4); Eosinophils % (Auto) 3.9 % (0.0-4.3); Hematocrit 34.8 % (30.3-42.9); Hemoglobin 11.6 gm/dl (10.1-14.3); Lymphocytes # (Auto) 1.4 K/mm3 (1.2-5.4); Lymphocytes % (Auto) 24.9 % (13.4-35.0); Mean Corpuscular HGB Conc 33 % (30-34); Mean Corpuscular Volume 95 fl (79-97); Monocytes # (Auto) 0.4 K/mm3 (0.0-0.8); Monocytes % (Auto) 6.6 % (0.0-7.3); Platelet Count 123 K/mm3 (140-440); Red Blood Count 3.65 M/mm3 (3.65-5.03); Red Cell Distribution Width 14.3 % (13.2-15.2)
[2020-08-25] MEDS ORDERED: HYDROmorphone 1 MG/1 ML INJ IV ONE (22:22)
--- NOTE | 2020-08-25 22:33 | Emergency Department Report ---
ED Abdominal Pain HPI - General Chief Complaint: Abdominal Pain Stated Complaint: KIDNEY STONE PUI?: No Time Seen by Provider: 08/25/20 22:17 Source: patient, EMS Mode of arrival: Wheelchair Limitations: Physical Limitation - History of Present Illness Initial Comments: Patient is a 69-year-old female who presents emergency room with complaints of right flank pain. Patient states her flank pain started yesterday. Patient sta magdy her pain is worsening. Patient states she feels like it is a kidney stone. Patient states she has had multiple kidney stones in the past. Patient states she has passed many kidney stones. Patient also complains of dysuria. Patient states her dysuria started yesterday as well. Patient denies fever and chills. Patient also complains of nausea and vomiting. Patient denies diarrhea. Jeffrey nt denies blood in her vomitus. Patient states she is feels like she has passed the stone but is still having pain. Patient denies recent travel. Patient denies recent international travel. Patient denies exposure to the novel coronavirus. Patient denies sick contacts. Patient denies fever and chills. Patient denies cough. Patient denies diarrhea. Patient denies coming in contact with anybody with symptoms of the novel coronavirus. MD Complaint: flank pain -: Sudden Location: R flank Radiation: none Migration to: no migration Severity: severe Severity scale (0 -10): 10 Quality: stabbing Consistency: constant Improves With: rest Worsens With: vomiting, movement Associated Symptoms: nausea, vomiting, dysuria. denies: diarrhea, fever, chills, constipation, hematemesis, hematochezia, melena, syncope - Related Data Home Medications Medication Instructions Recorded Confirmed Last Taken Amitriptyline 10 mg PO QHS 09/28/19 02/22/20 Unknown Aspirin 81 mg PO DAILY 09/28/19 02/22/20 Unknown Atorvastatin 40 mg PO QHS 09/28/19 02/22/20 Unknown Levemir VIAL 35 units SQ QHS 09/28/19 02/22/20 Unknown Levothyroxine 88 mcg PO QAC 09/28/19 02/22/20 Unknown Myrbetriq 25 mg PO DAILY 09/28/19 02/22/20 Unknown NovoLOG 100 UNITS/ML VIAL 10 units SQ TIDAC 09/28/19 06/14/20 Unknown allopurinoL 100 mg PO DAILY 09/28/19 06/14/20 Unknown Previous Rx's Medication Instructions Recorded Last Taken Type ARIPiprazole 7.5 mg PO QDAY #30 tablet 10/16/19 Unknown Rx Acetaminophen [Acetaminophen TAB] 650 mg PO Q4H PRN tablet 10/16/19 Unknown Rx Clopidogrel [Plavix] 75 mg PO DAILY #30 tablet 10/16/19 Unknown Rx DULoxetine [Cymbalta] 60 mg PO BID #60 capsule 10/16/19 Unknown Rx Ferrous Sulfate [Feosol 325 MG tab] 325 mg PO DAILY@0800 #30 tab 10/16/19 Unknown Rx Insulin Lispro [Humalog] 0 unit SUB-Q ACHS vial 10/16/19 Unknown Rx Melatonin [Melatonin 5MG TAB] 5 mg PO QHS tablet 10/16/19 Unknown Rx Pantoprazole [Protonix TAB] 20 mg PO QDAY #30 tablet. 10/16/19 Unknown Rx QUEtiapine [SEROquel] 50 mg PO QHS #30 tablet 10/16/19 Unknown Rx Topiramate [Topamax] 100 mg PO DAILY #90 tablet 10/16/19 Unknown Rx allopurinoL [Zyloprim] 100 mg PO QDAY #30 tablet 10/16/19 Unknown Rx busPIRone [Buspar] 15 mg PO BID #60 tablet 10/16/19 Unknown Rx carvediloL [Coreg] 12.5 mg PO BID #60 tablet 10/16/19 06/14/20 Rx Clopidogrel [Plavix] 75 mg PO QDAY #30 tablet 02/24/20 Unknown Rx Acetaminophen [Tylenol] 650 mg PO Q8HR PRN #20 capsule 07/13/20 Unknown Rx Neomycin/Bacitracin/Polymyxinb 1 applicatio TP BID #14 oint...g. 07/13/20 Unknown Rx [Triple Antibiotic Ointment] Promethazine [Phenergan] 25 mg PO Q6HR PRN #15 tab 08/26/20 Unknown Rx Sennosides/Docusate Sodium [Senna 1 each PO BID #20 tablet 08/26/20 Unknown Rx Plus Tablet] levoFLOXacin [Levaquin TAB] 500 mg PO QDAY 10 Days #10 tablet 08/26/20 Unknown Rx Allergies Allergy/AdvReac Type Severity Reaction Status Date / Time adhesive tape AdvReac Unknown Verified 06/15/20 00:00 codeine AdvReac Unknown Verified 06/15/20 00:00 morphine AdvReac Unknown Verified 06/15/20 00:00 ondansetron AdvReac Unknown Verified 06/15/20 00:00 Penicillins AdvReac Unknown Verified 06/15/20 00:00 Sulfa (Sulfonamide AdvReac Unknown Verified 06/15/20 00:00 Antibiotics) ED Review of Systems ROS: Stated complaint: KIDNEY STONE Other details as noted in HPI Constitutional: denies: chills, fever Eyes: denies: eye pain, eye discharge, vision change ENT: denies: ear pain, throat pain Respiratory: denies: cough, shortness of breath, wheezing Cardiovascular: denies: chest pain, palpitations Endocrine: no symptoms reported Gastrointestinal: as per HPI, abdominal pain. denies: nausea, diarrhea Genitourinary: as per HPI, dysuria. denies: urgency, discharge Musculoskeletal: denies: back pain, joint swelling, arthralgia Skin: denies: rash, lesions Neurological: denies: headache, weakness, paresthesias Psychiatric: denies: anxiety, depression Hematological/Lymphatic: denies: easy bleeding, easy bruising ED Past Medical Hx - Past Medical History Previous Medical History?: Yes Hx Hypertension: Yes Hx Diabetes: Yes Hx Renal Disease: Yes Hx Arthritis: Yes Hx Headaches / Migraines: Yes Hx Seizures: No Hx Psychiatric Treatment: Yes - Surgical History Past Surgical History?: Yes Hx Cholecystectomy: Yes Hx Appendectomy: Yes - Family History Family history: no significant - Social History Smoking Status: Current Every Day Smoker Substance Use Type: None - Medications Home Medications: Home Medications Medication Instructions Recorded Confirmed Last Taken Type Amitriptyline 10 mg PO QHS 09/28/19 02/22/20 Unknown History Aspirin 81 mg PO DAILY 09/28/19 02/22/20 Unknown History Atorvastatin 40 mg PO QHS 09/28/19 02/22/20 Unknown History Levemir VIAL 35 units SQ QHS 09/28/19 02/22/20 Unknown History Levothyroxine 88 mcg PO QAC 09/28/19 02/22/20 Unknown History Myrbetriq 25 mg PO DAILY 09/28/19 02/22/20 Unknown History NovoLOG 100 UNITS/ML VIAL 10 units SQ TIDAC 09/28/19 06/14/20 Unknown History allopurinoL 100 mg PO DAILY 09/28/19 06/14/20 Unknown History ARIPiprazole 7.5 mg PO QDAY #30 tablet 10/16/19 02/22/20 Unknown Rx Acetaminophen [Acetaminophen TAB] 650 mg PO Q4H PRN tablet 10/16/19 02/22/20 Unknown Rx Clopidogrel [Plavix] 75 mg PO DAILY #30 tablet 10/16/19 06/14/20 Unknown Rx DULoxetine [Cymbalta] 60 mg PO BID #60 capsule 10/16/19 02/22/20 Unknown Rx Ferrous Sulfate [Feosol 325 MG tab] 325 mg PO DAILY@0800 #30 tab 10/16/19 02/22/20 Unknown Rx Insulin Lispro [Humalog] 0 unit SUB-Q ACHS vial 10/16/19 02/22/20 Unknown Rx Melatonin [Melatonin 5MG TAB] 5 mg PO QHS tablet 10/16/19 06/14/20 Unknown Rx Pantoprazole [Protonix TAB] 20 mg PO QDAY #30 tablet. 10/16/19 02/22/20 Unknown Rx QUEtiapine [SEROquel] 50 mg PO QHS #30 tablet 10/16/19 06/14/20 Unknown Rx Topiramate [Topamax] 100 mg PO DAILY #90 tablet 10/16/19 06/14/20 Unknown Rx allopurinoL [Zyloprim] 100 mg PO QDAY #30 tablet 10/16/19 06/14/20 Unknown Rx busPIRone [Buspar] 15 mg PO BID #60 tablet 10/16/19 06/14/20 Unknown Rx carvediloL [Coreg] 12.5 mg PO BID #60 tablet 10/16/19 06/14/20 06/14/20 Rx Clopidogrel [Plavix] 75 mg PO QDAY #30 tablet 02/24/20 06/14/20 Unknown Rx Acetaminophen [Tylenol] 650 mg PO Q8HR PRN #20 capsule 07/13/20 Unknown Rx Neomycin/Bacitracin/Polymyxinb 1 applicatio TP BID #14 oint...g. 07/13/20 Unknown Rx [Triple Antibiotic Ointment] Promethazine [Phenergan] 25 mg PO Q6HR PRN #15 tab 08/26/20 Unknown Rx Sennosides/Docusate Sodium [Senna 1 each PO BID #20 tablet 08/26/20 Unknown Rx Plus Tablet] levoFLOXacin [Levaquin TAB] 500 mg PO QDAY 10 Days #10 tablet 08/26/20 Unknown Rx ED Physical Exam - General Limitations: Physical Limitation General appearance: alert, in no apparent distress - Head Head exam: Present: atraumatic, normocephalic - Eye Eye exam: Present: normal appearance - ENT ENT exam: Present: mucous membranes moist - Neck Neck exam: Present: normal inspection - Respiratory Respiratory exam: Present: normal lung sounds bilaterally. Absent: respiratory distress - Cardiovascular Cardiovascular Exam: Present: regular rate, normal rhythm. Absent: systolic murmur, diastolic murmur, rubs, gallop - GI/Abdominal GI/Abdominal exam: Present: soft, tenderness, normal bowel sounds - Extremities Exam Extremities exam: Present: normal inspection - Back Exam Back exam: Present: normal inspection - Neurological Exam Neurological exam: Present: alert, oriented X3 - Psychiatric Psychiatric exam: Present: normal affect, normal mood - Skin Skin exam: Present: warm, dry, intact, normal color. Absent: rash ED Course Vital Signs 08/25/20 16:15 Temperature 98.4 F Pulse Rate 55 L Respiratory 18 Rate Blood Pressure 129/57 [Right] O2 Sat by Pulse 97 Oximetry - Reevaluation(s) Reevaluation #1: Patient states she is feeling better. 08/26/20 00:05 Reevaluation #2: Patient denies nausea vomiting. Patient denies pain. Patient states she is feeling much better. I discussed all results and clinical findings with patient. I discussed plan of care with patient. Patient agrees with plan of care. Patient is stable for discharge. Patient will be discharged home. Patient given discharge instructions. Patient voiced understanding of discharge instructions. 08/26/20 01:35 ED Medical Decision Making - Lab Data Result diagrams: 08/25/20 21:56 08/25/20 21:56 - Radiology Data Radiology results: report reviewed CT ABDOMEN AND PELVIS WITHOUT CONTRAST INDICATION / CLINICAL INFORMATION: RIGHT sided flank pain, Hx of previous renal stone(s). TECHNIQUE: Axial CT images were obtained through the abdomen and pelvis without IV contrast. All CT scans at this location are performed using CT dose reduction for ALARA by means of automated exposure control. COMPARISON: None available. FINDINGS: LOWER CHEST: No significant abnormality LIVER: No significant abnormality GALLBLADDER/BILIARY TREE: Cholecystectomy. PANCREAS: No significant abnormality SPLEEN: No significant abnormality ADRENALS: No significant abnormality KIDNEYS / URETER: No significant abnormality. No urolithiasis or hydronephrosis. URINARY BLADDER: Bladder is partially decompressed, though grossly unremarkable. REPRODUCTIVE ORGANS: Uterus is absent. No significant adnexal abnormality. STOMACH / BOWEL: Stomach and small bowel are normal in caliber. Moderate colonic stool burden with distention of the rectal vault. Colonic diverticula are visualized without evidence of diverticulitis. Appendix is not discretely seen, compatible with reported history of appendectomy. LYMPH NODES: No significant adenopathy. VASCULATURE: No significant abnormality. OTHER: No free air, free fluid, or focal fluid collection is identified. SKELETAL SYSTEM: Degenerative changes of the spine. No acute osseous findings. IMPRESSION: 1. Moderate constipation with distention of the rectal vault, which may reflect fecal impaction. No evidence of colitis. 2. No acute abnormality of the abdomen or pelvis. No urolithiasis or hydronephrosis. 3. Chronic and incidental findings, as above. - Medical Decision Making Patient is a 69-year-old female that presents emergency room with complaints of right flank pain, nausea, vomiting, dysuria. Patient had labs done which were essentially unremarkable except for mild renal insufficiency, dehydration and a UTI. Patient had a abdominal CT done which showed colitis and constipation and no kidney stone or kidney findings. Patient was given IV fluids, IV antibiotics of Levaquin, Phenergan and pain meds. Patient responded well to treatment. Patient stated she felt much better prior to discharge. Patient stable for discharge. Patient not require any further emergency medical services. Patient does not require inpatient services. Patient stable for discharge. Patient discharged home. Patient discharged home with senna S for constipation, Phenergan for nausea and antibiotics. - Differential Diagnosis UTI, kidney stone, abdominal pain, gastroenteritis, UTI Critical care attestation.: If time is entered above; I have spent that time in minutes in the direct care of this critically ill patient, excluding procedure time. ED Disposition Clinical Impression: Right flank pain, Dehydration, Colitis Nausea & vomiting Qualifiers: Vomiting type: unspecified Vomiting Intractability: non-intractable Qualified Code(s): R11.2 - Nausea with vomiting, unspecified CKD (chronic kidney disease) Qualifiers: Chronic kidney disease stage: unspecified stage Qualified Code(s): N18.9 - Chronic kidney disease, unspecified Constipation Qualifiers: Constipation type: unspecified constipation type Qualified Code(s): K59.00 - Constipation, unspecified Urinary tract infection Qualifiers: Urinary tract infection type: acute cystitis Hematuria presence: with hematuria Qualified Code(s): N30.01 - Acute cystitis with hematuria Disposition: TO HOME OR SELFCARE Is pt being admited?: No Does the pt Need Aspirin: No Condition: Stable Instructions: Viral Gastroenteritis, Adult, [id number], Urinary Tract Infection, Adult, [id number], Constipation, Adult, Nausea and Vomiting, Adult, Dehydration, Elderly, [id number], Abdominal Pain (ED) Additional Instructions: Patient to follow-up with primary care in 2 to 3 days. 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 Patient to rest. Patient to increase water. Patient to take Tylenol or ibuprofen as needed for pain. Patient to take meds as directed. Patient to return to the ER if condition worsens, changes or new symptoms arise. Prescriptions: levoFLOXacin [Levaquin TAB] 500 mg PO QDAY 10 Days #10 tablet Promethazine [Phenergan] 25 mg PO Q6HR PRN #15 tab PRN Reason: Nausea Sennosides/Docusate Sodium [Senna Plus Tablet] 1 each PO BID #20 tablet Referrals: PRIMARY MD KARENA [Primary Care Provider] - 2-3 Days ANGELA CARRANZA MD [Staff Physician] - 2-3 Days GILLIAN BADILLO MD [Staff Physician] - 2-3 Days Time of Disposition: 01:38
[2020-08-25 22:47] LABS: Alanine Aminotransferase 9 units/L (7-56); Albumin 4.6 g/dL (3.9-5); BUN/Creatinine Ratio 24; Blood Urea Nitrogen 31 mg/dL (7-17); Calcium 9.7 mg/dL (8.4-10.2); Hemolysis Index 34
[2020-08-25 22:55] LABS: Bilirubin,Direct < 0.2 mg/dL (0-0.2)
[2020-08-25 22:56] LABS: Bilirubin,Urine NEG (Negative); Blood,Urine NEG (Negative); Color,Urine Yellow (Yellow); Protein,Urine <15 mg/dL mg/dL (Negative); Urobilinogen,Urine < 2.0 mg/dL (<2.0)
--- NOTE | 2020-08-25 23:09 | Cat Scan Report ---
CT ABDOMEN AND PELVIS WITHOUT CONTRAST INDICATION / CLINICAL INFORMATION: RIGHT sided flank pain, Hx of previous renal stone(s). TECHNIQUE: Axial CT images were obtained through the abdomen and pelvis without IV contrast. All CT scans at this location are performed using CT dose reduction for ALARA by means of automated exposure control. COMPARISON: None available. FINDINGS: LOWER CHEST: No significant abnormality LIVER: No significant abnormality GALLBLADDER/BILIARY TREE: Cholecystectomy. PANCREAS: No significant abnormality SPLEEN: No significant abnormality ADRENALS: No significant abnormality KIDNEYS / URETER: No significant abnormality. No urolithiasis or hydronephrosis. URINARY BLADDER: Bladder is partially decompressed, though grossly unremarkable. REPRODUCTIVE ORGANS: Uterus is absent. No significant adnexal abnormality. STOMACH / BOWEL: Stomach and small bowel are normal in caliber. Moderate colonic stool burden with di stention of the rectal vault. Colonic diverticula are visualized without evidence of diverticulitis. Appendix is not discretely seen, compatible with reported history of appendectomy. LYMPH NODES: No significant adenopathy. VASCULATURE: No significant abnormality. OTHER: No free air, free fluid, or focal fluid collection is identified. SKELETAL SYSTEM: Degenerative changes of the spine. No acute osseous findings. IMPRESSION: 1. Moderate constipation with distention of the rectal vault, which may reflect fecal impaction. No e vidence of colitis. 2. No acute abnormality of the abdomen or pelvis. No urolithiasis or hydronephrosis. 3. Chronic and incidental findings, as above. Signer Name: Kurtis Appiah MD Signed: 08/25/2020 11:05 PM Workstation Name: [id number]
[2020-08-25] MEDS ORDERED: SODIUM CHLORIDE 0.9% 1000 ML 1,000 ML IV ONE (23:24)
[2020-08-26] MEDS ORDERED: PROMETHAZINE 12.5 MG/10 ML ORAL LIQD PO ONE (00:19)
[2020-08-26 06:30] VITALS: BP 181/78
== END 2020-08-26 03:45 | disposition home or self-care (01) ==
LOC: ED 16:09
DX: K52.89 Other specified noninfective gastroenteritis and colitis (principal); E86.0 Dehydration; K59.00 Constipation, unspecified; N39.0 Urinary tract infection, site not specified; R11.2 Nausea with vomiting, unspecified; M19.90 Unspecified osteoarthritis, unspecified site; E11.22 Type 2 diabetes mellitus with diabetic chronic kidney disease; I12.9 Hypertensive chronic kidney disease with stage 1 through stage 4 chronic kidney disease, or unspecified chronic kidney disease; N18.9 Chronic kidney disease, unspecified; F17.200 Nicotine dependence, unspecified, uncomplicated; G43.909 Migraine, unspecified, not intractable, without status migrainosus; Z98.890 Other specified postprocedural states; Z88.0 Allergy status to penicillin; Z88.5 Allergy status to narcotic agent; Z88.8 Allergy status to other drugs, medicaments and biological substances; Z88.9 Allergy status to unspecified drugs, medicaments and biological substances
CPT/HCPCS: 36415; 74176; 80048; 80076; 81001; 83690; 85025; 96365; 96375; 99284; J1170; J1956; J7030; Q0169; 96374

== ENCOUNTER 2021-02-05 17:02 | Emergency (ER) | payer MEDICARE ==
[2021-02-05 17:52] LABS: Basophils # (Auto) 0.1 K/mm3 (0.0-0.1); Basophils % (Auto) 1.2 % (0.0-1.8); Eosinophils # (Auto) 0.1 K/mm3 (0.0-0.4); Eosinophils % (Auto) 1.1 % (0.0-4.3); Hemoglobin 12.1 gm/dl (10.1-14.3); Lymphocytes # (Auto) 1.3 K/mm3 (1.2-5.4); Lymphocytes % (Auto) 23.6 % (13.4-35.0); Mean Corpuscular HGB Conc 33 % (30-34); Mean Corpuscular Volume 91 fl (79-97); Monocytes # (Auto) 0.4 K/mm3 (0.0-0.8); Monocytes % (Auto) 6.8 % (0.0-7.3); Platelet Count 188 K/mm3 (140-440); Red Blood Count 4.07 M/mm3 (3.65-5.03); Red Cell Distribution Width 13.4 % (13.2-15.2)
[2021-02-05 18:15] LABS: Albumin 4.2 g/dL (3.9-5); Calcium 9.2 mg/dL (8.4-10.2)
--- NOTE | 2021-02-05 19:56 | Event Note ---
ED Screening Note ED Screening Note: Patient is a 70-year-old female presents emergency room complaints of urinary retention She states that she has not urinated since 1130 this morning She reports that she had the same issue a couple years ago and had to have a Rodriguez catheter and see a urologist She has associated abdominal discomfort This initial assessment/diagnostic orders/clinical plan/treatment(s) is/are subject to change based on patients health status, clinical progression and re- assessment by fellow clinical providers in the ED. Further treatment and workup at subsequent clinical providers discretion. Patient/guardian urged not to elope from the ED as their condition may be serious if not clinically assessed and managed. Initial orders include: Needs Rodriguez catheter and UA
--- NOTE | 2021-02-05 22:03 | XRay Report ---
CHEST 1 VIEW 02/05/2021 9:50 PM INDICATION / CLINICAL INFORMATION: n/v. COMPARISON: 06/14/2020 FINDINGS: SUPPORT DEVICES: None. HEART / MEDIASTINUM: No significant abnormality. LUNGS / PLEURA: No significant pulmonary or pleural abnormality. No pneumothorax. ADDITIONAL FINDINGS: No significant additional findings. IMPRESSION: 1. No acute findings. Signer Name: Tyrese Alba MD Signed: 02/05/2021 9:59 PM Workstation Name: [id number]
--- NOTE | 2021-02-05 22:17 | Emergency Department Report ---
HPI - General Chief Complaint: Urogenital-Female Time Seen by Provider: 02/05/21 20:34 - HPI HPI: 70-year-old female with history of hypertension, DM2, hypothyroidism, CAD, and prior stroke with residual right-sided weakness on Plavix presents complaining of urinary retention and low back pain. The patient states that she has been unable to urinate since 11:30 AM today. She says that for the last several days she has been experiencing nausea and vomiting as well as low back pain. She also says she has been having some nasal congestion as well as a mild dry cough. She says that last night she was vomiting and at one point got pushed by a car door and fell onto her left hip. She denies hitting her head or losing consciousness. She is unsure whether this is related to her urinary retention but she states that she has been unable to urinate since this morning and feels pressure/buildup in the suprapubic region of her abdomen. She denies any associated fever, headache, vision change, neck pain, chest pain, shortness of breath, dysuria, hematuria, new focal weakness, new sensory changes, or any other complaints. ED Past Medical Hx - Past Medical History Hx Hypertension: Yes Hx Diabetes: Yes Hx Renal Disease: Yes Hx Arthritis: Yes Hx Headaches / Migraines: Yes Hx Seizures: No Hx Psychiatric Treatment: Yes - Surgical History Hx Cholecystectomy: Yes Hx Appendectomy: Yes - Social History Smoking Status: Current Every Day Smoker Substance Use Type: None - Medications Home Medications: Home Medications Medication Instructions Recorded Confirmed Last Taken Type Amitriptyline 10 mg PO QHS 09/28/19 02/22/20 Unknown History Aspirin 81 mg PO DAILY 09/28/19 02/22/20 Unknown History Atorvastatin 40 mg PO QHS 09/28/19 02/22/20 Unknown History Levemir VIAL 35 units SQ QHS 09/28/19 02/22/20 Unknown History Levothyroxine 88 mcg PO QAC 09/28/19 02/22/20 Unknown History Myrbetriq 25 mg PO DAILY 09/28/19 02/22/20 Unknown History NovoLOG 100 UNITS/ML VIAL 10 units SQ TIDAC 09/28/19 06/14/20 Unknown History allopurinoL 100 mg PO DAILY 09/28/19 06/14/20 Unknown History ARIPiprazole 7.5 mg PO QDAY #30 tablet 10/16/19 02/22/20 Unknown Rx Acetaminophen [Acetaminophen TAB] 650 mg PO Q4H PRN tablet 10/16/19 02/22/20 Unknown Rx Clopidogrel [Plavix] 75 mg PO DAILY #30 tablet 10/16/19 06/14/20 Unknown Rx DULoxetine [Cymbalta] 60 mg PO BID #60 capsule 10/16/19 02/22/20 Unknown Rx Ferrous Sulfate [Feosol 325 MG tab] 325 mg PO DAILY@0800 #30 tab 10/16/19 02/22/20 Unknown Rx Insulin Lispro [Humalog] 0 unit SUB-Q ACHS vial 10/16/19 02/22/20 Unknown Rx Melatonin [Melatonin 5MG TAB] 5 mg PO QHS tablet 10/16/19 06/14/20 Unknown Rx Pantoprazole [Protonix TAB] 20 mg PO QDAY #30 tablet. 10/16/19 02/22/20 Unknown Rx QUEtiapine [SEROquel] 50 mg PO QHS #30 tablet 10/16/19 06/14/20 Unknown Rx Topiramate [Topamax] 100 mg PO DAILY #90 tablet 10/16/19 06/14/20 Unknown Rx allopurinoL [Zyloprim] 100 mg PO QDAY #30 tablet 10/16/19 06/14/20 Unknown Rx busPIRone [Buspar] 15 mg PO BID #60 tablet 10/16/19 06/14/20 Unknown Rx carvediloL [Coreg] 12.5 mg PO BID #60 tablet 10/16/19 06/14/20 06/14/20 Rx Clopidogrel [Plavix] 75 mg PO QDAY #30 tablet 02/24/20 06/14/20 Unknown Rx Acetaminophen [Tylenol] 650 mg PO Q8HR PRN #20 capsule 07/13/20 Unknown Rx Neomycin/Bacitracin/Polymyxinb 1 applicatio TP BID #14 oint...g. 07/13/20 Unknown Rx [Triple Antibiotic Ointment] Promethazine [Phenergan] 25 mg PO Q6HR PRN #15 tab 08/26/20 Unknown Rx Sennosides/Docusate Sodium [Senna 1 each PO BID #20 tablet 08/26/20 Unknown Rx Plus Tablet] levoFLOXacin [Levaquin TAB] 500 mg PO QDAY 10 Days #10 tablet 08/26/20 Unknown Rx levoFLOXacin [Levaquin TAB] 750 mg PO QDAY #10 tablet 02/06/21 Unknown Rx ED Review of Systems ROS: Stated complaint: Unable to urinate x3 hours Other details as noted in HPI Comment: All other systems reviewed and negative Constitutional: denies: chills, fever Eyes: denies: eye pain, vision change ENT: congestion. denies: throat pain Respiratory: cough. denies: shortness of breath Cardiovascular: denies: chest pain, palpitations, syncope Gastrointestinal: abdominal pain, nausea, vomiting Genitourinary: other (urinary retention). denies: hematuria Musculoskeletal: back pain. denies: arthralgia Skin: denies: rash, lesions Neurological: denies: headache, weakness, numbness Physical Exam - Physical Exam Physical Exam: GENERAL: Well developed and well nourished. No acute distress HEAD: Normocephalic. No obvious signs of trauma. ENT: Moist mucous membranes. EYES: Extraocular movements are intact. Pupils are equal round and reactive to light bilaterally NECK: Supple. Trachea is midline. LUNGS: Nonlabored breathing. Equal chest rise bilaterally. Clear to auscultation bilaterally. CARDIOVASCULAR: Regular rate and rhythm. No murmurs or rubs. VASCULAR: Cap refill < 2 seconds ABDOMEN: Abdomen is soft and nondistended. There is suprapubic fullness with mild tenderness but otherwise no significant guarding or rebound tenderness. SKIN: Skin is warm and dry NEURO: Patient is awake, alert, and oriented. manager primary II-XII grossly intact. Right- sided weakness but otherwise normal motor and sensory exam throughout. MUSCULOSKELETAL: No obvious deformities. No significant tenderness. Normal ROM throughout. BACK/SPINE: No midline tenderness or step-offs of the C/T spine. There is tenderness in the midline lumbar spine as well as bilateral paraspinous regions. ED Medical Decision Making - Lab Data Result diagrams: 02/05/21 17:41 02/05/21 17:41 - EKG Data -: EKG Interpreted by Me - EKG Data Normal sinus rhythm. Normal axis. Normal intervals. No ectopy. No significant ST segment or T wave abnormalities. - Radiology Data Radiology results: report reviewed - Medical Decision Making 70-year-old female with complex medical history presenting with urinary retention since 11:30 AM. She also reports several days of nausea with occasional vomiting as well as low back pain. She says she got knocked over by a car door yesterday onto her left hip. She is afebrile with normal vital signs other than elevated blood pressure. On physical examination she has suprapubic fullness and tenderness without guarding or rebound tenderness. She has no obvious signs of trauma but she has midline tenderness in the lumbar spine as well as bilateral paraspinous muscle tenderness which is difficult to differentiate from CVA tenderness. We will perform broad work-up with a full set of labs, EKG, and chest x-ray. We will also obtain CT of the abdomen pelvis to assess for evidence of colitis versus pancreatitis versus diverticulitis versus appendicitis versus pyelonephritis versus kidney stone versus other abnormality to explain the patient's presentation. Will also obtain CT lumbar spine to assess for evidence of fracture or other acute abnormality to explain the patient's urinary retention. Labs reveal no significant leukocytosis or anemia. Kidney function is normal and there are no significant electrolyte abnormalities. CT of the abdomen pelvis reveals findings of colonic diverticulosis only. CT of the lumbar spine reveals severe DJD finding but no encroachment into the spinal canal to suggest cauda equina syndrome. Rodriguez catheter was inserted with approximately 400 cc of urine return afterwards. Patient reports that she feels much better. She no longer has abdominal pain or tenderness. Plan to discharge the patient back to her facility with a Rodriguez catheter and antibiotics if urinalysis shows evidence of a urinary tract infection. She will follow up with urology to discuss removal of the Rodriguez catheter. Critical care attestation.: If time is entered above; I have spent that time in minutes in the direct care of this critically ill patient, excluding procedure time. ED Disposition Clinical Impression: Urinary retention Disposition: HOME / SELF CARE / HOMELESS Is pt being admited?: No Instructions: Acute Urinary Retention, Female, Indwelling Urinary Catheter Care, Adult Additional Instructions: A Rodriguez catheter has been inserted to drain urine from her bladder. You will need to follow-up with a urologist to discuss removal of this Rodriguez catheter. Return to the emergency department should he develop any new health concerns. Prescriptions: levoFLOXacin [Levaquin TAB] 750 mg PO QDAY #10 tablet Referrals: JONATHAN ANTOINE MD [Staff Physician] - 3-5 Days
[2021-02-05 22:25] LABS: INR 0.97 (0.87-1.13); Partial Thromboplastin Time 30.4 Sec. (24.2-36.6)
[2021-02-05 22:33] LABS: Alanine Aminotransferase 11 units/L (7-56); Albumin 4.3 g/dL (3.9-5)
--- NOTE | 2021-02-05 22:35 | Cat Scan Report ---
CT LUMBAR SPINE WITHOUT CONTRAST INDICATION / CLINICAL INFORMATION: midline tenderness. TECHNIQUE: Axial CT images were obtained through the lumbar spine. Sagittal and coronal reformatted i mages were produced. All CT scans at this location are performed using CT dose reduction for ALARA by means of automated exposure control. COMPARISON: 07/13/2020 FINDINGS: VERTEBRAE: No acute osseous abnormality. No significant bony encroachment into the spinal canal. ALIGNMENT: No significant abnormality. DISC SPACES: There is mild degenerative disc disease throughout the lumbar spine with severe degenera tion noted at L5-S1 where there is near complete collapse of the disc space. FACET JOINTS: There is mild degenerative facet disease throughout the lumbar spine. SPINAL CANAL: No significant abnormality. SACRUM:No significant abnormality of the visualized sacrum. PARASPINAL SOFT TISSUES: Bladder is moderately dilated. Atherosclerotic disease. ADDITIONAL FINDINGS: None. IMPRESSION: 1. No significant encroachment into the spinal canal. There is moderate dilation of the urinary bladd er. 2. Other findings as above Signer Name: Addison Rojas DO Signed: 02/05/2021 10:31 PM Workstation Name: [id number]
--- NOTE | 2021-02-05 22:35 | Cat Scan Report ---
CT ABDOMEN AND PELVIS WITHOUT CONTRAST INDICATION: low back pain. TECHNIQUE: Axial CT images were obtained through the abdomen and pelvis without IV contrast. All CT scans at [facility] location are performed using CT dose reduction for ALARA by means of automated exposure control. COMPARISON: CT abdomen pelvis 08/25/2020 FINDINGS: LOWER CHEST: No significant abnormality. LIVER: No significant abnormality. GALLBLADDER: Surgically absent BILE DUCTS: No significant abnormality. PANCREAS: No significant abnormality. SPLEEN: No significant abnormality. ADRENALS: No significant abnormality. RIGHT KIDNEY and URETER: No significant abnormality. LEFT KIDNEY and URETER: No significant abnormality. STOMACH and SMALL BOWEL: No significant abnormality. COLON: Moderate sigmoid diverticulosis without diverticulitis APPENDIX: No significant abnormality. PERITONEUM: No free fluid. No free air. No fluid collection. LYMPH NODES: No significant adenopathy. AORTA and ARTERIES: No significant abnormality. IVC and VEINS: No significant abnormality. URINARY BLADDER: No significant abnormality. REPRODUCTIVE ORGANS: Surgically absent ADDITIONAL FINDINGS: Small fat-containing ventral abdominal wall hernia. Calcified injection granulom as both gluteal subcutaneous soft tissues, unchanged SKELETAL SYSTEM: No significant abnormality. IMPRESSION: 1. Moderate colonic diverticulosis without diverticulitis 2. No urinary tract calculi or hydronephrosis Signer Name: Tyrese Alba MD Signed: 02/05/2021 10:31 PM Workstation Name: [id number]
[2021-02-05 22:53] LABS: Bilirubin,Direct < 0.2 mg/dL (0-0.2)
[2021-02-05 23:48] LABS: Bilirubin,Urine NEG (Negative); Blood,Urine NEG (Negative); Color,Urine Straw (Yellow); RBC,Urine < 1.0 /HPF (0.0-6.0); Urobilinogen,Urine < 2.0 mg/dL (<2.0); WBC,Urine < 1.0 /HPF (0.0-6.0)
[2021-02-06 04:27] VITALS: BP 150/90
--- NOTE | 2021-02-06 11:01 | Electrocardiograph Report ---
[facility] Test Date: 2021-02-05 Test Time: 23:27:12 Pat Name: AUGUSTIN BELL Department: Room: Gender: F Pit Inspector: [id number] : 1950 Requested By: NATE CONRAD Order Number: [id number] Reading MD: Della Han Measurements Intervals [place] Rate: 69 P: 69 SC: 178 QRS: -2 QRSD: 84 T: 62 QT: 432 QTc: 465 Interpretive Statements Sinus rhythm Compared to ECG 06/14/2020 20:18:11 Left ventricular hypertrophy no longer present Electronically Signed On 02-06-2021 11:01:16 EST by Della Han
== END 2021-02-06 04:25 | disposition home or self-care (01) ==
LOC: ED 17:02
DX: R33.9 Retention of urine, unspecified (principal); I10 Essential (primary) hypertension; E11.8 Type 2 diabetes mellitus with unspecified complications; Z90.49 Acquired absence of other specified parts of digestive tract; Z90.89 Acquired absence of other organs; F17.200 Nicotine dependence, unspecified, uncomplicated
CPT/HCPCS: 36415; 51702; 71045; 72131; 74176; 80053; 80076; 81001; 83690; 83735; 84484; 85025; 85610; 85730; 87040; 87086; 93005; 99285

== ENCOUNTER 2021-04-28 19:11 | Emergency (ER) | payer MEDICARE ==
[2021-04-28] MEDS ORDERED: ACETAMINOPHEN 500 MG TAB PO ONE (20:29)
--- NOTE | 2021-04-28 20:33 | Emergency Department Report ---
ED Fall HPI - General Chief Complaint: Fall Stated Complaint: FALL/RIB INJURY Time Seen by Provider: 04/28/21 20:24 Source: patient, EMS Mode of arrival: Stretcher Limitations: No Limitations - History of Present Illness Initial Comments: Chief complaint: I fell. I think I broke something. HPI: This is a 70-year-old female with history of hypertension, diabetes mellitus, GERD, hyperlipidemia, hypothyroidism, CKD, depression, CVA who presents with left rib cage pain, right upper arm pain after fall 6 days ago. Patient fell onto her walker. She has bruising of the left forehead. She denies loss of consciousness or neck pain. Moderately severe pain. MD Complaint: fall -: days(s) (6 days ago) Fall From: wheelchair When Fall Occurred: other (6 days ago) Fall Witnessed: no Place Fall Occurred: other ([place]) Loss of Consciousness: none Prolonged Down Time?: no Symptoms Prior to Fall: none Location: head, other (Left rib cage, right upper arm) Severity: moderate Severity scale (0 -10): 7 Context: tripped/slipped Associated Symptoms: denies - Related Data Home Medications Medication Instructions Recorded Confirmed Last Taken Amitriptyline 10 mg PO QHS 09/28/19 02/07/21 Unknown Aspirin 81 mg PO DAILY 09/28/19 02/07/21 Unknown Atorvastatin 40 mg PO QHS 09/28/19 02/07/21 Unknown Levemir VIAL 35 units SQ QHS 09/28/19 02/07/21 Unknown Levothyroxine 88 mcg PO QAC 09/28/19 02/07/21 Unknown Myrbetriq 25 mg PO DAILY 09/28/19 02/07/21 Unknown NovoLOG 100 UNITS/ML VIAL 10 units SQ TIDAC 09/28/19 02/07/21 Unknown allopurinoL 100 mg PO DAILY 09/28/19 02/07/21 Unknown Previous Rx's Medication Instructions Recorded Last Taken Type ARIPiprazole 7.5 mg PO QDAY #30 tablet 10/16/19 Unknown Rx Clopidogrel [Plavix] 75 mg PO DAILY #30 tablet 10/16/19 Unknown Rx DULoxetine [Cymbalta] 60 mg PO BID #60 capsule 10/16/19 Unknown Rx Ferrous Sulfate [Feosol 325 MG tab] 325 mg PO DAILY@0800 #30 tab 10/16/19 Unknown Rx Insulin Lispro [Humalog] 0 unit SUB-Q ACHS vial 10/16/19 Unknown Rx Melatonin [Melatonin 5MG TAB] 5 mg PO QHS tablet 10/16/19 Unknown Rx Pantoprazole [Protonix TAB] 20 mg PO QDAY #30 tablet. 10/16/19 Unknown Rx QUEtiapine [SEROquel] 50 mg PO QHS #30 tablet 10/16/19 Unknown Rx Topiramate [Topamax] 100 mg PO DAILY #90 tablet 10/16/19 Unknown Rx busPIRone [Buspar] 15 mg PO BID #60 tablet 10/16/19 Unknown Rx Acetaminophen [Tylenol] 650 mg PO Q8HR PRN #20 capsule 07/13/20 Unknown Rx Neomycin/Bacitracin/Polymyxinb 1 applicatio TP BID #14 oint...g. 07/13/20 Unknown Rx [Triple Antibiotic Ointment] Promethazine [Phenergan] 25 mg PO Q6HR PRN #15 tab 08/26/20 Unknown Rx Sennosides/Docusate Sodium [Senna 1 each PO BID #20 tablet 08/26/20 Unknown Rx Plus Tablet] amLODIPine 5 mg PO DAILY #30 tab 02/23/21 Unknown Rx carvediloL [Coreg] 25 mg PO BID #60 tablet 02/23/21 Unknown Rx Allergies Allergy/AdvReac Type Severity Reaction Status Date / Time adhesive tape AdvReac Unknown Verified 02/07/21 12:25 codeine AdvReac Unknown Verified 02/07/21 12:25 morphine AdvReac Unknown Verified 02/07/21 12:25 ondansetron AdvReac Unknown Verified 02/07/21 12:25 Penicillins AdvReac Unknown Verified 02/07/21 12:25 Sulfa (Sulfonamide AdvReac Unknown Verified 02/07/21 12:25 Antibiotics) ED Review of Systems ROS: Stated complaint: FALL/RIB INJURY Other details as noted in HPI Comment: All other systems reviewed and negative Constitutional: denies: chills, fever, malaise Respiratory: denies: cough, shortness of breath Cardiovascular: denies: chest pain Gastrointestinal: denies: abdominal pain Neurological: denies: headache ED Past Medical Hx - Past Medical History Previous Medical History?: Yes Hx Hypertension: Yes Hx Diabetes: Yes Hx Renal Disease: Yes Hx Arthritis: Yes Hx Headaches / Migraines: Yes Hx Seizures: No Hx Psychiatric Treatment: Yes - Surgical History Past Surgical History?: Yes Hx Cholecystectomy: Yes Hx Appendectomy: Yes - Social History Smoking Status: Never Smoker Substance Use Type: None - Medications Home Medications: Home Medications Medication Instructions Recorded Confirmed Last Taken Type Amitriptyline 10 mg PO QHS 09/28/19 02/07/21 Unknown History Aspirin 81 mg PO DAILY 09/28/19 02/07/21 Unknown History Atorvastatin 40 mg PO QHS 09/28/19 02/07/21 Unknown History Levemir VIAL 35 units SQ QHS 09/28/19 02/07/21 Unknown History Levothyroxine 88 mcg PO QAC 09/28/19 02/07/21 Unknown History Myrbetriq 25 mg PO DAILY 09/28/19 02/07/21 Unknown History NovoLOG 100 UNITS/ML VIAL 10 units SQ TIDAC 09/28/19 02/07/21 Unknown History allopurinoL 100 mg PO DAILY 09/28/19 02/07/21 Unknown History ARIPiprazole 7.5 mg PO QDAY #30 tablet 10/16/19 02/07/21 Unknown Rx Clopidogrel [Plavix] 75 mg PO DAILY #30 tablet 10/16/19 02/07/21 Unknown Rx DULoxetine [Cymbalta] 60 mg PO BID #60 capsule 10/16/19 02/07/21 Unknown Rx Ferrous Sulfate [Feosol 325 MG tab] 325 mg PO DAILY@0800 #30 tab 10/16/19 02/07/21 Unknown Rx Insulin Lispro [Humalog] 0 unit SUB-Q ACHS vial 10/16/19 02/07/21 Unknown Rx Melatonin [Melatonin 5MG TAB] 5 mg PO QHS tablet 10/16/19 02/07/21 Unknown Rx Pantoprazole [Protonix TAB] 20 mg PO QDAY #30 tablet. 10/16/19 02/07/21 Unknown Rx QUEtiapine [SEROquel] 50 mg PO QHS #30 tablet 10/16/19 02/07/21 Unknown Rx Topiramate [Topamax] 100 mg PO DAILY #90 tablet 10/16/19 02/07/21 Unknown Rx busPIRone [Buspar] 15 mg PO BID #60 tablet 10/16/19 02/07/21 Unknown Rx Acetaminophen [Tylenol] 650 mg PO Q8HR PRN #20 capsule 07/13/20 02/07/21 Unknown Rx Neomycin/Bacitracin/Polymyxinb 1 applicatio TP BID #14 oint...g. 07/13/20 02/07/21 Unknown Rx [Triple Antibiotic Ointment] Promethazine [Phenergan] 25 mg PO Q6HR PRN #15 tab 08/26/20 02/07/21 Unknown Rx Sennosides/Docusate Sodium [Senna 1 each PO BID #20 tablet 08/26/20 02/07/21 Unknown Rx Plus Tablet] amLODIPine 5 mg PO DAILY #30 tab 02/23/21 Unknown Rx carvediloL [Coreg] 25 mg PO BID #60 tablet 02/23/21 Unknown Rx ED Physical Exam - General Limitations: No Limitations General appearance: alert, in no apparent distress - Head Head exam: Present: normocephalic, other (Faint bruising left eyebrow) - Eye Eye exam: Present: normal appearance - ENT ENT exam: Present: mucous membranes moist - Neck Neck exam: Present: normal inspection, full ROM. Absent: tenderness, meningismus - Respiratory Respiratory exam: Present: normal lung sounds bilaterally. Absent: respiratory distress, wheezes, rales, rhonchi - Cardiovascular Cardiovascular Exam: Present: regular rate, normal rhythm, normal heart sounds. Absent: systolic murmur, diastolic murmur, rubs, gallop - GI/Abdominal GI/Abdominal exam: Present: soft, normal bowel sounds. Absent: distended, tenderness, guarding, rebound - Extremities Exam Extremities exam: Present: normal inspection - Expanded Upper Extremity Exam Right Shoulder Exam: Present: normal inspection, full ROM Upper Arm exam: Present: normal inspection, full ROM, tenderness. Absent: swell ing, abrasion, laceration, ecchymosis Elbow exam: Present: normal inspection, full ROM. Absent: tenderness, swelling, abrasion Forearm Wrist exam: Present: normal inspection, full ROM Hand Wrist exam: Present: normal inspection, full ROM - Back Exam Back exam: Present: normal inspection - Neurological Exam Neurological exam: Present: alert, oriented X3 - Psychiatric Psychiatric exam: Present: normal affect, normal mood - Skin Skin exam: Present: warm, dry, intact, normal color. Absent: rash ED Course Vital Signs 04/28/21 04/28/21 04/28/21 19:38 20:05 20:36 Temperature 98 F 98.1 F Pulse Rate 82 80 Respiratory 18 14 18 Rate Blood Pressure 158/78 Blood Pressure 129/70 [Left] O2 Sat by Pulse 100 100 Oximetry ED Medical Decision Making - Radiology Data Radiology results: report reviewed Patient Name: AUGUSTIN BELL Gender: Female Date of : 1950 Referring Provider: TREV COE Organization: [facility] Accession Number: [id number] Requested Date: April 28, 2021 20:33 Report Status: Final Requested Procedure: 1 Procedure Description: CT head/brain wo con Modality: CT Findings Reporting MD: Xavier Camilo Dictation Time: April 28, 2021 20:16 Sanitation Engineer: Not available Die Barber Date: CT BRAIN: 04/28/2021 INDICATION / CLINICAL INFORMATION: Trauma. COMPARISON: CT brain 02/21/2021 FINDINGS: BRAIN/INTRACRANIAL STRUCTURES: Unenhanced CT images of the brain were obtained and compared to the prior exam from 02/21/2021. There is been no change. There is no evidence of acute abnormality. Chronic ischemic encephalomalacia is present in the left frontal and parietal cortex. There is no evidence of acute ischemic injury, hemorrhage, or mass. There are no abnormal extra-axial fluid collections. Atherosclerotic vascular calcifications are present in the distal internal carotid arteries and vertebral arteries. EXTRACRANIAL STRUCTURES: Unremarkable. IMPRESSION: No acute abnormality. No change when compared to prior exam from 02/21/[address] scans at this location are performed using dose reduction to ALARA by means of automated exposure control. Signer Name: Xavier Camilo MD Signed: 04/28/2021 8:16 PM Workstation Name: [id number] Patient Name: AUGUSTIN BELL Gender: Female Date of : 1950 Referring Provider: TREV COE Organization: [facility] Accession Number: [id number] Requested Date: April 28, 2021 20:29 Report Status: Final Requested Procedure: 1 Procedure Description: XR humerus 2+V RT Modality: XR Findings Reporting MD: Brayan Reyna Dictation Time: April 28, 2021 20:35 Sanitation Engineer: Not available Die Barber Date: Right humerus 2 views INDICATION: Right humeral pain after fall IMPRESSION: No fracture of the humerus identified. Signer Name: Brayan Reyna MD Signed: 04/28/2021 8:35 PM Patient Name: AUGUSTIN BELL Gender: Female Date of : 1950 Referring Provider: TREV COE Organization: [facility] Accession Number: [id number] Requested Date: April 28, 2021 20:29 Report Status: Final Requested Procedure: 1 Procedure Description: XR ribs UNI w PA chest 3+V LT Modality: XR Findings Reporting MD: Brayan Reyna Dictation Time: April 28, 2021 20:35 Sanitation Engineer: Not available Die Barber Date: Rib series with frontal chest left 4 views INDICATION: Left chest pain following fall IMPRESSION: Heart size normal. Lungs are clear no pneumothorax. Diffuse osteopenia. No displaced fracture identified. Signer Name: Brayan Reyna MD Signed: 04/28/2021 8:35 PM Workstation Name: [id number] - Medical Decision Making 1. CHI negative head CT 2. right arm contusion, hegative humerus radiograph 3. chest wall contusion neg rib series Critical care attestation.: If time is entered above; I have spent that time in minutes in the direct care of this critically ill patient, excluding procedure time. ED Disposition Clinical Impression: Fall, Chest wall contusion, Arm contusion, Closed head injury Disposition: 01 HOME / SELF CARE / HOMELESS Is pt being admited?: No Does the pt Need Aspirin: No Condition: Stable Instructions: Contusion, Atir-ge-Xigl, Head Injury, Adult, Irml-[id number], Rib Contusion Referrals: LINDSAY DANIEL MD [Staff Physician] - 3-5 Days
--- NOTE | 2021-04-28 21:21 | Cat Scan Report ---
CT BRAIN: 04/28/2021 INDICATION / CLINICAL INFORMATION: Trauma. COMPARISON: CT brain 02/21/2021 FINDINGS: BRAIN/INTRACRANIAL STRUCTURES: Unenhanced CT images of the brain were obtained and compared to the pr ior exam from 02/21/2021. There is been no change. There is no evidence of acute abnormality. Chronic ischemic encephalomalacia is present in the left frontal and parietal cortex. There is no evidence of acute ischemic injury, hemorrhage, or mass. There are no abnormal extra-axial fluid collections. Atherosclerotic vascular calcifications are present in the distal internal carotid arteries and verte bral arteries. EXTRACRANIAL STRUCTURES: Unremarkable. IMPRESSION: No acute abnormality. No change when compared to prior exam from 02/21/[address] scans at this location are performed using dose reduction to ALARA by means of automated expos ure control. Signer Name: Xavier Camilo MD Signed: 04/28/2021 9:16 PM Workstation Name: [id number]
--- NOTE | 2021-04-28 21:39 | XRay Report ---
Right humerus 2 views INDICATION: Right humeral pain after fall IMPRESSION: No fracture of the humerus identified. Signer Name: Brayan Reyna MD Signed: 04/28/2021 9:35 PM Workstation Name: [id number]
--- NOTE | 2021-04-28 21:40 | XRay Report ---
Rib series with frontal chest left 4 views INDICATION: Left chest pain following fall IMPRESSION: Heart size normal. Lungs are clear no pneumothorax. Diffuse osteopenia. No displaced frac ture identified. Signer Name: Brayan Reyna MD Signed: 04/28/2021 9:35 PM Workstation Name: [id number]
[2021-04-29 09:35] VITALS: BP 139/97
== END 2021-04-29 16:36 | disposition home or self-care (01) ==
LOC: ED 19:11
DX: S20.212A Contusion of left front wall of thorax, initial encounter (principal); S40.021A Contusion of right upper arm, initial encounter; S00.12XA Contusion of left eyelid and periocular area, initial encounter; I10 Essential (primary) hypertension; E11.9 Type 2 diabetes mellitus without complications; M19.90 Unspecified osteoarthritis, unspecified site; G43.909 Migraine, unspecified, not intractable, without status migrainosus; Z90.49 Acquired absence of other specified parts of digestive tract; Z88.5 Allergy status to narcotic agent; Z88.0 Allergy status to penicillin; Z88.8 Allergy status to other drugs, medicaments and biological substances; Z88.2 Allergy status to sulfonamides; Z79.899 Other long term (current) drug therapy; W18.39XA Other fall on same level, initial encounter; Y93.89 Activity, other specified; Y92.89 Other specified places as the place of occurrence of the external cause; Y99.8 Other external cause status; Z79.82 Long term (current) use of aspirin
CPT/HCPCS: 70450; 82962; 99284